=== PATIENT | female | born 1945 | race American Indian/Alaskan Native ===

== ENCOUNTER 2018-03-30 20:19 | Emergency (ER) | payer MEDICARE ==
[2018-03-30 21:09] LABS: Basophils % (Auto) 0.9 % (0.0-1.8); Eosinophils % (Auto) 0.8 % (0.0-4.3); Hematocrit 51.3 % (30.3-42.9); Hemoglobin 16.5 gm/dl (10.1-14.3); Lymphocytes # (Auto) 2.6 K/mm3 (1.2-5.4); Lymphocytes % (Auto) 49.7 % (13.4-35.0); Mean Corpuscular HGB Conc 32 % (30-34); Mean Corpuscular Hemoglobin 26 pg (28-32); Mean Corpuscular Volume 81 fl (79-97); Monocytes # (Auto) 0.3 K/mm3 (0.0-0.8); Red Blood Count 6.34 M/mm3 (3.65-5.03)
[2018-03-30 21:17] LABS: Platelet Count 192 K/mm3 (140-440)
[2018-03-30 21:20] LABS: INR 0.94 (0.87-1.13); Partial Thromboplastin Time 33.7 Sec. (24.2-36.6)
[2018-03-30 21:24] LABS: Alanine Aminotransferase 12 units/L (7-56); Albumin 4.6 g/dL (3.9-5); BUN/Creatinine Ratio 14; Blood Urea Nitrogen 11 mg/dL (7-17); Calcium 9.6 mg/dL (8.4-10.2); Hemolysis Index 10
--- NOTE | 2018-03-30 21:52 | Cat Scan Report ---
FINAL REPORT EXAM: CT HEAD/BRAIN WO CON HISTORY: headache COMPARISON: CT of the head from March 13, 2018. TECHNIQUE: Axial images obtained skull base through vertex. FINDINGS: No acute intracranial hemorrhage, midline shift or pathologic extra axial fluid collection. Ventricles and cisterns are normal in size and configuration for the patient's age. Phillips-white differentiation preserved. Calvarium grossly intact. Mild to moderate calcified plaque along the carotid siphons. Ocular globes are grossly unremarkable. Mild mucosal thickening the paranasal sinuses. Small amount of fluid within the caudal left mastoid air cells. IMPRESSION: No grossly acute intracranial abnormality.
--- NOTE | 2018-03-31 00:10 | Emergency Department Report ---
ED Headache HPI - General Chief Complaint: Headache Stated Complaint: RIGHT SIDE OF THE HEAD PAIN Time Seen by Provider: 03/30/18 23:59 Source: patient - History of Present Illness Initial Comments: Patient is 72 years old female with past medical history of hypertension and left sided weakness due to previous stroke. Patient was recently discharged from the hospital 2 weeks ago for stroke. Patient presented to the ER complaining of headache since yesterday. Describes her headache as right parietal area mild. Does not associate with nausea or vomiting. Patient denied any neck stiffness or fever. Patient denied any new weakness, numbness or tingling sensation. No bowel or bladder incontinence. Timing/Duration: 24 hours Quality: mild Head Injury Location: temporal Recent Head Trauma: no recent headache/trauma, frequent headaches Modifying Factors: worse with: cold therapy, exposure to light, immobilization, medication, movement, rest, other Associated Symptoms: denies: denies symptoms, confusion, fatigue, facial pain, fever/chills, flushing, loss of consciousness, nausea/vomiting, nasal congestion , nasal drainage, numbness in legs/feet, rash, seizures, sinus infection, stiff neck, vision changes, weakness, other Allergies/Adverse Reactions: Allergies aspirin Adverse Reaction (Verified 03/13/18 02:05) Bleeding blood thinners Adverse Reaction (Uncoded 08/09/16 01:53) Bleeding Home Medications: Ambulatory Orders Losartan [Cozaar] 100 mg PO QDAY #30 tablet 12/18/15 Cyclobenzaprine HCl [Flexeril 5 MG TAB] 5 mg PO TID #7 tab 02/13/16 amLODIPine [Norvasc] 10 mg PO QDAY 02/13/16 Nitrofurantoin [place]/M-Cryst [Macrobid CAP] 100 mg PO Q12HR #13 capsule 03/04/16 ALBUTEROL Inhaler [ProAir HFA Inhaler] 2 puff IH QID PRN #1 inhalation 06/04/16 Cyanocobalamin (Vitamin B-12) [Vitamin B-12] 1,000 mcg PO DAILY #30 tablet 03/14 Diazepam Tab [Valium] 0.5 mg PO TID PRN #21 tablet 03/14/18 Pravastatin [Pravachol] 80 mg PO QHS #30 tablet 03/15/18 ED Review of Systems ROS: Stated complaint: RIGHT SIDE OF THE HEAD PAIN Other details as noted in HPI Comment: All other systems reviewed and negative Constitutional: denies: chills, fever Eyes: denies: eye pain ENT: denies: throat pain Cardiovascular: denies: chest pain, palpitations, dyspnea on exertion, orthopnea , edema, syncope, paroxysmal nocturnal dyspnea Gastrointestinal: denies: abdominal pain, nausea, vomiting, diarrhea, constipation, hematemesis, melena, hematochezia Neurological: denies: headache, weakness, numbness, paresthesias ED Past Medical Hx - Past Medical History Previous Medical History?: Yes Hx Hypertension: Yes Hx CVA: Yes (old chart no mri documentation on previous admits for same left side weakne) Hx Heart Attack/AMI: No Hx Congestive Heart Failure: No Hx Diabetes: No Hx Liver Disease: No Hx Renal Disease: No Hx Asthma: No Hx COPD: No Additional medical history: Hx. left clavicle fx., h/o muscle spasms. anyerusim to behind left eye. - Surgical History Past Surgical History?: Yes Additional Surgical History: Herniated disk cspine 2001 C5-6, fusion,NECK SURGERY - Social History Smoking Status: Current Every Day Smoker Substance Use Type: None - Medications Home Medications: Home Medications Medication Instructions Recorded Confirmed Last Taken Type Losartan [Cozaar] 100 mg PO QDAY #30 tablet 12/18/15 03/13/18 1 Day Ago Rx ~03/12/18 Cyclobenzaprine HCl [Flexeril 5 MG 5 mg PO TID #7 tab 02/13/16 03/13/18 1 Week Ago Rx TAB] ~03/06/18 amLODIPine [Norvasc] 10 mg PO QDAY 02/13/16 03/13/18 1 Day Ago History ~03/12/18 Nitrofurantoin [place]/M-Cryst 100 mg PO Q12HR #13 capsule 03/04/16 03/13/18 1 Week Ago Rx [Macrobid CAP] ~03/06/18 ALBUTEROL Inhaler [ProAir HFA 2 puff IH QID PRN #1 inhalation 06/04/16 03/13/18 1 Week Ago Rx Inhaler] ~03/06/18 Cyanocobalamin (Vitamin B-12) 1,000 mcg PO DAILY #30 tablet 03/14/18 Unknown Rx [Vitamin B-12] Diazepam Tab [Valium] 0.5 mg PO TID PRN #21 tablet 03/14/18 Unknown Rx Pravastatin [Pravachol] 80 mg PO QHS #30 tablet 03/15/18 Unknown Rx ED Physical Exam - General Limitations: No Limitations General appearance: alert, in no apparent distress - Head Head exam: Present: atraumatic, normocephalic - Eye Eye exam: Present: normal appearance, PERRL - ENT ENT exam: Present: normal exam, normal orophraynx, mucous membranes moist - Neck Neck exam: Present: normal inspection, full ROM. Absent: tenderness, meningismus, lymphadenopathy, thyromegaly - Respiratory Respiratory exam: Present: normal lung sounds bilaterally. Absent: respiratory distress, wheezes, rales, rhonchi, stridor, chest wall tenderness, accessory muscle use, decreased breath sounds, prolonged expiratory - Cardiovascular Cardiovascular Exam: Present: regular rate, normal rhythm, normal heart sounds - GI/Abdominal GI/Abdominal exam: Present: soft, normal bowel sounds. Absent: distended, tenderness, guarding, rebound, rigid, organomegaly, mass, bruit, pulsatile mass , hernia - Extremities Exam Extremities exam: Present: normal inspection, full ROM, normal capillary refill - Back Exam Back exam: Present: normal inspection, full ROM. Absent: tenderness, CVA tenderness (R), CVA tenderness (L), muscle spasm, vertebral tenderness - Neurological Exam Neurological exam: Present: alert, oriented X3, CN II-XII intact, motor sensory deficit (old left CVA), reflexes normal - Skin Skin exam: Present: warm, intact, normal color ED Course Vital Signs 03/30/18 20:31 Temperature 97.7 F Pulse Rate 71 Respiratory 17 Rate Blood Pressure 120/64 O2 Sat by Pulse 98 Oximetry - Reevaluation(s) Reevaluation #1: 03/31/18 00:10 Patient stated that her headache is completely resolved now. She stated that she wanted to take her Valium that she is taking for her left upper and lower extremity spasticity. ED Medical Decision Making - Lab Data Result diagrams: 03/30/18 21:00 03/30/18 21:00 Critical care attestation.: If time is entered above; I have spent that time in minutes in the direct care of this critically ill patient, excluding procedure time. ED Disposition Clinical Impression: Headache, Hemiparesis due to old stroke Disposition: DC-01 TO HOME OR SELFCARE Is pt being admited?: No Condition: Stable Instructions: Acute Headache (ED) Referrals: ARANZA THOMPSON MD [Primary Care Provider] - 3-5 Days
[2018-03-31 00:21] VITALS: BP 109/63
== END 2018-03-31 00:20 | disposition home or self-care (01) ==
LOC: ED 20:19
DX: G81.90 Hemiplegia, unspecified affecting unspecified side (principal); I10 Essential (primary) hypertension; F17.200 Nicotine dependence, unspecified, uncomplicated; Z86.73 Personal history of transient ischemic attack (TIA), and cerebral infarction without residual deficits; Z88.6 Allergy status to analgesic agent; Z88.8 Allergy status to other drugs, medicaments and biological substances
CPT/HCPCS: 36415; 70450; 80053; 85025; 85610; 85730; 99284

== ENCOUNTER 2018-04-23 07:21 | Inpatient (IN) | payer MEDICARE ==
[2018-04-23 07:44] LABS: Basophils # (Auto) 0.1 K/mm3 (0.0-0.1); Eosinophils # (Auto) 0.1 K/mm3 (0.0-0.4); Eosinophils % (Auto) 1.3 % (0.0-4.3); Hematocrit 46.6 % (30.3-42.9); Hemoglobin 15.2 gm/dl (10.1-14.3); Lymphocytes # (Auto) 2.8 K/mm3 (1.2-5.4); Lymphocytes % (Auto) 53.6 % (13.4-35.0); Mean Corpuscular HGB Conc 33 % (30-34); Mean Corpuscular Hemoglobin 27 pg (28-32); Mean Corpuscular Volume 82 fl (79-97); Monocytes # (Auto) 0.4 K/mm3 (0.0-0.8); Red Blood Count 5.66 M/mm3 (3.65-5.03); Red Cell Distribution Width 16.1 % (13.2-15.2)
[2018-04-23 07:48] LABS: Platelet Count 187 K/mm3 (140-440)
[2018-04-23 07:58] LABS: INR 0.95 (0.87-1.13)
--- NOTE | 2018-04-23 07:58 | Cat Scan Report ---
CT HEAD WITHOUT CONTRAST: HISTORY: Left upper and left lower extremity weakness, CVA. TECHNIQUE: Sequential 2.5mm CT images. COMPARISON: 03/30/18. FINDINGS: Cerebral Parenchyma: Within normal limits. Mild age-appropriate volume loss is noted. Cerebellum: Within normal limits. Brainstem: Within normal limits. Ventricles: Normal. Sella: Normal. Extra-axial spaces: Normal. Basal Cisterns: Normal. Intracranial Hemorrhage: None. Midline Shift: None. Calvarium: Normal. Sinuses: Normal. Mastoid Air Cells: Normal. Visualized Orbits: Normal. IMPRESSION: Cranial CT scan within normal limits. No change since 03/30/18.
[2018-04-23 07:59] LABS: Partial Thromboplastin Time 33.7 Sec. (24.2-36.6); Thrombin Time 15.9 Sec. (15.1-19.6)
[2018-04-23 08:00] LABS: Creatine Kinase MB 1.4 ng/mL (0.0-4.0)
--- NOTE | 2018-04-23 08:16 | Emergency Department Report ---
HPI - General Chief Complaint: Neuro Symptoms/Deficit Time Seen by Provider: 04/23/18 07:56 - HPI HPI: 72-year-old AA female presented to the emergency department with complaint of a left-sided headache, some decreased sensation to the left arm and left leg and some increased rigidity to the left arm that started around 3 AM this morning. She denies any vision change, slurred speech, chest pain, shortness of breath or fever. Patient has a history of previous CVA with left-sided deficits. She did not take anything for her symptoms prior to presentation. In reviewing the charts, it appears that the patient has been admitted in the past for similar left-sided complaints. She says that she has a neurologist through the [facility] system. Recent travel or sick contacts at home. The patient usually ambulates using a cane but can do so without any instability. She says that today she feels like she has trouble walking secondary to the increased left-sided weakness. ED Past Medical Hx - Past Medical History Hx Hypertension: Yes Hx CVA: Yes (old chart no mri documentation on previous admits for same left side weakne) Hx Heart Attack/AMI: No Hx Congestive Heart Failure: No Hx Diabetes: No Hx Liver Disease: No Hx Renal Disease: No Hx Asthma: No Hx COPD: No Additional medical history: Hx. left clavicle fx., h/o muscle spasms. anyerusim to behind left eye. - Surgical History Additional Surgical History: Herniated disk cspine 2002 C5-6, fusion,NECK SURGERY - Social History Smoking Status: Never Smoker Substance Use Type: Alcohol - Medications Home Medications: Home Medications Medication Instructions Recorded Confirmed Last Taken Type Losartan [Cozaar] 100 mg PO QDAY #30 tablet 12/18/15 03/13/18 1 Day Ago Rx ~03/12/18 Cyclobenzaprine HCl [Flexeril 5 MG 5 mg PO TID #7 tab 02/13/16 03/13/18 1 Week Ago Rx TAB] ~03/06/18 amLODIPine [Norvasc] 10 mg PO QDAY 02/13/16 03/13/18 1 Day Ago History ~03/12/18 Nitrofurantoin [place]/M-Cryst 100 mg PO Q12HR #13 capsule 03/04/16 03/13/18 1 Week Ago Rx [Macrobid CAP] ~03/06/18 ALBUTEROL Inhaler [ProAir HFA 2 puff IH QID PRN #1 inhalation 06/04/16 03/13/18 1 Week Ago Rx Inhaler] ~03/06/18 Cyanocobalamin (Vitamin B-12) 1,000 mcg PO DAILY #30 tablet 03/14/18 Unknown Rx [Vitamin B-12] Diazepam Tab [Valium] 0.5 mg PO TID PRN #21 tablet 03/14/18 Unknown Rx Pravastatin [Pravachol] 80 mg PO QHS #30 tablet 03/15/18 Unknown Rx ED Review of Systems ROS: Stated complaint: NEURO SYMPTOMS Other details as noted in HPI Constitutional: weakness. denies: fever Eyes: denies: eye pain, eye discharge, vision change ENT: denies: ear pain, throat pain Respiratory: denies: cough, shortness of breath, wheezing Cardiovascular: denies: chest pain, palpitations Gastrointestinal: denies: abdominal pain, nausea, diarrhea Genitourinary: denies: urgency, dysuria, discharge Musculoskeletal: myalgia. denies: joint swelling Skin: denies: rash, lesions Neurological: headache, weakness, numbness Physical Exam - Physical Exam Vital Signs: Vital Signs 04/23/18 07:28 Temperature 97.7 F Pulse Rate 73 Respiratory 18 Rate Blood Pressure 148/73 O2 Sat by Pulse 97 Oximetry Physical Exam: GENERAL: The patient is well-developed well-nourished. HENT: Normocephalic. Atraumatic. Patient has moist mucous membranes. EYES: Extraocular motions are intact. Pupils equal reactive to light bilaterally. No nystagmus. NECK: Supple. Trachea is midline. CHEST/LUNGS: Clear to auscultation. There is no respiratory distress noted. HEART/CARDIOVASCULAR: Regular. There is no tachycardia. There is no murmur. ABDOMEN: Abdomen is soft, nontender. Patient has normal bowel sounds. There is no abdominal distention. SKIN: Skin is warm and dry. NEURO: The patient is awake, alert, and oriented. The patient is cooperative. There is normal speech. She has left upper extremity drift but it does not hit the head. She has trouble raising the left upper extremity off of the bed and it drifts down and hits the bed again. She has decreased sensation to the left side of the face, arm and leg when compared to the right. No facial asymmetry. MUSCULOSKELETAL: There is no tenderness or deformity. There is no evidence of acute injury. ED Course Vital Signs 04/23/18 07:28 Temperature 97.7 F Pulse Rate 73 Respiratory 18 Rate Blood Pressure 148/73 O2 Sat by Pulse 97 Oximetry - Reevaluation(s) Reevaluation #1: 04/23/18 11:10 RESULT SUMMARY: 4 points NIH Stroke Scale INPUTS: 1A: Level of consciousness > 0 = Alert; keenly responsive 1B: Ask month and age > 0 = Both questions right 1C: 'Blink eyes' & 'squeeze hands' > 0 = Performs both tasks 2: Horizontal extraocular movements > 0 = Normal 3: Visual bernal > 0 = No visual loss 4: Facial palsy > 0 = Normal symmetry 5A: Left arm motor drift > 1 = Drift, but doesn't hit bed 5B: Right arm motor drift > 0 = No drift for 10 seconds 6A: Left leg motor drift > 2 = Drift, hits bed 6B: Right leg motor drift > 0 = No drift for 5 seconds 7: Limb Ataxia > 0 = No ataxia 8: Sensation > 1 = Mild-moderate loss: less sharp/more dull 9: Language/aphasia > 0 = Normal; no aphasia 10: Dysarthria > 0 = Normal 11: Extinction/inattention > 0 = No abnormality - Consultations Consultation #1: 04/23/18 11:15 I spoke to the telemedicine neurologist, Dr. Garrison, regarding the patient's presentation and symptoms. She agrees that the patient does not appear to to be a TPA candidate for multiple reasons include being outside of the window, alleged stroke within the past 3 months and the patient appears to have an allergy to blood thinners. However Dr. Garrison recommends admission for further workup including MRI. ED Medical Decision Making - Lab Data Result diagrams: 04/23/18 07:30 04/23/18 07:03 - EKG Data -: EKG Interpreted by Or EKG shows normal: sinus rhythm, axis, intervals, QRS complexes, ST-T waves Rate: normal - EKG Data When compared to previous EKG there are: previous EKG unavailable Interpretation: normal EKG - Radiology Data Radiology results: report reviewed CT HEAD WITHOUT CONTRAST: HISTORY: Left upper and left lower extremity weakness, CVA. TECHNIQUE: Sequential 2.5mm CT images. COMPARISON: 03/30/18. FINDINGS: Cerebral Parenchyma: Within normal limits. Mild age-appropriate volume loss is noted. Cerebellum: Within normal limits. Brainstem: Within normal limits. Ventricles: Normal. Sella: Normal. Extra-axial spaces: Normal. Basal Cisterns: Normal. Intracranial Hemorrhage: None. Midline Shift: None. Calvarium: Normal. Sinuses: Normal. Mastoid Air Cells: Normal. Visualized Orbits: Normal. IMPRESSION: Cranial CT scan within normal limits. No change since 03/30/18. Transcribed By: TTR Dictated By: YEMI FLEMING JR, MD Electronically Authenticated By: YEMI FLEMING JR, MD Signed Date/Time: 04/23/18 9475 - Medical Decision Making Patient presented as a code stroke secondary to some acute left-sided decreased sensation and weakness. She does have history of previous CVA with left-sided deficits and there is some records that state that there is a history of left- sided spastic hemiparesis. CT of the head did not show any bleed, shift, mass or any acute process. However the patient's symptoms started sometime around 3 AM and given the timing is not definitive. The patient was here for a code stroke and had a negative CT by about 815. She does not appear to be a TPA candidate. I spoke with the telemedicine neurologist who agrees that no TPA is to be given and also does not feel that it is necessary for CT angiography at this time. However she does encourage admission for further stroke workup including MRI. The patient allegedly had a stroke within the last 3 months and also is a contraindication to TPA. She also has an allergy to aspirin and "blood thinners." She will be admitted to the hospital for further evaluation and treatment was accepted for admission by the hospitalist service. I spoke with Dr. Velez regarding the admission. - Differential Diagnosis CVA, TIA, muscle spasms, complex migraine Critical Care Time: No Critical care attestation.: If time is entered above; I have spent that time in minutes in the direct care of this critically ill patient, excluding procedure time. ED Disposition Clinical Impression: Left-sided weakness, Left sided numbness Headache Qualifiers: Headache type: unspecified Headache chronicity pattern: unspecified pattern Intractability: not intractable Qualified Code(s): R51 - Headache Disposition: DC-09 OP ADMIT IP TO THIS HOSP Is pt being admited?: Yes Does the pt Need Aspirin: No Condition: Stable Referrals: PRIMARY CARE, [Primary Care Provider] - 3-5 Days Time of Disposition: 11:15
[2018-04-23 09:25] LABS: Alanine Aminotransferase 16 units/L (7-56); Albumin 4.1 g/dL (3.9-5); BUN/Creatinine Ratio 15; Blood Urea Nitrogen 9 mg/dL (7-17); Hemolysis Index 7
[2018-04-23 13:05] LABS: Bilirubin,Urine NEG (Negative); Blood,Urine NEG (Negative); Color,Urine Yellow (Yellow); Protein,Urine <15 mg/dL mg/dL (Negative); Urobilinogen,Urine < 2.0 mg/dL (<2.0)
[2018-04-23] MEDS ORDERED: AMBIEN PO PRN (18:31)
[2018-04-23] MEDS ORDERED: TYLENOL PO PRN (18:31)
[2018-04-23] MEDS ORDERED: SODIUM CHLORIDE FLUSH SYRINGE 10 ML IV PRN ×2 (18:31→18:34)
[2018-04-23] MEDS ORDERED: MORPHINE IV PRN (18:31)
[2018-04-23] MEDS ORDERED: PERCOCET 5/325 PO PRN (18:31)
[2018-04-23] MEDS ORDERED: ZOFRAN IV PRN (18:31)
--- NOTE | 2018-04-23 18:31 | History and Physical Report ---
History of Present Illness Date of examination: 04/23/18 Date of admission: 04/23/18 11:36 Medications and Allergies Allergies Allergy/AdvReac Type Severity Reaction Status Date / Time aspirin AdvReac Bleeding Verified 03/13/18 02:05 blood thinners AdvReac Bleeding Uncoded 08/09/16 01:53 Home Medications Medication Instructions Recorded Confirmed Last Taken Type Losartan [Cozaar] 100 mg PO QDAY #30 tablet 12/18/15 04/23/18 04/22/18 Rx Amlodipine [place] [Norvasc] 10 mg PO QDAY 04/23/18 04/23/18 04/22/18 History Cyclobenzaprine HCl [Flexeril 5 MG 5 mg PO BID 04/23/18 04/23/18 04/22/18 History TAB] Diazepam [Valium] 5 mg PO BID 04/23/18 04/23/18 Unknown History Oxycodone HCl [oxyCODONE TAB] 10 mg PO Q8H 04/23/18 04/23/18 Unknown History Exam - Constitutional Vitals: Temp Pulse Resp BP Pulse Ox 97.7 F 70 14 144/75 98 04/23/18 07:28 04/23/18 16:45 04/23/18 16:45 04/23/18 16:45 04/23/18 16:30 Results - Labs CBC & Chem 7: 04/23/18 07:30 04/23/18 07:03 Labs: Laboratory Last Values WBC 5.2 K/mm3 (4.5-11.0) 04/23/18 07:30 RBC 5.66 M/mm3 (3.65-5.03) H 04/23/18 07:30 Hgb 15.2 gm/dl (10.1-14.3) H 04/23/18 07:30 Hct 46.6 % (30.3-42.9) H 04/23/18 07:30 MCV 82 fl (79-97) 04/23/18 07:30 MCH 27 pg (28-32) L 04/23/18 07:30 MCHC 33 % (30-34) 04/23/18 07:30 RDW 16.1 % (13.2-15.2) H 04/23/18 07:30 Plt Count 187 K/mm3 (140-440) 04/23/18 07:30 Lymph % (Auto) 53.6 % (13.4-35.0) H 04/23/18 07:30 [place] % (Auto) 7.0 % (0.0-7.3) 04/23/18 07:30 Eos % (Auto) 1.3 % (0.0-4.3) 04/23/18 07:30 Baso % (Auto) 1.0 % (0.0-1.8) 04/23/18 07:30 Lymph # 2.8 K/mm3 (1.2-5.4) 04/23/18 07:30 [place] # 0.4 K/mm3 (0.0-0.8) 04/23/18 07:30 Eos # 0.1 K/mm3 (0.0-0.4) 04/23/18 07:30 Baso # 0.1 K/mm3 (0.0-0.1) 04/23/18 07:30 Seg Neutrophils % 37.1 % (40.0-70.0) L 04/23/18 07:30 Seg Neutrophils # 1.9 K/mm3 (1.8-7.7) 04/23/18 07:30 PT 13.2 Sec. (12.2-14.9) 04/23/18 07:30 INR 0.95 (0.87-1.13) 04/23/18 07:30 APTT 33.7 Sec. (24.2-36.6) 04/23/18 07:30 Thrombin Time 15.9 Sec. (15.1-19.6) 04/23/18 07:30 Sodium 141 mmol/L (137-145) 04/23/18 07:03 Potassium 4.0 mmol/L (3.6-5.0) 04/23/18 07:03 Chloride 106.0 mmol/L (98-107) 04/23/18 07:03 Carbon Dioxide 21 mmol/L (22-30) L 04/23/18 07:03 Anion Gap 18 mmol/L 04/23/18 07:03 BUN 9 mg/dL (7-17) 04/23/18 07:03 Creatinine 0.6 mg/dL (0.7-1.2) L 04/23/18 07:03 Estimated GFR > 60 ml/min 04/23/18 07:03 BUN/Creatinine Ratio 15 % 04/23/18 07:03 Glucose 85 mg/dL (65-100) 04/23/18 07:03 POC Glucose 74 (70-105) 04/23/18 08:01 Calcium 9.0 mg/dL (8.4-10.2) 04/23/18 07:03 Total Bilirubin 0.30 mg/dL (0.1-1.2) 04/23/18 07:03 AST 16 units/L (5-40) 04/23/18 07:03 ALT 16 units/L (7-56) 04/23/18 07:03 Alkaline Phosphatase 109 units/L (35-129) 04/23/18 07:03 Total Creatine Kinase 88 units/L (30-135) 04/23/18 07:30 CK-MB (CK-2) 1.4 ng/mL (0.0-4.0) 04/23/18 07:30 CK-MB (CK-2) Rel Index 1.5 (0-4) 04/23/18 07:30 Troponin T < 0.010 ng/mL (0.00-0.029) 04/23/18 07:30 Total Protein 6.9 g/dL (6.3-8.2) 04/23/18 07:03 Albumin 4.1 g/dL (3.9-5) 04/23/18 07:03 Albumin/Globulin Ratio 1.5 % 04/23/18 07:03 Urine Color Yellow (Yellow) 04/23/18 11:35 Urine Turbidity Clear (Clear) 04/23/18 11:35 Urine pH 7.0 (5.0-7.0) 04/23/18 11:35 Ur Specific [place] 1.006 (1.003-1.030) 04/23/18 11:35 Urine Protein <15 mg/dl mg/dL (Negative) 04/23/18 11:35 Urine Glucose (UA) Neg mg/dL (Negative) 04/23/18 11:35 Urine Ketones Neg mg/dL (Negative) 04/23/18 11:35 Urine Blood Neg (Negative) 04/23/18 11:35 Urine Nitrite Neg (Negative) 04/23/18 11:35 Urine Bilirubin Neg (Negative) 04/23/18 11:35 Urine Urobilinogen < 2.0 mg/dL (<2.0) 04/23/18 11:35 Ur Leukocyte Esterase Sm (Negative) 04/23/18 11:35 Urine WBC (Auto) 3.0 /HPF (0.0-6.0) 04/23/18 11:35 Urine RBC (Auto) 2.0 /HPF (0.0-6.0) 04/23/18 11:35 U Epithel Cells (Auto) < 1.0 /HPF (0-13.0) 04/23/18 11:35
[2018-04-23] MEDS ORDERED: NON-FORMULARY (Losartan [Cozaar] 100 MG) PO SCH (18:45)
[2018-04-23] MEDS ORDERED: NON-FORMULARY (Oxycodone Hcl [Oxycodone Tab] 10 MG) PO SCH (18:45)
[2018-04-23] MEDS ORDERED: NACL 0.9% 1000 ML 1,000 ML IV SCH (19:00)
[2018-04-23] MEDS: VALIUM PO SCH (21:45)
[2018-04-23] MEDS ORDERED: NON-FORMULARY (Cyclobenzaprine Hcl [Flexeril 5 Mg Tab] 5 MG) PO SCH (22:00)
[2018-04-23] MEDS: ROXICODONE PO SCH (22:20)
[2018-04-23] MEDS: FLEXERIL PO SCH (22:22)
[2018-04-23] MEDS: NORVASC PO SCH (22:22)
[2018-04-23] MEDS: COZAAR PO SCH (22:23)
[2018-04-23] MEDS: SODIUM CHLORIDE FLUSH SYRINGE 10 ML IV SCH (22:25)
[2018-04-23] MEDS: PEPCID PO SCH (22:25)
[2018-04-24 06:37] LABS: Hematocrit 45.3 % (30.3-42.9); Hemoglobin 14.5 gm/dl (10.1-14.3); Mean Corpuscular HGB Conc 32 % (30-34); Mean Corpuscular Hemoglobin 26 pg (28-32); Mean Corpuscular Volume 82 fl (79-97); Platelet Count 158 K/mm3 (140-440); Red Blood Count 5.51 M/mm3 (3.65-5.03); Red Cell Distribution Width 15.6 % (13.2-15.2)
[2018-04-24] MEDS: ROXICODONE PO SCH ×3 (07:00→22:28)
[2018-04-24 07:08] LABS: Alanine Aminotransferase 14 units/L (7-56); Albumin 3.6 g/dL (3.9-5); BUN/Creatinine Ratio 17; Blood Urea Nitrogen 10 mg/dL (7-17); Calcium 9.1 mg/dL (8.4-10.2); Chol/HDL Ratio 4.24 %; HDL Cholesterol 50 mg/dL (40-59); Hemolysis Index 15; LDL Cholesterol,Direct 150 mg/dL (50-130)
[2018-04-24 08:38] LABS: Total Cells Counted 100
[2018-04-24 08:39] LABS: Large Platelets Few; Platelet Estimate Cons; RBC Morphology Normal
[2018-04-24] MEDS ORDERED: ASPIRIN PO SCH (10:00)
[2018-04-24] MEDS: COZAAR PO SCH (10:08)
[2018-04-24] MEDS: NORVASC PO SCH (10:09)
[2018-04-24] MEDS: VALIUM PO SCH ×2 (10:46→22:27)
[2018-04-24] MEDS: FLEXERIL PO SCH ×2 (10:46→22:25)
[2018-04-24] MEDS: PEPCID PO SCH ×2 (10:49→22:24)
[2018-04-24] MEDS: SODIUM CHLORIDE FLUSH SYRINGE 10 ML IV SCH ×2 (10:50→22:26)
[2018-04-24] MEDS: HEPARIN SUB-Q SCH ×2 (11:00→22:24)
--- NOTE | 2018-04-24 11:19 | Event Note ---
Date: 04/23/18 See dictated H/P in the reports
--- NOTE | 2018-04-24 12:38 | History and Physical Report ---
CHIEF COMPLAINT: Left-sided weakness and decreased sensation to the left arm and left leg since 3:00 a.m. this morning. HISTORY OF PRESENT ILLNESS: A 72-year-old -[place] female with history of hypertension, cerebrovascular accident from few years ago with residual left-sided weakness, comes in for left-sided headache and decreased sensation in the left arm and left leg and also dysarthria and left arm weakness, which is more pronounced. Left leg weakness is the same as before. The patient denies any vision changes. Has some slurred speech, which has resolved while in the Emergency Room. No shortness of breath. No chest pain. The patient has been admitted in the past for left-sided complaints and she goes to [facility] for the Neurology followups. No recent travel. The patient ambulates using a cane, but can do so without any instability. Today, she has some trouble walking. PAST MEDICAL HISTORY: As mentioned, hypertension, cerebrovascular accident in the past, left clavicle fracture, muscle spasms, and aneurysm behind the left eye. PAST SURGICAL HISTORY: Herniated disk, spine at 2001, C5-C6 fusion, neck surgery. SOCIAL HISTORY: Does not smoke. No alcohol. FAMILY HISTORY: Hypertension. CURRENT MEDICATIONS: On the chart. REVIEW OF SYSTEMS: Review of systems is significant for left upper extremity weakness, which has improved while in the Emergency Room. Also, slurred speech, which has improved well. In the Emergency Room. Left lower extremity weakness is the same. A 14-point review of systems is done, otherwise negative. PHYSICAL EXAMINATION: GENERAL: Elderly female, cooperative during the examination. VITAL SIGNS: Blood pressure is 105/56, temperature is 98.1, pulse is 55, respirations are 16. HEENT: Unremarkable. Pupils equal and reactive. NECK: Supple, no lymphadenopathy, no thyromegaly. LUNGS: Are clear to auscultation and percussion. Good air entry. CARDIOVASCULAR: S1, S2 heard. No gallop, no murmur, no rub. Apical impulse in left fifth intercostal space and midclavicular line. ABDOMEN: Soft and benign. No hepatosplenomegaly. No guarding, no rigidity. Hernial orifices are normal. EXTREMITIES: Good pedal pulses. CENTRAL NERVOUS SYSTEM: Left lower extremity, 4/5 power. Left upper extremity, 3/5 power. Speech is normal. Cranial nerves are normal. No nasal regurgitation of fluids. Sensory system is normal. Touch and pain and vibration sense and position sense. SKIN: Normal. LABORATORY AND DIAGNOSTIC DATA: Labs are significant for hemoglobin of 14.5, hematocrit of 45.3. Electrolytes are normal. Total protein is 6.2, albumin is 3.6, cholesterol is 212, LDL is 150. Urine is normal. CT of the head: No acute findings. EKG: Normal sinus rhythm, heart rate of 70. EKG is unavailable. ASSESSMENT AND PLAN: 1. Transient ischemic attack versus acute cerebrovascular accident. Acute cerebrovascular accident workup initiated. The patient has resolving symptoms in the Emergency Room, may be more in favor of transient ischemic attack. The patient has old cerebrovascular accident with left-sided weakness present. We will get a Neurology consult by Dr. Stallings. 2. Hypertension. Continue losartan 100 mg once a day and amlodipine 10 mg once a day. 3. Muscle spasms. Continue cyclobenzaprine 5 mg twice a day. 4. Chronic pain. Continue oxycodone 10 mg q. 8 hours. 5. Malnutrition, mild. Dietitian consult requested. 6. Deep venous thrombosis prophylaxis. Heparin 5000 q.12 hours. JOB# [id number] VSM/NTS
[2018-04-24] MEDS ORDERED: XANAX PO PRN (13:24)
--- NOTE | 2018-04-24 16:09 | Magnetic Resonance Report ---
MRI BRAIN WITHOUT CONTRAST: 04/23/18 11:36:00 CLINICAL: Stroke. TECHNIQUE: Axial diffusion, T1, T2, gradient echo T2*, coronal and axial FLAIR, and sagittal T1 sequences on a 1.5 [place] magnet. FINDINGS: The vessels in sulci are large for age. No restricted diffusion. No abnormal signal. No mass or mass effect. No hemorrhage, edema or extra-axial collection. Normal pituitary and optic chiasm. The brainstem is normal. Cerebellar sulcal enlargement. Intact vascular flow voids. Normal sinuses. The orbits, and soft tissues are normal. Normal calvarium and skull base. IMPRESSION: 1. Global cortical atrophy. 2. No evidence of acute/subacute infarct or hemorrhage.
--- NOTE | 2018-04-24 16:23 | Magnetic Resonance Report ---
MRA HEAD WITHOUT CONTRAST: 04/23/18 11:36:00 CLINICAL: Stroke. TECHNIQUE: Axial 3-D [id number] MR angiography of the [place] with review of axial source images. FINDINGS: The [place] is intact with intact anterior communicating and posterior communicating arteries. No aneurysms, high-grade stenoses or occlusions of the cerebral arteries. Symmetric blood flow in the anterior, middle and posterior cerebral arteries. 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 Normal basilar and and left vertebral arteries. A right vertebral artery is not identified. 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 No intracranial high-grade stenoses or occlusions.
--- NOTE | 2018-04-24 17:11 | Progress Note ---
Assessment and Plan - Patient Problems (1) TIA (transient ischemic attack) Current Visit: Yes Status: Acute Qualifiers: Transient cerebral ischemia type: carotid artery syndrome (hemispheric) Qualified Code(s): G45.1 - Carotid artery syndrome (hemispheric) Plan to address problem: MRI -no acute changes CDS-Bilateral high grade distal stenoses Vascular surgery to be consulted for possible carotid endaterectomy versus medical treatment (2) CVA (cerebral vascular accident) Current Visit: Yes Status: Chronic Qualifiers: CVA mechanism: thrombosis Precerebral and cerebral artery: middle cerebral artery Laterality of affected vessel: right Qualified Code(s): I63.311 - Cerebral infarction due to thrombosis of right middle cerebral artery Plan to address problem: Old with Left sided weakness PT/OT More weakness in LUE yesterday from baseline resolved (3) HTN (hypertension) Current Visit: Yes Status: Chronic Qualifiers: Hypertension type: essential hypertension Qualified Code(s): I10 - Essential (primary) hypertension Plan to address problem: Htn --controlled Cont home antihypertensives (4) DVT prophylaxis Current Visit: Yes Status: Acute Plan to address problem: On Heparin Subjective Date of service: 04/24/18 Principal diagnosis: TIA Interval history: SX better Objective - Constitutional Vitals: Vital Signs - 12hr 04/24/18 04/24/18 04/24/18 07:59 10:08 10:09 Temperature 98.1 F Pulse Rate Respiratory 16 Rate Blood Pressure 105/56 105/56 105/56 O2 Sat by Pulse Oximetry 04/24/18 04/24/18 10:46 12:08 Temperature 97.9 F Pulse Rate 65 Respiratory 18 Rate Blood Pressure 114/65 O2 Sat by Pulse 96 98 Oximetry General appearance: Present: no acute distress, well-nourished - EENT Eyes: PERRL, EOM intact ENT: hearing intact, clear oral mucosa Ears: bilateral: normal - Neck Neck: supple, normal ROM - Respiratory Respiratory effort: normal Respiratory: bilateral: CTA - Breasts Breasts: normal - Cardiovascular Heart rate: 78 Rhythm: regular Heart Sounds: Present: S1 & S2. Absent: gallop, rub Extremities: pulses intact, No edema, normal color, Full ROM - Gastrointestinal General gastrointestinal: Present: soft, non-tender, non-distended, normal bowel sounds - Genitourinary Female genitourinary: normal - Integumentary Integumentary: clear, warm, dry - Musculoskeletal Musculoskeletal: left sided weakness, generalized weakness - Neurologic Neurologic: focal deficits, other (Left side Hemiplegia) - Psychiatric Psychiatric: memory intact, appropriate mood/affect, intact judgment & insight - Labs CBC & Chem 7: 04/24/18 06:20 04/24/18 06:20 Labs: Abnormal lab results 04/24/18 04/24/18 Range/Units 06:20 06:20 RBC 5.51 H (3.65-5.03) M/mm3 Hgb 14.5 H (10.1-14.3) gm/dl Hct 45.3 H (30.3-42.9) % MCH 26 L (28-32) pg RDW 15.6 H (13.2-15.2) % Seg Neuts % (Manual) 31.0 L (40.0-70.0) % Lymphocytes % (Manual) 58.0 H (13.4-35.0) % Basophils % (Manual) 2.0 H (0.0-1.8) % Seg Neutrophils # Man 1.4 L (1.8-7.7) K/mm3 Creatinine 0.6 L (0.7-1.2) mg/dL Total Protein 6.2 L (6.3-8.2) g/dL Albumin 3.6 L (3.9-5) g/dL Cholesterol 212 H (50-199) mg/dL LDL Cholesterol Direct 150 H (50-130) mg/dL
[2018-04-25] MEDS: ROXICODONE PO SCH ×3 (06:49→22:24)
[2018-04-25] MEDS: SODIUM CHLORIDE FLUSH SYRINGE 10 ML IV SCH ×2 (09:40→22:12)
[2018-04-25] MEDS: COZAAR PO SCH (09:45)
[2018-04-25] MEDS: FLEXERIL PO SCH ×2 (09:47→22:11)
[2018-04-25] MEDS: NORVASC PO SCH (09:53)
[2018-04-25] MEDS: HEPARIN SUB-Q SCH ×2 (09:53→22:12)
[2018-04-25] MEDS: PEPCID PO SCH ×2 (09:54→22:11)
[2018-04-25] MEDS: VALIUM PO SCH ×2 (09:54→22:12)
[2018-04-25 11:16] LABS: Basophils % (Auto) 0.7 % (0.0-1.8); Eosinophils # (Auto) 0.1 K/mm3 (0.0-0.4); Eosinophils % (Auto) 1.1 % (0.0-4.3); Hematocrit 45.6 % (30.3-42.9); Lymphocytes # (Auto) 2.4 K/mm3 (1.2-5.4); Mean Corpuscular HGB Conc 33 % (30-34); Mean Corpuscular Hemoglobin 27 pg (28-32); Mean Corpuscular Volume 81 fl (79-97); Monocytes # (Auto) 0.4 K/mm3 (0.0-0.8); Monocytes % (Auto) 8.6 % (0.0-7.3); Red Blood Count 5.62 M/mm3 (3.65-5.03); Red Cell Distribution Width 15.5 % (13.2-15.2)
[2018-04-25 11:17] LABS: Platelet Count 158 K/mm3 (140-440)
[2018-04-25 11:26] LABS: Alanine Aminotransferase 13 units/L (7-56); Albumin 3.6 g/dL (3.9-5); BUN/Creatinine Ratio 15; Blood Urea Nitrogen 9 mg/dL (7-17); Calcium 9.1 mg/dL (8.4-10.2); Hemolysis Index 24
--- NOTE | 2018-04-25 17:32 | Consultation ---
History of Present Illness - Reason for Consult Consult date: 04/25/18 TIA and SHANNON - History of Present Illness 72-year-old female with history of prior stroke with left-sided hemiparesis. Prior stroke happened greater than 10 years ago. The patient reports that in the last month she had 2 episodes of left lower facial numbness with some numbness over her neck and dysphagia which lasted short periods of time, but she had this event upon presentation to the emergency room combined with left- sided chester-paresis and chester-numbness. The patient reports that she has a neurologist at [place] and has an interventional neurologist for aneurysms which are being monitored. Since arriving to the hospital, her left-sided hemiparesis and chester-numbness has improved, but is still not at her baseline. Her left lower facial numbness has improved, but is not at her baseline. Her dysphagia has improved but is not as her baseline. MRA reports small 5 cm aneurysm and distal internal carotid artery narrowing. The patient reports that her prior physicians have discontinued her Plavix due to concerns about bleeding. Past History Past Medical History: hypertension, stroke, other (intracranial aneurysms, muscle spasms) Past Surgical History: Other (left clavicle fracture , Herniated disk cspine 2002 C5-6 fusion) Social history: alcohol abuse. denies: smoking Family history: no significant family history Medications and Allergies Allergies Allergy/AdvReac Type Severity Reaction Status Date / Time aspirin AdvReac Bleeding Verified 03/13/18 02:05 blood thinners AdvReac Bleeding Uncoded 08/09/16 01:53 Home Medications Medication Instructions Recorded Confirmed Last Taken Type Losartan [Cozaar] 100 mg PO QDAY #30 tablet 12/18/15 04/23/18 04/22/18 Rx Amlodipine Besylate [Norvasc] 10 mg PO QDAY 04/23/18 04/23/18 04/22/18 History Cyclobenzaprine HCl [Flexeril 5 MG 5 mg PO BID 04/23/18 04/23/18 04/22/18 History TAB] Diazepam [Valium] 5 mg PO BID 04/23/18 04/23/18 Unknown History Oxycodone HCl [oxyCODONE TAB] 10 mg PO Q8H 04/23/18 04/23/18 Unknown History Active Meds: Active Medications Acetaminophen (Tylenol) 650 mg PO Q4H PRN PRN Reason: Pain MILD(1-3)/Fever >100.5/HANNA Alprazolam (Xanax) 0.5 mg PO Q8H PRN PRN Reason: Anxiety Last Admin: 04/24/18 13:52 Dose: 0.5 mg Amlodipine Besylate (Norvasc) 10 mg PO QDAY [facility] Last Admin: 04/25/18 09:53 Dose: Not Given Atorvastatin Calcium (Lipitor) 40 mg PO QHS [facility] Last Admin: 04/24/18 22:24 Dose: 40 mg Cyclobenzaprine HCl (Flexeril) 5 mg PO BID [facility] Last Admin: 04/25/18 09:47 Dose: 5 mg Diazepam (Valium) 5 mg PO BID [facility] Last Admin: 04/25/18 09:54 Dose: Not Given Famotidine (Pepcid) 20 mg PO BID [facility] Last Admin: 04/25/18 09:54 Dose: Not Given Heparin Sodium (Porcine) (Heparin) 5,000 unit SUB-Q Q12HR [facility] Last Admin: 04/25/18 09:53 Dose: Not Given Sodium Chloride (Nacl 0.9% 1000 Ml) 1,000 mls @ 75 mls/hr IV DIRECT [facility] Losartan Potassium (Cozaar) 100 mg PO QDAY [facility] Last Admin: 04/25/18 09:45 Dose: Not Given Morphine Sulfate (Morphine) 2 mg IV Q4H PRN PRN Reason: Pain, Moderate (4-6) Ondansetron HCl (Zofran) 4 mg IV Q8H PRN PRN Reason: Nausea And Vomiting Oxycodone HCl (Roxicodone) 10 mg PO Q8HR [facility] Last Admin: 04/25/18 15:12 Dose: 10 mg Oxycodone/Acetaminophen (Percocet 5/325) 1 tab PO Q6H PRN PRN Reason: Pain, Moderate (4-6) Sodium Chloride (Sodium Chloride Flush Syringe 10 Ml) 10 ml IV BID [facility] Last Admin: 04/24/18 22:26 Dose: 10 ml Sodium Chloride (Sodium Chloride Flush Syringe 10 Ml) 10 ml IV PRN PRN PRN Reason: LINE FLUSH Zolpidem Tartrate (Ambien) 5 mg PO QHS PRN PRN Reason: Insomnia Review of Systems All systems: negative (see HPI) Exam - Constitutional Vitals: Temp Pulse Resp BP Pulse Ox 98.2 F 56 L 16 111/66 96 04/25/18 04:21 04/25/18 09:53 04/25/18 09:40 04/25/18 09:53 04/25/18 10:00 General appearance: Present: no acute distress - EENT Eyes: Present: EOM intact ENT: hearing intact - Neck Neck: Present: supple - Respiratory Respiratory effort: normal - Extremities Extremities: pulses intact (bilateral radial and ulnar) - Abdominal General gastrointestinal: Present: soft - Neurologic Neurologic: other (left lower extremity and left upper extremity, 4 out of 5 ; no left facial motor dysfunction) Results - Labs CBC & Chem 7: 04/25/18 10:54 04/25/18 10:54 Labs: Abnormal lab results 04/25/18 04/25/18 Range/Units 10:54 10:54 RBC 5.62 H (3.65-5.03) M/mm3 Hgb 15.0 H (10.1-14.3) gm/dl Hct 45.6 H (30.3-42.9) % MCH 27 L (28-32) pg RDW 15.5 H (13.2-15.2) % Lymph % (Auto) 53.0 H (13.4-35.0) % [place] % (Auto) 8.6 H (0.0-7.3) % Seg Neutrophils % 36.6 L (40.0-70.0) % Seg Neutrophils # 1.7 L (1.8-7.7) K/mm3 Creatinine 0.6 L (0.7-1.2) mg/dL Albumin 3.6 L (3.9-5) g/dL - Imaging and Cardiology MRI - head: report reviewed Assessment and Plan 72-year-old female with prior neurologic event with left-sided hemiparesis with recent crescendo events resulting in left lower facial numbness, worsening left- sided hemiparesis, worsening left-sided chester-sensory deficit, all of which have been improving. Patient is seen in the outpatient setting by an interventional neurologist and a neurologist who have taken her off of antiplatelet medications. Discussed with Dr. Drummond, and we both feel the patient would benefit from a neurology consultation because she seems like she would probably benefit from antiplatelet therapy although this was discontinued by her neurology specific healthcare providers. I ordered a CT angiogram of the head and neck for history of aneurysms and to exclude carotid artery stenosis. I also ordered a carotid ultrasound.
--- NOTE | 2018-04-25 18:20 | Progress Note ---
Assessment and Plan - Patient Problems (1) HTN (hypertension) with goal to be determined Current Visit: Yes Status: Acute Plan to address problem: Patient blood pressure appears to be optimally controlled at this particular time. On amlodipine and losartan. Continue present management. (2) Left sided numbness Current Visit: Yes Status: Acute Plan to address problem: Left-sided numbness and left-sided weakness has resolved. MRI MRA findings discussed. Will reconsult neurology to evaluate the patient will need anticoagulation aspirin alone versus Plavix. We'll also contact Dr. Mendiola to see if he can give any insight into why patient should not take any anticoagulants. Patient at this particular time is starts in her belief on what her previous neurologists and interventional radiologist told her (3) TIA (transient ischemic attack) Current Visit: Yes Status: Acute Qualifiers: Transient cerebral ischemia type: carotid artery syndrome (hemispheric) Qualified Code(s): G45.1 - Carotid artery syndrome (hemispheric) Plan to address problem: See above left-sided numbness nor evaluation to suggest aspirin and Plavix versus aspirin alone versus no anticoagulation. (4) HTN (hypertension) Current Visit: Yes Status: Chronic Qualifiers: Hypertension type: essential hypertension Qualified Code(s): I10 - Essential (primary) hypertension Plan to address problem: Optimal control blood pressure as mentioned previously. 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 Current Visit: No Status: Chronic (6) Nonruptured cerebral aneurysm, internal carotid artery, intracranial portion Onset Date: 07/09/14 Current Visit: No Status: Chronic History Interval history: At present patient feels better. Neurologic symptoms resolving. Patient had MRA which showed high-grade ductal ICA stenosis also a 5 mm saccular aneurysm. MRI showed global atrophy. I did speak to patient and she already had a neurologist as well as interventional radiologists at [place]. Patient's neurologist was Dr. Sexton patient states that they did not want patient to take any anticoagulation. She was taken off aspirin and Plavix. Patient had a prior history of CVA in on this time she had a TIA. Hospitalist Physical - Constitutional Vitals: Temp Pulse Resp BP Pulse Ox 98.2 F 56 L 16 111/66 96 04/25/18 04:21 04/25/18 09:53 04/25/18 09:40 04/25/18 09:53 04/25/18 10:00 General appearance: Present: no acute distress - EENT Eyes: Present: PERRL, EOM intact ENT: hearing intact, clear oral mucosa, dentition normal - Neck Neck: Present: supple, normal ROM, other (scars from previous discectomy) - Respiratory Respiratory effort: normal Respiratory: bilateral: CTA - Cardiovascular Rhythm: regular Heart Sounds: Present: S1 & S2 - Extremities Extremities: no ischemia, pulses intact, pulses symmetrical, No edema, normal temperature, normal color Peripheral Pulses: within normal limits - Abdominal General gastrointestinal: soft, non-tender, non-distended, normal bowel sounds - Psychiatric Psychiatric: appropriate mood/affect - Neurologic Neurologic: CNII-XII intact, focal deficits Results - Labs CBC & Chem 7: 04/25/18 10:54 04/25/18 10:54 Labs: Laboratory Last Values WBC 4.6 K/mm3 (4.5-11.0) 04/25/18 10:54 RBC 5.62 M/mm3 (3.65-5.03) H 04/25/18 10:54 Hgb 15.0 gm/dl (10.1-14.3) H 04/25/18 10:54 Hct 45.6 % (30.3-42.9) H 04/25/18 10:54 MCV 81 fl (79-97) 04/25/18 10:54 MCH 27 pg (28-32) L 04/25/18 10:54 MCHC 33 % (30-34) 04/25/18 10:54 RDW 15.5 % (13.2-15.2) H 04/25/18 10:54 Plt Count 158 K/mm3 (140-440) 04/25/18 10:54 Lymph % (Auto) 53.0 % (13.4-35.0) H 04/25/18 10:54 [place] % (Auto) 8.6 % (0.0-7.3) H 04/25/18 10:54 Eos % (Auto) 1.1 % (0.0-4.3) 04/25/18 10:54 Baso % (Auto) 0.7 % (0.0-1.8) 04/25/18 10:54 Lymph # 2.4 K/mm3 (1.2-5.4) 04/25/18 10:54 [place] # 0.4 K/mm3 (0.0-0.8) 04/25/18 10:54 Eos # 0.1 K/mm3 (0.0-0.4) 04/25/18 10:54 Baso # 0.0 K/mm3 (0.0-0.1) 04/25/18 10:54 Add Manual Diff Complete 04/24/18 06:20 Total Counted 100 04/24/18 06:20 Seg Neutrophils % 36.6 % (40.0-70.0) L 04/25/18 10:54 Seg Neuts % (Manual) 31.0 % (40.0-70.0) L 04/24/18 06:20 Band Neutrophils % 0 % 04/24/18 06:20 Lymphocytes % (Manual) 58.0 % (13.4-35.0) H 04/24/18 06:20 Reactive Lymphs % (Man) 2.0 % 04/24/18 06:20 Monocytes % (Manual) 4.0 % (0.0-7.3) 04/24/18 06:20 Eosinophils % (Manual) 3.0 % (0.0-4.3) 04/24/18 06:20 Basophils % (Manual) 2.0 % (0.0-1.8) H 04/24/18 06:20 Metamyelocytes % 0 % 04/24/18 06:20 Myelocytes % 0 % 04/24/18 06:20 Promyelocytes % 0 % 04/24/18 06:20 Blast Cells % 0 % 04/24/18 06:20 Nucleated RBC % Not Reportable 04/24/18 06:20 Seg Neutrophils # 1.7 K/mm3 (1.8-7.7) L 04/25/18 10:54 Seg Neutrophils # Man 1.4 K/mm3 (1.8-7.7) L 04/24/18 06:20 Band Neutrophils # 0.0 K/mm3 04/24/18 06:20 Lymphocytes # (Manual) 2.6 K/mm3 (1.2-5.4) 04/24/18 06:20 Abs React Lymphs (Man) 0.1 K/mm3 04/24/18 06:20 Monocytes # (Manual) 0.2 K/mm3 (0.0-0.8) 04/24/18 06:20 Eosinophils # (Manual) 0.1 K/mm3 (0.0-0.4) 04/24/18 06:20 Basophils # (Manual) 0.1 K/mm3 (0.0-0.1) 04/24/18 06:20 Metamyelocytes # 0.0 K/mm3 04/24/18 06:20 Myelocytes # 0.0 K/mm3 04/24/18 06:20 Promyelocytes # 0.0 K/mm3 04/24/18 06:20 Blast Cells # 0.0 K/mm3 04/24/18 06:20 WBC Morphology Not Reportable 04/24/18 06:20 Hypersegmented Neuts Not Reportable 04/24/18 06:20 Hyposegmented Neuts Not Reportable 04/24/18 06:20 Hypogranular Neuts Not Reportable 04/24/18 06:20 Smudge Cells Not Reportable 04/24/18 06:20 Toxic Granulation Not Reportable 04/24/18 06:20 Toxic Vacuolation Not Reportable 04/24/18 06:20 Dohle Bodies Not Reportable 04/24/18 06:20 Pelger-Huet Anomaly Not Reportable 04/24/18 06:20 Loc Rods Not Reportable 04/24/18 06:20 Platelet Estimate Cons 04/24/18 06:20 Clumped Platelets Not Reportable 04/24/18 06:20 Plt Clumps, EDTA Not Reportable 04/24/18 06:20 Large Platelets Few 04/24/18 06:20 Giant Platelets Not Reportable 04/24/18 06:20 Platelet Satelliting Not Reportable 04/24/18 06:20 Plt Morphology Comment Not Reportable 04/24/18 06:20 RBC Morphology Normal 04/24/18 06:20 Dimorphic RBCs Not Reportable 04/24/18 06:20 Polychromasia Not Reportable 04/24/18 06:20 Hypochromasia Not Reportable 04/24/18 06:20 Poikilocytosis Not Reportable 04/24/18 06:20 Anisocytosis Not Reportable 04/24/18 06:20 Microcytosis Not Reportable 04/24/18 06:20 Macrocytosis Not Reportable 04/24/18 06:20 Spherocytes Not Reportable 04/24/18 06:20 Pappenheimer Bodies Not Reportable 04/24/18 06:20 Sickle Cells Not Reportable 04/24/18 06:20 Target Cells Not Reportable 04/24/18 06:20 Tear Drop Cells Not Reportable 04/24/18 06:20 Ovalocytes Not Reportable 04/24/18 06:20 Helmet Cells Not Reportable 04/24/18 06:20 [place] Bodies Not Reportable 04/24/18 06:20 [place] Rings Not Reportable 04/24/18 06:20 [place] Cells Not Reportable 04/24/18 06:20 Bite Cells Not Reportable 04/24/18 06:20 Crenated Cell Not Reportable 04/24/18 06:20 Elliptocytes Not Reportable 04/24/18 06:20 Acanthocytes (Spur) Not Reportable 04/24/18 06:20 Rouleaux Not Reportable 04/24/18 06:20 Hemoglobin C Crystals Not Reportable 04/24/18 06:20 Schistocytes Not Reportable 04/24/18 06:20 Malaria parasites Not Reportable 04/24/18 06:20 Syd Bodies Not Reportable 04/24/18 06:20 Hem Pathologist Commnt No 04/24/18 06:20 PT 13.2 Sec. (12.2-14.9) 04/23/18 07:30 INR 0.95 (0.87-1.13) 04/23/18 07:30 APTT 33.7 Sec. (24.2-36.6) 04/23/18 07:30 Thrombin Time 15.9 Sec. (15.1-19.6) 04/23/18 07:30 Sodium 139 mmol/L (137-145) 04/25/18 10:54 Potassium 4.2 mmol/L (3.6-5.0) 04/25/18 10:54 Chloride 102.7 mmol/L (98-107) 04/25/18 10:54 Carbon Dioxide 22 mmol/L (22-30) 04/25/18 10:54 Anion Gap 19 mmol/L 04/25/18 10:54 BUN 9 mg/dL (7-17) 04/25/18 10:54 Creatinine 0.6 mg/dL (0.7-1.2) L 04/25/18 10:54 Estimated GFR > 60 ml/min 04/25/18 10:54 BUN/Creatinine Ratio 15 % 04/25/18 10:54 Glucose 79 mg/dL (65-100) 04/25/18 10:54 POC Glucose 74 (70-105) 04/23/18 08:01 Hemoglobin A1c 5.6 % (4-6) 04/23/18 19:26 Calcium 9.1 mg/dL (8.4-10.2) 04/25/18 10:54 Total Bilirubin 0.40 mg/dL (0.1-1.2) 04/25/18 10:54 AST 16 units/L (5-40) 04/25/18 10:54 ALT 13 units/L (7-56) 04/25/18 10:54 Alkaline Phosphatase 115 units/L (35-129) 04/25/18 10:54 Total Creatine Kinase 88 units/L (30-135) 04/23/18 07:30 CK-MB (CK-2) 1.4 ng/mL (0.0-4.0) 04/23/18 07:30 CK-MB (CK-2) Rel Index 1.5 (0-4) 04/23/18 07:30 Troponin T < 0.010 ng/mL (0.00-0.029) 04/23/18 07:30 Total Protein 6.6 g/dL (6.3-8.2) 04/25/18 10:54 Albumin 3.6 g/dL (3.9-5) L 04/25/18 10:54 Albumin/Globulin Ratio 1.2 % 04/25/18 10:54 Triglycerides 81 mg/dL (2-149) 04/24/18 06:20 Cholesterol 212 mg/dL (50-199) H 04/24/18 06:20 LDL Cholesterol Direct 150 mg/dL (50-130) H 04/24/18 06:20 HDL Cholesterol 50 mg/dL (40-59) 04/24/18 06:20 Cholesterol/HDL Ratio 4.24 % 04/24/18 06:20 Urine Color Yellow (Yellow) 04/23/18 11:35 Urine Turbidity Clear (Clear) 04/23/18 11:35 Urine pH 7.0 (5.0-7.0) 04/23/18 11:35 Ur Specific [place] 1.006 (1.003-1.030) 04/23/18 11:35 Urine Protein <15 mg/dl mg/dL (Negative) 04/23/18 11:35 Urine Glucose (UA) Neg mg/dL (Negative) 04/23/18 11:35 Urine Ketones Neg mg/dL (Negative) 04/23/18 11:35 Urine Blood Neg (Negative) 04/23/18 11:35 Urine Nitrite Neg (Negative) 04/23/18 11:35 Urine Bilirubin Neg (Negative) 04/23/18 11:35 Urine Urobilinogen < 2.0 mg/dL (<2.0) 04/23/18 11:35 Ur Leukocyte Esterase Sm (Negative) 04/23/18 11:35 Urine WBC (Auto) 3.0 /HPF (0.0-6.0) 04/23/18 11:35 Urine RBC (Auto) 2.0 /HPF (0.0-6.0) 04/23/18 11:35 U Epithel Cells (Auto) < 1.0 /HPF (0-13.0) 04/23/18 11:35
--- NOTE | 2018-04-25 19:08 | Cat Scan Report ---
FINAL REPORT PROCEDURE: CT ANGIO HEAD TECHNIQUE: Computerized tomographic angiography of the head was performed during the IV injection of iodinated nonionic contrast including image processing. The image data was postprocessed using 2-dimensional multiplanar reformatted (MPR) and 3-dimensional (MIP and/or volume rendered) techniques. HISTORY: Bilateral distal ICA stenosis and aneurysm COMPARISON: No prior studies are available for comparison. FINDINGS: Visualize right and left internal carotid arteries are patent. Calcified and noncalcified plaquing is seen in the right and left carotid siphons. This is narrowing the vessels 50-60 percent bilaterally. Vessels are patent. The A1 segments, the middle cerebral arteries and anterior cerebral arteries as well as the A1 segments are patent. There is a dominant left vertebral artery, normal variant. Basilar artery is patent. Both posterior cerebral arteries are patent. No changes are seen that would suggest aneurysm or dissection. IMPRESSION: The anterior and the posterior circulation are intact however there is calcified and noncalcified plaquing in both carotid siphons narrowing the vessels 50-60 percent. I do not see evidence of occlusion. No aneurysms are seen.
--- NOTE | 2018-04-25 19:14 | Cat Scan Report ---
FINAL REPORT PROCEDURE: CT ANGIO NECK TECHNIQUE: Computerized tomographic angiography of the neck was performed after the IV injection of iodinated nonionic contrast including image processing. The image data was postprocessed using 2-dimensional multiplanar reformatted (MPR) and 3-dimensional (MIP and/or volume rendered) techniques. HISTORY: Bilateral distal ICA stenosis and aneurysm COMPARISON: No prior studies are available for comparison. Note: Assessment of carotid artery stenosis is based on measurement of the distal internal carotid artery diameter as the denominator for stenosis calculations and the [place] Symptomatic Carotid Endarterectomy Trial (NASCET) stenosis criteria . CPT 3100F FINDINGS: Right and left vertebral arteries are patent. There is a dominant left vertebral artery, normal variant. There is minimal plaquing seen in the right common carotid artery narrowing the vessel less 30 percent. No high-grade stenosis is visualized. The internal carotid artery appears widely patent. On the left side the common carotid artery is widely patent. Minimal plaquing visualized in the left carotid bulb narrowing the vessel less than 30 percent. The internal carotid arteries widely patent. No high-grade stenosis occlusion, dissection or aneurysm is visualized. IMPRESSION: Minimal atherosclerotic changes seen in the right common carotid artery and in the left carotid bulb. The vessels appear to be narrowed less than 30 percent. No high-grade stenosis, aneurysm or dissection visualized. Dominant left vertebral artery, the right vertebral artery is patent. This represents a normal variant.
[2018-04-26] MEDS: ROXICODONE PO SCH ×2 (06:26→16:05)
[2018-04-26] MEDS: FLEXERIL PO SCH ×2 (10:37→22:24)
[2018-04-26] MEDS: PEPCID PO SCH ×2 (10:37→22:24)
[2018-04-26] MEDS: COZAAR PO SCH (10:38)
[2018-04-26] MEDS: NORVASC PO SCH (10:38)
[2018-04-26] MEDS: HEPARIN SUB-Q SCH ×2 (10:38→22:25)
[2018-04-26] MEDS: VALIUM PO SCH ×2 (10:39→22:29)
[2018-04-26] MEDS: SODIUM CHLORIDE FLUSH SYRINGE 10 ML IV SCH ×2 (10:39→22:25)
--- NOTE | 2018-04-26 15:08 | Progress Note ---
Assessment and Plan 72-year-old female with prior neurologic event with left-sided hemiparesis with recent crescendo TIA events resulting in left lower facial numbness, worsening left-sided hemiparesis, worsening left-sided chester-sensory deficit, all of which have been improving. Patient's symptoms are near baseline at this time. CT angiogram demonstrates right paraclinoid carotid aneurysm consistent with history of intracranial aneurysm. Patient also has 50% stenoses of the intracranial portion of the carotid arteries within the carotid siphon which is not a surgically accessible region. Carotid ultrasound demonstrates less than 50% bilateral narrowing of her extracranial carotid arteries with antegrade vertebral arteries. No vascular surgery interventions required. Patient will need follow-up with her interventional neurologist for her right paraclinoid aneurysm. Discussed with Dr. Drummond and we both feel the patient would benefit from neurology evaluation for antiplatelet therapy. Patient has previously had her antiplatelet therapy discontinued by her outpatient neurologist. She would benefit from neurology evaluation to determine if antiplatelet therapy should now be commenced given her recent TIA. Signing off. Subjective Date of service: 04/26/18 Principal diagnosis: TIA Interval history: Reviewed CT images. There is a right paraclinoid carotid aneurysm. Patient thought aneurysm was on the left. Report did not mention aneurysm. Discussed with Dr. John for addendum. Patient's symptoms improving. Objective - Constitutional Vitals: Vital Signs - 12hr 04/26/18 04/26/18 04/26/18 06:26 08:09 10:00 Temperature 97.6 F Pulse Rate 55 L 61 Pulse Rate [ 55 L From Monitor] Respiratory 18 18 Rate Blood Pressure 113/56 O2 Sat by Pulse 96 96 Oximetry 04/26/18 04/26/18 10:38 11:41 Temperature 97.6 F Pulse Rate 55 L 59 L Pulse Rate [ From Monitor] Respiratory 14 Rate Blood Pressure 113/56 103/62 O2 Sat by Pulse 100 Oximetry General appearance: Present: no acute distress - EENT Eyes: EOM intact ENT: hearing intact - Respiratory Respiratory effort: normal Extremities: normal temperature, normal color - Gastrointestinal General gastrointestinal: Present: soft - Neurologic Neurologic: other (improving left hemiparesis and hemisensory numbness, improving left lower facial numbness) - Psychiatric Psychiatric: cooperative - Labs CBC & Chem 7: 04/25/18 10:54 04/25/18 10:54 Labs: Abnormal lab results 04/26/18 Range/Units 06:25 POC Glucose 69 L (70-105) - Imaging and cardiology CT Scan - head: report reviewed, image reviewed
[2018-04-26] MEDS: MIRALAX 3350 PO PRN (16:05)
--- NOTE | 2018-04-26 17:11 | Progress Note ---
Assessment and Plan Assessment and plan: 72-year-old AA female presented to the emergency department with complaint of a left-sided headache, some decreased sensation to the left arm and left leg and some increased rigidity to the left arm that started around 3 AM. She denies any vision change, slurred speech, chest pain, shortness of breath or fever. Patient has a history of previous CVA with left-sided deficits. She did not take anything for her symptoms prior to presentation. The patient usually ambulates using a cane but can do so without any instability. She says that today she feels like she has trouble walking secondary to the increased left-sided weakness. (1) HTN (hypertension) with goal to be determined Current Visit: Yes Status: Acute Plan to address problem: Patient blood pressure appears to be optimally controlled at this particular time. On amlodipine and losartan. Continue present management. (2) Left sided numbness Current Visit: Yes Status: Acute Plan to address problem: Left-sided numbness and left-sided weakness has resolved. MRI MRA findings discussed. Will reconsult neurology to evaluate the patient will need anticoagulation aspirin alone versus Plavix. We'll also contact Dr. Mendiola to see if he can give any insight into why patient should not take any anticoagulants. Patient at this particular time is starts in her belief on what her previous neurologists and interventional radiologist told her . Awaiting Neurology eval Patient had MRA which showed high-grade ductal ICA stenosis also a 5 mm saccular aneurysm. MRI showed global atrophy. Patient's neurologist was Dr. Sexton patient states that they did not want patient to take any anticoagulation. She was taken off aspirin and Plavix. Patient had a prior history of CVA in on this time she had a TIA. (3) TIA (transient ischemic attack) Current Visit: Yes Status: Acute Qualifiers: Transient cerebral ischemia type: carotid artery syndrome (hemispheric) Qualified Code(s): G45.1 - Carotid artery syndrome (hemispheric) Plan to address problem: See above left-sided numbness nor evaluation to suggest aspirin and Plavix versus aspirin alone versus no anticoagulation. (4) HTN (hypertension) Current Visit: Yes Status: Chronic Qualifiers: Hypertension type: essential hypertension Qualified Code(s): I10 - Essential (primary) hypertension Plan to address problem: Optimal control blood pressure as mentioned previously. 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 Current Visit: No Status: Chronic (6) Nonruptured cerebral aneurysm, internal carotid artery, intracranial portion Onset Date: 07/09/14 Current Visit: No Status: Chronic History Interval history: patient seen and examined, awaiting neurology eval, no new complaints of headache AND Some improvement in symptoms Hospitalist Physical - Physical exam Narrative exam: General appearance: Present: no acute distress - EENT Eyes: Present: PERRL, EOM intact ENT: hearing intact, clear oral mucosa, dentition normal - Neck Neck: Present: supple, normal ROM, other (scars from previous discectomy) - Respiratory Respiratory effort: normal Respiratory: bilateral: CTA - Cardiovascular Rhythm: regular Heart Sounds: Present: S1 & S2 - Extremities Extremities: no ischemia, pulses intact, pulses symmetrical, No edema, normal temperature, normal color Peripheral Pulses: within normal limits - Abdominal General gastrointestinal: soft, non-tender, non-distended, normal bowel sounds - Psychiatric Psychiatric: appropriate mood/affect - Neurologic Neurologic: CNII-XII intact, focal deficits - Constitutional Vitals: Temp Pulse Resp BP Pulse Ox 97.6 F 59 L 14 103/62 98 04/26/18 11:41 04/26/18 11:41 04/26/18 11:41 04/26/18 11:41 04/26/18 15:17 General appearance: Present: no acute distress Results - Labs CBC & Chem 7: 04/25/18 10:54 04/25/18 10:54 Labs: Laboratory Last Values WBC 4.6 K/mm3 (4.5-11.0) 04/25/18 10:54 RBC 5.62 M/mm3 (3.65-5.03) H 04/25/18 10:54 Hgb 15.0 gm/dl (10.1-14.3) H 04/25/18 10:54 Hct 45.6 % (30.3-42.9) H 04/25/18 10:54 MCV 81 fl (79-97) 04/25/18 10:54 MCH 27 pg (28-32) L 04/25/18 10:54 MCHC 33 % (30-34) 04/25/18 10:54 RDW 15.5 % (13.2-15.2) H 04/25/18 10:54 Plt Count 158 K/mm3 (140-440) 04/25/18 10:54 Lymph % (Auto) 53.0 % (13.4-35.0) H 04/25/18 10:54 [place] % (Auto) 8.6 % (0.0-7.3) H 04/25/18 10:54 Eos % (Auto) 1.1 % (0.0-4.3) 04/25/18 10:54 Baso % (Auto) 0.7 % (0.0-1.8) 04/25/18 10:54 Lymph # 2.4 K/mm3 (1.2-5.4) 04/25/18 10:54 [place] # 0.4 K/mm3 (0.0-0.8) 04/25/18 10:54 Eos # 0.1 K/mm3 (0.0-0.4) 04/25/18 10:54 Baso # 0.0 K/mm3 (0.0-0.1) 04/25/18 10:54 Add Manual Diff Complete 04/24/18 06:20 Total Counted 100 04/24/18 06:20 Seg Neutrophils % 36.6 % (40.0-70.0) L 04/25/18 10:54 Seg Neuts % (Manual) 31.0 % (40.0-70.0) L 04/24/18 06:20 Band Neutrophils % 0 % 04/24/18 06:20 Lymphocytes % (Manual) 58.0 % (13.4-35.0) H 04/24/18 06:20 Reactive Lymphs % (Man) 2.0 % 04/24/18 06:20 Monocytes % (Manual) 4.0 % (0.0-7.3) 04/24/18 06:20 Eosinophils % (Manual) 3.0 % (0.0-4.3) 04/24/18 06:20 Basophils % (Manual) 2.0 % (0.0-1.8) H 04/24/18 06:20 Metamyelocytes % 0 % 04/24/18 06:20 Myelocytes % 0 % 04/24/18 06:20 Promyelocytes % 0 % 04/24/18 06:20 Blast Cells % 0 % 04/24/18 06:20 Nucleated RBC % Not Reportable 04/24/18 06:20 Seg Neutrophils # 1.7 K/mm3 (1.8-7.7) L 04/25/18 10:54 Seg Neutrophils # Man 1.4 K/mm3 (1.8-7.7) L 04/24/18 06:20 Band Neutrophils # 0.0 K/mm3 04/24/18 06:20 Lymphocytes # (Manual) 2.6 K/mm3 (1.2-5.4) 04/24/18 06:20 Abs React Lymphs (Man) 0.1 K/mm3 04/24/18 06:20 Monocytes # (Manual) 0.2 K/mm3 (0.0-0.8) 04/24/18 06:20 Eosinophils # (Manual) 0.1 K/mm3 (0.0-0.4) 04/24/18 06:20 Basophils # (Manual) 0.1 K/mm3 (0.0-0.1) 04/24/18 06:20 Metamyelocytes # 0.0 K/mm3 04/24/18 06:20 Myelocytes # 0.0 K/mm3 04/24/18 06:20 Promyelocytes # 0.0 K/mm3 04/24/18 06:20 Blast Cells # 0.0 K/mm3 04/24/18 06:20 WBC Morphology Not Reportable 04/24/18 06:20 Hypersegmented Neuts Not Reportable 04/24/18 06:20 Hyposegmented Neuts Not Reportable 04/24/18 06:20 Hypogranular Neuts Not Reportable 04/24/18 06:20 Smudge Cells Not Reportable 04/24/18 06:20 Toxic Granulation Not Reportable 04/24/18 06:20 Toxic Vacuolation Not Reportable 04/24/18 06:20 Dohle Bodies Not Reportable 04/24/18 06:20 Pelger-Huet Anomaly Not Reportable 04/24/18 06:20 Loc Rods Not Reportable 04/24/18 06:20 Platelet Estimate Cons 04/24/18 06:20 Clumped Platelets Not Reportable 04/24/18 06:20 Plt Clumps, EDTA Not Reportable 04/24/18 06:20 Large Platelets Few 04/24/18 06:20 Giant Platelets Not Reportable 04/24/18 06:20 Platelet Satelliting Not Reportable 04/24/18 06:20 Plt Morphology Comment Not Reportable 04/24/18 06:20 RBC Morphology Normal 04/24/18 06:20 Dimorphic RBCs Not Reportable 04/24/18 06:20 Polychromasia Not Reportable 04/24/18 06:20 Hypochromasia Not Reportable 04/24/18 06:20 Poikilocytosis Not Reportable 04/24/18 06:20 Anisocytosis Not Reportable 04/24/18 06:20 Microcytosis Not Reportable 04/24/18 06:20 Macrocytosis Not Reportable 04/24/18 06:20 Spherocytes Not Reportable 04/24/18 06:20 Pappenheimer Bodies Not Reportable 04/24/18 06:20 Sickle Cells Not Reportable 04/24/18 06:20 Target Cells Not Reportable 04/24/18 06:20 Tear Drop Cells Not Reportable 04/24/18 06:20 Ovalocytes Not Reportable 04/24/18 06:20 Helmet Cells Not Reportable 04/24/18 06:20 [place] Bodies Not Reportable 04/24/18 06:20 [place] Rings Not Reportable 04/24/18 06:20 [place] Cells Not Reportable 04/24/18 06:20 Bite Cells Not Reportable 04/24/18 06:20 Crenated Cell Not Reportable 04/24/18 06:20 Elliptocytes Not Reportable 04/24/18 06:20 Acanthocytes (Spur) Not Reportable 04/24/18 06:20 Rouleaux Not Reportable 04/24/18 06:20 Hemoglobin C Crystals Not Reportable 04/24/18 06:20 Schistocytes Not Reportable 04/24/18 06:20 Malaria parasites Not Reportable 04/24/18 06:20 Syd Bodies Not Reportable 04/24/18 06:20 Hem Pathologist Commnt No 04/24/18 06:20 PT 13.2 Sec. (12.2-14.9) 04/23/18 07:30 INR 0.95 (0.87-1.13) 04/23/18 07:30 APTT 33.7 Sec. (24.2-36.6) 04/23/18 07:30 Thrombin Time 15.9 Sec. (15.1-19.6) 04/23/18 07:30 Sodium 139 mmol/L (137-145) 04/25/18 10:54 Potassium 4.2 mmol/L (3.6-5.0) 04/25/18 10:54 Chloride 102.7 mmol/L (98-107) 04/25/18 10:54 Carbon Dioxide 22 mmol/L (22-30) 04/25/18 10:54 Anion Gap 19 mmol/L 04/25/18 10:54 BUN 9 mg/dL (7-17) 04/25/18 10:54 Creatinine 0.6 mg/dL (0.7-1.2) L 04/25/18 10:54 Estimated GFR > 60 ml/min 04/25/18 10:54 BUN/Creatinine Ratio 15 % 04/25/18 10:54 Glucose 79 mg/dL (65-100) 04/25/18 10:54 POC Glucose 69 (70-105) L 04/26/18 06:25 Hemoglobin A1c 5.6 % (4-6) 04/23/18 19:26 Calcium 9.1 mg/dL (8.4-10.2) 04/25/18 10:54 Total Bilirubin 0.40 mg/dL (0.1-1.2) 04/25/18 10:54 AST 16 units/L (5-40) 04/25/18 10:54 ALT 13 units/L (7-56) 04/25/18 10:54 Alkaline Phosphatase 115 units/L (35-129) 04/25/18 10:54 Total Creatine Kinase 88 units/L (30-135) 04/23/18 07:30 CK-MB (CK-2) 1.4 ng/mL (0.0-4.0) 04/23/18 07:30 CK-MB (CK-2) Rel Index 1.5 (0-4) 04/23/18 07:30 Troponin T < 0.010 ng/mL (0.00-0.029) 04/23/18 07:30 Total Protein 6.6 g/dL (6.3-8.2) 04/25/18 10:54 Albumin 3.6 g/dL (3.9-5) L 04/25/18 10:54 Albumin/Globulin Ratio 1.2 % 04/25/18 10:54 Triglycerides 81 mg/dL (2-149) 04/24/18 06:20 Cholesterol 212 mg/dL (50-199) H 04/24/18 06:20 LDL Cholesterol Direct 150 mg/dL (50-130) H 04/24/18 06:20 HDL Cholesterol 50 mg/dL (40-59) 04/24/18 06:20 Cholesterol/HDL Ratio 4.24 % 04/24/18 06:20 Urine Color Yellow (Yellow) 04/23/18 11:35 Urine Turbidity Clear (Clear) 04/23/18 11:35 Urine pH 7.0 (5.0-7.0) 04/23/18 11:35 Ur Specific [place] 1.006 (1.003-1.030) 04/23/18 11:35 Urine Protein <15 mg/dl mg/dL (Negative) 04/23/18 11:35 Urine Glucose (UA) Neg mg/dL (Negative) 04/23/18 11:35 Urine Ketones Neg mg/dL (Negative) 04/23/18 11:35 Urine Blood Neg (Negative) 04/23/18 11:35 Urine Nitrite Neg (Negative) 04/23/18 11:35 Urine Bilirubin Neg (Negative) 04/23/18 11:35 Urine Urobilinogen < 2.0 mg/dL (<2.0) 04/23/18 11:35 Ur Leukocyte Esterase Sm (Negative) 04/23/18 11:35 Urine WBC (Auto) 3.0 /HPF (0.0-6.0) 04/23/18 11:35 Urine RBC (Auto) 2.0 /HPF (0.0-6.0) 04/23/18 11:35 U Epithel Cells (Auto) < 1.0 /HPF (0-13.0) 04/23/18 11:35
[2018-04-27] MEDS: ROXICODONE PO SCH ×4 (00:13→23:03)
--- NOTE | 2018-04-27 08:39 | Progress Note ---
Assessment and Plan Assessment and plan: 72-year-old AA female presented to the emergency department with complaint of a left-sided headache, some decreased sensation to the left arm and left leg and some increased rigidity to the left arm that started around 3 AM. She denies any vision change, slurred speech, chest pain, shortness of breath or fever. Patient has a history of previous CVA with left-sided deficits. She did not take anything for her symptoms prior to presentation. The patient usually ambulates using a cane but can do so without any instability. She says that today she feels like she has trouble walking secondary to the increased left-sided weakness. (1) HTN (hypertension) with goal to be determined Current Visit: Yes Status: Acute Plan to address problem: Patient blood pressure appears to be optimally controlled at this particular time. On amlodipine and losartan. Continue present management. (2) Left sided numbness Current Visit: Yes Status: Acute Plan to address problem: Left-sided numbness and left-sided weakness has resolved. MRI MRA findings discussed. Will reconsult neurology to evaluate the patient will need anticoagulation aspirin alone versus Plavix. We'll also contact Dr. Mendiola to see if he can give any insight into why patient should not take any anticoagulants. Patient at this particular time is starts in her belief on what her previous neurologists and interventional radiologist told her . Awaiting Neurology eval Patient had MRA which showed high-grade ductal ICA stenosis also a 5 mm saccular aneurysm. MRI showed global atrophy. Patient's neurologist was Dr. Sexton patient states that they did not want patient to take any anticoagulation. She was taken off aspirin and Plavix. Patient had a prior history of CVA in on this time she had a TIA. (3) TIA (transient ischemic attack) Current Visit: Yes Status: Acute Qualifiers: Transient cerebral ischemia type: carotid artery syndrome (hemispheric) Qualified Code(s): G45.1 - Carotid artery syndrome (hemispheric) Plan to address problem: See above left-sided numbness nor evaluation to suggest aspirin and Plavix versus aspirin alone versus no anticoagulation. (4) HTN (hypertension) Current Visit: Yes Status: Chronic Qualifiers: Hypertension type: essential hypertension Qualified Code(s): I10 - Essential (primary) hypertension Plan to address problem: Optimal control blood pressure as mentioned previously. 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 Current Visit: No Status: Chronic (6) Nonruptured cerebral aneurysm, internal carotid artery, intracranial portion Onset Date: 07/09/14 Current Visit: No Status: Chronic History Interval history: patient seen and examined, awaiting neurology eval, no new complaints of headache AND no further weakness. Hospitalist Physical - Physical exam Narrative exam: General appearance: Present: no acute distress - EENT Eyes: Present: PERRL, EOM intact ENT: hearing intact, clear oral mucosa, dentition normal - Neck Neck: Present: supple, normal ROM, other (scars from previous discectomy) - Respiratory Respiratory effort: normal Respiratory: bilateral: CTA - Cardiovascular Rhythm: regular Heart Sounds: Present: S1 & S2 - Extremities Extremities: no ischemia, pulses intact, pulses symmetrical, No edema, normal temperature, normal color Peripheral Pulses: within normal limits - Abdominal General gastrointestinal: soft, non-tender, non-distended, normal bowel sounds - Psychiatric Psychiatric: appropriate mood/affect - Neurologic Neurologic: CNII-XII intact, focal deficits - Constitutional Vitals: Temp Pulse Resp BP Pulse Ox 97.9 F 54 L 16 125/62 97 04/27/18 07:33 04/27/18 07:33 04/27/18 07:33 04/27/18 07:33 04/27/18 07:33 General appearance: Present: no acute distress Results - Labs CBC & Chem 7: 04/25/18 10:54 04/25/18 10:54 Labs: Laboratory Last Values WBC 4.6 K/mm3 (4.5-11.0) 04/25/18 10:54 RBC 5.62 M/mm3 (3.65-5.03) H 04/25/18 10:54 Hgb 15.0 gm/dl (10.1-14.3) H 04/25/18 10:54 Hct 45.6 % (30.3-42.9) H 04/25/18 10:54 MCV 81 fl (79-97) 04/25/18 10:54 MCH 27 pg (28-32) L 04/25/18 10:54 MCHC 33 % (30-34) 04/25/18 10:54 RDW 15.5 % (13.2-15.2) H 04/25/18 10:54 Plt Count 158 K/mm3 (140-440) 04/25/18 10:54 Lymph % (Auto) 53.0 % (13.4-35.0) H 04/25/18 10:54 [place] % (Auto) 8.6 % (0.0-7.3) H 04/25/18 10:54 Eos % (Auto) 1.1 % (0.0-4.3) 04/25/18 10:54 Baso % (Auto) 0.7 % (0.0-1.8) 04/25/18 10:54 Lymph # 2.4 K/mm3 (1.2-5.4) 04/25/18 10:54 [place] # 0.4 K/mm3 (0.0-0.8) 04/25/18 10:54 Eos # 0.1 K/mm3 (0.0-0.4) 04/25/18 10:54 Baso # 0.0 K/mm3 (0.0-0.1) 04/25/18 10:54 Add Manual Diff Complete 04/24/18 06:20 Total Counted 100 04/24/18 06:20 Seg Neutrophils % 36.6 % (40.0-70.0) L 04/25/18 10:54 Seg Neuts % (Manual) 31.0 % (40.0-70.0) L 04/24/18 06:20 Band Neutrophils % 0 % 04/24/18 06:20 Lymphocytes % (Manual) 58.0 % (13.4-35.0) H 04/24/18 06:20 Reactive Lymphs % (Man) 2.0 % 04/24/18 06:20 Monocytes % (Manual) 4.0 % (0.0-7.3) 04/24/18 06:20 Eosinophils % (Manual) 3.0 % (0.0-4.3) 04/24/18 06:20 Basophils % (Manual) 2.0 % (0.0-1.8) H 04/24/18 06:20 Metamyelocytes % 0 % 04/24/18 06:20 Myelocytes % 0 % 04/24/18 06:20 Promyelocytes % 0 % 04/24/18 06:20 Blast Cells % 0 % 04/24/18 06:20 Nucleated RBC % Not Reportable 04/24/18 06:20 Seg Neutrophils # 1.7 K/mm3 (1.8-7.7) L 04/25/18 10:54 Seg Neutrophils # Man 1.4 K/mm3 (1.8-7.7) L 04/24/18 06:20 Band Neutrophils # 0.0 K/mm3 04/24/18 06:20 Lymphocytes # (Manual) 2.6 K/mm3 (1.2-5.4) 04/24/18 06:20 Abs React Lymphs (Man) 0.1 K/mm3 04/24/18 06:20 Monocytes # (Manual) 0.2 K/mm3 (0.0-0.8) 04/24/18 06:20 Eosinophils # (Manual) 0.1 K/mm3 (0.0-0.4) 04/24/18 06:20 Basophils # (Manual) 0.1 K/mm3 (0.0-0.1) 04/24/18 06:20 Metamyelocytes # 0.0 K/mm3 04/24/18 06:20 Myelocytes # 0.0 K/mm3 04/24/18 06:20 Promyelocytes # 0.0 K/mm3 04/24/18 06:20 Blast Cells # 0.0 K/mm3 04/24/18 06:20 WBC Morphology Not Reportable 04/24/18 06:20 Hypersegmented Neuts Not Reportable 04/24/18 06:20 Hyposegmented Neuts Not Reportable 04/24/18 06:20 Hypogranular Neuts Not Reportable 04/24/18 06:20 Smudge Cells Not Reportable 04/24/18 06:20 Toxic Granulation Not Reportable 04/24/18 06:20 Toxic Vacuolation Not Reportable 04/24/18 06:20 Dohle Bodies Not Reportable 04/24/18 06:20 Pelger-Huet Anomaly Not Reportable 04/24/18 06:20 Loc Rods Not Reportable 04/24/18 06:20 Platelet Estimate Cons 04/24/18 06:20 Clumped Platelets Not Reportable 04/24/18 06:20 Plt Clumps, EDTA Not Reportable 04/24/18 06:20 Large Platelets Few 04/24/18 06:20 Giant Platelets Not Reportable 04/24/18 06:20 Platelet Satelliting Not Reportable 04/24/18 06:20 Plt Morphology Comment Not Reportable 04/24/18 06:20 RBC Morphology Normal 04/24/18 06:20 Dimorphic RBCs Not Reportable 04/24/18 06:20 Polychromasia Not Reportable 04/24/18 06:20 Hypochromasia Not Reportable 04/24/18 06:20 Poikilocytosis Not Reportable 04/24/18 06:20 Anisocytosis Not Reportable 04/24/18 06:20 Microcytosis Not Reportable 04/24/18 06:20 Macrocytosis Not Reportable 04/24/18 06:20 Spherocytes Not Reportable 04/24/18 06:20 Pappenheimer Bodies Not Reportable 04/24/18 06:20 Sickle Cells Not Reportable 04/24/18 06:20 Target Cells Not Reportable 04/24/18 06:20 Tear Drop Cells Not Reportable 04/24/18 06:20 Ovalocytes Not Reportable 04/24/18 06:20 Helmet Cells Not Reportable 04/24/18 06:20 [place] Bodies Not Reportable 04/24/18 06:20 [place] Rings Not Reportable 04/24/18 06:20 [place] Cells Not Reportable 04/24/18 06:20 Bite Cells Not Reportable 04/24/18 06:20 Crenated Cell Not Reportable 04/24/18 06:20 Elliptocytes Not Reportable 04/24/18 06:20 Acanthocytes (Spur) Not Reportable 04/24/18 06:20 Rouleaux Not Reportable 04/24/18 06:20 Hemoglobin C Crystals Not Reportable 04/24/18 06:20 Schistocytes Not Reportable 04/24/18 06:20 Malaria parasites Not Reportable 04/24/18 06:20 Syd Bodies Not Reportable 04/24/18 06:20 Hem Pathologist Commnt No 04/24/18 06:20 PT 13.2 Sec. (12.2-14.9) 04/23/18 07:30 INR 0.95 (0.87-1.13) 04/23/18 07:30 APTT 33.7 Sec. (24.2-36.6) 04/23/18 07:30 Thrombin Time 15.9 Sec. (15.1-19.6) 04/23/18 07:30 Sodium 139 mmol/L (137-145) 04/25/18 10:54 Potassium 4.2 mmol/L (3.6-5.0) 04/25/18 10:54 Chloride 102.7 mmol/L (98-107) 04/25/18 10:54 Carbon Dioxide 22 mmol/L (22-30) 04/25/18 10:54 Anion Gap 19 mmol/L 04/25/18 10:54 BUN 9 mg/dL (7-17) 04/25/18 10:54 Creatinine 0.6 mg/dL (0.7-1.2) L 04/25/18 10:54 Estimated GFR > 60 ml/min 04/25/18 10:54 BUN/Creatinine Ratio 15 % 04/25/18 10:54 Glucose 79 mg/dL (65-100) 04/25/18 10:54 POC Glucose 115 (70-105) H 04/26/18 21:15 Hemoglobin A1c 5.6 % (4-6) 04/23/18 19:26 Calcium 9.1 mg/dL (8.4-10.2) 04/25/18 10:54 Total Bilirubin 0.40 mg/dL (0.1-1.2) 04/25/18 10:54 AST 16 units/L (5-40) 04/25/18 10:54 ALT 13 units/L (7-56) 04/25/18 10:54 Alkaline Phosphatase 115 units/L (35-129) 04/25/18 10:54 Total Creatine Kinase 88 units/L (30-135) 04/23/18 07:30 CK-MB (CK-2) 1.4 ng/mL (0.0-4.0) 04/23/18 07:30 CK-MB (CK-2) Rel Index 1.5 (0-4) 04/23/18 07:30 Troponin T < 0.010 ng/mL (0.00-0.029) 04/23/18 07:30 Total Protein 6.6 g/dL (6.3-8.2) 04/25/18 10:54 Albumin 3.6 g/dL (3.9-5) L 04/25/18 10:54 Albumin/Globulin Ratio 1.2 % 04/25/18 10:54 Triglycerides 81 mg/dL (2-149) 04/24/18 06:20 Cholesterol 212 mg/dL (50-199) H 04/24/18 06:20 LDL Cholesterol Direct 150 mg/dL (50-130) H 04/24/18 06:20 HDL Cholesterol 50 mg/dL (40-59) 04/24/18 06:20 Cholesterol/HDL Ratio 4.24 % 04/24/18 06:20 Urine Color Yellow (Yellow) 04/23/18 11:35 Urine Turbidity Clear (Clear) 04/23/18 11:35 Urine pH 7.0 (5.0-7.0) 04/23/18 11:35 Ur Specific [place] 1.006 (1.003-1.030) 04/23/18 11:35 Urine Protein <15 mg/dl mg/dL (Negative) 04/23/18 11:35 Urine Glucose (UA) Neg mg/dL (Negative) 04/23/18 11:35 Urine Ketones Neg mg/dL (Negative) 04/23/18 11:35 Urine Blood Neg (Negative) 04/23/18 11:35 Urine Nitrite Neg (Negative) 04/23/18 11:35 Urine Bilirubin Neg (Negative) 04/23/18 11:35 Urine Urobilinogen < 2.0 mg/dL (<2.0) 04/23/18 11:35 Ur Leukocyte Esterase Sm (Negative) 04/23/18 11:35 Urine WBC (Auto) 3.0 /HPF (0.0-6.0) 04/23/18 11:35 Urine RBC (Auto) 2.0 /HPF (0.0-6.0) 04/23/18 11:35 U Epithel Cells (Auto) < 1.0 /HPF (0-13.0) 04/23/18 11:35
[2018-04-27] MEDS: PEPCID PO SCH ×2 (10:01→22:56)
[2018-04-27] MEDS: COZAAR PO SCH (10:01)
[2018-04-27] MEDS: FLEXERIL PO SCH ×2 (10:01→22:56)
[2018-04-27] MEDS: SODIUM CHLORIDE FLUSH SYRINGE 10 ML IV SCH ×2 (10:01→22:56)
[2018-04-27] MEDS: NORVASC PO SCH (10:01)
[2018-04-27] MEDS: VALIUM PO SCH ×2 (10:01→22:57)
[2018-04-27] MEDS: HEPARIN SUB-Q SCH ×2 (10:01→22:57)
[2018-04-27] MEDS: MIRALAX 3350 PO PRN (10:10)
[2018-04-28] MEDS: ROXICODONE PO SCH ×3 (06:10→21:38)
[2018-04-28] MEDS: COZAAR PO SCH (10:00)
[2018-04-28] MEDS: FLEXERIL PO SCH ×2 (13:17→21:38)
[2018-04-28] MEDS: PEPCID PO SCH ×2 (13:18→21:37)
[2018-04-28] MEDS: NORVASC PO SCH (13:19)
[2018-04-28] MEDS: HEPARIN SUB-Q SCH ×3 (13:20→21:44)
[2018-04-28] MEDS: VALIUM PO SCH ×2 (13:20→21:40)
[2018-04-28] MEDS: SODIUM CHLORIDE FLUSH SYRINGE 10 ML IV SCH ×2 (13:24→21:39)
[2018-04-28] MEDS: MIRALAX 3350 PO PRN (13:43)
[2018-04-29] MEDS: ROXICODONE PO SCH (06:31)
[2018-04-29] MEDS: FLEXERIL PO SCH (09:28)
[2018-04-29] MEDS: PEPCID PO SCH (09:28)
[2018-04-29] MEDS: VALIUM PO SCH (09:29)
[2018-04-29] MEDS: HEPARIN SUB-Q SCH (09:29)
[2018-04-29] MEDS: NORVASC PO SCH (09:29)
[2018-04-29] MEDS: COZAAR PO SCH (09:29)
[2018-04-29] MEDS: SODIUM CHLORIDE FLUSH SYRINGE 10 ML IV SCH (09:29)
--- NOTE | 2018-04-29 10:08 | History and Physical Report ---
History of Present Illness Date of examination: 04/29/18 (Reference physician: Scott Subramanian) Date of admission: 04/23/18 11:36 Chief complaint: Left side weaker, left low face and left side numbness. History of present illness: 72 years old right handed female with a past medical history of HTN, left retro-orbital aneurysm and CVA with residual left side weakness admitted for TIA. After admission her symptoms improved, but she still has left side weakness, almost back to base line. Her neurologist, Dr. Kilgore took off her Plavix 3 years ago. She went to see neurologist in [place], Dr. Sexton, last time saw him was February this year. Per the patient her neurologist didn't resume her antiplatelet. Right now she has headache, left side and left occipital. She has had CTA, MRI and MRA studies. CTA head didn't reported cerebral aneurysm. Brain MRA reported right ICA, cavernous segment 5 mm saccular aneurysm. Neck CTA , no high grade stenosis reported. Past History Past Medical History: hypertension, stroke, other (intracranial aneurysms, muscle spasms) Past Surgical History: Other (left clavicle fracture , Herniated disk cspine 2001 C5-6 fusion) Social history: alcohol abuse, other (remote tobacco and [employer] use.). denies: smoking Family history: no significant family history Medications and Allergies Allergies Allergy/AdvReac Type Severity Reaction Status Date / Time aspirin AdvReac Bleeding Verified 03/13/18 02:05 blood thinners AdvReac Bleeding Uncoded 08/09/16 01:53 Home Medications Medication Instructions Recorded Confirmed Last Taken Type Losartan [Cozaar] 100 mg PO QDAY #30 tablet 12/18/15 04/23/18 04/22/18 Rx Amlodipine Besylate [Norvasc] 10 mg PO QDAY 04/23/18 04/23/18 04/22/18 History Cyclobenzaprine HCl [Flexeril 5 MG 5 mg PO BID 04/23/18 04/23/18 04/22/18 History TAB] Diazepam [Valium] 5 mg PO BID 04/23/18 04/23/18 Unknown History Oxycodone HCl [oxyCODONE TAB] 10 mg PO Q8H 04/23/18 04/23/18 Unknown History Active Meds: Active Medications Acetaminophen (Tylenol) 650 mg PO Q4H PRN PRN Reason: Pain MILD(1-3)/Fever >100.5/HANNA Alprazolam (Xanax) 0.5 mg PO Q8H PRN PRN Reason: Anxiety Last Admin: 04/24/18 13:52 Dose: 0.5 mg Amlodipine Besylate (Norvasc) 10 mg PO QDAY [facility] Last Admin: 04/29/18 09:29 Dose: Not Given Atorvastatin Calcium (Lipitor) 40 mg PO QHS [facility] Last Admin: 04/28/18 21:38 Dose: 40 mg Cyclobenzaprine HCl (Flexeril) 5 mg PO BID [facility] Last Admin: 04/29/18 09:28 Dose: 5 mg Diazepam (Valium) 5 mg PO BID [facility] Last Admin: 04/29/18 09:29 Dose: Not Given Famotidine (Pepcid) 20 mg PO BID [facility] Last Admin: 04/29/18 09:28 Dose: 20 mg Heparin Sodium (Porcine) (Heparin) 5,000 unit SUB-Q Q12HR [facility] Last Admin: 04/29/18 09:29 Dose: Not Given Sodium Chloride (Nacl 0.9% 1000 Ml) 1,000 mls @ 75 mls/hr IV DIRECT [facility] Losartan Potassium (Cozaar) 100 mg PO QDAY [facility] Last Admin: 04/29/18 09:29 Dose: Not Given Morphine Sulfate (Morphine) 2 mg IV Q4H PRN PRN Reason: Pain, Moderate (4-6) Ondansetron HCl (Zofran) 4 mg IV Q8H PRN PRN Reason: Nausea And Vomiting Oxycodone HCl (Roxicodone) 10 mg PO Q8HR [facility] Last Admin: 04/29/18 06:31 Dose: Not Given Oxycodone/Acetaminophen (Percocet 5/325) 1 tab PO Q6H PRN PRN Reason: Pain, Moderate (4-6) Polyethylene Glycol (Miralax 3350) 17 gm PO BID PRN PRN Reason: Constipation Last Admin: 04/28/18 13:43 Dose: 17 gm Sodium Chloride (Sodium Chloride Flush Syringe 10 Ml) 10 ml IV BID [facility] Last Admin: 04/29/18 09:29 Dose: 10 ml Sodium Chloride (Sodium Chloride Flush Syringe 10 Ml) 10 ml IV PRN PRN PRN Reason: LINE FLUSH Zolpidem Tartrate (Ambien) 5 mg PO QHS PRN PRN Reason: Insomnia Review of Systems All systems: negative (left side weakness, limping walking, headache.) Constitutional: weakness Physical Examination - Vital Signs Vital Signs: Vital Signs Temp Pulse Resp BP Pulse Ox 97.7 F 73 18 148/73 97 04/23/18 07:28 04/23/18 07:28 04/23/18 07:28 04/23/18 07:28 04/23/18 07:28 - Constitutional General appearance: comfortable - EENT EENT: Present: ATNC, PERRL - Respiratory Respiratory: Present: chest non-tender, lungs clear, normal breath sounds - Cardiovascular Cardiovascular: Present: regular rate, no murmurs Extremities: Present: no peripheral edema bilatateraly, no clubbing, cyanosis - Gastrointestinal Gastrointestinal: Present: soft, non-tender - Integumentary Integumentary: Present: normal - Neurologic Cranial nerve examination: PERRL, EOMI Speech examination: intact Sensorimotor examination: rigidity Motor examination - left side: 4/5: biceps, triceps, wrist flexion, wrist extension, 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, hip flexors, knee extensors, dorsiflexion, toe extension (EHL) , plantarflexion Reflex and gait examination: intact Reflexes: 1+: ankle, bicep, knee, tricep - Psychiatric Psychiatric: Present: mood/affect appropriate Results - Laboratory Findings CBC and BMP: 04/25/18 10:54 04/25/18 10:54 Abnormal Lab Findings: Abnormal Labs 04/23/18 04/23/18 04/24/18 07:03 07:30 06:20 RBC 5.66 H 5.51 H Hgb 15.2 H 14.5 H Hct 46.6 H 45.3 H MCH 27 L 26 L RDW 16.1 H 15.6 H Lymph % (Auto) 53.6 H Dixon % (Auto) Seg Neutrophils % 37.1 L Seg Neuts % (Manual) 31.0 L Lymphocytes % (Manual) 58.0 H Basophils % (Manual) 2.0 H Seg Neutrophils # Seg Neutrophils # Man 1.4 L Carbon Dioxide 21 L Creatinine 0.6 L POC Glucose Total Protein Albumin Cholesterol LDL Cholesterol Direct 04/24/18 04/25/18 04/25/18 06:20 10:54 10:54 RBC 5.62 H Hgb 15.0 H Hct 45.6 H MCH 27 L RDW 15.5 H Lymph % (Auto) 53.0 H Dixon % (Auto) 8.6 H Seg Neutrophils % 36.6 L Seg Neuts % (Manual) Lymphocytes % (Manual) Basophils % (Manual) Seg Neutrophils # 1.7 L Seg Neutrophils # Man Carbon Dioxide Creatinine 0.6 L 0.6 L POC Glucose Total Protein 6.2 L Albumin 3.6 L 3.6 L Cholesterol 212 H LDL Cholesterol Direct 150 H 04/26/18 04/26/18 06:25 21:15 RBC Hgb Hct MCH RDW Lymph % (Auto) Dixon % (Auto) Seg Neutrophils % Seg Neuts % (Manual) Lymphocytes % (Manual) Basophils % (Manual) Seg Neutrophils # Seg Neutrophils # Man Carbon Dioxide Creatinine POC Glucose 69 L 115 H Total Protein Albumin Cholesterol LDL Cholesterol Direct Assessment and Plan 1. Episode of left side weaker, left low face and left side numbness, improved. Probably TIA. 2. Headache. Probably muscular origins from cervical DDD. Suggest cervical spine MRI without contrast. 3. HTN. Controlled. Medicine. 4. Right ICA small aneurysm. F/U with her [place] neurologist. 5. Dyslipidemia. Statin. 6. Weight risks and benefits, if her [place] neurologist, Dr. Sexton, [phone] , is ok, start Aspirin. However, I think that she needs antiplatelet for secondary CVA prevention. 7. Treat risk factos of CVA. 8. Plan discussed with her and her hospitalist Scott Subramanian 9. If D/C, F/U with neurology and neurosurgery in 4-6 weeks. 10. Will follow up with you.
--- NOTE | 2018-04-29 11:50 | Discharge Summary ---
Providers - Providers Date of Admission: 04/23/18 11:36 Attending physician: YUSEF DU MD 04/23/18 08:11 Speech Therapy Evaluation and Treat [CONS] Routine Reason For Exam: New trouble swallowing/possible CVA 04/23/18 18:31 Consult to Physician [CONS] Routine Comment: Consulting Provider: DEDRA GABRIEL Physician Instructions: Reason For Exam: TIA 04/23/18 18:35 Occupational Therapy Evaluate and Treat [CONS] Routine Comment: Reason For Exam: Neuro deficits Physical Therapy Evaluation and Treat [CONS] Routine Comment: Reason For Exam: Neuro deficits 04/24/18 17:19 Consult to Physician [CONS] Routine Comment: Consulting Provider: LANA CRAVEN Physician Instructions: Reason For Exam: Bilateral high grase distal ICA stenosis Primary care physician: INSIDE SALES REPRESENTATIVE Hospitalization Condition: Stable Hospital course: 72-year-old AA female presented to the emergency department with complaint of a left-sided headache, some decreased sensation to the left arm and left leg and some increased rigidity to the left arm that started around 3 AM. She denies any vision change, slurred speech, chest pain, shortness of breath or fever. Patient has a history of previous CVA with left-sided deficits. She did not take anything for her symptoms prior to presentation. The patient usually ambulates using a cane but can do so without any instability. She says that today she feels like she has trouble walking secondary to the increased left- sided weakness. (1) HTN (hypertension) with goal to be determined Current Visit: Yes Status: Acute Plan to address problem: Patient blood pressure appears to be optimally controlled at this particular time. On amlodipine and losartan. Continue present management. (2) Left sided numbness Current Visit: Yes Status: Acute Plan to address problem: Left-sided numbness and left-sided weakness has resolved. MRI MRA findings discussed. Will reconsult neurology to evaluate the patient will need anticoagulation aspirin alone versus Plavix. We'll also contact Dr. Mendiola to see if he can give any insight into why patient should not take any anticoagulants. Patient at this particular time is starts in her belief on what her previous neurologists and interventional radiologist told her . Awaiting Neurology eval Patient had MRA which showed high-grade ductal ICA stenosis also a 5 mm saccular aneurysm. MRI showed global atrophy. Patient's neurologist was Dr. Sexton patient states that they did not want patient to take any anticoagulation. She was taken off aspirin and Plavix. Patient had a prior history of CVA in on this time she had a TIA. (3) TIA (transient ischemic attack) Current Visit: Yes Status: Acute Qualifiers: Transient cerebral ischemia type: carotid artery syndrome (hemispheric) Qualified Code(s): G45.1 - Carotid artery syndrome (hemispheric) Plan to address problem: See above left-sided numbness nor evaluation to suggest aspirin and Plavix versus aspirin alone versus no anticoagulation. (4) HTN (hypertension) Current Visit: Yes Status: Chronic Qualifiers: Hypertension type: essential hypertension Qualified Code(s): I10 - Essential (primary) hypertension Plan to address problem: Optimal control blood pressure as mentioned previously. 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 Current Visit: No Status: Chronic (6) Nonruptured cerebral aneurysm, internal carotid artery, intracranial portion Onset Date: 07/09/14 Current Visit: No Status: Chronic Disposition: DC/TX-06 HOME UNDER HOME TH Exam - Physical Exam Narrative exam: General appearance: Present: no acute distress - EENT Eyes: Present: PERRL, EOM intact ENT: hearing intact, clear oral mucosa, dentition normal - Neck Neck: Present: supple, normal ROM, other (scars from previous discectomy) - Respiratory Respiratory effort: normal Respiratory: bilateral: CTA - Cardiovascular Rhythm: regular Heart Sounds: Present: S1 & S2 - Extremities Extremities: no ischemia, pulses intact, pulses symmetrical, No edema, normal temperature, normal color Peripheral Pulses: within normal limits - Abdominal General gastrointestinal: soft, non-tender, non-distended, normal bowel sounds - Psychiatric Psychiatric: appropriate mood/affect - Neurologic Neurologic: CNII-XII intact, focal deficits - Constitutional Vitals: Temp Pulse Resp BP Pulse Ox 98.5 F 60 18 112/52 98 04/29/18 08:00 04/29/18 09:29 04/29/18 07:53 04/29/18 09:29 04/29/18 07:53 Plan Activity: advance as tolerated, fall precautions Diet: low cholesterol Special Instructions: record daily weights, record daily BP diary Follow up with: PRIMARY MD EARNEST [Primary Care Provider] - 3-5 Days LIZETH OROZCO MD [Referring] - 7 Days Prescriptions: AtorvaSTATin [Lipitor] 40 mg PO QHS #30 tablet Aspirin [Aspirin BABY CHEW TAB] 81 mg PO QDAY #30 tab.chew
[2018-04-29 12:52] VITALS: BP 103/60
== END 2018-04-29 13:46 | disposition home health service (06) | DRG 69 ==
LOC: ED 07:21 → 4A 11:36
PROVIDERS: ADMIT Internal Medicine; ATTEND Internal Medicine
DX: G45.9 Transient cerebral ischemic attack, unspecified (principal); I69.354 Hemiplegia and hemiparesis following cerebral infarction affecting left non-dominant side; E44.1 Mild protein-calorie malnutrition; I10 Essential (primary) hypertension; Z98.1 Arthrodesis status; Z82.49 Family history of ischemic heart disease and other diseases of the circulatory system; M62.838 Other muscle spasm; G89.29 Other chronic pain; Z88.6 Allergy status to analgesic agent; Z88.8 Allergy status to other drugs, medicaments and biological substances; F10.10 Alcohol abuse, uncomplicated; Z87.891 Personal history of nicotine dependence; I67.1 Cerebral aneurysm, nonruptured; Z68.24 Body mass index [BMI] 24.0-24.9, adult
CPT/HCPCS: 36415; 70450; 70496; 70498; 70544; 70551; 80053; 80061; 81001; 82550; 82553; 82962; 83036; 84484; 85007; 85025; 85610; 85670; 85730; 93005; 93010; 93308; 93321; 93325; 93880; A9270-GY; G8987-GO; G8988-GO; G8989-GO; G8996-GN; G8997-GN; G8998-GN; J1644; J7030; Q9967

== ENCOUNTER 2018-05-02 15:02 | Observation (INO) | payer MEDICARE ==
[2018-05-02 15:54] LABS: Basophils % (Auto) 0.8 % (0.0-1.8); Eosinophils % (Auto) 0.2 % (0.0-4.3); Hematocrit 47.4 % (30.3-42.9); Hemoglobin 15.5 gm/dl (10.1-14.3); Lymphocytes # (Auto) 1.9 K/mm3 (1.2-5.4); Mean Corpuscular HGB Conc 33 % (30-34); Mean Corpuscular Hemoglobin 27 pg (28-32); Mean Corpuscular Volume 82 fl (79-97); Monocytes # (Auto) 0.3 K/mm3 (0.0-0.8); Monocytes % (Auto) 4.9 % (0.0-7.3); Red Cell Distribution Width 15.7 % (13.2-15.2)
[2018-05-02 16:03] LABS: INR 0.94 (0.87-1.13)
[2018-05-02 16:04] LABS: Partial Thromboplastin Time 31.7 Sec. (24.2-36.6)
[2018-05-02 16:10] LABS: Alanine Aminotransferase 22 units/L (7-56); Albumin 4.6 g/dL (3.9-5); BUN/Creatinine Ratio 16; Blood Urea Nitrogen 11 mg/dL (7-17); Calcium 9.6 mg/dL (8.4-10.2); Hemolysis Index 6
[2018-05-02 16:28] LABS: Platelet Count 160 K/mm3 (140-440)
--- NOTE | 2018-05-02 17:43 | Emergency Department Report ---
HPI - General Chief Complaint: Weakness Time Seen by Provider: 05/02/18 17:21 - HPI HPI: Room 4 The patient is a 72-year-old female presenting with a chief complaint of numbness. The patient states approximately 20 minutes prior to arrival she began developing left facial tingling and left thigh tingling. The patient states she's had intermittent right-sided headache for 1 day. The patient states after the onset of the paresthesias she "had a funny feeling" that lasted approximately 10 minutes. The patient states she cannot describe the sensation she felt that it felt like she was "in another world." Patient denies chest pain or shortness of breath. She denies any preceding trauma. Patient denies any history of fever. The patient was recently admitted for similar symptoms and had a CVA workup. Patient states she has not seen her neurologist since her discharge. Location: [See above] Duration: Onset 10 minutes prior to arrival Quality: "tingling" Severity: moderate Modifying factors: [see above] Context: [see above] Mode of transportation: [not driving] ED Past Medical Hx - Past Medical History Hx Hypertension: Yes Hx CVA: Yes (old chart no mri documentation on previous admits for same left side weakne) Additional medical history: Hx. left clavicle fx., h/o muscle spasms. 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 - Surgical History Additional Surgical History: Herniated disk cspine 2002 C5-6, fusion,NECK SURGERY - Family History Family history: no significant - Social History Smoking Status: Current Every Day Smoker (1/2 ppd) Substance Use Type: None - Medications Home Medications: Home Medications Medication Instructions Recorded Confirmed Last Taken Type Losartan [Cozaar] 100 mg PO QDAY #30 tablet 12/18/15 04/23/18 04/22/18 Rx Amlodipine Besylate [Norvasc] 10 mg PO QDAY 04/23/18 04/23/18 04/22/18 History Cyclobenzaprine HCl [Flexeril 5 MG 5 mg PO BID 04/23/18 04/23/18 04/22/18 History TAB] Diazepam [Valium] 5 mg PO BID 04/23/18 04/23/18 Unknown History Oxycodone HCl [oxyCODONE TAB] 10 mg PO Q8H 04/23/18 04/23/18 Unknown History Aspirin [Aspirin BABY CHEW TAB] 81 mg PO QDAY #30 tab.chew 04/29/18 Unknown Rx AtorvaSTATin [Lipitor] 40 mg PO QHS #30 tablet 04/29/18 Unknown Rx ED Review of Systems ROS: Stated complaint: LOW BLOOD PRESURE Other details as noted in HPI Constitutional: no symptoms reported Eyes: denies: eye pain ENT: denies: throat pain Respiratory: denies: shortness of breath Cardiovascular: denies: chest pain Gastrointestinal: denies: abdominal pain Genitourinary: denies: dysuria Musculoskeletal: denies: back pain Neurological: headache, paresthesias Physical Exam - Physical Exam Vital Signs: Vital Signs 05/02/18 05/02/18 15:04 17:18 Temperature 98.6 F Pulse Rate 78 64 Respiratory 18 18 Rate Blood Pressure 114/60 Blood Pressure 130/70 [Left] O2 Sat by Pulse 100 98 Oximetry Physical Exam: GENERAL: The patient is well-developed well-nourished female lying on stretcher not appearing to be in acute distress. [] HEENT: Normocephalic. Atraumatic. Extraocular motions are intact. Patient has moist mucous membranes. NECK: Supple. Trachea midline CHEST/LUNGS: Clear to auscultation. There is no respiratory distress noted. HEART/CARDIOVASCULAR: Regular. There is no tachycardia. There is no gallop rub or murmur. ABDOMEN: Abdomen is soft, nontender. Patient has normal bowel sounds. There is no abdominal distention. SKIN: There is no rash. There is no edema. There is no diaphoresis. NEURO: The patient is awake, alert, and oriented. The patient is cooperative. Cranial nerves II-12 grossly intact with exception of decreased sensation on the left V2 distribution. There is decreased sensation to light touch of the left upper extremity and left lower extremity compared to the right and this is new per the patient. The patient has normal speech MUSCULOSKELETAL: There is no evidence of acute injury. NIHSS= 1 LOC a. Alert= 0 Not alert but arousable to minor stimuli=1 Not alert requires repeated or strong stimuli to move= 2 Responds only reflex motor or unresponsive=3 b. asks month and age answers both correctly= 0 answers one correctly= 1 answers neither correctly= 2 Best Gaze normal= 0 abnormal in one or both but forced deviation or total paresis absent= 1 forced deviation or total gaze paresis= 2 Visual no visual loss= 0 partial hemianopia= 1 complete hemianopia= 2 bilateral hemianopia= 3 Facial Palsy normal= 0 minor paralysis= 1 partial paralysis= 2 complete paralysis= 3 Motor Arm no drift= 0 drift before 10 secs but doesnt hit bed= 1 some effort against gravity= 2 no effort against gravity= 3 no movement= 4 Motor leg no drift= 0 drift before 5 secs but doesnt hit bed= 1 drifts to bed before 5 secs= 2 no effort against gravity= 3 no movement= 4 Limb ataxia absent=0 present in one limb= 1 present in two limbs= 2 Sensory normal= 0 (+)mild sensory loss= 1 severe (unaware of being touched)= 2 Best language mild/some loss of fluency= 1 severe= 2 mute= 3 Dysarthria normal= 0 slurs some words= 1 severe/unintelligible= 2 Extinction and Inattention no abnormality= 0 visual, tactile, auditory or personal inattention= 1 profound (doesnt recognize own hand or orients to only one side= 2 ED Course Vital Signs 05/02/18 05/02/18 15:04 17:18 Temperature 98.6 F Pulse Rate 78 64 Respiratory 18 18 Rate Blood Pressure 114/60 Blood Pressure 130/70 [Left] O2 Sat by Pulse 100 98 Oximetry ED Medical Decision Making - Lab Data Result diagrams: 05/02/18 15:39 05/02/18 15:39 Laboratory Tests 05/02/18 05/02/18 05/02/18 15:39 15:39 15:39 WBC 5.7 RBC 5.80 H Hgb 15.5 H Hct 47.4 H MCV 82 MCH 27 L MCHC 33 RDW 15.7 H Plt Count 160 Lymph % (Auto) 33.0 Quay % (Auto) 4.9 Eos % (Auto) 0.2 Baso % (Auto) 0.8 Lymph # 1.9 Quay # 0.3 Eos # 0.0 Baso # 0.0 Seg Neutrophils % 61.1 Seg Neutrophils # 3.5 PT 13.0 INR 0.94 APTT 31.7 Sodium 141 Potassium 4.0 Chloride 101.7 Carbon Dioxide 27 Anion Gap 16 BUN 11 Creatinine 0.7 Estimated GFR > 60 BUN/Creatinine Ratio 16 Glucose 101 H Calcium 9.6 Total Bilirubin 0.30 AST 18 ALT 22 Alkaline Phosphatase 125 Total Protein 7.7 Albumin 4.6 Albumin/Globulin Ratio 1.5 - EKG Data -: EKG Interpreted by Me EKG shows normal: sinus rhythm Rate: normal - EKG Data When compared to previous EKG there are: no significant change Interpretation: unchanged when compared t (04/23/2018) - Radiology Data Radiology results: report reviewed (CT head), image reviewed (CT head) [facility] [address] [place] [address] Cat Scan Report Signed Patient: SILVERIO FIGUEROA MR#: [id number] : 1945 Acct:[id number] Age/Sex: 72 / F ADM Date: 05/02/18 Loc: ED Attending Dr: Ordering Physician: BIANCA BISHOP MD Date of Service: 05/02/18 Procedure(s): CT head/brain wo con Accession Number(s): [id number] cc: BIANCA BISHOP MD FINAL REPORT PROCEDURE: CT HEAD/BRAIN WO CON TECHNIQUE: Computerized tomography of the head was performed without contrast material. HISTORY: left- sided numbness COMPARISON: 03/30/2018 FINDINGS: There is no CT evidence of intracranial mass, hemorrhage, acute territorial infarction, or hydrocephalus. The intracranial arteries are symmetric in density. Calvarium is intact. There is a small amount of fluid in the left mastoid air cells IMPRESSION: No CT evidence of acute intracranial abnormality Transcribed By: [facility] Dictated By: GIANA HORTA M.D. Electronically Authenticated By: GIANA HORTA M.D. Signed Date/Time: 05/02/181840 DD/ 40 TD/TT: 05/02/181840 - Differential Diagnosis TIA, CVA Critical care attestation.: If time is entered above; I have spent that time in minutes in the direct care of this critically ill patient, excluding procedure time. ED Disposition Clinical Impression: Left sided numbness Disposition: OP ADMIT IP TO THIS HOSP Is pt being admited?: Yes Does the pt Need Aspirin: Yes Condition: Fair Referrals: KATALINA MARCOS MD [Primary Care Provider] - 3-5 Days Time of Disposition: 19:20 (hospitalist notified (Dr Almaraz))
--- NOTE | 2018-05-02 18:45 | Cat Scan Report ---
FINAL REPORT PROCEDURE: CT HEAD/BRAIN WO CON TECHNIQUE: Computerized tomography of the head was performed without contrast material. HISTORY: left-sided numbness COMPARISON: 03/30/2018 FINDINGS: There is no CT evidence of intracranial mass, hemorrhage, acute territorial infarction, or hydrocephalus. The intracranial arteries are symmetric in density. Calvarium is intact. There is a small amount of fluid in the left mastoid air cells IMPRESSION: No CT evidence of acute intracranial abnormality
[2018-05-02] MEDS ORDERED: ZOFRAN IV ONE (19:17)
--- NOTE | 2018-05-02 22:35 | History and Physical Report ---
History of Present Illness Date of examination: 05/02/18 History of present illness: 72-year-old woman with a history of CVA with left hemiparesis, hypertension, aneurysm of the left eye was brought to the emergency room because she developed left face and thigh numbness. Her symptoms are better but not back to baseline. She was seen here on 04/29 for numbness of the left side, MR revealed no stroke. Patient sates that her neurologist advised her not to take any anti-platelet agents due to her aneurysm Review of systems Constitutional: no weight loss, chills Ears, eyes, nose, mouth and throat: no nasal congestion, no nasal discharge, no sinus pressure, no vision change, no red eye. Neck: No neck pain or rigidity. Cardiovascular: no chest pain, palpitations Respiratory: No cough, shortness of breath Gastrointestinal: no abdominal pain, hematochezia Genitourinary : no dysuria, frequency , no hematuria Musculoskeletal: no joint swelling or muscle ache Integumentary: no rash, no pruritis Neurological: no parathesias, no numbness, no focal weakness Endocrine: no cold or heat intolerance, no polyuria or polydipsia Hematologic/Lymphatic: no easy bruising, no easy bleeding, no gland swelling Allergic/Immunologic: no urticaria, no angioedema. PAST MEDICAL HISTORY:CVA with left hemiparesis, hypertension, aneurysm of the eye PAST SURGICAL HISTORY: none SOCIAL HISTORY: Smoking 1 pack a day, alcohol use, no drug FAMILY HISTORY: Hypertension Medications and Allergies Allergies Allergy/AdvReac Type Severity Reaction Status Date / Time aspirin AdvReac Bleeding Verified 03/13/18 02:05 blood thinners AdvReac Bleeding Uncoded 08/09/16 01:53 Home Medications Medication Instructions Recorded Confirmed Last Taken Type Losartan [Cozaar] 100 mg PO QDAY #30 tablet 12/18/15 04/23/18 04/22/18 Rx Amlodipine Besylate [Norvasc] 10 mg PO QDAY 04/23/18 04/23/18 04/22/18 History Cyclobenzaprine HCl [Flexeril 5 MG 5 mg PO BID 04/23/18 04/23/18 04/22/18 History TAB] Diazepam [Valium] 5 mg PO BID 04/23/18 04/23/18 Unknown History Oxycodone HCl [oxyCODONE TAB] 10 mg PO Q8H 04/23/18 04/23/18 Unknown History Aspirin [Aspirin BABY CHEW TAB] 81 mg PO QDAY #30 tab.chew 04/29/18 Unknown Rx AtorvaSTATin [Lipitor] 40 mg PO QHS #30 tablet 04/29/18 Unknown Rx Exam - Physical Exam Narrative exam: Gen. appearance: Patient lying in bed, no apparent distress HEENT: Normocephalic, atraumatic, pupils equally round and reactive to light, extraocular movement intact, and no sclericterus,. No JVD or thyromegaly or nodule,neck supple, no carotid bruit ,mucous membranes moist, no exudate or erythema Heart: S1, S2, regular rate and rhythm Lungs: Clear to auscultation bilaterally, breathing comfortable Abdomen: Positive bowel sounds, nontender, nondistended, no organomegaly Extremity: No edema, cyanosis, clubbing Skin: No rash, nodules, warm, dry Neuro: Oriented 3, cranial nerves II-12 intact, speech is fluent, left upper andleft hemiparesis and no sensory intact - Constitutional Vitals: Temp Pulse Resp BP Pulse Ox 98.6 F 55 L 12 118/63 97 05/02/18 19:10 05/02/18 22:00 05/02/18 22:00 05/02/18 22:00 05/02/18 22:00 Results - Labs CBC & Chem 7: 05/02/18 15:39 05/02/18 15:39 Labs: Abnormal lab results 05/02/18 05/02/18 Range/Units 15:39 15:39 RBC 5.80 H (3.65-5.03) M/mm3 Hgb 15.5 H (10.1-14.3) gm/dl Hct 47.4 H (30.3-42.9) % MCH 27 L (28-32) pg RDW 15.7 H (13.2-15.2) % Glucose 101 H (65-100) mg/dL - Imaging and Cardiology EKG: image reviewed CT Scan - head: report reviewed Assessment and Plan Assessment Acute TIA Hypertension Aneurysm of the left eye Plan Admit to medicine Recent work up done, consult neurology Do neuro checks, swallowscreen Consulting physical, occupational therapy start statin No antiplatelet agents secondary to aneurysm of the eye DVT prophylaxis
[2018-05-03] MEDS ORDERED: REGLAN PO PRN (00:52)
[2018-05-03] MEDS ORDERED: SODIUM CHLORIDE FLUSH SYRINGE 10 ML IV PRN (00:52)
[2018-05-03] MEDS ORDERED: TYLENOL PO PRN (00:52)
[2018-05-03] MEDS ORDERED: ZOFRAN IV PRN (00:52)
[2018-05-03] MEDS ORDERED: DULCOLAX PR PRN (00:52)
[2018-05-03] MEDS ORDERED: MILK OF MAGNESIA PO PRN (00:52)
[2018-05-03] MEDS ORDERED: APRESOLINE IV PRN (03:46)
--- NOTE | 2018-05-03 09:13 | Progress Note ---
Assessment and Plan Assessment and plan: Patient is 72 yo woman with history of CVA with left hemiparesis, hypertension, aneurysm of left eye and tobacco dependency who pw left face and numbness with partial resolution * CT head wo contrast reported as no acute findings -Acute TIA: treat with statin, no asa because aneursym left eye? need Neurology recommendation -Hypertension, but hypotensive and bradycardic: hold antihypertensives, give stat dose of 500 ml IV NSS resuscitation fluid bolus -Aneurysm of the left eye -Tobacco dependency: treatment counselor on stopping -DVT prophylaxis: scd only, due left eye aneurysm full code History Interval history: Patient was seen and examined. Follow-up on current diagnosis face numbness. Overnight uneventful. Patient denies any chest pain, shortness breath, nausea/ vomiting or severe headaches. Imaging, nursing note, chart, labs and old chart reviewed. Discussed with patient. Hospitalist Physical - Physical exam Narrative exam: GEN: WDWN, NAD, Awake, Alert, Orientated x 3 HEENT: NCAT, EOMI, PERRL, OP Clear NECK: supple, no adenopathy, no thyromegaly, no JVD CVS/HEART: bradycardia, normal S1S2, pulses present bilaterally CHEST/LUNGS: CTA B, Symmetrical chest expansion, good air entry bilaterally GI/Abdomen: soft, NTND, good bowel sounds, no guarding or rebound /Bladder: no suprapubic tenderness, no CVA or paraspinal tenderness EXT/Skin: no c/c/e, no obvious rash MSK: left hemiparesis Neuro: CN 2-12 grossly intact, no new focal deficits Psych: calm - Constitutional Vitals: Temp Pulse Resp BP Pulse Ox 98.2 F 57 L 16 92/51 97 05/03/18 08:12 05/03/18 08:56 05/03/18 08:12 05/03/18 08:12 05/03/18 08:57 Results - Labs CBC & Chem 7: 05/02/18 15:39 05/02/18 15:39 Labs: Laboratory Last Values WBC 5.7 K/mm3 (4.5-11.0) 05/02/18 15:39 RBC 5.80 M/mm3 (3.65-5.03) H 05/02/18 15:39 Hgb 15.5 gm/dl (10.1-14.3) H 05/02/18 15:39 Hct 47.4 % (30.3-42.9) H 05/02/18 15:39 MCV 82 fl (79-97) 05/02/18 15:39 MCH 27 pg (28-32) L 05/02/18 15:39 MCHC 33 % (30-34) 05/02/18 15:39 RDW 15.7 % (13.2-15.2) H 05/02/18 15:39 Plt Count 160 K/mm3 (140-440) 05/02/18 15:39 Lymph % (Auto) 33.0 % (13.4-35.0) 05/02/18 15:39 [place] % (Auto) 4.9 % (0.0-7.3) 05/02/18 15:39 Eos % (Auto) 0.2 % (0.0-4.3) 05/02/18 15:39 Baso % (Auto) 0.8 % (0.0-1.8) 05/02/18 15:39 Lymph # 1.9 K/mm3 (1.2-5.4) 05/02/18 15:39 [place] # 0.3 K/mm3 (0.0-0.8) 05/02/18 15:39 Eos # 0.0 K/mm3 (0.0-0.4) 05/02/18 15:39 Baso # 0.0 K/mm3 (0.0-0.1) 05/02/18 15:39 Seg Neutrophils % 61.1 % (40.0-70.0) 05/02/18 15:39 Seg Neutrophils # 3.5 K/mm3 (1.8-7.7) 05/02/18 15:39 PT 13.0 Sec. (12.2-14.9) 05/02/18 15:39 INR 0.94 (0.87-1.13) 05/02/18 15:39 APTT 31.7 Sec. (24.2-36.6) 05/02/18 15:39 Sodium 141 mmol/L (137-145) 05/02/18 15:39 Potassium 4.0 mmol/L (3.6-5.0) 05/02/18 15:39 Chloride 101.7 mmol/L (98-107) 05/02/18 15:39 Carbon Dioxide 27 mmol/L (22-30) 05/02/18 15:39 Anion Gap 16 mmol/L 05/02/18 15:39 BUN 11 mg/dL (7-17) 05/02/18 15:39 Creatinine 0.7 mg/dL (0.7-1.2) 05/02/18 15:39 Estimated GFR > 60 ml/min 05/02/18 15:39 BUN/Creatinine Ratio 16 % 05/02/18 15:39 Glucose 101 mg/dL (65-100) H 05/02/18 15:39 POC Glucose 116 (70-105) H 05/02/18 15:22 Calcium 9.6 mg/dL (8.4-10.2) 05/02/18 15:39 Total Bilirubin 0.30 mg/dL (0.1-1.2) 05/02/18 15:39 AST 18 units/L (5-40) 05/02/18 15:39 ALT 22 units/L (7-56) 05/02/18 15:39 Alkaline Phosphatase 125 units/L (35-129) 05/02/18 15:39 Total Protein 7.7 g/dL (6.3-8.2) 05/02/18 15:39 Albumin 4.6 g/dL (3.9-5) 05/02/18 15:39 Albumin/Globulin Ratio 1.5 % 05/02/18 15:39
[2018-05-03] MEDS ORDERED: NACL 0.9% 500 ML 500 ML IV ONE (09:30)
[2018-05-03] MEDS: VALIUM PO SCH ×3 (10:34→21:18)
[2018-05-03] MEDS: NORVASC PO SCH (10:34)
--- NOTE | 2018-05-03 11:23 | Consultation ---
History of Present Illness Consult date: 05/03/18 Requesting physician: RONALDO NICHOLE Reason for Consult: TIA. Chief complaint: Left side numbness. History of present illness: 72-year-old woman with a history of CVA with residual left hemiparesis and hemiparesthesia, hypertension, aneurysm of the left eye was brought to the emergency room because she developed left face and thigh numbness. She has similar episodes a few times before. At the same time her BP was low. She left the hospital on April 29, 2018. When she left, she was put on Aspirin 81 mg daily. Past History Past Medical History: hypertension, hyperlipidemia, stroke, other (cerebral aneurysm.) Past Surgical History: Other (cervical spinal laminectomy.) Social history: smoking, other (no alcohol or illicits drug abuse.) Family history: CAD, cancer, hypertension, stroke Medications and Allergies Allergies Allergy/AdvReac Type Severity Reaction Status Date / Time aspirin AdvReac Bleeding Verified 03/13/18 02:05 blood thinners AdvReac Bleeding Uncoded 08/09/16 01:53 Home Medications Medication Instructions Recorded Confirmed Last Taken Type Losartan [Cozaar] 100 mg PO QDAY #30 tablet 12/18/15 04/23/18 04/22/18 Rx Amlodipine Besylate [Norvasc] 10 mg PO QDAY 04/23/18 04/23/18 04/22/18 History Cyclobenzaprine HCl [Flexeril 5 MG 5 mg PO BID 04/23/18 04/23/18 04/22/18 History TAB] Diazepam [Valium] 5 mg PO BID 04/23/18 04/23/18 Unknown History Oxycodone HCl [oxyCODONE TAB] 10 mg PO Q8H 04/23/18 04/23/18 Unknown History Aspirin [Aspirin BABY CHEW TAB] 81 mg PO QDAY #30 tab.chew 04/29/18 Unknown Rx AtorvaSTATin [Lipitor] 40 mg PO QHS #30 tablet 04/29/18 Unknown Rx Active Meds: Active Medications Acetaminophen (Tylenol) 650 mg PO Q4H PRN PRN Reason: Pain, Mild (1-3) Amlodipine Besylate (Norvasc) 10 mg PO QDAY ALLA Atorvastatin Calcium (Lipitor) 40 mg PO QHS ALLA Bisacodyl (Dulcolax) 10 mg ND QDAY PRN PRN Reason: Constipation Diazepam (Valium) 5 mg PO BID ALLA Hydralazine HCl (Apresoline) 5 mg IV Q6HR PRN PRN Reason: Hypertension Magnesium Hydroxide (Milk Of Magnesia) 30 ml PO Q4H PRN PRN Reason: Constipation Metoclopramide HCl (Reglan) 10 mg PO Q6H PRN PRN Reason: Nausea And Vomiting Ondansetron HCl (Zofran) 4 mg IV Q4H PRN PRN Reason: N/V unrelieved by Reglan Sodium Chloride (Sodium Chloride Flush Syringe 10 Ml) 10 ml IV PRN PRN PRN Reason: LINE FLUSH Review of Systems Constitutional: other (Left hemiperasis, hemiparesthesia. All other 10 points of systems are reviewed and negative.) Physical Examination - Vital Signs Vital Signs: Vital Signs Temp Pulse Resp BP Pulse Ox 98.6 F 78 18 114/60 100 05/02/18 15:04 05/02/18 15:04 05/02/18 15:04 05/02/18 15:04 05/02/18 15:04 - Constitutional General appearance: comfortable - EENT EENT: Present: PERRL, mucous membranes moist - Respiratory Respiratory: Present: chest non-tender, lungs clear - Cardiovascular Cardiovascular: Present: regular rate, no murmurs Extremities: Present: no peripheral edema bilatateraly, no clubbing, cyanosis - Gastrointestinal Gastrointestinal: Present: soft, non-tender - Integumentary Integumentary: Present: normal - Neurologic Cranial nerve examination: PERRL, EOMI, V1/V2/V3 grossly intact, intact Speech examination: intact Detailed motor examination: other (left upper distal 3/5, proximal 4/5, right 5/ 5. Left side muscle tone increased.) Detailed sensory examination: other (decreased on left side.) Reflexes: 1+: ankle, bicep, knee, tricep Cerebellar examination: other (Limping walking due to left side weakness.) - Psychiatric Psychiatric: Present: mood/affect appropriate Results - Laboratory Findings CBC and BMP: 05/02/18 15:39 05/02/18 15:39 Abnormal Lab Findings: Abnormal Labs 05/02/18 05/02/18 05/02/18 15:22 15:39 15:39 RBC 5.80 H Hgb 15.5 H Hct 47.4 H MCH 27 L RDW 15.7 H Glucose 101 H POC Glucose 116 H Assessment and Plan 1. Episode of left side numbness. Probably TIA. Focal seizure as differential. EEG. 2. HTN. Medicine. Keep relative stable. 3. Dyslipidemia. Statin. 4. Treat risk factors of CVA. 5. She can continue Aspirin 81 mg daily for CVA prophylaxis. Her neurologist stopped her Plavix 3 years ago. She also called her [place] neurology, they said that she can take Aspirin 81 mg daily. 6. S/P cervical spinal surgical procedure. Cervical spinal DDD or stenosis can cause extremities weakness or numbness. F/U with neurosurgery, she has had an appointment on May 08, 2018. 7. If D/C, F/U with neurology in 4-6 weeks. 8. Please contact weekend neurology for further suggestions.
[2018-05-03] MEDS: FLEXERIL PO SCH (21:17)
[2018-05-03] MEDS ORDERED: PRAVACHOL PO SCH (22:00)
[2018-05-04 06:26] VITALS: BP 115/57
[2018-05-04 07:28] LABS: Chol/HDL Ratio 3.24 %
--- NOTE | 2018-05-04 11:53 | Discharge Summary ---
Providers - Providers Date of Admission: 05/02/18 22:36 Date of discharge: 05/04/18 Attending physician: RONALDO NICHOLE 05/03/18 Consult to Physician [CONS] Routine Comment: Consulting Provider: ANDRY ANDREA Physician Instructions: Reason For Exam: tia 05/03/18 00:52 Occupational Therapy Evaluate and Treat [CONS] Routine Comment: Reason For Exam: Neuro deficits Physical Therapy Evaluation and Treat [CONS] Routine Comment: Reason For Exam: Neuro deficits Primary care physician: KATALINA MARCOS Hospitalization Condition: Stable Hospital course: Patient is 72 yo woman with history of CVA with left hemiparesis, hypertension, aneurysm of left eye and tobacco dependency who pw left face and numbness with partial resolution * CT head wo contrast reported as no acute findings -Acute TIA: treat with statin, no asa because aneursym left eye? need Neurology recommendation -Hypertension, but hypotensive and bradycardic: hold antihypertensives, give stat dose of 500 ml IV NSS resuscitation fluid bolus -Aneurysm of the left eye -Tobacco dependency: counselor camp on stopping -DVT prophylaxis: scd only, due left eye aneurysm full code Disposition: DC-01 TO HOME OR SELFCARE Time spent for discharge: 36 minutes Core Measure Documentation - Palliative Care Palliative Care/ Comfort Measures: Not Applicable - Core Measures Any of the following diagnoses?: none - VTE Discharge Requirements Deep Vein Thrombosis/Pulmonary Embolism Present on Admission: No Has pt received <5 days of overlap therapy or INR<2.0: No Anticoagulant overlap therapy prescribed at discharge: No Contraindication No Overlap Therapy order at DC: Not Indicated Exam - Physical Exam Narrative exam: GEN: WDWN, NAD, Awake, Alert, Orientated x 3 HEENT: NCAT, EOMI, PERRL, OP Clear NECK: supple, no adenopathy, no thyromegaly, no JVD CVS/HEART: bradycardia, normal S1S2, pulses present bilaterally CHEST/LUNGS: CTA B, Symmetrical chest expansion, good air entry bilaterally GI/Abdomen: soft, NTND, good bowel sounds, no guarding or rebound /Bladder: no suprapubic tenderness, no CVA or paraspinal tenderness EXT/Skin: no c/c/e, no obvious rash MSK: left hemiparesis Neuro: CN 2-12 grossly intact, no new focal deficits Psych: calm - Constitutional Vitals: Temp Pulse Resp BP Pulse Ox 98.3 F 60 18 115/57 98 05/04/18 05:13 05/04/18 08:08 05/04/18 05:13 05/04/18 05:13 05/04/18 08:08 Plan Activity: other (no strenous activities until cleared by PCP) Diet: low salt, diabetic Follow up with: KATALINA MARCOS MD [Primary Care Provider] - 3-5 Days EDMOND ALBA MD [Staff Physician] - 7 Days Prescriptions: AtorvaSTATin [Lipitor] 40 mg PO QHS #30 tablet Cyclobenzaprine [Flexeril 10 MG TAB] 10 mg PO Q12H PRN #30 tablet PRN Reason: Muscle Spasm Diazepam [Valium] 5 mg PO BID PRN #10 tablet PRN Reason: Anxiety Oxycodone HCl [oxyCODONE TAB] 10 mg PO Q8H PRN #10 tablet PRN Reason: Pain , Severe (7-10)
[2018-05-04] MEDS: FLEXERIL PO SCH (11:55)
[2018-05-04] MEDS: NORVASC PO SCH (11:55)
== END 2018-05-04 13:08 | disposition home health service (06) ==
LOC: ED 15:02 → 4A 22:36 → INTOOBSV 22:36
PROVIDERS: ADMIT Internal Medicine; ATTEND Internal Medicine
DX: G45.9 Transient cerebral ischemic attack, unspecified (principal); I69.354 Hemiplegia and hemiparesis following cerebral infarction affecting left non-dominant side; I10 Essential (primary) hypertension; F17.210 Nicotine dependence, cigarettes, uncomplicated; I72.8 Aneurysm of other specified arteries; E78.5 Hyperlipidemia, unspecified; Z79.82 Long term (current) use of aspirin
CPT/HCPCS: 36415; 70450; 80053; 80061; 82962; 85025; 85610; 85730; 93005; 93010; 96374; 97116; 97161; 99285; 99406; A9270; G0378; J2405; J7040

== ENCOUNTER 2018-07-21 17:43 | Observation (INO) | payer MEDICARE ==
[2018-07-21 20:29] LABS: Basophils # (Auto) 0.1 K/mm3 (0.0-0.1); Basophils % (Auto) 0.8 % (0.0-1.8); Eosinophils % (Auto) 0.5 % (0.0-4.3); Hematocrit 45.1 % (30.3-42.9); Hemoglobin 14.5 gm/dl (10.1-14.3); Lymphocytes # (Auto) 2.8 K/mm3 (1.2-5.4); Lymphocytes % (Auto) 35.3 % (13.4-35.0); Mean Corpuscular HGB Conc 32 % (30-34); Mean Corpuscular Hemoglobin 26 pg (28-32); Mean Corpuscular Volume 82 fl (79-97); Monocytes # (Auto) 0.5 K/mm3 (0.0-0.8); Monocytes % (Auto) 6.7 % (0.0-7.3); Platelet Count 289 K/mm3 (140-440); Red Blood Count 5.51 M/mm3 (3.65-5.03); Red Cell Distribution Width 15.8 % (13.2-15.2)
[2018-07-21 20:38] LABS: INR 0.93 (0.87-1.13)
[2018-07-21 20:39] LABS: Partial Thromboplastin Time 28.4 Sec. (24.2-36.6)
[2018-07-21 20:43] LABS: BUN/Creatinine Ratio 14; Blood Urea Nitrogen 10 mg/dL (7-17); Calcium 9.8 mg/dL (8.4-10.2); Hemolysis Index 4
--- NOTE | 2018-07-21 20:45 | Cat Scan Report ---
FINAL REPORT EXAM: CT HEAD/BRAIN WO CON HISTORY: neuro deficits < 6hrs or sx present upon awakening TECHNIQUE: 2.5 millimeter axial images from the skullbase to the vertex. Comparison: CT head dated May 02, 2018 and MRI brain dated March 13, 2018 FINDINGS: There is no evidence of an acute intracranial process, intracranial hemorrhage or mass effect. Ventricular size is concordant with the degree of atrophy. There are mildly prominent extra-axial collections in the frontal regions bilaterally and along the leaflets of the tentorium bilaterally most suggestive of hygromas. These are not significantly changed in the interval. The visualized portions of the orbits, paranasal and mastoid sinuses are notable for partial opacification of the left mastoid sinus. This does not appear to be significantly changed in the interval. IMPRESSION: 1. No evidence of an acute intracranial process, intracranial hemorrhage or mass effect. 2. Left mastoid sinus disease not significantly changed in the interval. If there is a clinical suspicion of an acute intracranial process, MRI brain may be helpful.
--- NOTE | 2018-07-21 20:49 | Emergency Department Report ---
ED Neuro Deficit HPI - General Chief Complaint: Neuro Symptoms/Deficit Stated Complaint: THROAT SWELLING/NUMB/SOB Time Seen by Provider: 07/21/18 20:36 Source: patient Mode of arrival: Ambulatory Limitations: Physical Limitation - History of Present Illness Initial Comments: Patient is 72 years old female with history of multiple TIA before, hypertension and left hemiparesis from previous stroke. Patient presented to the ER accompanied by her son stating that she woke up this morning around 3:00 with difficulty swallowing and numbness to her left face and some weakness to her left upper extremities. Patient stated that her symptoms improved a lot since this started. She also noted that having difficulty swallowing when she was taking her breakfast this morning. She denied any headache, neck pain, chest pain, abdominal pain or back pain. Location: speech - Related Data Home Medications: Home Medications Medication Instructions Recorded Confirmed Last Taken Losartan [Cozaar] 50 mg PO QDAY 07/21/18 07/21/18 Unknown Polyethylene Glycol 3350 [Miralax 17 gm PO QDAY 07/21/18 07/21/18 Unknown 3350] amLODIPine [Norvasc] 10 mg PO DAILY 07/21/18 07/21/18 Unknown busPIRone [Buspar] 5 mg PO BID 07/21/18 07/21/18 Unknown Previous Rx's Medication Instructions Recorded Last Taken Type Aspirin [Aspirin BABY CHEW TAB] 81 mg PO QDAY #30 tab.chew 05/04/18 Unknown Rx AtorvaSTATin [Lipitor] 40 mg PO QHS #30 tablet 05/04/18 Unknown Rx Cyclobenzaprine [Flexeril 10 MG 10 mg PO Q12H PRN #30 tablet 05/04/18 Unknown Rx TAB] Oxycodone HCl [oxyCODONE TAB] 10 mg PO Q8H PRN #10 tablet 05/04/18 Unknown Rx Allergies/Adverse Reactions: Allergies Allergy/AdvReac Type Severity Reaction Status Date / Time aspirin AdvReac Bleeding Verified 03/13/18 02:05 blood thinners AdvReac Bleeding Uncoded 08/09/16 01:53 ED Review of Systems ROS: Stated complaint: THROAT SWELLING/NUMB/SOB Other details as noted in HPI Comment: All other systems reviewed and negative Constitutional: denies: chills, fever Respiratory: denies: cough, shortness of breath Cardiovascular: denies: chest pain, palpitations Gastrointestinal: denies: abdominal pain, nausea Neurological: weakness, numbness, paresthesias. denies: headache, confusion, abnormal gait, vertigo ED Past Medical Hx - Past Medical History Hx Hypertension: Yes Hx CVA: Yes (old chart no mri documentation on previous admits for same left side weakne) Hx Heart Attack/AMI: No Hx Congestive Heart Failure: No Hx Diabetes: No Hx Liver Disease: No Hx Renal Disease: No Hx Asthma: No Hx COPD: No Additional medical history: Hx. left clavicle fx., h/o muscle spasms. 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 - Surgical History Additional Surgical History: Herniated disk cspine 2001 C5-6, fusion,NECK SURGERY - Social History Smoking Status: Former Smoker Substance Use Type: None - Medications Home Medications: Home Medications Medication Instructions Recorded Confirmed Last Taken Type Aspirin [Aspirin BABY CHEW TAB] 81 mg PO QDAY #30 tab.chew 05/04/18 07/21/18 Unknown Rx AtorvaSTATin [Lipitor] 40 mg PO QHS #30 tablet 05/04/18 07/21/18 Unknown Rx Cyclobenzaprine [Flexeril 10 MG 10 mg PO Q12H PRN #30 tablet 05/04/18 07/21/18 Unknown Rx TAB] Oxycodone HCl [oxyCODONE TAB] 10 mg PO Q8H PRN #10 tablet 05/04/18 07/21/18 Unknown Rx Losartan [Cozaar] 50 mg PO QDAY 07/21/18 07/21/18 Unknown History Polyethylene Glycol 3350 [Miralax 17 gm PO QDAY 07/21/18 07/21/18 Unknown History 3350] amLODIPine [Norvasc] 10 mg PO DAILY 07/21/18 07/21/18 Unknown History busPIRone [Buspar] 5 mg PO BID 07/21/18 07/21/18 Unknown History ED Neuro Physical Exam - General Limitations: Physical Limitation General appearance: alert, in no apparent distress Suspected Stroke: Yes - Head Head exam: Present: atraumatic, normocephalic - Eye Eye exam: Present: normal appearance, PERRL - ENT ENT exam: Present: normal exam, normal orophraynx, mucous membranes moist - Neck Neck exam: Present: normal inspection, full ROM. Absent: tenderness, meningismus, lymphadenopathy, thyromegaly - Respiratory Respiratory exam: Present: normal lung sounds bilaterally - Cardiovascular Cardiovascular Exam: Present: regular rate, normal rhythm, normal heart sounds - GI/Abdominal GI/Abdominal exam: Present: soft, normal bowel sounds. Absent: distended, tenderness, guarding, rebound, rigid - Extremities Exam Extremities exam: Present: normal inspection, full ROM, normal capillary refill. Absent: pedal edema, calf tenderness - Back Exam Back exam: Present: normal inspection, full ROM - Neurological Exam Neurological exam: Present: alert, oriented X3, CN II-XII intact, normal gait, reflexes normal - NIHSS Assessment Interval: Baseline 1a. Level of Consciousness: alert 1b. LOC Questions: answers correctly 1c. LOC Commands: performs tasks correctly 2. Best Gaze: normal 3. Visual: no visual loss 4. Facial Palsy: normal symmetrical movement 5b. Motor Arm Right: no drift 5a. Motor Arm Left: no drift 6a. Motor Leg Left: no drift 6b. Motor Leg Right: no drift 7. Limb Ataxia: absent 8. Sensory: normal 9. Best Language: no aphasia 10. Dysarthria: normal 11. Extinction/Inattention: no abnormality Total Score: 0 Stroke Severity: No Stroke Symptoms - Psychiatric Psychiatric exam: Present: normal affect, normal mood - Skin Skin exam: Present: warm, intact, normal color ED Course Vital Signs 07/21/18 07/21/18 07/21/18 19:21 19:47 20:45 Temperature 98.6 F 98.6 F 98.6 F Pulse Rate 75 77 76 Respiratory 18 18 20 Rate Blood Pressure 138/70 138/70 Blood Pressure 124/67 [Right] O2 Sat by Pulse 100 100 99 Oximetry 07/21/18 21:35 Temperature Pulse Rate Respiratory 20 Rate Blood Pressure Blood Pressure [Right] O2 Sat by Pulse 99 Oximetry - Lab Data Result diagrams: 07/21/18 20:17 07/21/18 20:17 Lab Results 07/21/18 07/21/18 07/21/18 Range/Units 20:17 20:17 20:17 WBC 8.0 (4.5-11.0) K/mm3 RBC 5.51 H (3.65-5.03) M/mm3 Hgb 14.5 H (10.1-14.3) gm/dl Hct 45.1 H (30.3-42.9) % MCV 82 (79-97) fl MCH 26 L (28-32) pg MCHC 32 (30-34) % RDW 15.8 H (13.2-15.2) % Plt Count 289 (140-440) K/mm3 Lymph % (Auto) 35.3 H (13.4-35.0) % Emanuel % (Auto) 6.7 (0.0-7.3) % Eos % (Auto) 0.5 (0.0-4.3) % Baso % (Auto) 0.8 (0.0-1.8) % Lymph # 2.8 (1.2-5.4) K/mm3 Emanuel # 0.5 (0.0-0.8) K/mm3 Eos # 0.0 (0.0-0.4) K/mm3 Baso # 0.1 (0.0-0.1) K/mm3 Seg Neutrophils % 56.7 (40.0-70.0) % Seg Neutrophils # 4.5 (1.8-7.7) K/mm3 PT 12.9 (12.2-14.9) Sec. INR 0.93 (0.87-1.13) APTT 28.4 (24.2-36.6) Sec. Thrombin Time (15.1-19.6) Sec. Sodium 139 (137-145) mmol/L Potassium 4.4 (3.6-5.0) mmol/L Chloride 98.9 (98-107) mmol/L Carbon Dioxide 26 (22-30) mmol/L Anion Gap 19 mmol/L BUN 10 (7-17) mg/dL Creatinine 0.7 (0.7-1.2) mg/dL Estimated GFR > 60 ml/min BUN/Creatinine Ratio 14 % Glucose 110 H (65-100) mg/dL Calcium 9.8 (8.4-10.2) mg/dL Troponin T < 0.010 (0.00-0.029) ng/mL 07/21/18 Range/Units 20:17 WBC (4.5-11.0) K/mm3 RBC (3.65-5.03) M/mm3 Hgb (10.1-14.3) gm/dl Hct (30.3-42.9) % MCV (79-97) fl MCH (28-32) pg MCHC (30-34) % RDW (13.2-15.2) % Plt Count (140-440) K/mm3 Lymph % (Auto) (13.4-35.0) % Emanuel % (Auto) (0.0-7.3) % Eos % (Auto) (0.0-4.3) % Baso % (Auto) (0.0-1.8) % Lymph # (1.2-5.4) K/mm3 Emanuel # (0.0-0.8) K/mm3 Eos # (0.0-0.4) K/mm3 Baso # (0.0-0.1) K/mm3 Seg Neutrophils % (40.0-70.0) % Seg Neutrophils # (1.8-7.7) K/mm3 PT (12.2-14.9) Sec. INR (0.87-1.13) APTT (24.2-36.6) Sec. Thrombin Time 16.9 (15.1-19.6) Sec. Sodium (137-145) mmol/L Potassium (3.6-5.0) mmol/L Chloride (98-107) mmol/L Carbon Dioxide (22-30) mmol/L Anion Gap mmol/L BUN (7-17) mg/dL Creatinine (0.7-1.2) mg/dL Estimated GFR ml/min BUN/Creatinine Ratio % Glucose (65-100) mg/dL Calcium (8.4-10.2) mg/dL Troponin T (0.00-0.029) ng/mL - EKG Data -: EKG Interpreted by Il EKG shows normal: sinus rhythm Rate: normal Interpretation: no acute changes - Radiology Data Radiology results: report reviewed Referring Physician: BANG SHEFFIELD Patient Name: SILVERIO FIGUEROA Date of : 1945 Sex: Female Report Date: 2018-07-21 Report Status: Finalized Findings [facility] [address] [place] [address] Cat Scan Report Signed Patient: SILVERIO FIGUEROA MR#: [id number] : 1945 Acct:[id number] Age/Sex: 72 / F ADM Date: 07/21/18 Loc: ED Attending Dr: Ordering Physician: BANG SHEFFIELD Date of Service: 07/21/18 Procedure(s): CT head/brain wo con Accession Number(s): [id number] cc: BANG SHEFFIELD FINAL REPORT EXAM: CT HEAD/BRAIN WO CON HISTORY: neuro deficits lt; 6hrs or sx present upon awakening TECHNIQUE: 2.5 millimeter axial images from the skullbase to the vertex. Comparison: CT head dated May 02, 2018 and MRI brain dated March 13, 2018 FINDINGS: There is no evidence of an acute intracranial process, intracranial hemorrhage or mass effect. Ventricular size is concordant with the degree of atrophy. There are mildly prominent extra-axial collections in the frontal regions bilaterally and along the leaflets of the tentorium bilaterally most suggestive of hygromas. These are not significantly changed in the interval. The visualized portions of the orbits, paranasal and mastoid sinuses are notable for partial opacification of the left mastoid sinus. This does not appear to be significantly changed in the interval. IMPRESSION: 1. No evidence of an acute intracranial process, intracranial hemorrhage or mass effect. 2. Left mastoid sinus disease not significantly changed in the interval. If there is a clinical suspicion of an acute intracranial process, MRI brain may be helpful. Transcribed By: ED Dictated By: DILIP FIORE MD Electronically Authenticated By: DILIP FIORE MD Signed Date/Time: 07/21/182042 DD/ 42 TD/TT: 07/21/182042 Referring Physician: BANG SHEFFIELD Patient Name: SILVERIO FIGUEROA Date of : 1945 Sex: Female Report Date: 2018-07-21 Report Status: Finalized Findings [facility] [address] [place] [address] XRay Report Signed Patient: SILVERIO FIGUEROA MR#: [id number] : 1945 Acct:[id number] Age/Sex: 72 / F ADM Date: 07/21/18 Loc: ED Attending Dr: Ordering Physician: BANG SHEFFIELD Date of Service: 09/09/18 Procedure(s): XR chest 1V ap Accession Number(s): [id number] cc: BANG [place] Time In Minutes: FINAL REPORT EXAM: XR CHEST 1V AP HISTORY: neuro deficit TECHNIQUE: Frontal portable view of the chest Comparison: None FINDINGS: There is mild prominence of the interstitial markings with peribronchial thickening, acute versus chronic. There is platelike atelectasis or scar formation in the right lung base. There is no evidence of pneumothorax or pleural fluid collection. Cardiac silhouette is normal size. The thoracic aorta is mildly tortuous with atherosclerotic vascular calcification. The bony structures are notable for degenerative change of the shoulder joints bilaterally and retained hardware in the cervical spine. Visualization detail of the thoracic spine is limited. IMPRESSION: 1. Mild prominence of the interstitial markings with peribronchial thickening, acute versus chronic. 2. Atherosclerotic vascular calcification thoracic aorta. 3. Degenerative change shoulder joints bilaterally and retained hardware cervical spine. Transcribed By: ED Dictated By: DILIP FIORE MD Electronically Authenticated By: DILIP FIORE MD Signed Date/Time: 07/21/182108 DD/ 08 TD/TT: 07/21/182108 - Medical Decision Making I discussed the patient is Dr. Concha Carvalho, she agreed to admit the patient to medical service. Critical care attestation.: If time is entered above; I have spent that time in minutes in the direct care of this critically ill patient, excluding procedure time. ED Disposition Clinical Impression: Hemiparesis due to old stroke, TIA (transient ischemic attack) Disposition: OP ADMIT IP TO THIS HOSP Is pt being admited?: Yes Condition: Stable Referrals: PRIMARY CARE, [Primary Care Provider] - 3-5 Days
--- NOTE | 2018-07-21 21:10 | XRay Report ---
FINAL REPORT EXAM: XR CHEST 1V AP HISTORY: neuro deficit TECHNIQUE: Frontal portable view of the chest Comparison: None FINDINGS: There is mild prominence of the interstitial markings with peribronchial thickening, acute versus chronic. There is platelike atelectasis or scar formation in the right lung base. There is no evidence of pneumothorax or pleural fluid collection. Cardiac silhouette is normal size. The thoracic aorta is mildly tortuous with atherosclerotic vascular calcification. The bony structures are notable for degenerative change of the shoulder joints bilaterally and retained hardware in the cervical spine. Visualization detail of the thoracic spine is limited. IMPRESSION: 1. Mild prominence of the interstitial markings with peribronchial thickening, acute versus chronic. 2. Atherosclerotic vascular calcification thoracic aorta. 3. Degenerative change shoulder joints bilaterally and retained hardware cervical spine.
[2018-07-21] MEDS ORDERED: APRESOLINE IV PRN (23:27)
[2018-07-21] MEDS ORDERED: MILK OF MAGNESIA PO PRN (23:27)
[2018-07-21] MEDS ORDERED: DULCOLAX PR PRN (23:27)
[2018-07-21] MEDS ORDERED: ZOFRAN IV PRN (23:27)
[2018-07-21] MEDS ORDERED: TYLENOL PO PRN (23:27)
[2018-07-21] MEDS ORDERED: SODIUM CHLORIDE FLUSH SYRINGE 10 ML IV PRN (23:27)
[2018-07-21] MEDS ORDERED: ROXICODONE PO PRN (23:30)
--- NOTE | 2018-07-21 23:31 | History and Physical Report ---
History of Present Illness Date of examination: 07/21/18 History of present illness: 72-year-old woman with a history of CVA with left hemiparesis, hypertension, aneurysm of the left eye was brought to the emergency room because she developed left-sided numbness, left facial numbness. She also states that she felt as if someone was choking her, her Throat is numb. Her symptoms are improving Review of systems Constitutional: no weight loss, chills Ears, eyes, nose, mouth and throat: no nasal congestion, no nasal discharge, no sinus pressure, no vision change, no red eye. Neck: No neck pain or rigidity. Cardiovascular: no chest pain, palpitations Respiratory: No cough, shortness of breath Gastrointestinal: no abdominal pain, hematochezia Genitourinary : no dysuria, frequency , no hematuria Musculoskeletal: no joint swelling or muscle ache Integumentary: no rash, no pruritis Neurological: no parathesias, no numbness, no focal weakness Endocrine: no cold or heat intolerance, no polyuria or polydipsia Hematologic/Lymphatic: no easy bruising, no easy bleeding, no gland swelling Allergic/Immunologic: no urticaria, no angioedema. PAST MEDICAL HISTORY:CVA with left hemiparesis, hypertension, aneurysm of the left eye PAST SURGICAL HISTORY:none SOCIAL HISTORY: Smoking 1 pack a day, alcohol use, no drug FAMILY HISTORY: Hypertension Medications and Allergies Allergies Allergy/AdvReac Type Severity Reaction Status Date / Time aspirin AdvReac Bleeding Verified 03/13/18 02:05 blood thinners AdvReac Bleeding Uncoded 08/09/16 01:53 Home Medications Medication Instructions Recorded Confirmed Last Taken Type Aspirin [Aspirin BABY CHEW TAB] 81 mg PO QDAY #30 tab.chew 05/04/18 07/21/18 Unknown Rx AtorvaSTATin [Lipitor] 40 mg PO QHS #30 tablet 05/04/18 07/21/18 Unknown Rx Cyclobenzaprine [Flexeril 10 MG 10 mg PO Q12H PRN #30 tablet 05/04/18 07/21/18 Unknown Rx TAB] Oxycodone HCl [oxyCODONE TAB] 10 mg PO Q8H PRN #10 tablet 05/04/18 07/21/18 Unknown Rx Losartan [Cozaar] 50 mg PO QDAY 07/21/18 07/21/18 Unknown History Polyethylene Glycol 3350 [Miralax 17 gm PO QDAY 07/21/18 07/21/18 Unknown History 3350] amLODIPine [Norvasc] 10 mg PO DAILY 07/21/18 07/21/18 Unknown History busPIRone [Buspar] 5 mg PO BID 07/21/18 07/21/18 Unknown History Active Meds: Active Medications Acetaminophen (Tylenol) 650 mg PO Q4H PRN PRN Reason: Pain, Mild (1-3) Bisacodyl (Dulcolax) 10 mg IN QDAY PRN PRN Reason: Constipation Enoxaparin Sodium (Lovenox) 30 mg SUB-Q QDAY ALLA Hydralazine HCl (Apresoline) 5 mg IV Q6H PRN PRN Reason: Keep SBP between 160-185 mm Hg Magnesium Hydroxide (Milk Of Magnesia) 30 ml PO Q4H PRN PRN Reason: Constipation Ondansetron HCl (Zofran) 4 mg IV Q8H PRN PRN Reason: Nausea And Vomiting Sodium Chloride (Sodium Chloride Flush Syringe 10 Ml) 10 ml INJ PRN PRN PRN Reason: LINE FLUSH Exam - Physical Exam Narrative exam: Gen. appearance: Patient lying in bed, no apparent distress HEENT: Normocephalic, atraumatic, pupils equally round and reactive to light, extraocular movement intact, and no sclericterus,. No JVD or thyromegaly or nodule,neck supple, no carotid bruit ,mucous membranes moist, no exudate or erythema Heart: S1, S2, regular rate and rhythm Lungs: Clear bilaterally, breathing comfortable Abdomen: Positive bowel sounds, non-tender, nondistended, no organomegaly Extremity:no edema cyanosis, clubbing Skin: no rash, dry, warm Neuro: Oriented 3, cranial nerves II-12 intact, speech is fluent, motor, decreased sensation on the left upper and lower extremity, face - Constitutional Vitals: Temp Pulse Resp BP Pulse Ox 98.6 F 76 20 124/67 99 07/21/18 20:45 07/21/18 20:45 07/21/18 21:35 07/21/18 20:45 07/21/18 21:35 Results - Labs CBC & Chem 7: 07/21/18 20:17 07/21/18 20:17 Labs: Abnormal lab results 07/21/18 07/21/18 Range/Units 20:17 20:17 RBC 5.51 H (3.65-5.03) M/mm3 Hgb 14.5 H (10.1-14.3) gm/dl Hct 45.1 H (30.3-42.9) % MCH 26 L (28-32) pg RDW 15.8 H (13.2-15.2) % Lymph % (Auto) 35.3 H (13.4-35.0) % Glucose 110 H (65-100) mg/dL - Imaging and Cardiology EKG: image reviewed Chest x-ray: image reviewed CT Scan - head: report reviewed Assessment and Plan Assessment Acute CVAvs TIA Hypertension Aneurysm of the left eye History of CVA Plan Admit to medicine Obtain MRI of the head, carotid Doppler, echo Do neuro checks, swallow screen Consulting neurology, physical, occupational therapy Continue statin Hold antiplatelet agents, blood thinners, aneurysm of eye DVT prophylaxis
[2018-07-22 00:27] LABS: Creatine Kinase MB 1.4 ng/mL (0.0-4.0)
[2018-07-22 05:59] LABS: Chol/HDL Ratio 4.64 %
[2018-07-22 06:01] LABS: Creatine Kinase MB 1.4 ng/mL (0.0-4.0)
[2018-07-22] MEDS: BUSPAR PO SCH ×2 (09:04→22:29)
[2018-07-22] MEDS ORDERED: ATIVAN IV NR (09:45)
[2018-07-22] MEDS ORDERED: MIRALAX 3350 PO SCH (10:00)
[2018-07-22] MEDS ORDERED: NORVASC PO SCH (10:00)
[2018-07-22] MEDS ORDERED: LOVENOX SUB-Q SCH (10:00)
--- NOTE | 2018-07-22 10:43 | Discharge Summary ---
Providers - Providers Date of Admission: 07/21/18 23:27 Attending physician: YUSEF DU MD 07/21/18 23:27 Occupational Therapy Evaluate and Treat [CONS] Routine Comment: Reason For Exam: Neuro deficits Physical Therapy Evaluation and Treat [CONS] Routine Comment: Reason For Exam: Neuro deficits 07/22/18 03:34 Consult to Physician [CONS] Routine Comment: Consulting Provider: RACHEAL GUNN Physician Instructions: Reason For Exam: tia Primary care physician: CLINICAL SERVICES DIRECTOR Hospitalization Reason for admission: ANIXETY Condition: Stable Hospital course: 72-year-old woman with a history of CVA with left hemiparesis, hypertension, aneurysm of the left eye was brought to the emergency room because she developed left-sided numbness, left facial numbness. She also states that she felt as if someone was choking her, her Throat is numb. Her symptoms are resolved. she has been admitted 3 other times this year for TIA work up with no evidence of acute CVA. She is normally follow in [place]. Patient appeared to have a stress related improving son started on dialysis. patient felt anxious then began to feel like her throat was closing in. we increased her asa and statin was continued. I recommended Psych eval outpatient with continued follow up with [facility] Left hemiparesis Anxiety disoder Hypertension Aneurysm of the left eye History of CVA Disposition: [id number]/TX-06 HOME UNDER HOME [facility] Time spent for discharge: 35 MIN Core Measure Documentation - Palliative Care Palliative Care/ Comfort Measures: Not Applicable - Core Measures Any of the following diagnoses?: none - VTE Discharge Requirements Deep Vein Thrombosis/Pulmonary Embolism Present on Admission: No Exam - Physical Exam Narrative exam: VITAL SIGNS: Reviewed. GENERAL: The patient appeared well nourished and normally developed. Vital signs as documented. HEAD: No signs of head trauma. EYES: Pupils are equal. Extraocular motions intact. EARS: Hearing grossly intact. MOUTH: Oropharynx is normal. NECK: No adenopathy, no JVD. CHEST: Chest with clear breath sounds bilaterally. No wheezes, rales, or rhonchi. CARDIAC: Regular rate and rhythm. S1 and S2, without murmurs, gallops, or rubs. VASCULAR: No Edema. Peripheral pulses normal and equal in all extremities. ABDOMEN: Soft, without detectable tenderness. No sign of distention. No rebound or guarding, and no masses palpated. Bowel Sounds normal. MUSCULOSKELETAL: Good range of motion of all major joints. Extremities without clubbing, cyanosis or edema. NEUROLOGIC EXAM: Alert and oriented x 3. No focal sensory or strength deficits. Speech normal. Follows commands. PSYCHIATRIC: Mood normal. SKIN: No rash or lesions. - Constitutional Vitals: Temp Pulse Resp BP Pulse Ox 98.2 F 76 20 125/69 99 07/22/18 07:57 07/22/18 09:04 07/22/18 07:57 07/22/18 07:57 07/22/18 07:57 Plan Activity: advance as tolerated, fall precautions Diet: low salt Special Instructions: record daily BP diary Additional Instructions: follow with primary psychiatrist Follow up with: PRIMARY CAREMD [Primary Care Provider] - 3-5 Days Prescriptions: Aspirin [Aspirin EC] 325 mg PO DAILY #30 tablet.
--- NOTE | 2018-07-22 14:06 | Consultation ---
History of Present Illness Consult date: 07/22/18 Requesting physician: CHARLINE العلي Reason for Consult: TIA History of present illness: This is a 72 year old right handed female with history of hypertension and stroke over ten years ago. She has a baseline left hemiparesis and decreased left sensation. 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 The patient had been receiving ASA and Plavix for continued stroke prevention until discovery of the aneurysm, when Plavix was discontinued. She has had 3 admissions in March and April of this year for TIA symptoms. The patient describes making dinner last night when she noted worsening left face, arm and leg numbness as well as difficulty swallowing. She has also been experiencing left neck and shoulder pain over the past few days. After admission the symptoms began to improve. This a.m. she feels back to baseline. She feels that her left arm has been in a contractured state for the past few months. She is receiving home physical therapy. She admits compliance with aspirin and atorvastatin daily. MRI and CT scans prior to this admission have not revealed a stroke. CTA reveals less than 30% occlusive disease in the carotids bilaterally Past History Past Medical History: hypertension (cervical spine fixation) Social history: , Lives alone Medications and Allergies Allergies Allergy/AdvReac Type Severity Reaction Status Date / Time aspirin AdvReac Bleeding Verified 03/13/18 02:05 blood thinners AdvReac Bleeding Uncoded 08/09/16 01:53 Home Medications Medication Instructions Recorded Confirmed Last Taken Type Aspirin [Aspirin BABY CHEW TAB] 81 mg PO QDAY #30 tab.chew 05/04/18 07/21/18 Unknown Rx AtorvaSTATin [Lipitor] 40 mg PO QHS #30 tablet 05/04/18 07/21/18 Unknown Rx Cyclobenzaprine [Flexeril 10 MG 10 mg PO Q12H PRN #30 tablet 05/04/18 07/21/18 Unknown Rx TAB] Oxycodone HCl [oxyCODONE TAB] 10 mg PO Q8H PRN #10 tablet 05/04/18 07/21/18 Unknown Rx Losartan [Cozaar] 50 mg PO QDAY 07/21/18 07/21/18 Unknown History Polyethylene Glycol 3350 [Miralax 17 gm PO QDAY 07/21/18 07/21/18 Unknown History 3350] amLODIPine [Norvasc] 10 mg PO DAILY 07/21/18 07/21/18 Unknown History busPIRone [Buspar] 5 mg PO BID 07/21/18 07/21/18 Unknown History Active Meds: Active Medications Acetaminophen (Tylenol) 650 mg PO Q4H PRN PRN Reason: Pain, Mild (1-3) Amlodipine Besylate (Norvasc) 10 mg PO DAILY [facility] Last Admin: 07/22/18 09:04 Dose: 10 mg Atorvastatin Calcium (Lipitor) 40 mg PO QHS [facility] Bisacodyl (Dulcolax) 10 mg [place] QDAY PRN PRN Reason: Constipation Buspirone HCl (Buspar) 5 mg PO BID [facility] Last Admin: 07/22/18 09:04 Dose: 5 mg Hydralazine HCl (Apresoline) 5 mg IV Q6H PRN PRN Reason: Keep SBP between 160-185 mm Hg Lorazepam (Ativan) 2 mg IV COACH BUILDER NR Stop: 07/22/18 20:00 Magnesium Hydroxide (Milk Of Magnesia) 30 ml PO Q4H PRN PRN Reason: Constipation Ondansetron HCl (Zofran) 4 mg IV Q8H PRN PRN Reason: Nausea And Vomiting Oxycodone HCl (Roxicodone) 10 mg PO Q8H PRN PRN Reason: Pain , Severe (7-10) Last Admin: 07/22/18 09:05 Dose: 10 mg Polyethylene Glycol (Miralax 3350) 17 gm PO QDAY [facility] Last Admin: 07/22/18 09:05 Dose: 17 gm Sodium Chloride (Sodium Chloride Flush Syringe 10 Ml) 10 ml IV PRN PRN PRN Reason: LINE FLUSH Physical Examination - Vital Signs Vital Signs: Vital Signs Temp Pulse Resp BP Pulse Ox 98.6 F 75 18 138/70 100 07/21/18 19:21 07/21/18 19:21 07/21/18 19:21 07/21/18 19:21 07/21/18 19:21 Sitting comfortably in her chair. HEENT - no inflamation or lesions. neck is supple with left tenderness posteriorly into the shoulder. No bruits. Chest - clear to auscultation. Heart - normal S-1, S-2. no murmur. Abdomen - soft, nontender. Extremities - no CCE Neurological - speech fluent. alert and oriented. fiber artist - EOMs full, face symmetric, tongue midline. V-1 to V-3 with decreased sensation on the left. hearing intact. Motor - 5/5 on right. Left - contractured left upper extremity. no pain with passive range of motion. finger extensors - 2/5, interventional physician - 3/5. biceps, triceps - 1/5. Iliopsoas - 4/5, anterior tibs - 4/5. Reflexes - +2 on the left, +1 on the right. Sensory - Decreased sensation left face arm and leg. Cerebellar - intact on the right. Cannot perform Megan, fine finger movements , FTN with left arm due to weakness. Gait - arises from chair independently. hemiparetic gait. - Assessment Assessment Interval: Baseline - Level of Consciousness 1a. Level of Consciousness: alert - LOC Questions 1b. LOC Questions: answers correctly - LOC Command 1c. LOC Commands: performs tasks correctly - Best Gaze 2. Best Gaze: normal - Visual 3. Visual: no visual loss - Facial Palsy 4. Facial Palsy: normal symmetrical movement - Motor Arm 5b. Motor Arm Right: no drift 5a. Motor Arm Left: some gravity effort - Motor Leg 6a. Motor Leg Left: no drift 6b. Motor Leg Right: no movement - Limb Ataxia 7. Limb Ataxia: absent - Sensory 8. Sensory: normal - Best Language 9. Best Language: no aphasia - Dysarthria 10. Dysarthria: normal - Extinction and Inattention 11. Extinction/Inattention: no abnormality - Scoring Total Score: 6 Stroke Severity: Moderate Stroke Results - Laboratory Findings CBC and BMP: 07/21/18 20:17 07/21/18 20:17 Abnormal Lab Findings: Abnormal Labs 07/21/18 07/21/18 07/22/18 20:17 20:17 05:23 RBC 5.51 H Hgb 14.5 H Hct 45.1 H MCH 26 L RDW 15.8 H Lymph % (Auto) 35.3 H Glucose 110 H Cholesterol 246 H LDL Cholesterol Direct 191 H Assessment and Plan 72 year old female with history of hypertension, and previous stroke, presents with TIA. Previous stroke caused left hemiparesis and numbness. Previous MRI scans have not defined the area of infarct. The symptoms of numbness on the left and choking sensation when trying to swallow have resolved. This is the 4th admission since March for TIA for this patient. She apparently has physicians at [place] that she can follow up with. Plan - Increase the ASA to 325 mg daily. Continue Atorvastatin Await MRI Will check B-12 and TFTs
--- NOTE | 2018-07-22 15:32 | Progress Note ---
Assessment and Plan Assessment and plan: 72-year-old woman with a history of CVA with left hemiparesis, hypertension, aneurysm of the left eye was brought to the emergency room because she developed left-sided numbness, left facial numbness. She also states that she felt as if someone was choking her, her Throat is numb. Her symptoms are resolved. she has been admitted 3 other times this year for TIA work up with no evidence of acute CVA. She is normally follow in [place] Left hemiparesis with choking sensation TIA vs Anxiety Anxiety disoder Hypertension Aneurysm of the left eye History of CVA Plan Supportive care Neuro input noted increase ASA to 325mg and continue atorvastatin Continue anti anxiety medications and recommend outpatient pysch eval Can discharge in MRI negative for acute pathology DVT prophylaxis History Interval history: Patient seen and examined today in no acute distress resting comfortably reports improvement of symptoms. she informs me that she was anxious due to stress and recent news of son now getting dialysis Hospitalist Physical - Physical exam Narrative exam: VITAL SIGNS: Reviewed. GENERAL: The patient appeared well nourished and normally developed. Vital signs as documented. HEAD: No signs of head trauma. EYES: Pupils are equal. Extraocular motions intact. EARS: Hearing grossly intact. MOUTH: Oropharynx is normal. NECK: No adenopathy, no JVD. CHEST: Chest with clear breath sounds bilaterally. No wheezes, rales, or rhonchi. CARDIAC: Regular rate and rhythm. S1 and S2, without murmurs, gallops, or rubs. VASCULAR: No Edema. Peripheral pulses normal and equal in all extremities. ABDOMEN: Soft, without detectable tenderness. No sign of distention. No rebound or guarding, and no masses palpated. Bowel Sounds normal. MUSCULOSKELETAL: Good range of motion of all major joints. Extremities without clubbing, cyanosis or edema. NEUROLOGIC EXAM: Alert and oriented x 3. No focal sensory or strength deficits. Speech normal. Follows commands. PSYCHIATRIC: Mood normal. SKIN: No rash or lesions. - Constitutional Vitals: Temp Pulse Resp BP Pulse Ox 98.2 F 76 20 125/69 96 07/22/18 07:57 07/22/18 09:04 07/22/18 07:57 07/22/18 07:57 07/22/18 10:00 Results - Labs CBC & Chem 7: 07/21/18 20:17 07/21/18 20:17 Labs: Laboratory Last Values WBC 8.0 K/mm3 (4.5-11.0) 07/21/18 20:17 RBC 5.51 M/mm3 (3.65-5.03) H 07/21/18 20:17 Hgb 14.5 gm/dl (10.1-14.3) H 07/21/18 20:17 Hct 45.1 % (30.3-42.9) H 07/21/18 20:17 MCV 82 fl (79-97) 07/21/18 20:17 MCH 26 pg (28-32) L 07/21/18 20:17 MCHC 32 % (30-34) 07/21/18 20:17 RDW 15.8 % (13.2-15.2) H 07/21/18 20:17 Plt Count 289 K/mm3 (140-440) 07/21/18 20:17 Lymph % (Auto) 35.3 % (13.4-35.0) H 07/21/18 20:17 [place] % (Auto) 6.7 % (0.0-7.3) 07/21/18 20:17 Eos % (Auto) 0.5 % (0.0-4.3) 07/21/18 20:17 Baso % (Auto) 0.8 % (0.0-1.8) 07/21/18 20:17 Lymph # 2.8 K/mm3 (1.2-5.4) 07/21/18 20:17 [place] # 0.5 K/mm3 (0.0-0.8) 07/21/18 20:17 Eos # 0.0 K/mm3 (0.0-0.4) 07/21/18 20:17 Baso # 0.1 K/mm3 (0.0-0.1) 07/21/18 20:17 Seg Neutrophils % 56.7 % (40.0-70.0) 07/21/18 20:17 Seg Neutrophils # 4.5 K/mm3 (1.8-7.7) 07/21/18 20:17 PT 12.9 Sec. (12.2-14.9) 07/21/18 20:17 INR 0.93 (0.87-1.13) 07/21/18 20:17 APTT 28.4 Sec. (24.2-36.6) 07/21/18 20:17 Thrombin Time 16.9 Sec. (15.1-19.6) 07/21/18 20:17 Sodium 139 mmol/L (137-145) 07/21/18 20:17 Potassium 4.4 mmol/L (3.6-5.0) 07/21/18 20:17 Chloride 98.9 mmol/L (98-107) 07/21/18 20:17 Carbon Dioxide 26 mmol/L (22-30) 07/21/18 20:17 Anion Gap 19 mmol/L 07/21/18 20:17 BUN 10 mg/dL (7-17) 07/21/18 20:17 Creatinine 0.7 mg/dL (0.7-1.2) 07/21/18 20:17 Estimated GFR > 60 ml/min 07/21/18 20:17 BUN/Creatinine Ratio 14 % 07/21/18 20:17 Glucose 110 mg/dL (65-100) H 07/21/18 20:17 Calcium 9.8 mg/dL (8.4-10.2) 07/21/18 20:17 Total Creatine Kinase 95 units/L (30-135) 07/22/18 05:23 CK-MB (CK-2) 1.4 ng/mL (0.0-4.0) 07/22/18 05:23 CK-MB (CK-2) Rel Index 1.4 (0-4) 07/22/18 05:23 Troponin T < 0.010 ng/mL (0.00-0.029) 07/22/18 05:23 Triglycerides 140 mg/dL (2-149) 07/22/18 05:23 Cholesterol 246 mg/dL (50-199) H 07/22/18 05:23 LDL Cholesterol Direct 191 mg/dL (50-130) H 07/22/18 05:23 HDL Cholesterol 53 mg/dL (40-59) 07/22/18 05:23 Cholesterol/HDL Ratio 4.64 % 07/22/18 05:23
[2018-07-22 16:45] VITALS: BP 136/79
--- NOTE | 2018-07-22 20:25 | Magnetic Resonance Report ---
FINAL REPORT PROCEDURE: MR BRAIN WO CON TECHNIQUE: Magnetic resonance imaging of the brain was performed without contrast material. HISTORY: stroke symptoms COMPARISON: 03/13/2018 FINDINGS: There is no restricted diffusion to suggest acute infarction. There are mild involutional changes, with prominence of the ventricles and the sulci. No hydrocephalus. No abnormal extra-axial fluid collection is seen. No evidence of intracranial mass. 3 millimeter focus of high T2 signal in the right frontal white matter may be related to chronic microvascular ischemic change. Otherwise no MRI evidence of microvascular ischemic changes are seen. The paranasal sinuses are aerated. There is fluid signal in the left mastoid. Globes and orbits are unremarkable in appearance. IMPRESSION: No evidence of acute infarction. There is fluid signal in the left mastoid
[2018-07-22] MEDS ORDERED: FLEXERIL PO SCH (22:00)
== END 2018-07-22 22:35 | disposition home health service (06) ==
LOC: ED 17:43 → 4A 23:27 → INTOOBSV 23:27
PROVIDERS: ADMIT Internal Medicine; ATTEND Internal Medicine
DX: R20.0 Anesthesia of skin (principal); I69.354 Hemiplegia and hemiparesis following cerebral infarction affecting left non-dominant side; I10 Essential (primary) hypertension; F41.9 Anxiety disorder, unspecified; F17.210 Nicotine dependence, cigarettes, uncomplicated; H35.042 Retinal micro-aneurysms, unspecified, left eye; Z88.6 Allergy status to analgesic agent; Z79.82 Long term (current) use of aspirin; Z79.899 Other long term (current) drug therapy; Z72.89 Other problems related to lifestyle; Z82.49 Family history of ischemic heart disease and other diseases of the circulatory system
CPT/HCPCS: 36415; 70450; 70551; 71045; 80048; 80061; 82550; 82553; 82607; 84443; 84484; 85025; 85610; 85670; 85730; 87116; 93005; 93010; 93306; 96374; 97163; 99285; A9270; G0378; G8978; G8979; J2060

== ENCOUNTER 2018-08-01 07:56 | Emergency (ER) | payer MEDICARE ==
--- NOTE | 2018-08-01 08:04 | Emergency Department Report ---
ED Neuro Deficit HPI - General Chief Complaint: Neuro Symptoms/Deficit Stated Complaint: POSSIBLE STROKE Time Seen by Provider: 08/01/18 07:57 Source: patient, EMS Mode of arrival: Stretcher Limitations: No Limitations - History of Present Illness Initial Comments: Patient complained of left-sided weakness which started around 7:00 this morning. She says she woke up normal however around 7 AM she noticed that her left upper and lower extremities weaker than normal. 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 She denies headache, chest pain, shortness of breath, abdominal pain, nausea or vomiting. Patient has high blood pressure but she has not taken her blood pressure medication this morning. She denied being on a blood thinner. Patient said she took four 81 mg aspirin at home this morning before the ambulance arrived. -: Sudden Time: 07:00 Last Observed Normal: 07:00 Location: left arm, left leg Presenting Symptoms: Present: Weak/Paralyzed One Side History of same: Yes Place: home Severity: mild Quality: weak Improves With: none Worsens With: none On Anticoagulants: No Context: sudden onset Associated Symptoms: denies other symptoms Treatments Prior to Arrival: Aspirin (324 mg) - Related Data Home Medications: Home Medications Medication Instructions Recorded Confirmed Last Taken Losartan [Cozaar] 50 mg PO QDAY 07/21/18 08/01/18 07/31/18 Polyethylene Glycol 3350 [Miralax 17 gm PO QDAY 07/21/18 08/01/18 07/31/18 3350] amLODIPine [Norvasc] 10 mg PO DAILY 07/21/18 08/01/18 07/31/18 busPIRone [Buspar] 5 mg PO BID 07/21/18 08/01/18 07/31/18 Previous Rx's Medication Instructions Recorded Last Taken Type AtorvaSTATin [Lipitor] 40 mg PO QHS #30 tablet 05/04/18 07/31/18 Rx Cyclobenzaprine [Flexeril 10 MG 10 mg PO Q12H PRN #30 tablet 05/04/18 07/31/18 Rx TAB] Oxycodone HCl [oxyCODONE TAB] 10 mg PO Q8H PRN #10 tablet 05/04/18 07/31/18 Rx Aspirin [Aspirin EC] 325 mg PO DAILY #30 tablet. 07/22/18 07/31/18 Rx Allergies/Adverse Reactions: Allergies Allergy/AdvReac Type Severity Reaction Status Date / Time aspirin AdvReac Bleeding Verified 03/13/18 02:05 blood thinners AdvReac Bleeding Uncoded 08/09/16 01:53 ED Review of Systems ROS: Stated complaint: POSSIBLE STROKE Other details as noted in HPI Comment: All other systems reviewed and negative Constitutional: denies: chills, fever Eyes: denies: eye pain ENT: denies: ear pain Respiratory: denies: cough, orthopnea, shortness of breath Cardiovascular: denies: chest pain, palpitations, dyspnea on exertion Endocrine: no symptoms reported Gastrointestinal: abdominal pain. denies: nausea, vomiting, diarrhea, constipation Genitourinary: denies: urgency, dysuria Musculoskeletal: denies: back pain Skin: denies: rash, lesions, change in color Neurological: denies: headache, weakness, numbness, paresthesias, confusion Psychiatric: denies: anxiety, depression Hematological/Lymphatic: denies: easy bleeding, easy bruising ED Past Medical Hx - Past Medical History Hx Hypertension: Yes Hx CVA: Yes (old chart no mri documentation on previous admits for same left side weakne) Hx Heart Attack/AMI: No Hx Congestive Heart Failure: No Hx Diabetes: No Hx Liver Disease: No Hx Renal Disease: No Hx Asthma: No Hx COPD: No Additional medical history: Hx. left clavicle fx., h/o muscle spasms. 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 - Surgical History Additional Surgical History: Herniated disk cspine 2001 C5-6, fusion,NECK SURGERY - Social History Smoking Status: Former Smoker - Medications Home Medications: Home Medications Medication Instructions Recorded Confirmed Last Taken Type AtorvaSTATin [Lipitor] 40 mg PO QHS #30 tablet 05/04/18 08/01/18 07/31/18 Rx Cyclobenzaprine [Flexeril 10 MG 10 mg PO Q12H PRN #30 tablet 05/04/18 08/01/18 07/31/18 Rx TAB] Oxycodone HCl [oxyCODONE TAB] 10 mg PO Q8H PRN #10 tablet 05/04/18 08/01/18 Rx Losartan [Cozaar] 50 mg PO QDAY 07/21/18 08/01/18 07/31/18 History Polyethylene Glycol 3350 [Miralax 17 gm PO QDAY 07/21/18 08/01/18 07/31/18 History 3350] amLODIPine [Norvasc] 10 mg PO DAILY 07/21/18 08/01/18 07/31/18 History busPIRone [Buspar] 5 mg PO BID 07/21/18 08/01/18 07/31/18 History Aspirin [Aspirin EC] 325 mg PO DAILY #30 tablet. 07/22/18 08/01/18 07/31/18 Rx ED Neuro Physical Exam - General General appearance: alert, in no apparent distress Suspected Stroke: Yes - Head Head exam: Present: atraumatic, normocephalic, normal inspection - Eye Eye exam: Present: normal appearance, PERRL, EOMI Pupils: Present: normal accommodation - ENT ENT exam: Present: normal exam, normal orophraynx, mucous membranes moist - Neck Neck exam: Present: normal inspection, full ROM. Absent: tenderness - Respiratory Respiratory exam: Present: normal lung sounds bilaterally. Absent: respiratory distress, wheezes, rales, rhonchi, stridor - Cardiovascular Cardiovascular Exam: Present: regular rate, normal rhythm, normal heart sounds - GI/Abdominal GI/Abdominal exam: Present: soft, normal bowel sounds. Absent: distended, tenderness, guarding, rebound, rigid - Extremities Exam Extremities exam: Present: normal inspection, normal capillary refill - Back Exam Back exam: Present: normal inspection, full ROM. Absent: tenderness - Neurological Exam Neurological exam: Present: alert, oriented X3, CN II-XII intact - NIHSS Assessment Interval: Baseline 1a. Level of Consciousness: alert/keenly responsive 1b. LOC Questions: answers both correctly 1c. LOC Commands: performs tasks correctly 2. Best Gaze: normal 3. Visual: no visual loss 4. Facial Palsy: normal symmetrical movement 5b. Motor Arm Right: no drift 5a. Motor Arm Left: drift 6a. Motor Leg Left: drift 6b. Motor Leg Right: no drift 7. Limb Ataxia: present 1 limb 8. Sensory: normal 9. Best Language: no aphasia 10. Dysarthria: normal 11. Extinction/Inattention: no abnormality Total Score: 3 Stroke Severity: Minor Stroke - Psychiatric Psychiatric exam: Present: normal affect, normal mood - Skin Skin exam: Present: warm, dry, intact, normal color. Absent: rash ED Course Vital Signs 08/01/18 08/01/18 08/01/18 08:15 09:23 09:27 Temperature 98.0 F 98.6 F Pulse Rate 87 77 Respiratory 18 18 18 Rate Blood Pressure 140/69 Blood Pressure 143/68 [Left] O2 Sat by Pulse 98 98 98 Oximetry - Reevaluation(s) Reevaluation #1: 08/01/18 09:04 I consulted the tele neurologist on-call Dr. Saunders. He evaluated the patient is in the ED using the tele neurology camera. He recommended discharging patient home if the MRI of the brain without contrast is negative. 08/01/18 16:29 Patient says she is feeling better she doesn't want to stay and she wants to be discharged. - Lab Data Result diagrams: 08/01/18 08:07 08/01/18 08:07 Lab Results 08/01/18 08/01/18 08/01/18 Range/Units 08:07 08:07 08:07 WBC 5.1 (4.5-11.0) K/mm3 RBC 5.61 H (3.65-5.03) M/mm3 Hgb 15.1 H (10.1-14.3) gm/dl Hct 45.7 H (30.3-42.9) % MCV 82 (79-97) fl MCH 27 L (28-32) pg MCHC 33 (30-34) % RDW 15.3 H (13.2-15.2) % Plt Count 284 (140-440) K/mm3 Lymph % (Auto) 45.2 H (13.4-35.0) % [place] % (Auto) 7.7 H (0.0-7.3) % Eos % (Auto) 1.1 (0.0-4.3) % Baso % (Auto) 0.9 (0.0-1.8) % Lymph # 2.3 (1.2-5.4) K/mm3 [place]ent # 0.4 (0.0-0.8) K/mm3 Eos # 0.1 (0.0-0.4) K/mm3 Baso # 0.0 (0.0-0.1) K/mm3 Seg Neutrophils % 45.1 (40.0-70.0) % Seg Neutrophils # 2.3 (1.8-7.7) K/mm3 PT 12.8 (12.2-14.9) Sec. INR 0.92 (0.87-1.13) APTT 29.9 (24.2-36.6) Sec. Thrombin Time 17.1 (15.1-19.6) Sec. Sodium 140 (137-145) mmol/L Potassium 4.0 (3.6-5.0) mmol/L Chloride 104.6 (98-107) mmol/L Carbon Dioxide 23 (22-30) mmol/L Anion Gap 16 mmol/L BUN 11 (7-17) mg/dL Creatinine 0.7 (0.7-1.2) mg/dL Estimated GFR > 60 ml/min BUN/Creatinine Ratio 16 % Glucose 100 (65-100) mg/dL POC Glucose (70-105) Calcium 9.7 (8.4-10.2) mg/dL Total Bilirubin 0.20 (0.1-1.2) mg/dL AST 17 (5-40) units/L ALT 12 (7-56) units/L Alkaline Phosphatase 140 H (35-129) units/L Total Creatine Kinase 141 H (30-135) units/L CK-MB (CK-2) 2.6 (0.0-4.0) ng/mL CK-MB (CK-2) Rel Index 1.8 (0-4) Troponin T < 0.010 (0.00-0.029) ng/mL Total Protein 8.4 H (6.3-8.2) g/dL Albumin 4.3 (3.9-5) g/dL Albumin/Globulin Ratio 1.0 % Urine Color (Yellow) Urine Turbidity (Clear) Urine pH (5.0-7.0) Ur Specific [employer] [place] (1.003-1.030) Urine Protein (Negative) mg/dL Urine Glucose (UA) (Negative) mg/dL Urine Ketones (Negative) mg/dL Urine Blood (Negative) Urine Nitrite (Negative) Urine Bilirubin (Negative) Urine Urobilinogen (<2.0) mg/dL Ur Leukocyte Esterase (Negative) Urine WBC (Auto) (0.0-6.0) /HPF Urine RBC (Auto) (0.0-6.0) /HPF 08/01/18 08/01/18 Range/Units 08:57 10:00 WBC (4.5-11.0) K/mm3 RBC (3.65-5.03) M/mm3 Hgb (10.1-14.3) gm/dl Hct (30.3-42.9) % MCV (79-97) fl MCH (28-32) pg MCHC (30-34) % RDW (13.2-15.2) % Plt Count (140-440) K/mm3 Lymph % (Auto) (13.4-35.0) % Sargent % (Auto) (0.0-7.3) % Eos % (Auto) (0.0-4.3) % Baso % (Auto) (0.0-1.8) % Lymph # (1.2-5.4) K/mm3 [place] # (0.0-0.8) K/mm3 Eos # (0.0-0.4) K/mm3 Baso # (0.0-0.1) K/mm3 Seg Neutrophils % (40.0-70.0) % Seg Neutrophils # (1.8-7.7) K/mm3 PT (12.2-14.9) Sec. INR (0.87-1.13) APTT (24.2-36.6) Sec. Thrombin Time (15.1-19.6) Sec. Sodium (137-145) mmol/L Potassium (3.6-5.0) mmol/L Chloride (98-107) mmol/L Carbon Dioxide (22-30) mmol/L Anion Gap mmol/L BUN (7-17) mg/dL Creatinine (0.7-1.2) mg/dL Estimated GFR ml/min BUN/Creatinine Ratio % Glucose (65-100) mg/dL POC Glucose 97 (70-105) Calcium (8.4-10.2) mg/dL Total Bilirubin (0.1-1.2) mg/dL AST (5-40) units/L ALT (7-56) units/L Alkaline Phosphatase (35-129) units/L Total Creatine Kinase (30-135) units/L CK-MB (CK-2) (0.0-4.0) ng/mL CK-MB (CK-2) Rel Index (0-4) Troponin T (0.00-0.029) ng/mL Total Protein (6.3-8.2) g/dL Albumin (3.9-5) g/dL Albumin/Globulin Ratio % Urine Color Straw (Yellow) Urine Turbidity Clear (Clear) Urine pH 7.0 (5.0-7.0) Ur Specific [employer] [place] 1.006 (1.003-1.030) Urine Protein <15 mg/dl (Negative) mg/dL Urine Glucose (UA) Neg (Negative) mg/dL Urine Ketones Neg (Negative) mg/dL Urine Blood Sm (Negative) Urine Nitrite Neg (Negative) Urine Bilirubin Neg (Negative) Urine Urobilinogen < 2.0 (<2.0) mg/dL Ur Leukocyte Esterase Sm (Negative) Urine WBC (Auto) 4.0 (0.0-6.0) /HPF Urine RBC (Auto) 2.0 (0.0-6.0) /HPF - EKG Data -: EKG Interpreted by Ca EKG shows normal: sinus rhythm Rate: normal (84) When compared to previous EKG there are: no significant change Interpretation: LVH, other (No STEMI.) - Radiology Data Radiology results: report reviewed, image reviewed - Core Measures AMI Core Measures Followed: Yes - Thrombolytic Inclusion/Exclusion Thrombolytic Inclusion Criteria: Negative CT Scan for ICH Critical Care Time: Yes Critical care time in (mins) excluding proc time.: 50 Critical care attestation.: If time is entered above; I have spent that time in minutes in the direct care of this critically ill patient, excluding procedure time. ED Disposition Clinical Impression: Hemiparesis due to old stroke, Left-sided weakness Disposition: DC-01 TO HOME OR SELFCARE Is pt being admited?: No Does the pt Need Aspirin: No Condition: Stable Instructions: Weakness (ED) Additional Instructions: Please follow up with Dr. Saunders tomorrow morning in his outpatient clinic. Return to the emergency room if her condition worsens. Referrals: PRIMARY CAREMD [Primary Care Provider] - 3-5 Days CLEMENTE SAUNDERS MD [Staff Physician] - 3-5 Days Time of Disposition: 16:31
[2018-08-01 08:18] LABS: Basophils % (Auto) 0.9 % (0.0-1.8); Eosinophils # (Auto) 0.1 K/mm3 (0.0-0.4); Eosinophils % (Auto) 1.1 % (0.0-4.3); Hematocrit 45.7 % (30.3-42.9); Hemoglobin 15.1 gm/dl (10.1-14.3); Lymphocytes # (Auto) 2.3 K/mm3 (1.2-5.4); Lymphocytes % (Auto) 45.2 % (13.4-35.0); Mean Corpuscular HGB Conc 33 % (30-34); Mean Corpuscular Hemoglobin 27 pg (28-32); Mean Corpuscular Volume 82 fl (79-97); Monocytes # (Auto) 0.4 K/mm3 (0.0-0.8); Monocytes % (Auto) 7.7 % (0.0-7.3); Platelet Count 284 K/mm3 (140-440); Red Blood Count 5.61 M/mm3 (3.65-5.03); Red Cell Distribution Width 15.3 % (13.2-15.2)
--- NOTE | 2018-08-01 08:19 | Cat Scan Report ---
CT HEAD WITHOUT CONTRAST: HISTORY: Stroke symptoms. TECHNIQUE: Sequential 2.5mm CT images. COMPARISON: 07/21/18. FINDINGS: Cerebral Parenchyma: Within normal limits. Cerebellum: Within normal limits. Brainstem: Within normal limits. Ventricles: Normal. Sella: Normal. Extra-axial spaces: Normal. Basal Cisterns: Normal. Intracranial Hemorrhage: None. Midline Shift: None. Calvarium: Normal. Sinuses: Normal. Mastoid Air Cells: Partial opacification of the left mastoid air cells is unchanged. The right mastoid air cells are well aerated. Visualized Orbits: Normal. IMPRESSION: Cranial CT scan within normal limits. These findings were discussed with Dr. Irizarry in the emergency department at 0817 hours.
[2018-08-01 08:28] LABS: INR 0.92 (0.87-1.13)
[2018-08-01 08:29] LABS: Partial Thromboplastin Time 29.9 Sec. (24.2-36.6); Thrombin Time 17.1 Sec. (15.1-19.6)
[2018-08-01 08:35] LABS: Creatine Kinase MB 2.6 ng/mL (0.0-4.0)
[2018-08-01 08:36] LABS: Alanine Aminotransferase 12 units/L (7-56); Albumin 4.3 g/dL (3.9-5); BUN/Creatinine Ratio 16; Blood Urea Nitrogen 11 mg/dL (7-17); Calcium 9.7 mg/dL (8.4-10.2); Hemolysis Index 20
--- NOTE | 2018-08-01 09:13 | XRay Report ---
AP CHEST: HISTORY: Stroke, hypertension The lungs are hyperinflated but clear. No pleural effusion or pneumothorax. Normal heart and mediastinal structures. The bony structures are grossly intact. Lower cervical fusion changes are noted. No change since 07/21/18. IMPRESSION: Hyperinflated lungs. No acute process.
[2018-08-01 09:29] VITALS: BP 143/68
[2018-08-01 10:43] LABS: Bilirubin,Urine NEG (Negative); Blood,Urine SM (Negative); Color,Urine Straw (Yellow); Protein,Urine <15 mg/dL mg/dL (Negative); Urobilinogen,Urine < 2.0 mg/dL (<2.0)
[2018-08-01] MEDS ORDERED: ATIVAN IV ONE (12:33)
[2018-08-01] MEDS ORDERED: ATIVAN ONE (14:39)
--- NOTE | 2018-08-01 16:01 | Magnetic Resonance Report ---
MRI BRAIN WITHOUT CONTRAST: 08/01/18 07:56:00 CLINICAL: Stroke. TECHNIQUE: Axial diffusion, T1, T2, gradient echo T2*, coronal and axial FLAIR and sagittal T1 sequences on a 1.5 [place] magnet. FINDINGS: The ventricles and sulci are normal for age. No restricted diffusion. A single tiny right frontal lobe white matter focal hyperintensity on FLAIR in T2. No other abnormal signal. No mass or mass effect. No hemorrhage, edema or extra-axial collection. No chronic micro-bleeds on the gradient echo sequence. Normal pituitary and optic chiasm. The brainstem and cerebellum are normal. Intact vascular flow voids. Normal sinuses. The orbits, and soft tissues are normal. Normal calvarium and skull base. IMPRESSION: No evidence of acute/subacute infarct or hemorrhage.
== END 2018-08-01 16:52 | disposition home or self-care (01) ==
LOC: ED 07:56
DX: I63.9 Cerebral infarction, unspecified (principal); I10 Essential (primary) hypertension; Z87.891 Personal history of nicotine dependence
CPT/HCPCS: 36415; 70450; 70551; 71045; 80053; 81001; 82550; 82553; 82962; 84484; 85025; 85610; 85670; 85730; 93005; 93010; 96374; 99291; J2060

== ENCOUNTER 2018-08-04 07:36 | Emergency (ER) | payer MEDICARE ==
[2018-08-04 08:01] VITALS: BP 149/68
--- NOTE | 2018-08-04 09:02 | XRay Report ---
FINAL REPORT EXAM: XR SPINE CERVICAL 2-3V HISTORY: pain, stiffness COMPARISONS: CT 04/25/2018 FINDINGS: Four views of the cervical spine There is straightening of the cervical spine. Diffuse demineralization. Anterior discectomy and fusion at C5-C6 and C6-C7. There is mild intervertebral disc space narrowing with prominent endplate spondylosis at the remaining levels in the cervical spine. No acute fracture. Prevertebral soft tissues are within normal limits. Incomplete evaluation of the lung apices is unremarkable. IMPRESSION: Degenerative and postsurgical straightening of the cervical spine status post anterior discectomy and fusion at C5-C6 and C6-C7. Hardware appears intact and unchanged from prior.
[2018-08-04] MEDS ORDERED: VALIUM PO ONE (09:46)
--- NOTE | 2018-08-04 09:46 | Emergency Department Report ---
Chief Complaint: Neck Pain/Injury Stated Complaint: TIGHTNESS ON LFT SIDE Time Seen by Provider: 08/04/18 09:33 - HPI History of Present Illness: 72-year-old female presents to the emergency department with the complaint of some muscle spasm and tightness to the left side of the neck, left shoulder and left arm. She has a history of previous CVA with residual left-sided weakness. She was just evaluated here a few days ago for questionable acute on chronic stroke at that time but was discharged home after telemedicine neurology consultation and MRI. Patient says that these symptoms have been going on for a long time but just worsened last night. She is on Flexeril 5 mg but was decreased from 10 mg by her PCP, Dr. Madrigal, and before that she was on Valium. She says that her primary care physician is concerned that prolonged usage of the 10 mg Flexeril can cause liver problems or she might fall but she says that she has been taking muscle relaxers for 15 years. It has caused her left arm to be slightly flexed and contracted which has been going on for the past 24 hours. She took an ambulance here today and says that a family member will be coming to get her. - ROS Review of Systems: Positive for musculoskeletal pain and spasms Negative for headache, vision change, slurred speech, numbness - Exam Vital Signs: Vital Signs 08/04/18 07:56 Temperature 98.6 F Pulse Rate 83 Blood Pressure 149/68 O2 Sat by Pulse 100 Oximetry Physical Exam: Heart and lungs sounds are normal to auscultation. Patient is awake and alert and oriented. She has some tenderness to palpation along the left paraspinal and cervical muscles, along the trapezius with associated hot musculature. Her left arm is flexed at the elbow with some spasm and/or contracture of the bicep muscle. MSE screening note: Focused history and physical exam performed. Due to findings the following was ordered: The patient will be given low dose of Valium to help with muscle relaxation. X- ray of the cervical spine did not show any acute process. She will have a metabolic panel to check her electrolytes. ED Disposition for MSE Condition: Stable Referrals: PRIMARY CARE, [Primary Care Provider] - 3-5 Days
[2018-08-04 10:17] LABS: Hematocrit 46.7 % (30.3-42.9); Hemoglobin 14.7 gm/dl (10.1-14.3); Mean Corpuscular HGB Conc 32 % (30-34); Mean Corpuscular Volume 82 fl (79-97); Platelet Count 287 K/mm3 (140-440)
[2018-08-04 10:21] LABS: Mean Corpuscular Hemoglobin 26 pg (28-32)
[2018-08-04 10:24] LABS: Alanine Aminotransferase 11 units/L (7-56); Albumin 4.5 g/dL (3.9-5); BUN/Creatinine Ratio 13; Blood Urea Nitrogen 9 mg/dL (7-17); Calcium 9.9 mg/dL (8.4-10.2); Hemolysis Index 3
--- NOTE | 2018-08-04 10:25 | Emergency Department Report ---
ED Neck Pain HPI Chief Complaint: Neck Pain/Injury Stated Complaint: TIGHTNESS ON LFT SIDE Time Seen by Provider: 08/04/18 09:33 Duration: chronic Neck Pain Location: Posterior Neck Severity: moderate Symptoms: Yes Pain with Movement, Yes Radiation to Left Upper Ext, Yes Previous History, No Radiation to Right Upper Ext, No Numbness, No Weakness Other History: out of her flexeril. 72-year-old female presents to the emergency department with the complaint of some muscle spasm and tightness to the left side of the neck, left shoulder and left arm. She has a history of previous CVA with residual left-sided weakness. She was just evaluated here a few days ago for questionable acute on chronic stroke at that time but was discharged home after telemedicine neurology consultation and MRI. Patient says that these symptoms have been going on for a long time but just worsened last night. She is on Flexeril 5 mg but was decreased from 10 mg by her PCP, Dr. Madrigal, and before that she was on Valium. She says that her primary care physician is concerned that prolonged usage of the 10 mg Flexeril can cause liver problems or she might fall but she says that she has been taking muscle relaxers for 15 years. It has caused her left arm to be slightly flexed and contracted which has been going on for the past 24 hours. She took an ambulance here today and says that a family member will be coming to get her. ED Review of Systems ROS: Stated complaint: TIGHTNESS ON LFT SIDE Other details as noted in HPI Comment: Unobtainable due to pts medical conditions Constitutional: no symptoms reported Respiratory: no symptoms reported Endocrine: no symptoms reported Musculoskeletal: other (neck spasm and tightness) Neurological: denies: headache, weakness ED Past Medical Hx - Past Medical History Hx Hypertension: Yes Hx CVA: Yes (old chart no mri documentation on previous admits for same left side weakne) Hx Heart Attack/AMI: No Hx Congestive Heart Failure: No Hx Diabetes: No Hx Liver Disease: No Hx Renal Disease: No Hx Asthma: No Hx COPD: No Additional medical history: Hx. left clavicle fx., h/o muscle spasms. 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 - Surgical History Past Surgical History?: Yes Additional Surgical History: Herniated disk cspine 2001 C5-6, fusion,NECK SURGERY - Social History Smoking Status: Former Smoker Substance Use Type: None - Medications Home Medications: Home Medications Medication Instructions Recorded Confirmed Last Taken Type AtorvaSTATin [Lipitor] 40 mg PO QHS #30 tablet 05/04/18 08/01/18 07/31/18 Rx Oxycodone HCl [oxyCODONE TAB] 10 mg PO Q8H PRN #10 tablet 05/04/18 08/01/18 Rx Losartan [Cozaar] 50 mg PO QDAY 07/21/18 08/01/18 07/31/18 History Polyethylene Glycol 3350 [Miralax 17 gm PO QDAY 07/21/18 08/01/18 07/31/18 History 3350] amLODIPine [Norvasc] 10 mg PO DAILY 07/21/18 08/01/18 07/31/18 History busPIRone [Buspar] 5 mg PO BID 07/21/18 08/01/18 07/31/18 History Aspirin [Aspirin EC] 325 mg PO DAILY #30 tablet. 07/22/18 08/01/18 07/31/18 Rx Cyclobenzaprine [Flexeril] 10 mg PO BID PRN #5 tablet 08/04/18 Unknown Rx Neck Pain Exam - Exam General: Vital signs noted. No distress. Alert and acting appropriately. HEENT: No Facial Pain, No Scalp Tenderness, No Contusion, No Abrasion, No Laceration Neck Pain: No Midline Tenderness, No Right Paraspinal Tenderness, No Left Paraspinal Tenderness, No Right Trapezius Tenderness, No Left Trapezius Tenderness, No Pain with Rotation Right, No Pain with Rotation Left, No Pain with Extension, No Pain with Flexion, No pain with R Lateral Flexion, No Pain with L Lateral Flexion Chest: Yes Clear Lung Sounds, No Pain with Respirations Heart: Yes Regular, No Murmur Back: No Thoracic Tenderness, No Lumbar Tenderness Neuro: Yes Numbness (chronic l side ), No Weakness, No Normal Reflexes, No Radicular Deficits Exam: a/o. ambulatory. no cp or sob. maew. no focal neuro def. some residual l side weakness from old cva. eoms intact. perrl. post valium- pt without muscle spasm or pain ED Course Vital Signs 08/04/18 07:56 Temperature 98.6 F Pulse Rate 83 Blood Pressure 149/68 O2 Sat by Pulse 100 Oximetry - Reevaluation(s) Reevaluation #1: 08/04/18 10:36 Seen by MD medicated pt states feeling better xray noted lytes normal Sees PCP on Sunday flexeril no 5 given until follow up on Sunday. encourged warm compresses and told to exercise caution due to risk of fall. vss. ambulatory and taking po on dc dc with family ED Medical Decision Making - Lab Data Result diagrams: 08/04/18 08:42 08/04/18 08:42 - Radiology Data Radiology results: report reviewed, image reviewed - Medical Decision Making no new focal neuro def - Differential Diagnosis muscle spasm v new fx Critical care attestation.: If time is entered above; I have spent that time in minutes in the direct care of this critically ill patient, excluding procedure time. ED Disposition Clinical Impression: Cervical paraspinal muscle spasm Disposition: DC-01 TO HOME OR SELFCARE Is pt being admited?: No Does the pt Need Aspirin: No Condition: Stable Instructions: Muscle Spasm (ED) Additional Instructions: warm compresses may help follow up Dr Seth Sifuentes Caution with meds for they increase your risk of fall Referrals: PRIMARY CARE, [Primary Care Provider] - 3-5 Days Time of Disposition: 10:34
== END 2018-08-04 10:46 | disposition home or self-care (01) ==
LOC: ED 07:36
DX: M62.838 Other muscle spasm (principal); I10 Essential (primary) hypertension; Z87.891 Personal history of nicotine dependence
CPT/HCPCS: 36415; 72040; 80053; 85027

== ENCOUNTER 2018-11-17 20:03 | Inpatient (IN) | payer MEDICARE ==
[2018-11-17 20:22] LABS: Hematocrit 45.3 % (30.3-42.9); Hemoglobin 14.6 gm/dl (10.1-14.3); Mean Corpuscular HGB Conc 32 % (30-34); Mean Corpuscular Volume 79 fl (79-97); Platelet Count 309 K/mm3 (140-440); Red Blood Count 5.74 M/mm3 (3.65-5.03); Red Cell Distribution Width 17.2 % (13.2-15.2)
--- NOTE | 2018-11-17 20:23 | Emergency Department Report ---
ED Neuro Deficit HPI - General Chief Complaint: Neuro Symptoms/Deficit Stated Complaint: WEAKNESS Time Seen by Provider: 11/17/18 20:21 Source: patient, family Mode of arrival: Wheelchair Limitations: Physical Limitation - History of Present Illness Initial Comments: Patient is a 72-year-old female with a past medical history of several strokes in the past as well as hypertension and hypercholesterolemia cholesterolemia who is presenting with left-sided weakness today. Patient's last known well was 6 PM with approximately 2 hours ago. Patient states that sometime around 7 PM she started having some left rib crampiness and states that she then developed weakness in her left arm and leg. The patient has some mild slurred speech as well. Patient states the leg feels numb and cold. Patient denies any syncope or seizure. Patient denies nausea vomiting diarrhea stop. Patient is able to give her own history. - Related Data Home Medications: Home Medications Medication Instructions Recorded Confirmed Last Taken Losartan [Cozaar] 50 mg PO QDAY 07/21/18 08/01/18 07/31/18 Polyethylene Glycol 3350 [Miralax 17 gm PO QDAY 07/21/18 08/01/18 07/31/18 3350] amLODIPine [Norvasc] 10 mg PO DAILY 07/21/18 08/01/18 07/31/18 busPIRone [Buspar] 5 mg PO BID 07/21/18 08/01/18 07/31/18 Previous Rx's Medication Instructions Recorded Last Taken Type AtorvaSTATin [Lipitor] 40 mg PO QHS #30 tablet 05/04/18 07/31/18 Rx Oxycodone HCl [oxyCODONE TAB] 10 mg PO Q8H PRN #10 tablet 05/04/18 07/31/18 Rx Aspirin [Aspirin EC] 325 mg PO DAILY #30 tablet. 07/22/18 07/31/18 Rx Cyclobenzaprine [Flexeril] 10 mg PO BID PRN #5 tablet 08/04/18 Unknown Rx Allergies/Adverse Reactions: Allergies Allergy/AdvReac Type Severity Reaction Status Date / Time aspirin AdvReac Bleeding Verified 03/13/18 02:05 blood thinners AdvReac Bleeding Uncoded 08/09/16 01:53 ED Review of Systems ROS: Stated complaint: WEAKNESS Other details as noted in HPI Comment: All other systems reviewed and negative ED Past Medical Hx - Past Medical History Previous Medical History?: Yes Hx Hypertension: Yes Hx CVA: Yes (old chart no mri documentation on previous admits for same left side weakne) Hx Heart Attack/AMI: No Hx Congestive Heart Failure: No Hx Diabetes: No Hx Liver Disease: No Hx Renal Disease: No Hx Asthma: No Hx COPD: No Additional medical history: Hx. left clavicle fx., h/o muscle spasms. 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 - Surgical History Past Surgical History?: Yes Additional Surgical History: Herniated disk cspine 2002 C5-6, fusion,NECK SURGERY - Social History Smoking Status: Never Smoker Substance Use Type: None - Medications Home Medications: Home Medications Medication Instructions Recorded Confirmed Last Taken Type AtorvaSTATin [Lipitor] 40 mg PO QHS #30 tablet 05/04/18 08/01/18 07/31/18 Rx Oxycodone HCl [oxyCODONE TAB] 10 mg PO Q8H PRN #10 tablet 05/04/18 08/01/18 07/31/18 Rx Losartan [Cozaar] 50 mg PO QDAY 07/21/18 08/01/18 07/31/18 History Polyethylene Glycol 3350 [Miralax 17 gm PO QDAY 07/21/18 08/01/18 07/31/18 History 3350] amLODIPine [Norvasc] 10 mg PO DAILY 07/21/18 08/01/18 07/31/18 History busPIRone [Buspar] 5 mg PO BID 07/21/18 08/01/18 07/31/18 History Aspirin [Aspirin EC] 325 mg PO DAILY #30 tablet. 07/22/18 08/01/18 07/31/18 Rx Cyclobenzaprine [Flexeril] 10 mg PO BID PRN #5 tablet 08/04/18 Unknown Rx ED Neuro Physical Exam - General Limitations: Physical Limitation General appearance: alert, in no apparent distress Suspected Stroke: Yes - Head Head exam: Present: atraumatic, normocephalic - Eye Eye exam: Present: normal appearance - ENT ENT exam: Present: mucous membranes moist - Neck Neck exam: Present: normal inspection - Respiratory Respiratory exam: Present: normal lung sounds bilaterally. Absent: respiratory distress, wheezes, rales, rhonchi - Cardiovascular Cardiovascular Exam: Present: regular rate, normal rhythm, normal heart sounds. Absent: systolic murmur, diastolic murmur, rubs, gallop - GI/Abdominal GI/Abdominal exam: Present: soft, normal bowel sounds. Absent: distended, tenderness, guarding, rebound - Extremities Exam Extremities exam: Present: normal inspection - Back Exam Back exam: Present: normal inspection - Neurological Exam Neurological exam: Present: alert, oriented X3, CN II-XII intact, motor sensory deficit - NIHSS Assessment Interval: Baseline 1a. Level of Consciousness: alert/keenly responsive 1b. LOC Questions: answers both correctly 1c. LOC Commands: performs tasks correctly 2. Best Gaze: normal 3. Visual: no visual loss 4. Facial Palsy: normal symmetrical movement 5b. Motor Arm Right: no drift 5a. Motor Arm Left: drift 6a. Motor Leg Left: some gravity effort 6b. Motor Leg Right: no drift 7. Limb Ataxia: absent 8. Sensory: normal 9. Best Language: no aphasia 10. Dysarthria: mild/moderate dysarthria 11. Extinction/Inattention: no abnormality Total Score: 4 Stroke Severity: Minor Stroke - Psychiatric Psychiatric exam: Present: normal affect, normal mood - Skin Skin exam: Present: warm, dry, intact, normal color. Absent: rash ED Course Vital Signs 11/17/18 11/17/18 20:20 21:15 Temperature 98 F Pulse Rate 90 79 Respiratory 18 13 Rate Blood Pressure 166/84 138/67 [Right] O2 Sat by Pulse 98 100 Oximetry - Reevaluation(s) Reevaluation #1: 11/17/18 20:56 Patient is initially having great difficulty moving the left upper and lower extremity. By the time the neurologist robot was at bedside patient states that she was feeling as though she was moving better than when she arrived. - Lab Data Result diagrams: 11/17/18 Unknown 11/17/18 Unknown Lab Results 11/17/18 11/17/18 11/17/18 Range/Units Unknown Unknown Unknown WBC 7.6 (4.5-11.0) K/mm3 RBC 5.74 H (3.65-5.03) M/mm3 Hgb 14.6 H (10.1-14.3) gm/dl Hct 45.3 H (30.3-42.9) % MCV 79 (79-97) fl MCH 25 L (28-32) pg MCHC 32 (30-34) % RDW 17.2 H (13.2-15.2) % Plt Count 309 (140-440) K/mm3 Lymph % (Auto) 44.4 H (13.4-35.0) % [place] % (Auto) 5.0 (0.0-7.3) % Eos % (Auto) 0.8 (0.0-4.3) % Baso % (Auto) 0.7 (0.0-1.8) % Lymph # 3.2 (1.2-5.4) K/mm3 [place] # 0.4 (0.0-0.8) K/mm3 Eos # 0.1 (0.0-0.4) K/mm3 Baso # 0.0 (0.0-0.1) K/mm3 Add Manual Diff Complete Total Counted Cancelled Seg Neutrophils % 49.1 (40.0-70.0) % Seg Neuts % (Manual) Cancelled Band Neutrophils % Cancelled Lymphocytes % (Manual) Cancelled Reactive Lymphs % (Man) Cancelled Monocytes % (Manual) Cancelled Eosinophils % (Manual) Cancelled Basophils % (Manual) Cancelled Metamyelocytes % Cancelled Myelocytes % Cancelled Promyelocytes % Cancelled Blast Cells % Cancelled Nucleated RBC % Cancelled Seg Neutrophils # 3.6 (1.8-7.7) K/mm3 Seg Neutrophils # Man Cancelled Band Neutrophils # Cancelled Lymphocytes # (Manual) Cancelled Abs React Lymphs (Man) Cancelled Monocytes # (Manual) Cancelled Eosinophils # (Manual) Cancelled Basophils # (Manual) Cancelled Metamyelocytes # Cancelled Myelocytes # Cancelled Promyelocytes # Cancelled Blast Cells # Cancelled WBC Morphology Cancelled Hypersegmented Neuts Cancelled Hyposegmented Neuts Cancelled Hypogranular Neuts Cancelled Hypersegmented Polys Cancelled Smudge Cells Cancelled Toxic Granulation Cancelled Toxic Vacuolation Cancelled Dohle Bodies Cancelled Pelger-Huet Anomaly Cancelled Loc Rods Cancelled Platelet Estimate Cancelled Clumped Platelets Cancelled Plt Clumps, EDTA Cancelled Large Platelets Cancelled Giant Platelets Cancelled Platelet Satelliting Cancelled Plt Morphology Comment Cancelled RBC Morphology Cancelled Dimorphic RBCs Cancelled Polychromasia Cancelled Hypochromasia Cancelled Poikilocytosis Cancelled Basophilic Stippling Cancelled Anisocytosis Cancelled Microcytosis Cancelled Macrocytosis Cancelled Spherocytes Cancelled Pappenheimer Bodies Cancelled Sickle Cells Cancelled Target Cells Cancelled Tear Drop Cells Cancelled Ovalocytes Cancelled Stomatocytes Cancelled Helmet Cells Cancelled Casiano-Offerman Bodies Cancelled Byram Rings Cancelled [place] Cells Cancelled Bite Cells Cancelled Crenated Cell Cancelled Elliptocytes Cancelled Acanthocytes (Spur) Cancelled Rouleaux Cancelled Hemoglobin C Crystals Cancelled Schistocytes Cancelled Malaria parasites Cancelled Syd Bodies Cancelled Hem Pathologist Commnt Cancelled PT 12.8 (12.2-14.9) Sec. INR 0.92 (0.87-1.13) APTT 30.1 (24.2-36.6) Sec. Thrombin Time (15.1-19.6) Sec. Sodium 137 (137-145) mmol/L Potassium 3.7 (3.6-5.0) mmol/L Chloride 98.9 (98-107) mmol/L Carbon Dioxide 24 (22-30) mmol/L Anion Gap 18 mmol/L BUN 8 (7-17) mg/dL Creatinine 0.7 (0.7-1.2) mg/dL Estimated GFR > 60 ml/min BUN/Creatinine Ratio 11 % Glucose 160 H (65-100) mg/dL Calcium 9.5 (8.4-10.2) mg/dL Troponin T < 0.010 (0.00-0.029) ng/mL 11/17/18 Range/Units Unknown WBC (4.5-11.0) K/mm3 RBC (3.65-5.03) M/mm3 Hgb (10.1-14.3) gm/dl Hct (30.3-42.9) % MCV (79-97) fl MCH (28-32) pg MCHC (30-34) % RDW (13.2-15.2) % Plt Count (140-440) K/mm3 Lymph % (Auto) (13.4-35.0) % [place] % (Auto) (0.0-7.3) % Eos % (Auto) (0.0-4.3) % Baso % (Auto) (0.0-1.8) % Lymph # (1.2-5.4) K/mm3 [place] # (0.0-0.8) K/mm3 Eos # (0.0-0.4) K/mm3 Baso # (0.0-0.1) K/mm3 Add Manual Diff Total Counted Seg Neutrophils % (40.0-70.0) % Seg Neuts % (Manual) Band Neutrophils % Lymphocytes % (Manual) Reactive Lymphs % (Man) Monocytes % (Manual) Eosinophils % (Manual) Basophils % (Manual) Metamyelocytes % Myelocytes % Promyelocytes % Blast Cells % Nucleated RBC % Seg Neutrophils # (1.8-7.7) K/mm3 Seg Neutrophils # Man Band Neutrophils # Lymphocytes # (Manual) Abs React Lymphs (Man) Monocytes # (Manual) Eosinophils # (Manual) Basophils # (Manual) Metamyelocytes # Myelocytes # Promyelocytes # Blast Cells # WBC Morphology Hypersegmented Neuts Hyposegmented Neuts Hypogranular Neuts Hypersegmented Polys Smudge Cells Toxic Granulation Toxic Vacuolation Dohle Bodies Pelger-Huet Anomaly Loc Rods Platelet Estimate Clumped Platelets Plt Clumps, EDTA Large Platelets Giant Platelets Platelet Satelliting Plt Morphology Comment RBC Morphology Dimorphic RBCs Polychromasia Hypochromasia Poikilocytosis Basophilic Stippling Anisocytosis Microcytosis Macrocytosis Spherocytes Pappenheimer Bodies Sickle Cells Target Cells Tear Drop Cells Ovalocytes Stomatocytes Helmet Cells Casiano-Offerman Bodies Byram Rings [place] Cells Bite Cells Crenated Cell Elliptocytes Acanthocytes (Spur) Rouleaux Hemoglobin C Crystals Schistocytes Malaria parasites Syd Bodies Hem Pathologist Commnt PT (12.2-14.9) Sec. INR (0.87-1.13) APTT (24.2-36.6) Sec. Thrombin Time 16.0 (15.1-19.6) Sec. Sodium (137-145) mmol/L Potassium (3.6-5.0) mmol/L Chloride (98-107) mmol/L Carbon Dioxide (22-30) mmol/L Anion Gap mmol/L BUN (7-17) mg/dL Creatinine (0.7-1.2) mg/dL Estimated GFR ml/min BUN/Creatinine Ratio % Glucose (65-100) mg/dL Calcium (8.4-10.2) mg/dL Troponin T (0.00-0.029) ng/mL - Radiology Data CT of the head shows no acute intracranial process. There are no intracranial hemorrhages present. - Medical Decision Making Patient to be admitted to the hospitalist service for TIA. Patient's symptoms have nearly resolved. Aspirin was withheld because of the patient allergy Critical care attestation.: If time is entered above; I have spent that time in minutes in the direct care of this critically ill patient, excluding procedure time. ED Disposition Clinical Impression: TIA (transient ischemic attack) Disposition: [id number] OP ADMIT IP TO THIS HOSP Is pt being admited?: Yes Does the pt Need Aspirin: No Condition: Stable Referrals: PRIMARY CARE, [Referring] - 3-5 Days Time of Disposition: 21:39
[2018-11-17 20:24] LABS: INR 0.92 (0.87-1.13); Partial Thromboplastin Time 30.1 Sec. (24.2-36.6)
--- NOTE | 2018-11-17 20:27 | Cat Scan Report ---
FINAL REPORT PROCEDURE: CT HEAD/BRAIN WO CON TECHNIQUE: Computerized tomography of the head was performed without contrast material. HISTORY: neuro deficits <6hrs or sx present upon awakening COMPARISON: 08/01/2018. FINDINGS: Skull and scalp: Normal. Paranasal sinuses: Bilateral paranasal sinuses are clear. There is partial opacification of left mast oid air cells.. Ventricles and subarachnoid spaces: Are prominent consistent with cerebral atrophy appropriate for pa tient's age.. Cerebrum: No evidence of hemorrhage, acute infarction or mass . Cerebellum and brainstem: No evidence of hemorrhage, acute infarction or mass. Vasculature: Normal. Comments: None. IMPRESSION: No acute intracranial abnormality. No evidence of acute intracranial hemorrhage Left mastoiditis
[2018-11-17 20:32] LABS: BUN/Creatinine Ratio 11; Blood Urea Nitrogen 8 mg/dL (7-17); Calcium 9.5 mg/dL (8.4-10.2); Hemolysis Index 14
[2018-11-17 20:35] LABS: Eosinophils # (Auto) 0.1 K/mm3 (0.0-0.4); Eosinophils % (Auto) 0.8 % (0.0-4.3); Monocytes # (Auto) 0.4 K/mm3 (0.0-0.8)
[2018-11-17 20:37] LABS: Lymphocytes % (Auto) 44.4 % (13.4-35.0)
[2018-11-17 20:38] LABS: Basophils % (Auto) 0.7 % (0.0-1.8); Lymphocytes # (Auto) 3.2 K/mm3 (1.2-5.4)
[2018-11-17] MEDS ORDERED: ZOFRAN IV PRN (22:25)
[2018-11-17] MEDS ORDERED: TYLENOL PO PRN (22:25)
[2018-11-18] MEDS ORDERED: XYLOCAINE 1% MPF 5 mL INFILTRATI ONE (03:36)
--- NOTE | 2018-11-18 04:22 | History and Physical Report ---
CHIEF COMPLAINT: Left-sided weakness. Other complaint include pain at the back of the head on the left side and back of the left ear down to the neck area. HISTORY OF PRESENT ILLNESS: The patient is a 72-year-old female with past medical history of cerebrovascular accident and left-sided weakness, who said that weakness on the left side became more severe than baseline weakness and also the patient noted that she had slurred speech and was having pain at the back of the left ear and left occipital area of the head down to the neck area. There is no history of chest pain. No history of shortness of breath, fever, nausea or vomiting. There is also no history of any seizure activity or syncopal episodes. PAST MEDICAL HISTORY: Pertinent for hypertension, cerebrovascular accident with left-sided weakness. Also, the patient has past medical history of left clavicular fracture, muscle spasm, aneurysm involving the left eye. PAST SURGICAL HISTORY: Pertinent for herniated disk surgery in the C-spine area. FAMILY HISTORY: Noncontributory. SOCIAL HISTORY: The patient does not smoke, does not drink alcohol and does not use illicit drugs. MEDICATIONS: The patient is on Lipitor 40 mg at bedtime, oxycodone 10 mg every 8 hours as needed for pain, losartan 50 mg by mouth daily, Miralax 17 grams by mouth daily, Norvasc 10 mg by mouth daily, buspirone or BuSpar 5 mg by mouth twice daily, aspirin 325 mg by mouth daily, Flexeril 10 mg by mouth twice daily as needed for pain. ALLERGIES: THE PATIENT IS ALLERGIC TO ASPIRIN AND OTHER BLOOD THINNER. REVIEW OF SYSTEMS: CONSTITUTIONAL: There is no fever, no chills, no diaphoresis. HEENT: There is pain at the left occipital area of the head and behind the left ear area down to the left side of the neck. There is no sore throat. CARDIOVASCULAR SYSTEM: There is no chest pain or orthopnea. RESPIRATORY SYSTEM: There is no shortness of breath or cough. GASTROINTESTINAL SYSTEM: There is no nausea, no vomiting, no abdominal pain, diarrhea or constipation. NEUROLOGICAL SYSTEM: Increased weakness on the left side of the body noted. Numbness in the left lower extremity also noted. Slurring of speech noted. No visual impairment. MUSCULOSKELETAL SYSTEM: There is no joint pain or swelling. DERMATOLOGICAL SYSTEM: There is no skin rash or itching. GENITOURINARY SYSTEM: There is no dysuria, hematuria, or flank pain. Rest of system review is normal. PHYSICAL EXAMINATION: GENERAL: At the time of exam, the patient was found to be alert, oriented x 3 and not in acute distress. VITAL SIGNS: At the initial time of presentation shows temperature of 98 degrees Fahrenheit, pulse of 90, respirations 18, blood pressure of 166/84, O2 sat of 98% on room air. HEENT: Showed pupils to be equal, round, reactive to light and accommodating. Extraocular muscles are intact. NECK: Supple with no JVD or carotid bruit. CARDIOVASCULAR: Showed normal first and second heart sounds with no gallops or murmurs. RESPIRATORY SYSTEM: Show good air entry on both sides of the lungs with no abnormal breath sounds. GASTROINTESTINAL SYSTEM: Show abdomen to be full, soft, nontender with no organomegaly or rigidity. NEUROLOGIC: Showed weakness on the left side of the body involving the left upper and lower limbs compared to the right side, which has improved since the patient was evaluated in the Emergency Room. There is no loss of sensory function. The patient's speech is back to normal. MUSCULOSKELETAL SYSTEM: Show no joint swelling or tenderness. DERMATOLOGICAL SYSTEM: Show no skin rash. GENITOURINARY SYSTEM: Show no costovertebral angle tenderness. PERTINENT LABORATORY AND IMAGING STUDIES: The patient has CT of the head done that shows no acute intracranial abnormality. There is no evidence of acute intracranial hemorrhage, but there is finding of left mastoiditis. LAB RESULTS: The patient has CBC done with normal white count, elevated hemoglobin of 14.6 and elevated hematocrit of 45.3 with normal MCV and CBC differential showed high lymphocyte count of 44.4%. Coagulation studies was unremarkable. Chemistry: The patient's chemistry came back showing elevated glucose level of 160; otherwise, unremarkable. The patient's cardiac enzymes show elevated total CPK of 153 with normal CK-MB and normal CK percentage index and normal troponin level. DIAGNOSES: 1. Transient ischemic attack. 2. Left mastoiditis. PLAN: 1. The patient will be admitted to telemetry. 2. The patient will have MRI of the brain without contrast done in the morning and will also have bilateral carotid Doppler done in the morning as well as 2D echo done this morning. 3. The patient will have Neurology consult with Dr. Javi Brown this morning and will have physical therapy evaluation for treatment as well as speech therapy consult for evaluation and treatment. 4. The patient will continue neuro checks every 4 hours and will remain n.p.o. until swallow test is passed. 5. The patient will have cardiac enzymes involving troponin, total CK and CK-MB checked every 6 hours x 2 more levels. 6. The patient will have blood cultures x 2 sets done and will be on IV ceftriaxone 1 gram IV daily for treatment of mastoiditis. 7. The patient will be on Tylenol rectally 650 mg every 4 hours for fever and headache. 8. The patient will be on 1 time dose of aspirin 300 mg rectally until reviewed by the neurologist for continuity of aspirin. 9. The patient's home medications will be started as shown in the medication reconciliation section. 10. The patient will be on oxygen by nasal cannula at 2 liter per minute. JOB# [id number] OCN/NTS
[2018-11-18 05:04] LABS: Creatine Kinase MB 1.8 ng/mL (0.0-4.0)
[2018-11-18] MEDS ORDERED: ATIVAN IV NR (09:30)
--- NOTE | 2018-11-18 09:55 | Progress Note ---
Assessment and Plan Assessment and plan: Patient is a 72-year-old female with a past medical history hypertension, hypercholesterolemia and several strokes in the past as well as who is presenting with left-sided weakness today. The patient also reported left arm and leg weakness with associated slurred speech. Initail imaging study was negative and the patient with admitted with TIA and left Mastoditis. Patient has had multiple studies in the hospital for similar symptoms. Although mild cough from the line of question remains if patient is having some malignant tendencies or if the patient has any nerve impingement problem which probably needs further evaluation with outpatient neurology TIA Left Mastoditis Hypercholestromia Chronic Pain syndrome Recurrent upper extremity hemiplegia intermittent Continued tobacco use disorder History of aneurysm behind the eye PLAN Supportive care Start ASA AND STATIN Consider recurrent admission, will recommend an outpatient CT of the brachial plexus to ensure that there is no nerve impingement issues the patient's neurologist. Await further work up, MRI, ECHO, CAROTID US AND Neurology eval Extensive counseling provided to the patient greater than 15 minutes patient verbalized understanding. Continue emperic abx DVT/GI prophy History Interval history: Patient is seen today for: Left hemiparesis Seen and examined at bedside; 24hour events reviewed; nursing staff ; no adverse overnight events reported to me; Denies any chest pain, nausea, vomiting, diarrhea No fever noted blood pressure controlled Hospitalist Physical - Physical exam Narrative exam: -Narrative exam: VITAL SIGNS: Reviewed. GENERAL: The patient appeared well nourished and normally developed. Vital signs as documented. HEAD: No signs of head trauma. EYES: Pupils are equal. Extraocular motions intact. EARS: Hearing grossly intact. MOUTH: Oropharynx is normal. NECK: No adenopathy, no JVD. CHEST: Chest with clear breath sounds bilaterally. No wheezes, rales, or rhonchi. CARDIAC: Regular rate and rhythm. S1 and S2, without murmurs, gallops, or rub s. VASCULAR: No Edema. Peripheral pulses normal and equal in all extremities. ABDOMEN: Soft, without detectable tenderness. No sign of distention. No rebound or guarding, and no masses palpated. Bowel Sounds normal. MUSCULOSKELETAL: Good range of motion of all major joints. Extremities without clubbing, cyanosis or edema. NEUROLOGIC EXAM: Alert and oriented x 3. No focal sensory or strength deficits. Speech normal. Follows commands. PSYCHIATRIC: Mood normal. SKIN: No rash or lesions. - Constitutional Vitals: Temp Pulse Resp BP Pulse Ox 98.2 F 84 20 125/76 96 11/18/18 07:40 11/18/18 07:40 11/18/18 07:40 11/18/18 07:40 11/18/18 07:40 Results - Labs CBC & Chem 7: 11/17/18 Unknown 11/17/18 Unknown Labs: Laboratory Last Values WBC 7.6 K/mm3 (4.5-11.0) 11/17/18 Unknown RBC 5.74 M/mm3 (3.65-5.03) H 11/17/18 Unknown Hgb 14.6 gm/dl (10.1-14.3) H 11/17/18 Unknown Hct 45.3 % (30.3-42.9) H 11/17/18 Unknown MCV 79 fl (79-97) 11/17/18 Unknown MCH 25 pg (28-32) L 11/17/18 Unknown MCHC 32 % (30-34) 11/17/18 Unknown RDW 17.2 % (13.2-15.2) H 11/17/18 Unknown Plt Count 309 K/mm3 (140-440) 11/17/18 Unknown Lymph % (Auto) 44.4 % (13.4-35.0) H 11/17/18 Unknown Calhoun % (Auto) 5.0 % (0.0-7.3) 11/17/18 Unknown Eos % (Auto) 0.8 % (0.0-4.3) 11/17/18 Unknown Baso % (Auto) 0.7 % (0.0-1.8) 11/17/18 Unknown Lymph # 3.2 K/mm3 (1.2-5.4) 11/17/18 Unknown Calhoun # 0.4 K/mm3 (0.0-0.8) 11/17/18 Unknown Eos # 0.1 K/mm3 (0.0-0.4) 11/17/18 Unknown Baso # 0.0 K/mm3 (0.0-0.1) 11/17/18 Unknown Add Manual Diff Complete 11/17/18 Unknown Total Counted Cancelled 11/17/18 Unknown Seg Neutrophils % 49.1 % (40.0-70.0) 11/17/18 Unknown Seg Neuts % (Manual) Cancelled 11/17/18 Unknown Band Neutrophils % Cancelled 11/17/18 Unknown Lymphocytes % (Manual) Cancelled 11/17/18 Unknown Reactive Lymphs % (Man) Cancelled 11/17/18 Unknown Monocytes % (Manual) Cancelled 11/17/18 Unknown Eosinophils % (Manual) Cancelled 11/17/18 Unknown Basophils % (Manual) Cancelled 11/17/18 Unknown Metamyelocytes % Cancelled 11/17/18 Unknown Myelocytes % Cancelled 11/17/18 Unknown Promyelocytes % Cancelled 11/17/18 Unknown Blast Cells % Cancelled 11/17/18 Unknown Nucleated RBC % Cancelled 11/17/18 Unknown Seg Neutrophils # 3.6 K/mm3 (1.8-7.7) 11/17/18 Unknown Seg Neutrophils # Man Cancelled 11/17/18 Unknown Band Neutrophils # Cancelled 11/17/18 Unknown Lymphocytes # (Manual) Cancelled 11/17/18 Unknown Abs React Lymphs (Man) Cancelled 11/17/18 Unknown Monocytes # (Manual) Cancelled 11/17/18 Unknown Eosinophils # (Manual) Cancelled 11/17/18 Unknown Basophils # (Manual) Cancelled 11/17/18 Unknown Metamyelocytes # Cancelled 11/17/18 Unknown Myelocytes # Cancelled 11/17/18 Unknown Promyelocytes # Cancelled 11/17/18 Unknown Blast Cells # Cancelled 11/17/18 Unknown WBC Morphology Cancelled 11/17/18 Unknown Hypersegmented Neuts Cancelled 11/17/18 Unknown Hyposegmented Neuts Cancelled 11/17/18 Unknown Hypogranular Neuts Cancelled 11/17/18 Unknown Hypersegmented Polys Cancelled 11/17/18 Unknown Smudge Cells Cancelled 11/17/18 Unknown Toxic Granulation Cancelled 11/17/18 Unknown Toxic Vacuolation Cancelled 11/17/18 Unknown Dohle Bodies Cancelled 11/17/18 Unknown Pelger-Huet Anomaly Cancelled 11/17/18 Unknown Loc Rods Cancelled 11/17/18 Unknown Platelet Estimate Cancelled 11/17/18 Unknown Clumped Platelets Cancelled 11/17/18 Unknown Plt Clumps, EDTA Cancelled 11/17/18 Unknown Large Platelets Cancelled 11/17/18 Unknown Giant Platelets Cancelled 11/17/18 Unknown Platelet Satelliting Cancelled 11/17/18 Unknown Plt Morphology Comment Cancelled 11/17/18 Unknown RBC Morphology Cancelled 11/17/18 Unknown Dimorphic RBCs Cancelled 11/17/18 Unknown Polychromasia Cancelled 11/17/18 Unknown Hypochromasia Cancelled 11/17/18 Unknown Poikilocytosis Cancelled 11/17/18 Unknown Basophilic Stippling Cancelled 11/17/18 Unknown Anisocytosis Cancelled 11/17/18 Unknown Microcytosis Cancelled 11/17/18 Unknown Macrocytosis Cancelled 11/17/18 Unknown Spherocytes Cancelled 11/17/18 Unknown Pappenheimer Bodies Cancelled 11/17/18 Unknown Sickle Cells Cancelled 11/17/18 Unknown Target Cells Cancelled 11/17/18 Unknown Tear Drop Cells Cancelled 11/17/18 Unknown Ovalocytes Cancelled 11/17/18 Unknown Stomatocytes Cancelled 11/17/18 Unknown Helmet Cells Cancelled 11/17/18 Unknown Casiano-Ozan Bodies Cancelled 11/17/18 Unknown [place] Rings Cancelled 11/17/18 Unknown Han[place] Cells Cancelled 11/17/18 Unknown Bite Cells Cancelled 11/17/18 Unknown Crenated Cell Cancelled 11/17/18 Unknown Elliptocytes Cancelled 11/17/18 Unknown Acanthocytes (Spur) Cancelled 11/17/18 Unknown Rouleaux Cancelled 11/17/18 Unknown Hemoglobin C Crystals Cancelled 11/17/18 Unknown Schistocytes Cancelled 11/17/18 Unknown Malaria parasites Cancelled 11/17/18 Unknown Syd Bodies Cancelled 11/17/18 Unknown Hem Pathologist Commnt Cancelled 11/17/18 Unknown PT 12.8 Sec. (12.2-14.9) 11/17/18 Unknown INR 0.92 (0.87-1.13) 11/17/18 Unknown APTT 30.1 Sec. (24.2-36.6) 11/17/18 Unknown Thrombin Time 16.0 Sec. (15.1-19.6) 11/17/18 Unknown Sodium 137 mmol/L (137-145) 11/17/18 Unknown Potassium 3.7 mmol/L (3.6-5.0) 11/17/18 Unknown Chloride 98.9 mmol/L (98-107) 11/17/18 Unknown Carbon Dioxide 24 mmol/L (22-30) 11/17/18 Unknown Anion Gap 18 mmol/L 11/17/18 Unknown BUN 8 mg/dL (7-17) 11/17/18 Unknown Creatinine 0.7 mg/dL (0.7-1.2) 11/17/18 Unknown Estimated GFR > 60 ml/min 11/17/18 Unknown BUN/Creatinine Ratio 11 % 11/17/18 Unknown Glucose 160 mg/dL (65-100) H 11/17/18 Unknown Calcium 9.5 mg/dL (8.4-10.2) 11/17/18 Unknown Total Creatine Kinase 143 units/L (30-135) H 11/18/18 04:23 CK-MB (CK-2) 1.8 ng/mL (0.0-4.0) 11/18/18 04:23 CK-MB (CK-2) Rel Index 1.2 (0-4) 11/18/18 04:23 Troponin T < 0.010 ng/mL (0.00-0.029) 11/18/18 04:23 - Imaging and Cardiology Chest x-ray: image reviewed CT Scan - head: image reviewed (no acute pathology)
[2018-11-18] MEDS ORDERED: ROCEPHIN IM SCH (10:00)
--- NOTE | 2018-11-18 11:05 | Magnetic Resonance Report ---
MRI OF THE BRAIN WITHOUT CONTRAST: HISTORY: TIA PROCEDURE: Multiplanar, multisequence MR imaging of the brain without IV contrast was performed. FINDINGS: Compared to the CT head dated 11/17/18. Mild diffuse volume loss is evident which appears within normal limits for this patient's age. The brain parenchyma signal intensity and its cabrera white interface are within normal limits on all sequences. No evidence for acute ischemia, hemorrhage or mass. No chronic infarct or extra-axial fluid collection. The midline structures are central. The basal cisterns are patent. Normal ventricular size. The orbital cavities and sella turcica demonstrate no abnormality. The visualized paranasal sinuses and mastoid air cells are well aerated. IMPRESSION: Unremarkable non-enhanced MRI of the brain.
[2018-11-18] MEDS: NORVASC PO SCH (11:56)
[2018-11-18] MEDS: COZAAR PO SCH (11:56)
[2018-11-18] MEDS: ASPIRIN PO SCH (11:57)
[2018-11-18] MEDS: ROCEPHIN/NS 1 GM/50 ML 1 GM/50 ML BAG IV SCH (11:58)
[2018-11-18] MEDS: BUSPAR PO SCH ×2 (11:59→21:55)
[2018-11-18] MEDS: FLEXERIL PO PRN (12:03)
[2018-11-18] MEDS ORDERED: NON-FORMULARY (Oxycodone Hcl [Oxycodone Tab] 10 MG) PO PRN (15:11)
[2018-11-18] MEDS ORDERED: ROXICODONE PO PRN (15:43)
[2018-11-18 16:47] LABS: Chol/HDL Ratio 4.7 %
[2018-11-18] MEDS ORDERED: MILK OF MAGNESIA PO PRN (23:22)
--- NOTE | 2018-11-19 01:02 | Vascular Lab Report ---
FINAL REPORT EXAM: VL CAROTID DUPLEX BILAT HISTORY: TIA COMPARISON: CT angiography of the neck from April 2018. TECHNIQUE: Several real-time grayscale and color Doppler images were obtained. FINDINGS: On the right, peak systolic velocity within the common carotid artery 100 centimeters/second, interna l carotid artery 108. ICA to CCA ratio 1.1. On the left, peak systolic velocity within the common carotid artery 106 centimeters/second, internal carotid artery 174. ICA to CCA ratio 1.6. Increased velocity in the left internal carotid artery stiven ears to be related to slight tortuous course in that region. Mild calcified plaque at the carotid bifurcations bilaterally. Antegrade flow in the vertebral arteri es. IMPRESSION: Mild calcified plaque at the carotid bifurcations. No high-grade stenosis.
--- NOTE | 2018-11-19 08:57 | Consultation ---
NEUROLOGICAL CONSULTATION REASON FOR CONSULTATION: Left-sided weakness. REFERRING PHYSICIANS: Dr. Wells and Dr. Yusuf. HISTORY OF PRESENT ILLNESS: History of present illness was given by the patient. She is a 72-year-old black female, who developed ____ on the left lower chest last night and then after that she developed ____ pain in the left upper extremity and she became weak, but she is always weak in the left side, but the weakness seems more severe than the usual weakness. She also noticed slurred speech. She has pain in the back of the ear and neck area. She ____ the reason why she was put in the hospital. Yesterday morning, she had temporary weakness but it went away. The patient had chronic ____ weakness in the left upper extremity. She uses a cane when she goes outside. PAST MEDICAL HISTORY: Hypertension and stroke 15 years ago, which left her with left-sided weakness and contracture. She has a clavicular fracture on the left, muscular spasm, has an aneurysm involving the left eye, PAST SURGICAL HISTORY: The patient had a herniated disk surgery in the cervical spine a few years back. FAMILY HISTORY: Unremarkable. SOCIAL HISTORY: The patient used to smoke and she quit and then came back again last August, at least she is smoking one-half pack of cigarettes per day. Drinks wine socially. Occasionally smokes marijuana. MEDICATIONS: At home, Lipitor, oxycodone, losartan, MiraLax, Norvasc, buspirone, aspirin, and Flexeril. ALLERGIES: Aspirin and other blood thinner. REVIEW OF SYSTEMS: None. PHYSICAL EXAMINATION: GENERAL: Revealed a well-developed, well-nourished, very pleasant lady, who is in no acute distress. VITAL SIGNS: Her temperature 98.6, pulse rate 90, respirations 18 and regular, blood pressure 160/80, and oxygen saturation 98%. HEAD, EYES, EARS, NOSE, MOUTH AND THROAT: Unremarkable. She wears artificial hair. No intracranial or intraorbital bruit. NECK: Supple. No carotid bruit. HEART: Regular rhythm. LUNGS: Sounds clear. ABDOMEN: Soft. EXTREMITIES: Appeared externally normal. NEUROLOGIC: Reveals the patient is awake, alert, normal mental status for age. Her speech sounded normal. Cranial nerve examination is unremarkable. Motor examination, 5/5 strength in all extremities except for the left side for which she has a contracture with 3-1/2 to 4 over 5 strength. The patient is ambulatory. PERTINENT LABORATORY DATA: The patient had an unremarkable CT scan of the head with left mastoiditis. CLINICAL IMPRESSION: From the history, the patient has most likely a transient ischemic attack on top of his old stroke. The patient has now recovered or gotten better. The patient has other risk factors, hypertension, but she denies any diabetes. RECOMMENDATIONS: Agree with the MRI of the brain without contrast, carotid Doppler and 2D echo, all of these were ordered. Physical therapy. Cardiac checkup. Unfortunately, the patient is allergic to aspirin and other blood thinner. Sixty minutes involved in the history and physical examination. More than 50% in the evaluation and coordination of care. JOB# [id number] RUBA/CHANTEL
--- NOTE | 2018-11-19 09:18 | Discharge Summary ---
Providers - Providers Date of Admission: 11/17/18 22:13 Attending physician: YUSEF DU MD 11/18/18 06:00 Consult to Physician [CONS] Routine Comment: Consulting Provider: KASEY HALL Physician Instructions: Reason For Exam: TIA Physical Therapy Evaluation and Treat [CONS] Routine Comment: Reason For Exam: INCREASED LEFT SIDED WEAKNESS Speech Therapy Evaluation and Treat [CONS] Routine Reason For Exam: SLURRED SPEECH Primary care physician: KATALINA MARCOS Hospitalization Reason for admission: tia Condition: Stable Hospital course: Patient is a 72-year-old female with a past medical history hypertension, hypercholesterolemia and several strokes in the past as well as who is presenting with left-sided weakness today. The patient also reported left arm and leg weakness with associated slurred speech. Initail imaging study was negative and the patient with admitted with TIA and left Mastoditis. Patient has had multiple studies in the hospital for similar symptoms. Although mild cough from the line of question remains if patient is having some malignant tendencies or if the patient has any nerve impingement problem which probably needs further evaluation with outpatient neurology Per hx patient was taken off aspirin due to the anuyrsm behind her eyes TIA Left Mastoditis Hypercholestromia Chronic Pain syndrome Recurrent upper extremity hemiplegia intermittent Continued tobacco use disorder History of aneurysm behind the eye Disposition: [id number] HOME [facility] Time spent for discharge: 35 MINS Core Measure Documentation - Palliative Care Palliative Care/ Comfort Measures: Not Applicable - Core Measures Any of the following diagnoses?: none Exam - Physical Exam Narrative exam: -Narrative exam: VITAL SIGNS: Reviewed. GENERAL: The patient appeared well nourished and normally developed. Vital signs as documented. HEAD: No signs of head trauma. EYES: Pupils are equal. Extraocular motions intact. EARS: Hearing grossly intact. MOUTH: Oropharynx is normal. NECK: No adenopathy, no JVD. CHEST: Chest with clear breath sounds bilaterally. No wheezes, rales, or rhonchi. CARDIAC: Regular rate and rhythm. S1 and S2, without murmurs, gallops, or rubs. VASCULAR: No Edema. Peripheral pulses normal and equal in all extremities. ABDOMEN: Soft, without detectable tenderness. No sign of distention. No rebound or guarding, and no masses palpated. Bowel Sounds normal. MUSCULOSKELETAL: Good range of motion of all major joints. Extremities without clubbing, cyanosis or edema. NEUROLOGIC EXAM: Alert and oriented x 3. No focal sensory or strength deficits. Speech normal. Follows commands. PSYCHIATRIC: Mood normal. SKIN: No rash or lesions. - Constitutional Vitals: Temp Pulse Resp BP Pulse Ox 97.5 F L 86 18 134/72 93 11/19/18 07:36 11/19/18 07:36 11/19/18 07:36 11/19/18 07:36 11/19/18 07:36 Plan Activity: advance as tolerated, fall precautions Diet: low fat, low salt Special Instructions: record daily BP diary, smoking cessation Additional Instructions: FOLLOW WITH PRIMARY NEUROLOGIST IN 1 WEEK Follow up with: PRIMARY CARE, [Referring] - 3-5 Days
[2018-11-19] MEDS: ASPIRIN PO SCH (09:29)
[2018-11-19] MEDS: COZAAR PO SCH (09:29)
[2018-11-19] MEDS: BUSPAR PO SCH (09:31)
[2018-11-19] MEDS: FLEXERIL PO PRN (09:31)
[2018-11-19 09:33] VITALS: BP 114/69
[2018-11-19] MEDS: ROCEPHIN/NS 1 GM/50 ML 1 GM/50 ML BAG IV SCH (09:33)
[2018-11-19] MEDS: NORVASC PO SCH (09:33)
== END 2018-11-19 10:50 | disposition home or self-care (01) | DRG 69 ==
LOC: ED 20:03 → 4A 22:13 → 2B-ACE 11-18 18:14
PROVIDERS: ADMIT Internal Medicine; ATTEND Internal Medicine
DX: G45.9 Transient cerebral ischemic attack, unspecified (principal); G81.94 Hemiplegia, unspecified affecting left nondominant side; I10 Essential (primary) hypertension; E78.00 Pure hypercholesterolemia, unspecified; G89.4 Chronic pain syndrome; F17.200 Nicotine dependence, unspecified, uncomplicated; F17.210 Nicotine dependence, cigarettes, uncomplicated; N61.0 Mastitis without abscess; F12.90 Cannabis use, unspecified, uncomplicated; Z72.89 Other problems related to lifestyle; Z88.6 Allergy status to analgesic agent; Z79.899 Other long term (current) drug therapy; Z79.82 Long term (current) use of aspirin
CPT/HCPCS: 36415; 70450; 70551; 80048; 80061; 82550; 82553; 82962; 84484; 85025; 85610; 85670; 85730; 87040; 93005; 93010; 93306; 93880; 99406; G0378; A9270-GY; J0696; J2060

== ENCOUNTER 2018-12-31 21:57 | Emergency (ER) | payer MEDICARE ==
[2018-12-31] MEDS ORDERED: PERCOCET 5/325 PO ONE (23:06)
[2018-12-31] MEDS ORDERED: TYLENOL PO ONE (23:06)
--- NOTE | 2018-12-31 23:11 | Emergency Department Report ---
ED General Adult HPI - General Chief complaint: Weakness Stated complaint: LF SIDE PAIN Time Seen by Provider: 12/31/18 22:21 Source: patient, EMS (ems notes not available at time of chart dictation), RN notes reviewed, old records reviewed Mode of arrival: Stretcher Limitations: Physical Limitation - History of Present Illness Initial comments: This is a 73-year-old female. Her past history includes hypertension, high cholesterol, stroke with residual left-sided hemiparesis. Patient has a chronic pain syndrome, and follows with a pain specialist, Dr. Hudson Ann The patient presents to the emergency room after mechanical fall. Patient reports pain in her usual state of health, was climbing up into a truck cab, and reports that her left foot gave out, secondary to wet rain, and she fell onto her left shoulder, left hip, and left knee. Prior to the fall, patient was not having any new or different symptoms. After the fall, the patient has sharp pain in her left shoulder, left hip and left knee. The pain increases with palpation, decreases with rest, and does not radiate anywhere. The patient denies a severe headache, midline neck pain, chest pain, abdominal pain, new or different shortness of breath, new or different weakness, irritative/obstructive urinary symptoms. She has chronic weakness in the left leg, and left arm, which is not new, worsening or different. -: Sudden Location: left, upper extremity, lower extremity Severity scale (0 -10): 8 Quality: aching Consistency: intermittent Improves with: rest Worsens with: movement Associated Symptoms: weakness, other (chronic left-sided weakness). denies: confusion, chest pain, cough, diaphoresis, fever/chills, loss of appetite, malaise, nausea/vomiting, rash, seizure, shortness of breath, syncope - Related Data Home Medications Medication Instructions Recorded Confirmed Last Taken Losartan [Cozaar] 50 mg PO QDAY 07/21/18 11/17/18 07/31/18 amLODIPine [Norvasc] 10 mg PO DAILY 07/21/18 11/17/18 07/31/18 busPIRone [Buspar] 5 mg PO BID 07/21/18 11/17/18 07/31/18 Previous Rx's Medication Instructions Recorded Last Taken Type AtorvaSTATin [Lipitor] 40 mg PO QHS #30 tablet 05/04/18 07/31/18 Rx Oxycodone HCl [oxyCODONE TAB] 10 mg PO Q8H PRN #10 tablet 05/04/18 07/31/18 Rx Cyclobenzaprine [Flexeril 10 MG 10 mg PO BID PRN #5 tablet 08/04/18 Unknown Rx TAB] Acetaminophen [Tylenol Arthritis] 650 mg PO Q6HR PRN #30 tablet.er 01/01/19 Unknown Rx Allergies Allergy/AdvReac Type Severity Reaction Status Date / Time aspirin AdvReac Bleeding Verified 03/13/18 02:05 blood thinners AdvReac Bleeding Uncoded 08/09/16 01:53 ED Review of Systems ROS: Stated complaint: LF SIDE PAIN Other details as noted in HPI Constitutional: denies: fever, malaise Eyes: denies: vision change ENT: denies: epistaxis Respiratory: denies: cough Cardiovascular: denies: chest pain Gastrointestinal: denies: abdominal pain Genitourinary: denies: dysuria Musculoskeletal: arthralgia, myalgia Skin: denies: lesions Neurological: denies: headache ED Past Medical Hx - Past Medical History Previous Medical History?: Yes Hx Hypertension: Yes Hx CVA: Yes (old chart no mri documentation on previous admits for same left side weakne) Hx Heart Attack/AMI: No Hx Congestive Heart Failure: No Hx Diabetes: No Hx Liver Disease: No Hx Renal Disease: No Hx Asthma: No Hx COPD: No Additional medical history: Hx. left clavicle fx., h/o muscle spasms. 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 - Surgical History Past Surgical History?: Yes Additional Surgical History: Herniated disk cspine 2001 C5-6, fusion,NECK SURGERY - Social History Smoking Status: Former Smoker Substance Use Type: None - Medications Home Medications: Home Medications Medication Instructions Recorded Confirmed Last Taken Type AtorvaSTATin [Lipitor] 40 mg PO QHS #30 tablet 05/04/18 11/17/18 07/31/18 Rx Oxycodone HCl [oxyCODONE TAB] 10 mg PO Q8H PRN #10 tablet 05/04/18 11/17/18 07/31/18 Rx Losartan [Cozaar] 50 mg PO QDAY 07/21/18 11/17/18 07/31/18 History amLODIPine [Norvasc] 10 mg PO DAILY 09/07/3011/17/18 07/31/18 History busPIRone [Buspar] 5 mg PO BID 07/21/18 11/17/18 07/31/18 History Cyclobenzaprine [Flexeril 10 MG 10 mg PO BID PRN #5 tablet 08/04/18 11/17/18 Unknown Rx TAB] Acetaminophen [Tylenol Arthritis] 650 mg PO Q6HR PRN #30 tablet.er 01/01/19 Unknown Rx ED Physical Exam - General Limitations: Physical Limitation General appearance: alert, in no apparent distress - Head Head exam: Present: atraumatic, normocephalic - Eye Eye exam: Present: normal appearance, EOMI, other (visual acuity intact to finger counting, color perception, reading at a close distance). Absent: nystagmus - ENT ENT exam: Present: normal exam, normal orophraynx, mucous membranes moist, normal external ear exam - Neck Neck exam: Present: normal inspection, full ROM, other (there is no midline cervical spine tenderness). Absent: tenderness, meningismus - Respiratory Respiratory exam: Present: normal lung sounds bilaterally. Absent: respiratory distress - Cardiovascular Cardiovascular Exam: Present: regular rate, normal rhythm, normal heart sounds. Absent: bradycardia, tachycardia, irregular rhythm, systolic murmur, diastolic murmur, rubs, gallop - GI/Abdominal GI/Abdominal exam: Present: soft. Absent: distended, tenderness, guarding, rebound, rigid, pulsatile mass - Extremities Exam Extremities exam: Present: normal inspection, tenderness (there is tenderness to the left knee, and left proximal femur. The pelvis is stable. There is no upper extremity tenderness. 2+ pulses in the upper, lower extremities), pedal edema - Back Exam Back exam: Present: normal inspection, full ROM. Absent: tenderness, CVA tenderness (R), paraspinal tenderness, vertebral tenderness - Neurological Exam Neurological exam: Present: alert, oriented X3, motor sensory deficit (chronic weakness left upper, left lower extremity), other (there is no facial droop, the tongue is midline, extraocular movements are intact bilaterally. Sensation is intact to light touch in 4 extremities, chronic weakness in the left upper, left lower extremity, 5/5 strength right upper, right lower extremity.) - Psychiatric Psychiatric exam: Present: normal affect, normal mood - Skin Skin exam: Present: warm, dry, intact, normal color. Absent: rash ED Course Vital Signs 12/31/18 12/31/18 12/31/18 22:18 23:00 23:05 Temperature 97.7 F 97.8 F Pulse Rate 86 80 85 Respiratory 15 19 15 Rate Blood Pressure 119/61 119/61 Blood Pressure 119/61 114/56 [Right] O2 Sat by Pulse 98 98 100 Oximetry 12/31/18 12/31/18 01/01/19 23:16 23:18 00:29 Temperature Pulse Rate 91 H Respiratory 16 16 15 Rate Blood Pressure 137/66 Blood Pressure [Right] O2 Sat by Pulse 99 Oximetry - Reevaluation(s) Reevaluation #1: [facility] database review shows the following for this year 01/01/19 00:39 12/10/2018 1 12/10/2018 OXYCODONE HCL 10 MG TABLET 63.0 21 TAVARES BHA [id number] COMMU ([id number]) 0 45.0 MME [place] 11/19/2018 1 11/19/2018 OXYCODONE HCL 10 MG TABLET 63.0 21 TAVARES BHA [id number] COMMU ([id number]) 0 45.0 MME [place] Reevaluation #2: 01/01/19 00:52 CT scan of the brain negative for acute traumatic disease. There is no left- sided mastoid tenderness, pain, redness or erythema, therefore I doubt clinical mastoiditis. ED Medical Decision Making - Lab Data Vital Signs 12/31/18 12/31/18 12/31/18 22:18 23:00 23:05 Temperature 97.7 F 97.8 F Pulse Rate 86 80 85 Respiratory 15 19 15 Rate Blood Pressure 119/61 119/61 Blood Pressure 119/61 114/56 [Right] O2 Sat by Pulse 98 98 100 Oximetry 12/31/18 12/31/18 01/01/19 23:16 23:18 00:29 Temperature Pulse Rate 91 H Respiratory 16 16 15 Rate Blood Pressure 137/66 Blood Pressure [Right] O2 Sat by Pulse 99 Oximetry - Radiology Data Radiology results: image reviewed interpreted by me: X-ray of the pelvis, left femur, left knee demonstrates DJD, but no fracture or dislocation. X-ray of the left humerus, shoulder shows DJD, possible AC separation, no acute disease. - Medical Decision Making Differential diagnosis, including but not limited to: Mechanical pain, fracture, dislocation, intracranial injury Assessment and plan: 73-year-old female with chronic left-sided weakness with pain after mechanical fall. There is no midline cervical spine tenderness, and the patient endorses no new neurologic complaints or deficits. She is afebrile, with reassuring vital signs, and her physical and neurologic examination today are similar to prior examinations. Appropriate x-rays did not demonstrate fracture or dislocation, and the noncontrast CT scan of the brain was negative for acute disease. Patient resting comfortably, and in no acute distress. Patient is counseled to expect to be sore over the next few days. Patient has a chronic pain specialist that she follows up with, and the [place] prescription monitoring database was consulted, and results are appreciated. Patient is unfortunately allergic to aspirin, blood thinners, and therefore we discharged with acetaminophen, and instructions to follow up with her pain specialist. Critical care attestation.: If time is entered above; I have spent that time in minutes in the direct care of this critically ill patient, excluding procedure time. ED Disposition Clinical Impression: Fall, Left leg pain Disposition: DC- TO HOME OR SELFCARE Is pt being admited?: No Does the pt Need Aspirin: No Condition: Stable Instructions: Arthralgia (ED) Additional Instructions: Pain typically gets worse before it gets better after a fall. Rest, avoid heavy lifting, take the home pain medication as needed cyst directed, and take the acetaminophen as needed for breakthrough pain. Follow up with your primary care doctor or pain specialist within the next 5-7 days. Return to the emergency room right away with new pain, worsened pain, migration of pain, projectile vomiting, change in mental status, confusion, inability to tolerate liquid feeds. Referrals: ARANZA ANN MD [Staff Physician] - 3-5 Days
[2019-01-01 00:33] VITALS: BP 137/66
--- NOTE | 2019-01-01 00:45 | Cat Scan Report ---
FINAL REPORT PROCEDURE: CT HEAD/BRAIN WO CON TECHNIQUE: Computerized tomography of the head was performed without contrast material. HISTORY: fall on head hx of cva COMPARISON: No prior studies are available for comparison. FINDINGS: Skull and scalp: Normal. Paranasal sinuses: Normal. Ventricles and subarachnoid spaces: There is mild central and cortical atrophy. There is no hydroceph alus or asymmetry.. Cerebrum: No evidence of hemorrhage, acute infarction or mass . Cerebellum and brainstem: No evidence of hemorrhage, acute infarction or mass. Vasculature: Normal. Comments: There is fluid in the left mastoid air cells suggesting mastoiditis.. IMPRESSION: There is no skull fracture. There is no intracranial hemorrhage. There is left mastoiditis.
--- NOTE | 2019-01-01 00:52 | XRay Report ---
FINAL REPORT PROCEDURE: XR HUMERUS 2+V LT TECHNIQUE: LEFT humerus radiographs, AP and lateral views. HISTORY: left arm pain fall COMPARISON: No prior studies are available for comparison. FINDINGS: Fracture (s) and/or Dislocation(s): None . Joint space(s): Normal. Soft tissues: Normal. Bone mineralization: Normal. Foreign bodies: None. IMPRESSION: Normal Examination.
--- NOTE | 2019-01-01 00:55 | XRay Report ---
FINAL REPORT PROCEDURE: XR SHOULDER 2+V LT TECHNIQUE: LEFT shoulder radiographs including AP views in internal and external rotation and abduct ion. CPT 99994 HISTORY: left arm pain fall COMPARISON: No prior studies are available for comparison. FINDINGS: Fracture (s) and/or Dislocation(s): None . Joint space(s): The there is degenerative arthrosis of the left glenohumeral joint.. Soft tissues: Normal . Bone mineralization: Normal . Foreign bodies: None . IMPRESSION: There is no fracture or malalignment.
--- NOTE | 2019-01-01 00:58 | XRay Report ---
FINAL REPORT PROCEDURE: XR ANKLE 2V LT TECHNIQUE: LEFT ankle radiographs, AP and lateral views. HISTORY: LEG PAIN FALL COMPARISON: No prior studies are available for comparison. FINDINGS: Fracture (s) and/or Dislocation(s): There is no fracture or malalignment. Alignment: Normal. Joint space(s): There is degenerative arthrosis of the tibial talar joint. Soft tissues: There is generalized soft tissue swelling. Bone mineralization: Normal. Foreign bodies: Normal. Calcaneal spurring: There is an inferior calcaneal spur. IMPRESSION: There is no fracture or malalignment. 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 There is generalized soft tissue swelling. There is an inferior calcaneal spur. .
--- NOTE | 2019-01-01 01:02 | XRay Report ---
FINAL REPORT PROCEDURE: XR PELVIS 1-2V TECHNIQUE: Pelvis radiograph, AP view. CPT 38559 HISTORY: LEG PAIN FALL COMPARISON: No prior studies are available for comparison. FINDINGS: Fracture(s): None . Joint spaces: There is degenerative arthrosis of the hip joints. Soft tissues: Normal . Foreign bodies: None . Bone mineralization: Normal . IMPRESSION: There are no acute bony abnormalities. There is degenerative arthrosis of the hip joints bilaterally.
--- NOTE | 2019-01-01 01:05 | XRay Report ---
FINAL REPORT PROCEDURE: XR KNEE 1-2V LT TECHNIQUE: LEFT knee radiographs, AP and lateral views. CPT 46691 HISTORY: LEG PAIN FALL COMPARISON: No prior studies are available for comparison. FINDINGS: Fracture (s) and/or Dislocation(s): None . Alignment: Normal . Joint space(s): There are degenerative changes of the knee joint.. Soft tissues: There is a joint effusion.. Bone mineralization: Normal . Foreign bodies: None . IMPRESSION: There are no fractures or malalignments. There is a joint effusion. The.
--- NOTE | 2019-01-01 01:11 | XRay Report ---
FINAL REPORT PROCEDURE: XR FEMUR 2+V LT TECHNIQUE: LEFT femur radiographs, AP and lateral views. HISTORY: LEG PAIN FALL COMPARISON: No prior studies are available for comparison. FINDINGS: Fracture (s) and/or Dislocation(s): None . Joint space(s): There is degenerative arthrosis of the hip joint.. Soft tissues: There is a knee effusion.. Bone mineralization: Normal . Foreign bodies: None . IMPRESSION: There is no acute bony abnormality.
== END 2019-01-01 01:50 | disposition home or self-care (01) ==
LOC: ED 21:57
DX: R53.1 Weakness (principal); M25.512 Pain in left shoulder; M25.552 Pain in left hip; M25.562 Pain in left knee; W18.30XA Fall on same level, unspecified, initial encounter; Y93.89 Activity, other specified; Y92.89 Other specified places as the place of occurrence of the external cause; Y99.8 Other external cause status
CPT/HCPCS: 70450; 72170

== ENCOUNTER 2019-06-06 14:23 | Emergency (ER) | payer MEDICARE ==
[2019-06-06] MEDS ORDERED: ZOFRAN IV ONE (14:54)
[2019-06-06] MEDS ORDERED: NACL 0.9% 1000 ML 1,000 ML IV ONE (14:54)
--- NOTE | 2019-06-06 14:54 | Emergency Department Report ---
ED Dizziness HPI - General Chief Complaint: Dizziness Stated Complaint: WEAKNESS/DIZZINESS Time Seen by Provider: 06/06/19 14:53 Source: patient, EMS Mode of arrival: Stretcher Limitations: Physical Limitation - History of Present Illness Initial Comments: 73-year-old -[place] female presents to the ED after feeling nauseous and dizzy at home. symptoms have been there for about 1-2 hrs. no fever, n/v. mild dysuria. has not yet taken any meds for symptoms. Onset/Timin -: hour(s) - Related Data Home Medications Medication Instructions Recorded Confirmed Last Taken Losartan [Cozaar] 50 mg PO QDAY 07/21/18 11/17/18 07/31/18 amLODIPine [Norvasc] 10 mg PO DAILY 07/21/18 11/17/18 07/31/18 busPIRone [Buspar] 5 mg PO BID 07/21/18 11/17/18 07/31/18 Previous Rx's Medication Instructions Recorded Last Taken Type AtorvaSTATin [Lipitor] 40 mg PO QHS #30 tablet 05/04/18 07/31/18 Rx Oxycodone HCl [oxyCODONE] 10 mg PO Q8H PRN #10 tablet 05/04/18 07/31/18 Rx Cyclobenzaprine [Flexeril 10 MG 10 mg PO BID PRN #5 tablet 08/04/18 Unknown Rx TAB] Acetaminophen [Tylenol Arthritis] 650 mg PO Q6HR PRN #30 tablet.er 01/01/19 Unknown Rx cephALEXin [Keflex] 500 mg PO Q12HR 10 Days #20 cap 06/06/19 Unknown Rx Allergies Allergy/AdvReac Type Severity Reaction Status Date / Time aspirin AdvReac Bleeding Verified 03/21/19 18:28 blood thinners AdvReac Bleeding Uncoded 08/09/16 01:53 ED Review of Systems ROS: Stated complaint: WEAKNESS/DIZZINESS Other details as noted in HPI Comment: All other systems reviewed and negative Constitutional: denies: see HPI, chills Respiratory: denies: cough Cardiovascular: denies: chest pain Gastrointestinal: nausea ED Past Medical Hx - Past Medical History Hx Hypertension: Yes Hx CVA: Yes (old chart no mri documentation on previous admits for same left side weakne) Hx Heart Attack/AMI: No Hx Congestive Heart Failure: No Hx Diabetes: No Hx Liver Disease: No Hx Renal Disease: No Hx Asthma: No Hx COPD: No Additional medical history: Hx. left clavicle fx., h/o muscle spasms. 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 - Surgical History Additional Surgical History: Herniated disk cspine 2001 C5-6, fusion,NECK SURGERY - Social History Smoking Status: Current Every Day Smoker Substance Use Type: Marijuana - Medications Home Medications: Home Medications Medication Instructions Recorded Confirmed Last Taken Type AtorvaSTATin [Lipitor] 40 mg PO QHS #30 tablet 05/04/18 11/17/18 07/31/18 Rx Oxycodone HCl [oxyCODONE] 10 mg PO Q8H PRN #10 tablet 05/04/18 11/17/18 07/31/18 Rx Losartan [Cozaar] 50 mg PO QDAY 07/21/18 11/17/18 07/31/18 History amLODIPine [Norvasc] 10 mg PO DAILY 07/21/18 11/17/18 07/31/18 History busPIRone [Buspar] 5 mg PO BID 07/21/18 11/17/18 07/31/18 History Cyclobenzaprine [Flexeril 10 MG 10 mg PO BID PRN #5 tablet 08/04/18 11/17/18 Unknown Rx TAB] Acetaminophen [Tylenol Arthritis] 650 mg PO Q6HR PRN #30 tablet.er 01/01/19 Unknown Rx cephALEXin [Keflex] 500 mg PO Q12HR 10 Days #20 cap 06/06/19 Unknown Rx ED Physical Exam - General Limitations: Physical Limitation General appearance: alert, in no apparent distress - Head Head exam: Present: atraumatic, normocephalic - Eye Eye exam: Present: normal appearance, PERRL, EOMI Pupils: Present: normal accommodation - ENT ENT exam: Present: normal exam, normal orophraynx - Neck Neck exam: Present: normal inspection - Respiratory Respiratory exam: Present: normal lung sounds bilaterally - Cardiovascular Cardiovascular Exam: Present: regular rate, normal rhythm - GI/Abdominal GI/Abdominal exam: Present: soft, normal bowel sounds - Neurological Exam Neurological exam: Present: alert, oriented X3 ED Course Vital Signs 06/06/19 06/06/19 06/06/19 14:31 14:45 14:48 Temperature Pulse Rate 80 80 81 Respiratory 16 20 14 Rate Blood Pressure 133/68 Blood Pressure [Left] O2 Sat by Pulse 97 100 Oximetry 06/06/19 06/06/19 06/06/19 15:13 15:15 15:22 Temperature Pulse Rate 80 82 Respiratory 14 17 20 Rate Blood Pressure 133/68 139/77 Blood Pressure [Left] O2 Sat by Pulse 100 100 Oximetry 06/06/19 06/06/19 06/06/19 15:25 15:30 15:45 Temperature 98.7 F Pulse Rate 85 77 83 Respiratory 20 13 21 Rate Blood Pressure 133/92 142/78 Blood Pressure 137/77 [Left] O2 Sat by Pulse 100 98 98 Oximetry ED Medical Decision Making - Lab Data Result diagrams: 06/06/19 14:38 06/06/19 14:38 - Medical Decision Making given ivf ns 1liter, zofran 4mg iv, in ER, feels much better. ua, consistent with UTI, will d/c home with abx. - Differential Diagnosis uti,dizziness,vertigo,cva Critical care attestation.: If time is entered above; I have spent that time in minutes in the direct care of this critically ill patient, excluding procedure time. ED Disposition Clinical Impression: Dizziness UTI (urinary tract infection) Qualifiers: Urinary tract infection type: acute cystitis Hematuria presence: without hematuria Qualified Code(s): N30.00 - Acute cystitis without hematuria Disposition: -01 TO HOME OR SELFCARE Is pt being admited?: No Does the pt Need Aspirin: No Condition: Stable Instructions: Urinary Tract Infection in Women (ED) Prescriptions: cephALEXin [Keflex] 500 mg PO Q12HR 10 Days #20 cap Referrals: KATALINA MARCOS [Other] - 3-5 Days
[2019-06-06 15:07] LABS: Basophils # (Auto) 0.1 K/mm3 (0.0-0.1); Basophils % (Auto) 0.9 % (0.0-1.8); Eosinophils % (Auto) 0.6 % (0.0-4.3); Hematocrit 41.1 % (30.3-42.9); Hemoglobin 13.7 gm/dl (10.1-14.3); Lymphocytes # (Auto) 2.7 K/mm3 (1.2-5.4); Lymphocytes % (Auto) 43.4 % (13.4-35.0); Mean Corpuscular HGB Conc 33 % (30-34); Mean Corpuscular Volume 74 fl (79-97); Monocytes # (Auto) 0.3 K/mm3 (0.0-0.8); Monocytes % (Auto) 4.8 % (0.0-7.3); Platelet Count 319 K/mm3 (140-440); Red Blood Count 5.57 M/mm3 (3.65-5.03); Red Cell Distribution Width 17.8 % (13.2-15.2)
--- NOTE | 2019-06-06 15:24 | Cat Scan Report ---
CT head/brain wo con INDICATION / CLINICAL INFORMATION: 73 years Female; Lightheadedness/ Dizziness/ Nausea. TECHNIQUE: Routine CT head without contrast. All CT scans at this location are performed using CT dos e reduction for ALARA by means of automated exposure control. COMPARISON: 03/21/2019 FINDINGS: BRAIN / INTRACRANIAL CONTENTS: No acute hemorrhage, mass effect, midline shift, hydrocephalus, or acu te, large territorial infarct. Mild cerebral atrophy noted, as well as mild to moderate cerebellar at rophy. No significant white matter abnormality appreciated. CRANIOCERVICAL JUNCTION: No significant abnormality. ORBITS: No significant abnormality of visualized orbits. SINUSES / MASTOIDS: Mucous retention cyst/polyp suggested in the right maxillary antrum. Mild mucosal thickening seen in the ethmoids. There is near complete opacification of the left mastoid region, wi thout coalescence of air cells noted. ADDITIONAL FINDINGS: Atherosclerotic disease seen in the anterior and posterior circulation. IMPRESSION: 1. No focal mass, hemorrhage, hydrocephalus, or acute, large territorial infarct. 2. Sinus disease, as described above. Signer Name: Bora Ruiz MD, III Signed: 06/06/2019 3:20 PM Workstation Name: [id number]
[2019-06-06 15:30] LABS: Alanine Aminotransferase 12 units/L (7-56); Albumin 4.6 g/dL (3.9-5); BUN/Creatinine Ratio 11; Blood Urea Nitrogen 8 mg/dL (7-17); Calcium 9.4 mg/dL (8.4-10.2); Hemolysis Index 0
[2019-06-06 16:12] LABS: Bacteria,Urine 2+ /HPF (Negative); Bilirubin,Urine NEG (Negative); Blood,Urine SM (Negative); Color,Urine Yellow (Yellow); Protein,Urine <15 mg/dL mg/dL (Negative); Urobilinogen,Urine < 2.0 mg/dL (<2.0)
[2019-06-06 17:00] VITALS: BP 146/77
== END 2019-06-06 17:01 | disposition home or self-care (01) ==
LOC: ED 14:23
DX: N39.0 Urinary tract infection, site not specified (principal); I10 Essential (primary) hypertension; I63.9 Cerebral infarction, unspecified; F17.200 Nicotine dependence, unspecified, uncomplicated; F12.10 Cannabis abuse, uncomplicated; Z98.890 Other specified postprocedural states; Z79.899 Other long term (current) drug therapy; Z88.6 Allergy status to analgesic agent; Z88.8 Allergy status to other drugs, medicaments and biological substances
CPT/HCPCS: 36415; 70450; 80053; 81001; 82962; 84484; 85025; 87086; 93005; 93010; 96361; 96374; 99285; J2405; J7030

== ENCOUNTER 2019-09-26 21:05 | Emergency (ER) | payer MEDICARE ==
--- NOTE | 2019-09-26 21:56 | Event Note ---
ED Screening Note Date of service: 09/26/19 Time: 21:52 ED Screening Note: 73 y o female presents with cc of URI symptoms stating difficulty breathing and inhaling PMH: Asthma, COPD 99% sat on 0.5 O2 This initial assessment/diagnostic orders/clinical plan/treatment(s) is/are subject to change based on patients health status, clinical progression and re- assessment by fellow clinical providers in the ED. Further treatment and workup at subsequent clinical providers discretion. Patient/guardian urged not to elope from the ED as their condition may be serious if not clinically assessed and managed. Initial orders include: labs cxr
[2019-09-26 22:27] LABS: Basophils % (Auto) 0.6 % (0.0-1.8); Eosinophils # (Auto) 0.1 K/mm3 (0.0-0.4); Hemoglobin 13.9 gm/dl (10.1-14.3); Lymphocytes # (Auto) 2.6 K/mm3 (1.2-5.4); Mean Corpuscular HGB Conc 32 % (30-34); Mean Corpuscular Volume 76 fl (79-97); Monocytes # (Auto) 0.4 K/mm3 (0.0-0.8); Monocytes % (Auto) 5.9 % (0.0-7.3); Platelet Count 260 K/mm3 (140-440); Red Blood Count 5.69 M/mm3 (3.65-5.03); Red Cell Distribution Width 19.3 % (13.2-15.2)
[2019-09-26 22:28] LABS: INR 1.03 (0.87-1.13); Partial Thromboplastin Time 33.1 Sec. (24.2-36.6)
--- NOTE | 2019-09-26 22:29 | XRay Report ---
CHEST 1 VIEW 09/26/2019 10:13 PM INDICATION / CLINICAL INFORMATION: Dyspnea. COMPARISON: Chest x-ray on 08/01/2018. FINDINGS: SUPPORT DEVICES: None. HEART / MEDIASTINUM: Normal heart size. Atherosclerosis in the thoracic aorta. LUNGS / PLEURA: No significant pulmonary or pleural abnormality. No pneumothorax. ADDITIONAL FINDINGS: Moderate degenerative changes in both shoulders again noted. IMPRESSION: 1. No acute findings. Signer Name: Sandeep Angel MD Signed: 09/26/2019 10:24 PM Workstation Name: [id number]
[2019-09-26 22:42] LABS: Creatine Kinase MB 2.5 ng/mL (0.0-4.0)
[2019-09-26 22:43] LABS: BUN/Creatinine Ratio 9; Blood Urea Nitrogen 7 mg/dL (7-17); Calcium 9.3 mg/dL (8.4-10.2); Hemolysis Index 7
--- NOTE | 2019-09-26 23:49 | Emergency Department Report ---
- General Chief Complaint: Dyspnea/Respdistress Stated Complaint: JUSTIN Time Seen by Provider: 09/26/19 23:25 Source: patient Mode of arrival: Ambulatory Limitations: Physical Limitation - History of Present Illness Initial Comments: 73-year-old female with history of hypertension, CVA, anxiety presents to ED with cough 4 days. Patient states she was seen by her PCP 2 days ago, and given a prescription for an inhaler. Patient presents to the ED tonight reporting shortness of breath that is triggered by coughing spells. Patient states she begins to cough and then feels as if she is unable to catch her breath afterward. Patient denies any pain at this time. She initially reported to triage nurse that she was having left-sided neck pain, however patient reports that that has resolved. Patient denies sore throat, chest pain, nausea or vomiting, muscle aches. Patient states she has had a flu shot this season and reports pneumonia shot previously. Patient reports cough is productive of white phlegm. MD Complaint: cough -: days(s) (4) Severity: moderate Consistency: intermittent Improves With: nothing Worsens With: nothing Associated Symptoms: cough, shortness of breath. denies: fever, chills, myalgias, sore throat, stiff neck, chest pain, nausea, vomiting - Related Data Home Medications Medication Instructions Recorded Confirmed Last Taken Losartan [Cozaar] 50 mg PO QDAY 07/21/18 11/17/18 07/31/18 amLODIPine 10 mg PO DAILY 07/21/18 11/17/18 07/31/18 busPIRone [Buspar] 5 mg PO BID 07/21/18 11/17/18 07/31/18 Previous Rx's Medication Instructions Recorded Last Taken Type AtorvaSTATin [Lipitor] 40 mg PO QHS #30 tablet 05/04/18 07/31/18 Rx Oxycodone HCl [oxyCODONE] 10 mg PO Q8H PRN #10 tablet 05/04/18 07/31/18 Rx Cyclobenzaprine [Flexeril 10 MG 10 mg PO BID PRN #5 tablet 08/04/18 Unknown Rx TAB] Acetaminophen [Tylenol Arthritis] 650 mg PO Q6HR PRN #30 tablet.er 01/01/19 Unknown Rx cephALEXin [Keflex] 500 mg PO Q12HR 10 Days #20 cap 06/06/19 Unknown Rx Benzonatate [Tessalon Perles] 100 mg PO Q8HR PRN #20 capsule 09/27/19 Unknown Rx Allergies Allergy/AdvReac Type Severity Reaction Status Date / Time aspirin AdvReac Bleeding Verified 03/21/19 18:28 blood thinners AdvReac Bleeding Uncoded 08/09/16 01:53 ED Review of Systems ROS: Stated complaint: JUSTIN Other details as noted in HPI Comment: All other systems reviewed and negative Constitutional: denies: chills, fever Respiratory: cough, shortness of breath Cardiovascular: denies: chest pain Gastrointestinal: denies: nausea, vomiting Musculoskeletal: denies: myalgia ED Past Medical Hx - Past Medical History Previous Medical History?: Yes Hx Hypertension: Yes Hx CVA: Yes (old chart no mri documentation on previous admits for same left side weakne) Hx Heart Attack/AMI: No Hx Congestive Heart Failure: No Hx Diabetes: No Hx Liver Disease: No Hx Renal Disease: No Hx Asthma: No Hx COPD: No Additional medical history: Hx. left clavicle fx., h/o muscle spasms. 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 - Surgical History Past Surgical History?: Yes Additional Surgical History: Herniated disk cspine 2001 C5-6, fusion,NECK SURGERY - Social History Smoking Status: Current Every Day Smoker Substance Use Type: Marijuana - Medications Home Medications: Home Medications Medication Instructions Recorded Confirmed Last Taken Type AtorvaSTATin [Lipitor] 40 mg PO QHS #30 tablet 05/04/18 11/17/18 07/31/18 Rx Oxycodone HCl [oxyCODONE] 10 mg PO Q8H PRN #10 tablet 05/04/18 11/17/18 07/31/18 Rx Losartan [Cozaar] 50 mg PO QDAY 07/21/18 11/17/18 07/31/18 History amLODIPine 10 mg PO DAILY 07/21/18 11/17/18 07/31/18 History busPIRone [Buspar] 5 mg PO BID 07/21/18 11/17/18 07/31/18 History Cyclobenzaprine [Flexeril 10 MG 10 mg PO BID PRN #5 tablet 08/04/18 11/17/18 Unknown Rx TAB] Acetaminophen [Tylenol Arthritis] 650 mg PO Q6HR PRN #30 tablet.er 01/01/19 Unknown Rx cephALEXin [Keflex] 500 mg PO Q12HR 10 Days #20 cap 06/06/19 Unknown Rx Benzonatate [Tessalon Perles] 100 mg PO Q8HR PRN #20 capsule 09/27/19 Unknown Rx ED Physical Exam - General Limitations: Physical Limitation General appearance: alert, in no apparent distress - Head Head exam: Present: atraumatic, normocephalic - Eye Eye exam: Present: normal appearance, PERRL, EOMI - ENT ENT exam: Present: normal orophraynx, mucous membranes moist - Neck Neck exam: Present: normal inspection, full ROM. Absent: tenderness, lymphadenopathy - Respiratory Respiratory exam: Present: normal lung sounds bilaterally. Absent: respiratory distress, wheezes, rales, rhonchi, stridor - Cardiovascular Cardiovascular Exam: Present: regular rate, normal rhythm - GI/Abdominal GI/Abdominal exam: Present: soft. Absent: distended, tenderness - Extremities Exam Extremities exam: Present: normal inspection - Neurological Exam Neurological exam: Present: alert, oriented X3, motor sensory deficit (left- sided weakness secondary to prior CVA) - Psychiatric Psychiatric exam: Present: normal affect, normal mood - Skin Skin exam: Present: warm, dry, intact, normal color ED Course Vital Signs 09/26/19 09/26/19 09/26/19 21:20 21:51 23:52 Temperature 98.3 F 98.3 F Pulse Rate 86 86 Respiratory 18 12 Rate Blood Pressure 151/92 151/92 O2 Sat by Pulse 96 99 99 Oximetry 09/27/19 09/27/19 09/27/19 00:00 00:02 00:30 Temperature Pulse Rate 89 91 H 83 Respiratory 18 17 18 Rate Blood Pressure 156/75 156/75 156/75 O2 Sat by Pulse 96 98 96 Oximetry 09/27/19 09/27/19 01:00 01:23 Temperature Pulse Rate 78 Respiratory 19 20 Rate Blood Pressure 156/75 O2 Sat by Pulse 96 Oximetry ED Medical Decision Making - Lab Data Result diagrams: 09/26/19 21:59 09/26/19 21:59 - Radiology Data Radiology results: report reviewed, image reviewed - Medical Decision Making Patient is comfortable, is in no respiratory distress. Vitals normal, including O2 sats. Labs are unremarkable. Chest x-ray normal. Patient will be discharged at this time. Outpatient follow-up with her PCP advised. Return precautions given. - Differential Diagnosis URI, pneumonia, CHF Critical care attestation.: If time is entered above; I have spent that time in minutes in the direct care of this critically ill patient, excluding procedure time. ED Disposition Clinical Impression: URI (upper respiratory infection) Disposition: TO HOME OR SELFCARE Is pt being admited?: No Condition: Stable Instructions: Upper Respiratory Infection (ED) Prescriptions: Benzonatate [Tessalon Perles] 100 mg PO Q8HR PRN #20 capsule PRN Reason: Cough Referrals: PRIMARY CARE, [Primary Care Provider] - 3-5 Days Time of Disposition: 00:15
[2019-09-27 00:03] VITALS: BP 156/75
[2019-09-27] MEDS ORDERED: guaiFENesin 100 MG/5 ML ORAL LIQD PO ONE (00:11)
== END 2019-09-27 01:24 | disposition home or self-care (01) ==
LOC: ED 21:05
DX: J06.9 Acute upper respiratory infection, unspecified (principal); I10 Essential (primary) hypertension; F41.9 Anxiety disorder, unspecified; F17.200 Nicotine dependence, unspecified, uncomplicated; Z88.6 Allergy status to analgesic agent; Z79.899 Other long term (current) drug therapy
CPT/HCPCS: 36415; 71045; 80048; 82550; 82553; 85025; 85610; 85730; 99284

== ENCOUNTER 2019-10-21 16:32 | Emergency (ER) | payer MEDICARE ==
--- NOTE | 2019-10-21 16:55 | Emergency Department Report ---
ED Headache HPI - General Chief Complaint: Headache Stated Complaint: HEADACHE Time Seen by Provider: 10/21/19 16:49 - History of Present Illness Initial Comments: Patient is 73 years old female with history of CVA and left hemiparesis, hypertension and previous neck surgery. Patient presented to the ER complaining of sudden onset of headache described it as throbbing. Patient stated that headache started approximately 30 minutes ago. Patient denied any knee weakness, numbness or tingling sensation. She also denied any neck pain, chest pain, shortness of breath, abdominal pain, nausea or vomiting. She also denied any fever or chills. Timing/Duration: 1/2 hour Quality: moderate Head Injury Location: frontal Recent Head Trauma: no recent headache/trauma Associated Symptoms: denies symptoms Allergies/Adverse Reactions: Allergies aspirin Adverse Reaction (Verified 03/21/19 18:28) Bleeding blood thinners Adverse Reaction (Uncoded 08/09/16 01:53) Bleeding Home Medications: Ambulatory Orders AtorvaSTATin [Lipitor] 40 mg PO QHS #30 tablet 05/04/18 Oxycodone HCl [oxyCODONE] 10 mg PO Q8H PRN #10 tablet 05/04/18 Losartan [Cozaar] 50 mg PO QDAY 07/21/18 amLODIPine 10 mg PO DAILY 07/21/18 busPIRone [Buspar] 5 mg PO BID 07/21/18 Cyclobenzaprine [Flexeril 10 MG TAB] 10 mg PO BID PRN #5 tablet 08/04/18 Acetaminophen [Tylenol Arthritis] 650 mg PO Q6HR PRN #30 tablet.er 01/01/19 cephALEXin [Keflex] 500 mg PO Q12HR 10 Days #20 cap 06/06/19 Benzonatate [Tessalon Perles] 100 mg PO Q8HR PRN #20 capsule 09/27/19 ED Review of Systems ROS: Stated complaint: HEADACHE Other details as noted in HPI Comment: All other systems reviewed and negative Constitutional: denies: chills, fever Respiratory: denies: cough, shortness of breath, SOB with exertion, SOB at rest, wheezing Cardiovascular: denies: chest pain, palpitations Gastrointestinal: denies: abdominal pain, nausea, vomiting Musculoskeletal: denies: back pain Neurological: headache. denies: weakness, numbness, paresthesias, confusion, abnormal gait ED Past Medical Hx - Past Medical History Hx Hypertension: Yes Hx CVA: Yes (old chart no mri documentation on previous admits for same left side weakne) Hx Heart Attack/AMI: No Hx Congestive Heart Failure: No Hx Diabetes: No Hx Liver Disease: No Hx Renal Disease: No Hx Asthma: No Hx COPD: No Additional medical history: Hx. left clavicle fx., h/o muscle spasms. 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 - Surgical History Additional Surgical History: Herniated disk cspine 2001 C5-6, fusion,NECK SURGERY - Social History Smoking Status: Current Every Day Smoker Substance Use Type: Marijuana - Medications Home Medications: Home Medications Medication Instructions Recorded Confirmed Last Taken Type AtorvaSTATin [Lipitor] 40 mg PO QHS #30 tablet 05/04/18 11/17/18 07/31/18 Rx Oxycodone HCl [oxyCODONE] 10 mg PO Q8H PRN #10 tablet 05/04/18 11/17/18 07/31/18 Rx Losartan [Cozaar] 50 mg PO QDAY 07/21/18 11/17/18 07/31/18 History amLODIPine 10 mg PO DAILY 07/21/18 11/17/18 07/31/18 History busPIRone [Buspar] 5 mg PO BID 07/21/18 11/17/18 07/31/18 History Cyclobenzaprine [Flexeril 10 MG 10 mg PO BID PRN #5 tablet 08/04/18 11/17/18 Unknown Rx TAB] Acetaminophen [Tylenol Arthritis] 650 mg PO Q6HR PRN #30 tablet.er 01/01/19 Unknown Rx cephALEXin [Keflex] 500 mg PO Q12HR 10 Days #20 cap 06/06/19 Unknown Rx Benzonatate [Tessalon Perles] 100 mg PO Q8HR PRN #20 capsule 09/27/19 Unknown Rx ED Physical Exam - General Limitations: No Limitations General appearance: alert, in no apparent distress - Head Head exam: Present: atraumatic, normocephalic, normal inspection - Eye Eye exam: Present: normal appearance, PERRL - ENT ENT exam: Present: normal exam, normal orophraynx, mucous membranes moist - Neck Neck exam: Present: normal inspection, full ROM. Absent: tenderness, menin gismus, lymphadenopathy, thyromegaly - Respiratory Respiratory exam: Present: normal lung sounds bilaterally - Cardiovascular Cardiovascular Exam: Present: regular rate, normal rhythm, normal heart sounds - GI/Abdominal GI/Abdominal exam: Present: soft, normal bowel sounds. Absent: distended, tenderness, guarding, rebound, rigid, organomegaly, mass, bruit, pulsatile mass, hernia - Extremities Exam Extremities exam: Present: normal inspection, full ROM, normal capillary refill. Absent: pedal edema, calf tenderness - Back Exam Back exam: Present: normal inspection, full ROM. Absent: CVA tenderness (R), CVA tenderness (L), muscle spasm, paraspinal tenderness, vertebral tenderness - Neurological Exam Neurological exam: Present: alert, oriented X3, motor sensory deficit (chronic left upper and lower extremity weakness.) - Skin Skin exam: Present: warm, intact, normal color ED Course Vital Signs 10/21/19 10/21/19 17:13 18:19 Temperature 98.0 F Pulse Rate 77 70 Respiratory 14 17 Rate Blood Pressure 104/58 122/57 [Right] O2 Sat by Pulse 98 96 Oximetry ED Medical Decision Making - Lab Data Result diagrams: 10/21/19 17:17 10/21/19 17:23 - Radiology Data Radiology results: report reviewed - Medical Decision Making Patient is 73 years old female with history of CVA and left hemiparesis, hypertension and previous neck surgery. Patient presented to the ER complaining of sudden onset of headache described it as throbbing. Patient stated that headache started approximately 30 minutes ago. Patient denied any knee weakness, numbness or tingling sensation. She also denied any neck pain, chest pain, shortness of breath, abdominal pain, nausea or vomiting. She also denied any fever or chills. Patient labs reviewed and is unremarkable. CT brain is negative for acute finding. No evidence of acute stroke. Patient stated that headache is completely resolved and she is asking for something to eat. Patient will be discharged to follow-up with her primary care physician in the next 2-3 days and to return to the ER if symptoms have not improved. Critical care attestation.: If time is entered above; I have spent that time in minutes in the direct care of this critically ill patient, excluding procedure time. ED Disposition Clinical Impression: Headache Disposition: DC-01 TO HOME OR SELFCARE Is pt being admited?: No Condition: Stable Instructions: Acute Headache (ED) Referrals: PRIMARY CARE, [Primary Care Provider] - 3-5 Days
[2019-10-21 17:39] LABS: Basophils % (Auto) 0.7 % (0.0-1.8); Eosinophils # (Auto) 0.1 K/mm3 (0.0-0.4); Eosinophils % (Auto) 1.3 % (0.0-4.3); Hematocrit 42.9 % (30.3-42.9); Hemoglobin 13.6 gm/dl (10.1-14.3); Lymphocytes # (Auto) 2.5 K/mm3 (1.2-5.4); Lymphocytes % (Auto) 41.3 % (13.4-35.0); Mean Corpuscular HGB Conc 32 % (30-34); Mean Corpuscular Volume 76 fl (79-97); Monocytes # (Auto) 0.4 K/mm3 (0.0-0.8); Monocytes % (Auto) 6.5 % (0.0-7.3); Platelet Count 283 K/mm3 (140-440); Red Blood Count 5.66 M/mm3 (3.65-5.03); Red Cell Distribution Width 18.6 % (13.2-15.2)
[2019-10-21 17:56] LABS: INR 1.06 (0.87-1.13); Partial Thromboplastin Time 30.7 Sec. (24.2-36.6)
[2019-10-21 17:58] LABS: BUN/Creatinine Ratio 11; Blood Urea Nitrogen 8 mg/dL (7-17); Calcium 9.6 mg/dL (8.4-10.2); Hemolysis Index 5
--- NOTE | 2019-10-21 18:17 | Cat Scan Report ---
NONENHANCED CT SCAN OF THE HEAD: INDICATION / CLINICAL INFORMATION: 73 years Female; Headache. TECHNIQUE: Routine CT head without contrast. All CT scans at this location are performed using CT dos e reduction for ALARA by means of automated exposure control. COMPARISON: CT scan of the brain from 06/06/2019 FINDINGS: BRAIN / INTRACRANIAL CONTENTS: No acute hemorrhage, mass effect, midline shift, hydrocephalus, or acu te, large territorial infarct. As seen in the last CT scan, extra cerebellar space is slightly promin ent. Volume loss is seen in the cerebellar hemispheres. Extracerebral space is also prominent bifront ally with prominent interhemispheric fissure due to involution. Moderate cortical involution is seen. No significant white matter abnormality. CRANIOCERVICAL JUNCTION: No significant abnormality. ORBITS: No significant abnormality of visualized orbits. SINUSES / MASTOIDS: Some of the left mastoid air cells are opacified. This remains unchanged. ADDITIONAL FINDINGS: None. IMPRESSION: I do not see an acute parenchymal lesion. Signer Name: Demar Eubanks MD Signed: 10/21/2019 6:13 PM Workstation Name: [id number]
[2019-10-21 18:20] VITALS: BP 122/57
[2019-10-21] MEDS ORDERED: MORPHINE 4 MG/1 ML INJ IV ONE (18:30)
[2019-10-21] MEDS ORDERED: ONDANSETRON 4 MG/2 ML INJ IV ONE (18:30)
== END 2019-10-21 20:06 | disposition home or self-care (01) ==
LOC: ED 16:32
DX: R51 Headache (principal); I10 Essential (primary) hypertension; Z86.73 Personal history of transient ischemic attack (TIA), and cerebral infarction without residual deficits; F17.200 Nicotine dependence, unspecified, uncomplicated; F12.10 Cannabis abuse, uncomplicated; Z98.890 Other specified postprocedural states; Z88.6 Allergy status to analgesic agent; Z88.8 Allergy status to other drugs, medicaments and biological substances; Z79.899 Other long term (current) drug therapy
CPT/HCPCS: 36415; 70450; 80048; 85025; 85610; 85730

== ENCOUNTER 2019-12-03 21:37 | Observation (INO) | payer MEDICARE ==
--- NOTE | 2019-12-03 22:26 | Emergency Department Report ---
ED Neuro Deficit HPI - General Chief Complaint: Weakness Stated Complaint: LEFT SIDED NUMBNESS, NECK PAIN Time Seen by Provider: 12/03/19 22:25 Source: patient, EMS Mode of arrival: Stretcher Limitations: Physical Limitation - History of Present Illness Initial Comments: Patient is a 73-year-old female Emergency room with complaints of left-sided weakness. Patient states she had a stroke a few years back which left her with left-sided weakness but she was still able to move her leg leg and arm. Patient states one week ago she developed worsening of the left-sided weakness. Patient states that she is not able to move her left leg and can minimally move her left arm. Patient states she's been having a headache and neck pain for 2 weeks. Patient states one week ago the headache intensified. Patient states her headache is a 7 out of 10. Patient states the pain is worse with movement and better with rest. Patient denies fever or chills. Patient denies nausea or vomiting. Patient denies chest pain. -: Sudden - Related Data Home Medications: Home Medications Medication Instructions Recorded Confirmed Last Taken RX: amLODIPine 10 mg PO HS 07/21/18 12/04/19 12/02/19 RX: busPIRone [Buspar] 5 mg PO BID 07/21/18 12/04/19 12/03/19 Aspirin [Aspirin BABY CHEW TAB] 81 mg PO QDAY 12/04/19 12/04/19 12/01/19 Previous Rx's Medication Instructions Recorded Last Taken Type RX: Oxycodone HCl [oxyCODONE] 10 mg PO Q8H PRN #10 tablet 05/04/18 07/31/18 Rx RX: Cyclobenzaprine [Flexeril 10 10 mg PO BID PRN #5 tablet 08/04/18 Unknown Rx MG TAB] Acetaminophen [Tylenol Arthritis] 650 mg PO Q6HR PRN #30 tablet.er 01/01/19 Unknown Rx Ondansetron [Zofran Odt] 4 mg PO Q8HR PRN #14 tab.rapdis 10/21/19 Unknown Rx Allergies/Adverse Reactions: Allergies Allergy/AdvReac Type Severity Reaction Status Date / Time aspirin AdvReac Bleeding Verified 03/21/19 18:28 blood thinners AdvReac Bleeding Uncoded 08/09/16 01:53 ED Review of Systems ROS: Stated complaint: LEFT SIDED NUMBNESS, NECK PAIN Other details as noted in HPI Constitutional: denies: chills, fever Eyes: denies: eye pain, eye discharge, vision change ENT: denies: ear pain, throat pain Respiratory: denies: cough, shortness of breath, wheezing Cardiovascular: denies: chest pain, palpitations Endocrine: no symptoms reported Gastrointestinal: denies: abdominal pain, nausea, diarrhea Genitourinary: denies: urgency, dysuria, discharge Musculoskeletal: denies: back pain, joint swelling, arthralgia Skin: denies: rash, lesions Neurological: headache, weakness. denies: paresthesias Psychiatric: denies: anxiety, depression Hematological/Lymphatic: denies: easy bleeding, easy bruising ED Past Medical Hx - Past Medical History Previous Medical History?: Yes Hx Hypertension: Yes Hx CVA: Yes (old chart no mri documentation on previous admits for same left side weakne) Hx Heart Attack/AMI: No Hx Congestive Heart Failure: No Hx Diabetes: No Hx Liver Disease: No Hx Renal Disease: No Hx Asthma: No Hx COPD: No Additional medical history: Hx. left clavicle fx., h/o muscle spasms. 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 - Surgical History Past Surgical History?: Yes Additional Surgical History: Herniated disk cspine 2001 C5-6, fusion,NECK SURGERY - Family History Family history: no significant - Social History Smoking Status: Current Every Day Smoker Substance Use Type: Marijuana - Medications Home Medications: Home Medications Medication Instructions Recorded Confirmed Last Taken Type RX: Oxycodone HCl [oxyCODONE] 10 mg PO Q8H PRN #10 tablet 05/04/18 12/04/19 07/31/18 Rx RX: amLODIPine 10 mg PO HS 07/21/18 12/04/19 12/02/19 History RX: busPIRone [Buspar] 5 mg PO BID 07/21/18 12/04/19 12/03/19 History RX: Cyclobenzaprine [Flexeril 10 10 mg PO BID PRN #5 tablet 08/04/18 12/04/19 Unknown Rx MG TAB] Acetaminophen [Tylenol Arthritis] 650 mg PO Q6HR PRN #30 tablet.er 01/01/19 12/04/19 Unknown Rx Ondansetron [Zofran Odt] 4 mg PO Q8HR PRN #14 tab.rapdis 10/21/19 12/04/19 Unknown Rx Aspirin [Aspirin BABY CHEW TAB] 81 mg PO QDAY 12/04/19 12/04/19 12/01/19 History ED Neuro Physical Exam - General Limitations: Physical Limitation General appearance: alert, in no apparent distress Suspected Stroke: Yes - Head Head exam: Present: atraumatic, normocephalic - Eye Eye exam: Present: normal appearance - ENT ENT exam: Present: mucous membranes moist - Neck Neck exam: Present: normal inspection - Respiratory Respiratory exam: Present: normal lung sounds bilaterally. Absent: respiratory distress, wheezes, rales - Cardiovascular Cardiovascular Exam: Present: regular rate, normal rhythm. Absent: systolic murmur, diastolic murmur, rubs, gallop - GI/Abdominal GI/Abdominal exam: Present: soft, normal bowel sounds. Absent: distended, tenderness, guarding - Rectal Rectal exam: Present: deferred - Extremities Exam Extremities exam: Present: normal inspection. Absent: tenderness - Back Exam Back exam: Present: normal inspection - Neurological Exam Neurological exam: Present: alert, oriented X3 - NIHSS Assessment Interval: Baseline 1a. Level of Consciousness: alert/keenly responsive 1b. LOC Questions: answers both correctly 1c. LOC Commands: performs tasks correctly 2. Best Gaze: normal 3. Visual: no visual loss 4. Facial Palsy: normal symmetrical movement 5b. Motor Arm Right: no drift 5a. Motor Arm Left: some gravity effort 6a. Motor Leg Left: no gravity effort 6b. Motor Leg Right: no drift 7. Limb Ataxia: absent 8. Sensory: normal 9. Best Language: no aphasia 10. Dysarthria: normal 11. Extinction/Inattention: no abnormality Total Score: 5 Stroke Severity: Moderate Stroke - Psychiatric Psychiatric exam: Present: normal affect, normal mood - Skin Skin exam: Present: warm, dry, intact, normal color. Absent: rash ED Course Vital Signs 12/03/19 12/03/19 12/03/19 21:56 22:00 22:02 Temperature 97.9 F Pulse Rate 84 83 Respiratory 16 18 Rate Blood Pressure 158/78 O2 Sat by Pulse 100 100 Oximetry 12/04/19 04:51 Temperature Pulse Rate 78 Respiratory Rate Blood Pressure O2 Sat by Pulse Oximetry - Reevaluation(s) Reevaluation #1: Initial evaluation done. Based on the patient's symptoms a code stroke was initiated. Neurology saw the patient. Patient going to CT. Patient is outside the window for TPA but the symptoms are consistent with a possible CVA. 12/03/19 22:25 Reevaluation #2: I discussed all results patient. I discussed plan of care with patient. Patient agrees with plan of care and admission. Patient will be admitted to the hospitalist service. 12/04/19 01:57 - Consultations Consultation #1: I discussed case with neurology and neurology does not recommend TPA but recommends MRI and admission and a CTA of the neck and head in the ER. 12/03/19 22:36 Consultation #2: Hospitalist consult information. Hospitalist admit patient. 12/04/19 01:57 - Lab Data Result diagrams: 12/03/19 23:06 12/03/19 23:06 Lab Results 12/03/19 12/03/19 12/03/19 Range/Units 22:42 23:06 23:06 WBC 6.6 (4.5-11.0) K/mm3 RBC 5.57 H (3.65-5.03) M/mm3 Hgb 14.1 (10.1-14.3) gm/dl Hct 42.5 (30.3-42.9) % MCV 76 L (79-97) fl MCH 25 L (28-32) pg MCHC 33 (30-34) % RDW 18.0 H (13.2-15.2) % Plt Count 248 (140-440) K/mm3 Lymph % (Auto) 42.8 H (13.4-35.0) % Colbert % (Auto) 5.6 (0.0-7.3) % Eos % (Auto) 1.2 (0.0-4.3) % Baso % (Auto) 1.1 (0.0-1.8) % Lymph # 2.8 (1.2-5.4) K/mm3 Colbert # 0.4 (0.0-0.8) K/mm3 Eos # 0.1 (0.0-0.4) K/mm3 Baso # 0.1 (0.0-0.1) K/mm3 Seg Neutrophils % 49.3 (40.0-70.0) % Seg Neutrophils # 3.3 (1.8-7.7) K/mm3 PT (12.2-14.9) Sec. INR (0.87-1.13) APTT (24.2-36.6) Sec. Sodium 141 (137-145) mmol/L Potassium 3.9 (3.6-5.0) mmol/L Chloride 103.6 (98-107) mmol/L Carbon Dioxide 23 (22-30) mmol/L Anion Gap 18 mmol/L BUN 7 (7-17) mg/dL Creatinine 0.6 L (0.7-1.2) mg/dL Estimated GFR > 60 ml/min BUN/Creatinine Ratio 12 % Glucose 107 H (65-100) mg/dL POC Glucose 105 (70-105) Calcium 9.5 (8.4-10.2) mg/dL Total Bilirubin < 0.20 (0.1-1.2) mg/dL AST 13 (5-40) units/L ALT 11 (7-56) units/L Alkaline Phosphatase 129 (35-129) units/L Total Creatine Kinase (30-135) units/L CK-MB (CK-2) (0.0-4.0) ng/mL CK-MB (CK-2) Rel Index (0-4) Troponin T (0.00-0.029) ng/mL Total Protein 7.0 (6.3-8.2) g/dL Albumin 4.4 (3.9-5) g/dL Albumin/Globulin Ratio 1.7 % 12/03/19 12/03/19 Range/Units 23:06 23:06 WBC (4.5-11.0) K/mm3 RBC (3.65-5.03) M/mm3 Hgb (10.1-14.3) gm/dl Hct (30.3-42.9) % MCV (79-97) fl MCH (28-32) pg MCHC (30-34) % RDW (13.2-15.2) % Plt Count (140-440) K/mm3 Lymph % (Auto) (13.4-35.0) % Colbert % (Auto) (0.0-7.3) % Eos % (Auto) (0.0-4.3) % Baso % (Auto) (0.0-1.8) % Lymph # (1.2-5.4) K/mm3 Colbert # (0.0-0.8) K/mm3 Eos # (0.0-0.4) K/mm3 Baso # (0.0-0.1) K/mm3 Seg Neutrophils % (40.0-70.0) % Seg Neutrophils # (1.8-7.7) K/mm3 PT 13.1 (12.2-14.9) Sec. INR 0.98 (0.87-1.13) APTT 33.5 (24.2-36.6) Sec. Sodium (137-145) mmol/L Potassium (3.6-5.0) mmol/L Chloride (98-107) mmol/L Carbon Dioxide (22-30) mmol/L Anion Gap mmol/L BUN (7-17) mg/dL Creatinine (0.7-1.2) mg/dL Estimated GFR ml/min BUN/Creatinine Ratio % Glucose (65-100) mg/dL POC Glucose (70-105) Calcium (8.4-10.2) mg/dL Total Bilirubin (0.1-1.2) mg/dL AST (5-40) units/L ALT (7-56) units/L Alkaline Phosphatase (35-129) units/L Total Creatine Kinase 141 H (30-135) units/L CK-MB (CK-2) 1.8 (0.0-4.0) ng/mL CK-MB (CK-2) Rel Index 1.2 (0-4) Troponin T < 0.010 (0.00-0.029) ng/mL Total Protein (6.3-8.2) g/dL Albumin (3.9-5) g/dL Albumin/Globulin Ratio % - EKG Data -: EKG Interpreted by Ct EKG shows normal: sinus rhythm, axis, intervals, QRS complexes, ST-T waves Rate: normal - Radiology Data Radiology results: report reviewed CT HEAD WITHOUT CONTRAST INDICATION: Code Sroke. TECHNIQUE: All CT scans at this location are performed using CT dose reduction for ALARA by means of automated exposure control. COMPARISON: CT 10/21/2019. FINDINGS: HEMORRHAGE: None. EXTRA-AXIAL SPACES: Normal in size and morphology for the patient's age. VENTRICULAR SYSTEM: Normal in size and morphology for the patient's age. BRAIN PARENCHYMA: No acute findings. MIDLINE SHIFT OR HERNIATION: None. ORBITS: Normal as visualized. SOFT TISSUES OF HEAD: Normal. CALVARIUM: Normal. VISUALIZED PARANASAL SINUSES AND MASTOID AIR CELLS: Clear. ADDITIONAL FINDINGS: None. IMPRESSION: 1. No acute intracranial abnormality. CTA neck without and with intravenous contrast material CLINICAL HISTORY: CODE STROKE PROTOCOL!! Weakness, Headache and Neck Pain TECHNIQUE: Following acquisition of a timing bolus 0.625 mm thick contiguous axial scans were obtained from aortic arch to the skull base during rapid bolus intravenous contrast infusion. In addition to evaluation of axial source images multiplanar reconstructions were produced and reviewed for this report. 3 plane MIP reconstructions were produced and reviewed. FINDINGS: Thoracic aorta: Visualized portions of the thoracic aorta have an unremarkable appearance. No abnormalities are seen at the origins of the great vessels. Common carotid arteries, carotid bifurcations and cervical portions of the internal carotid arteries all have a normal appearance. There is no indication of hemodynamically significant stenosis at the carotid bifurcations or elsewhere. Vertebral arteries: Left vertebral artery is dominant. There is about 75% s tenosis of the dominant left vertebral artery at the mid V4 segment. The right vertebral artery is d iminutive in size and does not contribute to the basilar artery origin. The degree of stenosis, if any, is determined utilizing NASCET like criteria. In this case there is no indication of hemodynamically significant stenosis at the carotid bifurcations. There is about 75% stenosis of the dominant left vertebral artery in the mid V4 segment.. Evaluation of the nonvascular soft tissue structures reveal no abnormality. There is no indication of cervical lymphadenopathy. No abnormalities are seen along the course of the airway. Visualized portions of the parotid glands and the submandibular salivary glands have a normal appearance. Thyroid gland has a normal appearance. Evaluation of the lung apices reveals no evidence of lung nodule or infiltrate. Evaluation of the cervical is remarkable for postoperative changes status post ACDF at C5-6 and C6-7 levels. Widespread cervical spondylosis is noted with multifocal anterior osteophyte formation. Advanced degenerative changes are observed at the atlantoaxial junction.. IMPRESSION: 1. The degree of stenosis, if any, is determined utilizing NASCET like criteria. In this case there is no indication of hemodynamically significant stenosis at the carotid bifurcations. There is about 75% stenosis of the dominant left vertebral artery in the mid V4 segment.. CTA head with intravenous contrast CLINICAL HISTORY: CODE STROKE PROTOCOL!! Weakness, Headache and Neck Pain TECHNIQUE: 0.625 mm thick contiguous axial scans were obtained from the skull base to the skull vertex during rapid bolus administration of intravenous contrast material. Multiplanar reconstructions were produced in the coronal and sagittal planes. In addition 3 plane MIP instructions were produced and reviewed for this report. The axial source images and reconstructed images were reviewed for this report. All CT scans at this location are performed using CT dose reduction for ALARA by means of automated exposure control. FINDINGS: Internal carotid arteries: Calcified atherosclerotic plaque is seen along the course of the cavernous segments of the internal carotid arteries. This is associated with moderate stenosis on the left. Anterior cerebral arteries: No abnormality. Middle cerebral arteries: Mild narrowing of the M1 segment left middle cerebral arteries noted consistent with intercranial atherosclerotic disease. There is no indication of hemodynamically significant stenosis. No filling defects are observed within the M1 or M2 segments of the middle cerebral arteries. Opercular branches have an unremarkable appearance. Vertebral arteries: There is about a 75% stenosis of the proximal V4 segment of the dominant left vertebral artery. Basilar artery: Basilar artery has an unremarkable appearance. Posterior cerebral arteries bilaterally symmetrical posterior cerebral arteries are demonstrated. There is no evidence of aneurysm or other vascular malformation. IMPRESSION: 1. Calcified atherosclerotic plaque along the course of the cavernous segments of both internal carotid arteries is associated with moderate stenosis on the left. 2. No indication of large vessel occlusion. - Medical Decision Making Condition is a 73-year-old female that presents with worsening left-sided weakness and headache and neck pain. Patient had stroke protocol done. Plain head CT is negative. CTA of the head and neck were negative for occlusions but positive for stenosis. Patient moved to the hospitalist service per neurology recommendations. Patient for the right Wishon treatment. Patient's labs essentially unremarkable. Patient's EKG negative. - Differential Diagnosis CVA, weakness, headache, neck pain. Critical Care Time: Yes Critical care time in (mins) excluding proc time.: 35 Critical care attestation.: If time is entered above; I have spent that time in minutes in the direct care of this critically ill patient, excluding procedure time. Critical Care Time: 35 minutes ED Disposition Clinical Impression: Neck pain, Hemiparesis due to old stroke, Weakness, Left-sided weakness Headache Qualifiers: Headache type: unspecified Headache chronicity pattern: acute headache Intractability: not intractable Qualified Code(s): R51 - Headache Hypertension Qualifiers: Hypertension type: essential hypertension Qualified Code(s): I10 - Essential (primary) hypertension Disposition: DC-09 OP ADMIT IP TO THIS HOSP Is pt being admited?: Yes Does the pt Need Aspirin: No Condition: Critical Time of Disposition: 01:57
--- NOTE | 2019-12-03 22:40 | Consultation ---
History of Present Illness History of present illness: [facility] Date of Service:12/03/2019 22:27:16 Impression: RO Acute Ischemic Stroke Comments: 73 YO F with h/o multiple strokes with residual left sided weakness presented with headache and pain behind her eye and worsening left sided weakness, could be recurrence of old stroke symptoms vs new stroke. Metrics: Last Known Well: Unknown [facility] Notification Time: 12/03/2019 22:26:29 Arrival Time: 12/03/2019 21:56:00 Stamp Time: 12/03/2019 22:27:16 Time First Login Attempt: 12/03/2019 22:28:33 Video Start Time: 12/03/2019 22:28:33 Symptoms: left sided weakness NIHSS Start Assessment Time: 12/03/2019 22:31:36 Patient is not a candidate for tPA. Patient was not deemed candidate for tPA thrombolytics because of Last Well Known Above 4.5 Hours. Video End Time: 12/03/2019 22:35:42 CT head showed no acute hemorrhage or acute core infarct. ED Physician notified of diagnostic impression and management plan on 12/03/2019 22:39:07 Our recommendations are outlined below. Recommendations: Activate Stroke Protocol Admission/Order Set Stroke/Telemetry Floor Neuro Checks Bedside Swallow Eval DVT Prophylaxis IV Fluids, Normal Saline Head of Bed Below 30 Degrees Euglycemia and Avoid Hyperthermia (PRN Acetaminophen) Start Antiplatelet Therapy Daily Infectious/metabolic workup. Treat Headache Recommended Scan: MRI Head Lipid Panel to Be Obtained, if Not Done in the Last Three Months Therapies: Physical Therapy, Occupational Therapy, Speech Therapy Assessment When Applicable Dysphaghia Screen: Swallow Evaluation, Bedside NPO Until Swallow Evaluation DVT prophylaxis: Choice of Primary Team Disposition: Follow up with Teleneurology Follow up Sign Out: Discussed with Emergency Department Provider History of Present Illness: Patient is a 74 year old Female. Patient was brought by EMS for symptoms of left sided weakness 73 YO F with h/o multiple strokes with residual left sided weakness presented with headache and pain behind her eye, neck pain and worsening left sided weakness for past one week. she states that she could not lift her leg up today to decided to come to hospital. CT head showed no acute hemorrhage or acute core infarct. Examination: 1A: Level of Consciousness - Alert; keenly responsive+ 0 1B: Ask Month and Age - Both Questions Right+ 0 1C: Blink Eyes & Squeeze Hands - Performs Both Tasks+ 0 2: Test Horizontal Extraocular Movements - Normal+ 0 3: Test Visual Henry - No Visual Loss+ 0 4: Test Facial Palsy (Use Grimace if Obtunded) - Normal symmetry+ 0 5A: Test Left Arm Motor Drift - Drift, but doesn't hit bed+ 1 5B: Test Right Arm Motor Drift - No Drift for 10 Seconds+ 0 6A: Test Left Leg Motor Drift - Drift, but doesn't hit bed+ 1 6B: Test Right Leg Motor Drift - No Drift for 5 Seconds+ 0 7: Test Limb Ataxia (FNF/Heel-Wade) - No Ataxia+ 0 8: Test Sensation - Mild-Moderate Loss: Less Sharp/More Dull+ 1 9: Test Language/Aphasia - Normal; No aphasia+ 0 10: Test Dysarthria - Normal+ 0 11: Test Extinction/Inattention - No abnormality+ 0 NIHSS Score:3 Patient was informed the Neurology Consult would happen via TeleHealth consult by way of interactive audio and video telecommunications and consented to receiving care in this manner. Due to the immediate potential for life-threatening deterioration due to underlying acute neurologic illness, I spent 35 minutes providing critical care. This time includes time for face to face visit via telemedicine, review of medical records, imaging studies and discussion of findings with providers, the patient and/or family. Dr Denilson Rasheed [facility] Case [id number] Medications and Allergies Allergies Allergy/AdvReac Type Severity Reaction Status Date / Time aspirin AdvReac Bleeding Verified 03/21/19 18:28 blood thinners AdvReac Bleeding Uncoded 08/09/16 01:53 Home Medications Medication Instructions Recorded Confirmed Last Taken Type AtorvaSTATin [Lipitor] 40 mg PO QHS #30 tablet 05/04/18 11/17/18 07/31/18 Rx Oxycodone HCl [oxyCODONE] 10 mg PO Q8H PRN #10 tablet 05/04/18 11/17/18 07/31/18 Rx Losartan [Cozaar] 50 mg PO QDAY 07/21/18 11/17/18 07/31/18 History amLODIPine 10 mg PO DAILY 07/21/18 11/17/18 07/31/18 History busPIRone [Buspar] 5 mg PO BID 07/21/18 11/17/18 07/31/18 History Cyclobenzaprine [Flexeril 10 MG 10 mg PO BID PRN #5 tablet 08/04/18 11/17/18 Unk nown Rx TAB] Acetaminophen [Tylenol Arthritis] 650 mg PO Q6HR PRN #30 tablet.er 01/01/19 Unknown Rx cephALEXin [Keflex] 500 mg PO Q12HR 10 Days #20 cap 06/06/19 Unknown Rx Benzonatate [Tessalon Perles] 100 mg PO Q8HR PRN #20 capsule 09/27/19 Unknown Rx Ondansetron [Zofran Odt] 4 mg PO Q8HR PRN #14 tab.rapdis 10/21/19 Unknown Rx traMADoL [Ultram 50 MG tab] 50 mg PO Q4HR PRN #14 tablet 10/21/19 Unknown Rx Physical Examination - Vital Signs Vital Signs: Vital Signs Temp Pulse Resp BP Pulse Ox 97.9 F 84 16 158/78 100 12/03/19 21:56 12/03/19 21:56 12/03/19 21:56 12/03/19 21:56 12/03/19 21:56
--- NOTE | 2019-12-03 23:04 | Cat Scan Report ---
CT HEAD WITHOUT CONTRAST INDICATION: Code Sroke. TECHNIQUE: All CT scans at this location are performed using CT dose reduction for ALARA by means of automated e xposure control. COMPARISON: CT 10/21/2019. FINDINGS: HEMORRHAGE: None. EXTRA-AXIAL SPACES: Normal in size and morphology for the patient's age. VENTRICULAR SYSTEM: Normal in size and morphology for the patient's age. BRAIN PARENCHYMA: No acute findings. MIDLINE SHIFT OR HERNIATION: None. ORBITS: Normal as visualized. SOFT TISSUES OF HEAD: Normal. CALVARIUM: Normal. VISUALIZED PARANASAL SINUSES AND MASTOID AIR CELLS: Clear. ADDITIONAL FINDINGS: None. IMPRESSION: 1. No acute intracranial abnormality. CODE STROKE Time or report: 10:00 PM, central Personal receiving report: Dr. Burk Signer Name: Agusto Suarez MD Signed: 12/03/2019 11:00 PM Workstation Name: [id number]
[2019-12-03 23:16] LABS: Basophils # (Auto) 0.1 K/mm3 (0.0-0.1); Basophils % (Auto) 1.1 % (0.0-1.8); Eosinophils # (Auto) 0.1 K/mm3 (0.0-0.4); Eosinophils % (Auto) 1.2 % (0.0-4.3); Hematocrit 42.5 % (30.3-42.9); Hemoglobin 14.1 gm/dl (10.1-14.3); Lymphocytes # (Auto) 2.8 K/mm3 (1.2-5.4); Lymphocytes % (Auto) 42.8 % (13.4-35.0); Mean Corpuscular HGB Conc 33 % (30-34); Mean Corpuscular Volume 76 fl (79-97); Monocytes # (Auto) 0.4 K/mm3 (0.0-0.8); Monocytes % (Auto) 5.6 % (0.0-7.3); Platelet Count 248 K/mm3 (140-440); Red Blood Count 5.57 M/mm3 (3.65-5.03)
[2019-12-03 23:30] LABS: INR 0.98 (0.87-1.13)
[2019-12-03 23:31] LABS: Partial Thromboplastin Time 33.5 Sec. (24.2-36.6)
[2019-12-03 23:38] LABS: Creatine Kinase MB 1.8 ng/mL (0.0-4.0)
[2019-12-03 23:41] LABS: Alanine Aminotransferase 11 units/L (7-56); Albumin 4.4 g/dL (3.9-5); BUN/Creatinine Ratio 12; Blood Urea Nitrogen 7 mg/dL (7-17); Calcium 9.5 mg/dL (8.4-10.2); Hemolysis Index 4
--- NOTE | 2019-12-04 01:39 | Cat Scan Report ---
CTA neck without and with intravenous contrast material CLINICAL HISTORY: CODE STROKE PROTOCOL!! Weakness, Headache and Neck Pain TECHNIQUE: Following acquisition of a timing bolus 0.625 mm thick contiguous axial scans were obtained from aort ic arch to the skull base during rapid bolus intravenous contrast infusion. In addition to evaluation of axial source images multiplanar reconstructions were produced and reviewed for this report. 3 donna ne MIP reconstructions were produced and reviewed. FINDINGS: Thoracic aorta: Visualized portions of the thoracic aorta have an unremarkable appearance. No abnorma lities are seen at the origins of the great vessels. Common carotid arteries, carotid bifurcations and cervical portions of the internal carotid arteries all have a normal appearance. There is no indication of hemodynamically significant stenosis at the c arotid bifurcations or elsewhere. Vertebral arteries: Left vertebral artery is dominant. There is about 75% stenosis of the dominant le ft vertebral artery at the mid V4 segment. The right vertebral artery is diminutive in size and does not contribute to the basilar artery origin. The degree of stenosis, if any, is determined utilizing NASCET like criteria. In this case there is no indication of hemodynamically significant stenosis at the carotid bifurcations. There is about 75% stenosis of the dominant left vertebral artery in the mid V4 segment.. Evaluation of the nonvascular soft tissue structures reveal no abnormality. There is no indication of cervical lymphadenopathy. No abnormalities are seen along the course of the airway. Visualized porti ons of the parotid glands and the submandibular salivary glands have a normal appearance. Thyroid gla nd has a normal appearance. Evaluation of the lung apices reveals no evidence of lung nodule or infil trate. Evaluation of the cervical is remarkable for postoperative changes status post ACDF at C5-6 and C6-7 levels. Widespread cervical spondylosis is noted with multifocal anterior osteophyte formation. Adva nced degenerative changes are observed at the atlantoaxial junction.. IMPRESSION: 1. The degree of stenosis, if any, is determined utilizing NASCET like criteria. In this case there is no indication of hemodynamically significant stenosis at the carotid bifurcations. There is about 75% stenosis of the dominant left vertebral artery in the mid V4 segment.. Contrast dose report: Isovue 350: 100 ml, administered intravenously All CT examinations performed at this facility utilize modulated dose reduction, iterative reconstruc tion or weight-based dosing, as appropriate, to obtain a radiation dose which is as low as can reason ably be achieved. Signer Name: Bijan Lucas MD Signed: 12/04/2019 1:34 AM Workstation Name: [id number]
--- NOTE | 2019-12-04 01:48 | Cat Scan Report ---
CTA head with intravenous contrast CLINICAL HISTORY: CODE STROKE PROTOCOL!! Weakness, Headache and Neck Pain TECHNIQUE: 0.625 mm thick contiguous axial scans were obtained from the skull base to the skull vertex during ra pid bolus administration of intravenous contrast material. Multiplanar reconstructions were produced in the coronal and sagittal planes. In addition 3 plane MIP instructions were produced and reviewed f or this report. The axial source images and reconstructed images were reviewed for this report. All CT scans at this location are performed using CT dose reduction for ALARA by means of automated e xposure control. FINDINGS: Internal carotid arteries: Calcified atherosclerotic plaque is seen along the course of the cavernous segments of the internal carotid arteries. This is associated with moderate stenosis on the left. Anterior cerebral arteries: No abnormality. Middle cerebral arteries: Mild narrowing of the M1 segment left middle cerebral arteries noted consis tent with intercranial atherosclerotic disease. There is no indication of hemodynamically significant stenosis. No filling defects are observed within the M1 or M2 segments of the middle cerebral arteri es. Opercular branches have an unremarkable appearance. Vertebral arteries: There is about a 75% stenosis of the proximal V4 segment of the dominant left breanna tebral artery. Basilar artery: Basilar artery has an unremarkable appearance. Posterior cerebral arteries bilaterally symmetrical posterior cerebral arteries are demonstrated. There is no evidence of aneurysm or other vascular malformation. IMPRESSION: 1. Calcified atherosclerotic plaque along the course of the cavernous segments of both internal carot id arteries is associated with moderate stenosis on the left. 2. No indication of large vessel occlusion. CONTRAST DOSE REPORT: Blank: Contrast dose ml administered intravenously. Signer Name: Bijan Lucas MD Signed: 12/04/2019 1:44 AM Workstation Name: [id number]
[2019-12-04] MEDS ORDERED: ONDANSETRON 4 MG/2 ML INJ IV PRN ×2 (02:23)
[2019-12-04] MEDS ORDERED: ACETAMINOPHEN 325 MG TAB PO PRN (02:23)
[2019-12-04] MEDS ORDERED: PROMETHAZINE 25 MG RECT SUPP PR PRN (02:23)
[2019-12-04] MEDS ORDERED: MAGNESIUM HYDROXIDE (MOM) ORAL LIQD UDC PO PRN (02:23)
[2019-12-04] MEDS ORDERED: METOCLOPRAMIDE 10 MG TAB PO PRN (02:23)
--- NOTE | 2019-12-04 02:38 | History and Physical Report ---
History of Present Illness Date of examination: 12/04/19 Date of admission: 12/04/2019 Chief complaint: Left-sided weakness Neck pain History of present illness: 33-year-old -British female with known history of previous CVA with left-sided weakness presenting today in the emergency room complaining of worsening left-sided weakness. She states that her left upper and lower extremities were much weaker than usual. She has been having left-sided headache and neck pain for most a week. Neck pain is said to be worsened movements. She denies any chest pain or shortness of breath, no nausea vomiting, no fever or chills. Past History Past Medical History: stroke, other (Aneurysm of the left eye, needed disc C-sp ine 1999) Past Surgical History: Other (C5-C6 fusion) Social history: smoking (Current everyday smoker), other (Smokes marijuana occasionally) Medications and Allergies Allergies Allergy/AdvReac Type Severity Reaction Status Date / Time aspirin AdvReac Bleeding Verified 03/21/19 18:28 blood thinners AdvReac Bleeding Uncoded 08/09/16 01:53 Home Medications Medication Instructions Recorded Confirmed Last Taken Type Oxycodone HCl [oxyCODONE] 10 mg PO Q8H PRN #10 tablet 05/04/18 12/04/19 07/31/18 Rx amLODIPine 10 mg PO HS 07/21/18 12/04/19 12/02/19 History busPIRone [Buspar] 5 mg PO BID 07/21/18 12/04/19 12/03/19 History Cyclobenzaprine [Flexeril 10 MG 10 mg PO BID PRN #5 tablet 08/04/18 12/04/19 Unknown Rx TAB] Acetaminophen [Tylenol Arthritis] 650 mg PO Q6HR PRN #30 tablet.er 01/01/19 12/04/19 Unknown Rx Ondansetron [Zofran Odt] 4 mg PO Q8HR PRN #14 tab.rapdis 10/21/19 12/04/19 Unknown Rx Aspirin [Aspirin BABY CHEW TAB] 81 mg PO QDAY 12/04/19 12/04/19 12/01/19 History Active Meds: Active Medications Acetaminophen (Tylenol) 650 mg PO Q4H PRN PRN Reason: Pain MILD(1-3)/Fever >100.5/HANNA Ondansetron HCl (Zofran) 4 mg IV Q8H PRN PRN Reason: Nausea And Vomiting Review of Systems Constitutional: no weight loss, no weight gain, no fever, no chills Cardiovascular: no chest pain, no orthopnea, no palpitations Respiratory: no cough, no wheezing Gastrointestinal: no nausea, no vomiting, no diarrhea Musculoskeletal: neck pain, no neck stiffness, no low back pain Integumentary: no rash, no pruritis Neurological: weakness (Left-sided), headaches, no change in speech, no change in mentation Exam - Constitutional Vitals: Temp Pulse Resp BP Pulse Ox 97.9 F 83 18 158/78 100 12/03/19 21:56 12/03/19 22:02 12/03/19 22:00 12/03/19 21:56 12/03/19 22:00 General appearance: Present: no acute distress, well-nourished - EENT Eyes: Present: PERRL, EOM intact ENT: hearing intact, clear oral mucosa, dentition normal - Neck Neck: Present: supple, normal ROM - Respiratory Respiratory effort: normal Respiratory: bilateral: CTA - Cardiovascular Rhythm: regular Heart Sounds: Present: S1 & S2 - Extremities Extremities: no ischemia, pulses intact, No edema, Full ROM Peripheral Pulses: within normal limits - Abdominal General gastrointestinal: Present: soft, non-tender, non-distended - Musculoskeletal Musculoskeletal: left sided weakness - Psychiatric Psychiatric: appropriate mood/affect, intact judgment & insight, cooperative - Neurologic Neurologic: CNII-XII intact, moves all extremities, other (Left-sided weakness) Results - Labs CBC & Chem 7: 12/03/19 23:06 12/03/19 23:06 Labs: Abnormal lab results 12/03/19 12/03/19 12/03/19 Range/Units 23:06 23:06 23:06 RBC 5.57 H (3.65-5.03) M/mm3 MCV 76 L (79-97) fl MCH 25 L (28-32) pg RDW 18.0 H (13.2-15.2) % Lymph % (Auto) 42.8 H (13.4-35.0) % Creatinine 0.6 L (0.7-1.2) mg/dL Glucose 107 H (65-100) mg/dL Total Creatine Kinase 141 H (30-135) units/L Assessment and Plan - Patient Problems (1) Headache Current Visit: Yes Status: Acute Qualifiers: Headache type: unspecified Headache chronicity pattern: acute headache Intractability: not intractable Qualified Code(s): R51 - Headache Plan to address problem: We placed on analgesic medication as needed. (2) Left-sided weakness Current Visit: Yes Status: Acute Plan to address problem: Possibly secondary to CVA. Patient has been placed on daily aspirin. We also schedule for neurology follow-up Will schedule for MRI of the brain. (3) HTN (hypertension) Current Visit: Yes Status: Chronic Qualifiers: Hypertension type: essential hypertension Qualified Code(s): I10 - Essential (primary) hypertension Plan to address problem: We will continue routine blood pressure medications once reconciled. Will monitor vital signs closely. (4) DVT prophylaxis Current Visit: No Status: Acute Plan to address problem: And placed on subcutaneous heparin. (5) Full code status Current Visit: Yes Status: Acute
[2019-12-04] MEDS: ACETAMINOPHEN 325 MG TAB PO PRN (05:33)
[2019-12-04] MEDS ORDERED: NON-FORMULARY EACH (Oxycodone Hcl [Oxycodone] 10 MG) PO PRN (07:14)
[2019-12-04] MEDS ORDERED: ONDANSETRON 4 MG ODT TAB PO PRN (07:14)
--- NOTE | 2019-12-04 08:39 | History and Physical Report ---
History of Present Illness Date of examination: 12/04/19 Date of admission: 12/04/19 03:42 Chief complaint: left side pain head and neck History of present illness: 73-year-old -[place] female with known history of previous CVA X13 ys ago with left-sided weakness presenting today in the emergency room complaining of worsening left-sided weakness. She states that her left upper and lower extremities were much weaker than usual this is associated with left-sided headache and neck pain for X3 weeks. Neck pain is said to be worsened movements. She denies any chest pain or shortness of breath, no nausea vomiting, no fever or chills. According to her she had neck fusion surgery X 7 yrs ago she is experiencing TIA at least 4-5 times a year since her last CVA 13 years ago !!!! she is taking ASA 81 mg run out of her Rx X 5 days ago , she can not take plavix due to Hx of L.eye aneurysm she is followed on regular basis at [facility] for above she is not taking her antilipid medication but taking garlic tablet !!! she is with significant anxiety problem and is on buspar she continue to smoke [id number] No alcohol Hx Ct brain is unremarkable done in ER CTA neck is unremarkable CTA brain is remarkable for mild astheroma in the cavernous section bilateral ICA L>R, with 70% stenosis in L. vertebral A. No sign of aneurysm is noted !!!!! Past History Past Medical History: stroke, other (Aneurysm of the left eye, needed disc C- spine 1999) Past Surgical History: Other (C5-C6 fusion) Social history: smoking (Current everyday smoker), other (Smokes marijuana occa sionally) Medications and Allergies Allergies Allergy/AdvReac Type Severity Reaction Status Date / Time aspirin AdvReac Bleeding Verified 03/21/19 18:28 blood thinners AdvReac Bleeding Uncoded 08/09/16 01:53 Home Medications Medication Instructions Recorded Confirmed Last Taken Type Oxycodone HCl [oxyCODONE] 10 mg PO Q8H PRN #10 tablet 05/04/18 12/04/19 07/31/18 Rx amLODIPine 10 mg PO HS 07/21/18 12/04/19 12/02/19 History busPIRone [Buspar] 5 mg PO BID 07/21/18 12/04/19 12/03/19 History Cyclobenzaprine [Flexeril 10 MG 10 mg PO BID PRN #5 tablet 08/04/18 12/04/19 Unknown Rx TAB] Acetaminophen [Tylenol Arthritis] 650 mg PO Q6HR PRN #30 tablet.er 01/01/19 12/04/19 Unknown Rx Ondansetron [Zofran Odt] 4 mg PO Q8HR PRN #14 tab.rapdis 10/21/19 12/04/19 Unknown Rx Aspirin [Aspirin BABY CHEW TAB] 81 mg PO QDAY 12/04/19 12/04/19 12/01/19 History Active Meds: Active Medications Acetaminophen (Tylenol) 650 mg PO Q4H PRN PRN Reason: Pain MILD(1-3)/Fever >100.5/HANNA Ondansetron HCl (Zofran) 4 mg IV Q8H PRN PRN Reason: Nausea And Vomiting Review of Systems Constitutional: no weight loss, no weight gain, no fever, no chills Cardiovascular: no chest pain, no orthopnea, no palpitations Respiratory: no cough, no wheezing Gastrointestinal: no nausea, no vomiting, no diarrhea Musculoskeletal: neck pain, no neck stiffness, no low back pain Integumentary: no rash, no pruritis Neurological: weakness (Left-sided), headaches, no change in speech, no change in mentation Past History Past Medical History: hypertension, hyperlipidemia, stroke, other (Aneurysm of the left eye, needed disc C-spine 1999) Past Surgical History: Other (C5-C6 fusion) Social history: smoking (Current everyday smoker), other (Smokes marijuana occasionally) Medications and Allergies Allergies Allergy/AdvReac Type Severity Reaction Status Date / Time aspirin AdvReac Bleeding Verified 03/21/19 18:28 blood thinners AdvReac Bleeding Uncoded 08/09/16 01:53 Home Medications Medication Instructions Recorded Confirmed Last Taken Type Oxycodone HCl [oxyCODONE] 10 mg PO Q8H PRN #10 tablet 05/04/18 12/04/19 07/31/18 Rx amLODIPine 10 mg PO HS 07/21/18 12/04/19 12/02/19 History busPIRone [Buspar] 5 mg PO BID 07/21/18 12/04/19 12/03/19 History Cyclobenzaprine [Flexeril 10 MG 10 mg PO BID PRN #5 tablet 08/04/18 12/04/19 Unknown Rx TAB] Acetaminophen [Tylenol Arthritis] 650 mg PO Q6HR PRN #30 tablet.er 01/01/19 12/04/19 Unknown Rx Ondansetron [Zofran Odt] 4 mg PO Q8HR PRN #14 tab.rapdis 10/21/19 12/04/19 Unknown Rx Aspirin [Aspirin BABY CHEW TAB] 81 mg PO QDAY 12/04/19 12/04/19 12/01/19 History Active Meds: Active Medications Acetaminophen (Tylenol) 650 mg PO Q4H PRN PRN Reason: Pain MILD(1-3)/Fever >100.5/HANNA Last Admin: 12/04/19 05:33 Dose: 650 mg Documented by: Amlodipine Besylate (Amlodipine) 10 mg PO HS ALLA Aspirin (Baby Aspirin) 81 mg PO QDAY ALLA Atorvastatin Calcium (Lipitor) 40 mg PO QHS ALLA Bisacodyl (Dulcolax) 10 mg [place] QDAY PRN PRN Reason: Constipation Buspirone HCl (Buspar) 5 mg PO BID ALLA Cyclobenzaprine HCl (Flexeril) 10 mg PO BID PRN PRN Reason: Muscle Spasm Heparin Sodium (Porcine) (Heparin) 5,000 unit SUB-Q Q8HR ALLA Magnesium Hydroxide (Milk Of Magnesia) 30 ml PO Q4H PRN PRN Reason: Constipation Metoclopramide HCl (Reglan) 10 mg PO Q6H PRN PRN Reason: Nausea And Vomiting Miscellaneous Medication (Oxycodone Hcl [Oxycodone]) 10 mg PO Q8H PRN PRN Reason: Pain , Severe (7-10) Ondansetron HCl (Zofran) 4 mg IV Q8H PRN PRN Reason: Nausea And Vomiting Ondansetron HCl (Zofran Odt) 4 mg PO Q8HR PRN PRN Reason: Nausea And Vomiting Promethazine HCl (Phenergan) 25 mg [place] Q6H PRN PRN Reason: Nausea And Vomiting Sodium Chloride (Sodium Chloride Flush Syringe 10 Ml) 10 ml IV BID ALLA Sodium Chloride (Sodium Chloride Flush Syringe 10 Ml) 10 ml IV PRN PRN PRN Reason: LINE FLUSH Review of Systems All systems: negative Physical Examination - Vital Signs Vital Signs: Vital Signs Temp Pulse Resp BP Pulse Ox 97.9 F 84 16 158/78 100 12/03/19 21:56 12/03/19 21:56 12/03/19 21:56 12/03/19 21:56 12/03/19 21:56 - Constitutional General appearance: comfortable - EENT EENT: Present: PERRL - Respiratory Respiratory: Present: chest non-tender, lungs clear, rhonchi - Cardiovascular Cardiovascular: Present: regular rate, normal S1, normal S2 Extremities: Present: no peripheral edema bilatateraly, no clubbing, cyanosis, no inflammation, no ischemia or petechiae - Gastrointestinal Gastrointestinal: Present: normoactive bowel sounds - Integumentary Integumentary: Present: normal - Neurologic Cranial nerve examination: PERRL, EOMI, facial droop (left side ) Speech examination: intact Sensorimotor examination: intact Detailed motor examination: other (left upper is 2-3 /5 with significant contracture, left lower 4_/5 with contracture in left foot .) Detailed sensory examination: intact Reflex and gait examination: intact Reflexes: 1+: ankle, bicep Results - Laboratory Findings CBC and BMP: 12/03/19 23:06 12/03/19 23:06 Abnormal Lab Findings: Abnormal Labs 12/03/19 12/03/19 12/03/19 23:06 23:06 23:06 RBC 5.57 H MCV 76 L MCH 25 L RDW 18.0 H Lymph % (Auto) 42.8 H Creatinine 0.6 L Glucose 107 H Total Creatine Kinase 141 H Assessment and Plan 1- This is 73 ys old female presented to hospital with complain of neck pain and headache left side on going X3 weeks ? 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 2- Underlying Anxiety? TIA X4-5 recurrent symptoms left arm yearly 3- poor compling with ASA and Antilipid medication 4- Hx of HTN,HLP 5- Hx of Aneurysm in ? left eye non is found on CTA currently according to her she can not take plavix due to above !!! PLAN 1- Brain MRI R/O acute CVA 2- PT therapy left arm and neck 3- elevil 25 mg qhs , Celexa 10 mg daily 4- ASA 81 mg kiya and lipitor 40 mg 5- fasting lipid profil 6- Consider Botox left arm and neck as outpt. need referral. 7- DVT precaution will follow aftere MRI brain is done
[2019-12-04] MEDS: CYCLOBENZAPRINE 10 MG TAB PO PRN ×2 (08:47→22:01)
[2019-12-04] MEDS: busPIRone 5 MG TAB PO SCH ×3 (08:47→22:01)
[2019-12-04] MEDS: ASPIRIN 81 MG TAB CHEW PO SCH ×2 (08:49→09:12)
[2019-12-04] MEDS ORDERED: LORazepam 2 MG/ML VIAL IV PRN (08:58)
[2019-12-04] MEDS ORDERED: oxyCODONE 5 MG TAB PO PRN (09:00)
[2019-12-04] MEDS: CITALOPRAM 10 MG TAB PO SCH (10:32)
[2019-12-04] MEDS: HEPARIN 5,000 UNIT/1 ML VIAL SUB-Q SCH ×2 (13:43→22:02)
--- NOTE | 2019-12-04 13:43 | Magnetic Resonance Report ---
MRI BRAIN WITHOUT CONTRAST INDICATION / CLINICAL INFORMATION: stroke. TECHNIQUE: Multisequence, multiplanar images were obtained. COMPARISON: CT head dated 12/03/2019. MR brain dated 11/18/2018 FINDINGS: CEREBRAL and CEREBELLAR HEMISPHERES: A tiny 3 mm focus of diffusion restriction is identified in the lower piotr near midline on diffusion image 9 with decreased signal on the ADC map in this area. This appears to be a new finding since MR brain dated 11/18/2018. This could represent a tiny focus of subac [place] ischemia. No other areas of diffusion restriction. Age-appropriate cortical volume loss is noted . The remaining brain parenchyma demonstrates normal signal on all sequences. No acute hemorrhage. No mass or mass effect. No extra-axial fluid collection. VENTRICLES: Normal in size and configuration for age. VISUALIZED ORBITS: No significant abnormality. VISUALIZED PARANASAL SINUSES: No significant abnormality. ADDITIONAL FINDINGS: None. IMPRESSION: Possible tiny focus of subacute ischemia in the lower piotr as outlined above. Please correlate with t jose antonio clinical presentation of the patient. Age appropriate volume loss. Signer Name: Romeo John Jr, MD Signed: 12/04/2019 1:38 PM Workstation Name: [id number]
[2019-12-04] MEDS: oxyCODONE 5 MG TAB PO PRN ×2 (15:03→23:34)
[2019-12-04] MEDS ORDERED: AMITRIPTYLINE 25 MG TAB PO SCH (22:00)
[2019-12-04] MEDS ORDERED: amLODIPine 10 MG TAB PO SCH (22:00)
[2019-12-05] MEDS: ACETAMINOPHEN 325 MG TAB PO PRN ×2 (03:46→12:08)
[2019-12-05] MEDS: HEPARIN 5,000 UNIT/1 ML VIAL SUB-Q SCH ×2 (05:09→13:45)
[2019-12-05 05:53] LABS: Basophils % (Auto) 0.3 % (0.0-1.8); Eosinophils # (Auto) 0.1 K/mm3 (0.0-0.4); Eosinophils % (Auto) 1.3 % (0.0-4.3); Hematocrit 41.6 % (30.3-42.9); Hemoglobin 13.3 gm/dl (10.1-14.3); Lymphocytes # (Auto) 2.6 K/mm3 (1.2-5.4); Lymphocytes % (Auto) 48.3 % (13.4-35.0); Mean Corpuscular HGB Conc 32 % (30-34); Mean Corpuscular Volume 77 fl (79-97); Monocytes # (Auto) 0.4 K/mm3 (0.0-0.8); Monocytes % (Auto) 7.9 % (0.0-7.3); Platelet Count 237 K/mm3 (140-440); Red Blood Count 5.42 M/mm3 (3.65-5.03); Red Cell Distribution Width 18.1 % (13.2-15.2)
[2019-12-05 06:04] LABS: Partial Thromboplastin Time 31.9 Sec. (24.2-36.6)
[2019-12-05 06:18] LABS: BUN/Creatinine Ratio 23; Blood Urea Nitrogen 16 mg/dL (7-17); Calcium 9.3 mg/dL (8.4-10.2); Chol/HDL Ratio 5.18 %; HDL Cholesterol 48 mg/dL (40-59); Hemolysis Index 2; LDL Cholesterol,Direct 191 mg/dL (50-130)
[2019-12-05] MEDS: CITALOPRAM 10 MG TAB PO SCH ×2 (09:20→09:44)
--- NOTE | 2019-12-05 09:22 | Event Note ---
Date: 12/04/19 Patient seen and examined wait for MRI and PT eval
--- NOTE | 2019-12-05 09:43 | Progress Note ---
Assessment and Plan 1- This is 73 ys old female presented to hospital with complain of neck pain and headache left side on going X3 weeks ? 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 2- Underlying Anxiety? TIA X4-5 recurrent symptoms left arm yearly 3- poor compling with ASA and Antilipid medication 4- Hx of HTN,HLP 5- Hx of Aneurysm in ? left eye non is found on CTA currently according to her she can not take plavix due to above !!! PLAN 1- Brain MRI ? subacute CVA Raul 2- PT therapy left arm and neck 3- elevil 25 mg qhs , Celexa 20 mg daily 4- ASA 81 mg kiya and lipitor 40 mg 5- fasting lipid profil 6- Consider Botox left arm and neck as outpt. need referral. 7- DVT precaution 8- stop smoking will sign off Subjective Date of service: 12/05/19 Principal diagnosis: neck pain , headache, left side weakness Interval history: pt. is feeling better pain improved slept better last night MRI brain ? raul lesion subacute Echo 55-60% Ef CTA possible left Vertebral 75% stenosis Objective - Vital Sign Vital Signs - 12hr 12/04/19 12/04/19 12/04/19 21:46 22:00 23:23 Temperature 98.2 F Pulse Rate 96 H 99 H 85 Respiratory 18 20 18 Rate Blood Pressure 143/74 144/65 O2 Sat by Pulse 94 94 Oximetry 12/05/19 12/05/19 04:35 07:21 Temperature 98.8 F 97.7 F Pulse Rate 83 Respiratory 18 18 Rate Blood Pressure 116/54 125/64 O2 Sat by Pulse 93 Oximetry - General Apperance Constitutional: comfortable - EENT EENT: PERRL - Respiratory Respiratory: chest non-tender - Cardiovascular Cardiovascular: regular rate, normal S1, normal S2 Extremities: no peripheral edema bilat, no clubbing, cyanosis - Gastrointestinal Gastrointestinal: normoactive bowel sounds - Integumentary Integumentary: normal - Neurologic Cranial nerve examination: EOMI, face symmetric Speech examination: intact Detailed motor examination: other Reflexes: 1+: ankle, bicep, knee, tricep - Laboratory Findings CBC and BMP: 12/05/19 04:44 12/05/19 04:44 Abnormal Lab Findings: Abnormal Labs 12/03/19 12/03/19 12/03/19 23:06 23:06 23:06 RBC 5.57 H MCV 76 L MCH 25 L RDW 18.0 H Lymph % (Auto) 42.8 H Casey % (Auto) Carbon Dioxide Creatinine 0.6 L Glucose 107 H Total Creatine Kinase 141 H Cholesterol LDL Cholesterol Direct 12/05/19 12/05/19 04:44 04:44 RBC 5.42 H MCV 77 L MCH 25 L RDW 18.1 H Lymph % (Auto) 48.3 H Casey % (Auto) 7.9 H Carbon Dioxide 20 L Creatinine Glucose 109 H Total Creatine Kinase Cholesterol 249 H LDL Cholesterol Direct 191 H
[2019-12-05] MEDS: ASPIRIN 81 MG TAB CHEW PO SCH (09:44)
[2019-12-05] MEDS: busPIRone 5 MG TAB PO SCH (09:44)
[2019-12-05] MEDS: CYCLOBENZAPRINE 10 MG TAB PO PRN (10:11)
[2019-12-05] MEDS: oxyCODONE 5 MG TAB PO PRN (10:50)
[2019-12-05 11:41] VITALS: BP 134/68
--- NOTE | 2019-12-05 14:49 | Discharge Summary ---
Providers - Providers Date of Admission: 12/04/19 03:42 Date of discharge: 12/05/19 Attending physician: MELIDA KAT 12/04/19 02:23 Consult to Physician [CONS] Routine Comment: Consulting Provider: TOM PRESSLEY Physician Instructions: Reason For Exam: LEFT SIDED WEAKNESS 12/04/19 02:24 Consult to Dietitian/Nutrition [CONS] Routine Physician Instructions: Reason For Exam: Reason for Consult: Nutrition Recommendations Reason for Consult: Diet education Occupational Therapy Evaluate and Treat [CONS] Routine Comment: Reason For Exam: Neuro deficits Physical Therapy Evaluation and Treat [CONS] Routine Comment: Reason For Exam: Neuro deficits Primary care physician: GEL COAT SPRAYER Hospitalization Condition: Critical Hospital course: Discharge Diagnosis: 1- neck pain and headache, resolved, likely cervical rediculopathy - Acute stroke ruled out by negative MRI - PT therapy left arm and neck - elevil 25 mg qhs , Celexa 20 mg daily - ASA 81 mg kiya and lipitor 40 mg 2- Underlying Anxiety? outpt f/u, Celexa 20 mg daily, cont busper 3- Chronic left arm pain and weakness, Consider Botox left arm and neck as outpt 4- Hx of HTN,HLP Time spent for discharge: 34 minutes Core Measure Documentation - Palliative Care Palliative Care/ Comfort Measures: Not Applicable - Core Measures Any of the following diagnoses?: none Exam - Constitutional Vitals: Temp Pulse Resp BP Pulse Ox 98.4 F 83 18 134/68 93 12/05/19 11:39 12/05/19 04:35 12/05/19 11:39 12/05/19 11:39 12/05/19 04:35 General appearance: Present: no acute distress, well-nourished - EENT Eyes: Present: PERRL ENT: hearing intact, clear oral mucosa - Neck Neck: Present: supple, normal ROM - Respiratory Respiratory effort: normal Respiratory: bilateral: CTA - Cardiovascular Heart Sounds: Present: S1 & S2. Absent: rub, click - Extremities Extremities: pulses symmetrical, No edema Peripheral Pulses: within normal limits - Abdominal General gastrointestinal: Present: soft, non-tender, non-distended, normal bowel sounds - Integumentary Integumentary: Present: clear, warm, dry - Musculoskeletal Musculoskeletal: left sided weakness - Psychiatric Psychiatric: appropriate mood/affect, intact judgment & insight - Neurologic Neurologic: other (left sided arm weakness) Plan Activity: advance as tolerated, fall precautions Weight Bearing Status: Weight Bear as Tolerated Diet: low fat, low salt Follow up with: PRIMARY CARE, [Primary Care Provider] - 3-5 Days Prescriptions: Amitriptyline [Elavil] 25 mg PO QHS #30 tablet AtorvaSTATin [Lipitor] 40 mg PO QHS #30 tablet Citalopram [celeXA] 10 mg PO QDAY #30 tablet
== END 2019-12-05 17:17 | disposition home or self-care (01) ==
LOC: ED 21:37 → INTOOBSV 12-04 03:42 → 4A 12-04 03:42
PROVIDERS: ADMIT Internal Medicine Geriatric Medicine; ATTEND Internal Medicine
DX: R51 Headache (principal); I69.354 Hemiplegia and hemiparesis following cerebral infarction affecting left non-dominant side; R53.1 Weakness; I10 Essential (primary) hypertension; E78.5 Hyperlipidemia, unspecified; M54.2 Cervicalgia; F17.210 Nicotine dependence, cigarettes, uncomplicated; Z86.79 Personal history of other diseases of the circulatory system; Z79.899 Other long term (current) drug therapy; Z79.01 Long term (current) use of anticoagulants
CPT/HCPCS: 36415; 70450; 70496; 70498; 70551; 80048; 80053; 80061; 82550; 82553; 82962; 84484; 85025; 85610; 85730; 93005; 93010; 93306; 96374; 97162; 97165; 99291; 99406; A9270; G0378; J2060; Q9967

== ENCOUNTER 2020-02-29 16:27 | Observation (INO) | payer MEDICARE ==
[2020-02-29] MEDS ORDERED: ASPIRIN EC 325 MG TAB PO ONE (16:41)
--- NOTE | 2020-02-29 16:45 | Emergency Department Report ---
ED Chest Pain HPI - General Chief Complaint: Chest Pain Stated Complaint: POSS STROKE Time Seen by Provider: 02/29/20 16:34 Source: patient, EMS Mode of arrival: Stretcher Limitations: Physical Limitation - History of Present Illness Initial Comments: Patient is a 74-year-old F Tristanian female with past medical history of hypertension as well as multiple CVAs who is presenting with chest pain, diaphoresis and numbnesds on her left side. Patient does have some residual deficits on her left arm and leg and walks with a slight limp however she states that after physical therapy she has been doing well. Patient states 1 hour prior to arrival while at home the patient was walking from her bathroom to the living room and started feeling a pressure-like sensation in the mid chest. States there was a numb sensation to the left arm and left leg. Initially patient stated that her weakness was not worse than baseline however after asking more specific questions the patient states that yesterday she could lift her left arm without assisting with her right arm. She states that normally she can lift his arm without having to use her right hand to assist. She denies shortness of breath nausea vomiting. Patient states chest pressure is improved currently from when it started. Per chart review patient had a normal nuclear stress test and 2016 which was essentially normal - Related Data Home Medications Medication Instructions Recorded Confirmed Last Taken amLODIPine 10 mg PO HS 07/21/18 12/04/19 12/02/19 busPIRone [Buspar] 5 mg PO BID 07/21/18 12/04/19 12/03/19 Aspirin [Aspirin BABY CHEW TAB] 81 mg PO QDAY 12/04/19 12/04/19 12/01/19 Previous Rx's Medication Instructions Recorded Last Taken Type Oxycodone HCl [oxyCODONE] 10 mg PO Q8H PRN #10 tablet 05/04/18 07/31/18 Rx Cyclobenzaprine [Flexeril 10 MG 10 mg PO BID PRN #5 tablet 08/04/18 Unknown Rx TAB] Ondansetron [Zofran ODT TAB] 4 mg PO Q8HR PRN #14 tab.rapdis 10/21/19 Unknown Rx Amitriptyline [Elavil] 25 mg PO QHS #30 tablet 12/05/19 Unknown Rx AtorvaSTATin [Lipitor] 40 mg PO QHS #30 tablet 01/24/20 Unknown Rx Citalopram [celeXA] 10 mg PO QDAY #30 tablet 12/05/19 Unknown Rx Allergies Allergy/AdvReac Type Severity Reaction Status Date / Time aspirin AdvReac Nausea Verified 02/29/20 16:36 blood thinners AdvReac Bleeding Uncoded 08/09/16 01:53 Heart Score - HEART Score History: Moderately suspicious EKG: Normal Age: > 65 Risk factors: 1-2 risk factors Troponin: < normal limit HEART Score: 4 ED Review of Systems ROS: Stated complaint: POSS STROKE Other details as noted in HPI Comment: All other systems reviewed and negative ED Past Medical Hx - Past Medical History Previous Medical History?: Yes Hx Hypertension: Yes Hx CVA: Yes (old chart no mri documentation on previous admits for same left side weakne) Hx Heart Attack/AMI: No Hx Congestive Heart Failure: No Hx Diabetes: No Hx Liver Disease: No Hx Renal Disease: No Hx Asthma: No Hx COPD: No Additional medical history: Hx. left clavicle fx., h/o muscle spasms. 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 - Surgical History Additional Surgical History: Herniated disk cspine 2001 C5-6, fusion,NECK SURGERY - Social History Smoking Status: Current Every Day Smoker Substance Use Type: Marijuana - Medications Home Medications: Home Medications Medication Instructions Recorded Confirmed Last Taken Type Oxycodone HCl [oxyCODONE] 10 mg PO Q8H PRN #10 tablet 05/04/18 12/04/19 07/31/18 Rx amLODIPine 10 mg PO HS 07/21/18 12/04/19 12/02/19 History busPIRone [Buspar] 5 mg PO BID 07/21/18 12/04/19 12/03/19 History Cyclobenzaprine [Flexeril 10 MG 10 mg PO BID PRN #5 tablet 08/04/18 12/04/19 Unknown Rx TAB] Ondansetron [Zofran ODT TAB] 4 mg PO Q8HR PRN #14 tab.rapdis 10/21/19 12/04/19 Unknown Rx Aspirin [Aspirin BABY CHEW TAB] 81 mg PO QDAY 12/04/19 12/04/19 12/01/19 History Amitriptyline [Elavil] 25 mg PO QHS #30 tablet 12/05/19 Unknown Rx AtorvaSTATin [Lipitor] 40 mg PO QHS #30 tablet 12/05/19 Unknown Rx Citalopram [celeXA] 10 mg PO QDAY #30 tablet 12/05/19 Unknown Rx ED Physical Exam - General Limitations: Physical Limitation General appearance: alert, in no apparent distress - Head Head exam: Present: atraumatic, normocephalic - Eye Eye exam: Present: normal appearance, PERRL, EOMI - ENT ENT exam: Present: mucous membranes moist - Neck Neck exam: Present: normal inspection - Respiratory Respiratory exam: Present: normal lung sounds bilaterally. Absent: respiratory distress, wheezes, rales, rhonchi - Cardiovascular Cardiovascular Exam: Present: regular rate, normal rhythm. Absent: systolic murmur, diastolic murmur, rubs, gallop - GI/Abdominal GI/Abdominal exam: Present: soft, normal bowel sounds. Absent: distended, tenderness, guarding, rebound - Extremities Exam Extremities exam: Present: normal inspection - Back Exam Back exam: Present: normal inspection - Neurological Exam Neurological exam: Present: alert, oriented X3, CN II-XII intact, motor sensory deficit - Psychiatric Psychiatric exam: Present: normal affect, normal mood - Skin Skin exam: Present: warm, dry, intact, normal color. Absent: rash - Other Other exam information: Examination: 1A: Level of Consciousness - Alert; keenly responsive + 0 1B: Ask Month and Age - Both Questions Right + 0 1C: Blink Eyes & Squeeze Hands - Performs Both Tasks + 0 2: Test Horizontal Extraocular Movements - Normal + 0 3: Test Visual Henry - No Visual Loss + 0 4: Test Facial Palsy (Use Grimace if Obtunded) - Normal symmetry + 0 5A: Test Left Arm Motor Drift - Drift, but doesn't hit bed + 1 5B: Test Right Arm Motor Drift - No Drift for 10 Seconds + 0 6A: Test Left Leg Motor Drift - Drift, but doesn't hit bed + 1 6B: Test Right Leg Motor Drift - No Drift for 5 Seconds + 0 7: Test Limb Ataxia (FNF/Heel-Wade) - No Ataxia + 0 8: Test Sensation - Mild-Moderate Loss: Less Sharp/More Dull + 1 9: Test Language/Aphasia - Normal; No aphasia + 0 10: Test Dysarthria - Normal + 0 11: Test Extinction/Inattention - No abnormality + 0 NIHSS Score: 3 ED Course Vital Signs 02/29/20 02/29/20 02/29/20 16:50 18:00 18:33 Temperature 97.8 F 98.4 F Pulse Rate 85 80 87 Respiratory 18 17 22 Rate Blood Pressure 108/67 103/67 103/67 [Right] O2 Sat by Pulse 95 95 97 Oximetry - Reevaluation(s) Reevaluation #1: 02/29/20 18:25 Teleneurology was consulted and their comments are below Impression: Stroke recrudescence vs. less likely new ischemic stroke. Comments: Patient reports chest pain and numbness of L UE and increased tightness/spasticity of L side compared to baseline. Unclear that this is a new ischemic event. Deficits are mild. When I started to discuss tPA patient told me that she has an aneurysm that is followed at [facility] and was told that she should not take any blood thinners. Considering this fact, mild deficits on baseline deficits, uncertainty that this is a new ischemic event, will not recommend tPA. MILO score - Milo Score Age > 65: (1) Yes Aspirin use within the Past 7 Days: (1) Yes 3 or more CAD Risk Factors: (0) No 2 or more Angina events in past 24 hrs: (0) No Known CAD with more than 50% Stenosis: (0) No Elevated Cardiac Markers: (0) No ST Deviation Greater than 0.5mm: (0) No MILO Score: 2 ED Medical Decision Making - Lab Data Result diagrams: 02/29/20 17:18 02/29/20 17:18 Lab Results 02/29/20 02/29/20 02/29/20 Range/Units 17:18 17:18 17:18 WBC 5.9 (4.5-11.0) K/mm3 RBC 5.68 H (3.65-5.03) M/mm3 Hgb 13.9 (10.1-14.3) gm/dl Hct 42.9 (30.3-42.9) % MCV 76 L (79-97) fl MCH 24 L (28-32) pg MCHC 32 (30-34) % RDW 17.8 H (13.2-15.2) % Plt Count 256 (140-440) K/mm3 Lymph % (Auto) 36.5 H (13.4-35.0) % [place] % (Auto) 4.7 (0.0-7.3) % Eos % (Auto) 0.5 (0.0-4.3) % Baso % (Auto) 1.1 (0.0-1.8) % Lymph # 2.2 (1.2-5.4) K/mm3 [place] # 0.3 (0.0-0.8) K/mm3 Eos # 0.0 (0.0-0.4) K/mm3 Baso # 0.1 (0.0-0.1) K/mm3 Seg Neutrophils % 57.2 (40.0-70.0) % Seg Neutrophils # 3.4 (1.8-7.7) K/mm3 PT 13.5 (12.2-14.9) Sec. INR 1.02 (0.87-1.13) APTT 30.3 (24.2-36.6) Sec. Thrombin Time 15.6 (15.1-19.6) Sec. Sodium 136 L (137-145) mmol/L Potassium 3.6 (3.6-5.0) mmol/L Chloride 99.9 (98-107) mmol/L Carbon Dioxide 21 L (22-30) mmol/L Anion Gap 19 mmol/L BUN 8 (7-17) mg/dL Creatinine 0.9 (0.7-1.2) mg/dL Estimated GFR > 60 ml/min BUN/Creatinine Ratio 9 % Glucose 98 (65-100) mg/dL Calcium 9.3 (8.4-10.2) mg/dL Total Creatine Kinase 107 (30-135) units/L CK-MB (CK-2) 2.3 (0.0-4.0) ng/mL CK-MB (CK-2) Rel Index 2.1 (0-4) Troponin T < 0.010 (0.00-0.029) ng/mL - EKG Data -: EKG Interpreted by [facility] EKG shows normal: sinus rhythm, axis, intervals, QRS complexes, ST-T waves Rate: normal - EKG Data Interpretation: normal EKG - Radiology Data Ordering Physician: BALA BAUMAN MD Date of Service: 02/29/20 Procedure(s): XR chest 1V ap Accession Number(s): [id number] cc: BALA BAUMAN MD Fluoro Time In Minutes: CHEST 1 VIEW 02/29/2020 4:56 PM INDICATION / CLINICAL INFORMATION: Left chest pressure radiating down left arm for 1 hour. COMPARISON: One view of the chest from 09/26/2019. FINDINGS: SUPPORT DEVICES: None. HEART / MEDIASTINUM: No significant abnormality. LUNGS / PLEURA: No significant pulmonary or pleural abnormality. No pneumothorax. ADDITIONAL FINDINGS: No significant additional findings. IMPRESSION: 1. No acute abnormality of the chest. Signer Name: Johnathon Bolton MD Signed: 02/29/2020 6:00 PM Workstation Name: [email or web address] Patient: SILVERIO FIGUEROA MR #: [id number] : 1945 Acct:[id number] Age/Sex: 74 / F ADM Date: 02/29/20 Loc: ED Attending Dr: Ordering Physician: BALA BAUMAN MD Date of Service: 02/29/20 Procedure(s): CT head/brain wo con Accession Number(s): [id number] cc: BALA BAUMAN MD CT head/brain wo con INDICATION / CLINICAL INFORMATION: 74 years Female; MAIN: CODE STROKE Stroke symptoms SLURRED SPEECH CHEST PAIN HX IF CVA #[id number]. TECHNIQUE: Routine CT head without contrast. All CT scans at this location are performed using CT dose reduction for ALARA by means of automated exposure control. COMPARISON: CT - 12/03/2019 FINDINGS: BRAIN / INTRACRANIAL CONTENTS: There is subtle loss of pardo/white differentiation in the lateral, anterior temporal lobe on the right, although believe these findings are most likely related to artifact. Otherwise, no acute hemorrhage, mass effect, midline shift, hydrocephalus, or acute, large territorial infarct. Mild cerebral and cerebellar atrophy noted. There are minimal areas of decreased attenuation in the white matter of the cerebral hemispheres. These are nonspecific findings and may be related to microangiopathy (hypertension, diabetes, atherosclerosis), given the patient's age. There is a fullness in the right anterolateral suprasellar cistern- periophthalmic artery aneurysm in this region might be consideration. CRANIOCERVICAL JUNCTION: No significant abnormality. ORBITS: No significant abnormality of visualized orbits. SINUSES / MASTOIDS: There is partial opacification of the mastoids on the left. Mild mucosal thickening noted in the ethmoids. ADDITIONAL FINDINGS: None. IMPRESSION: 1. No focal mass, hemorrhage, hydrocephalus, or acute, large territorial infarct. 2. Periopthalmic artery aneurysm on the right cannot be excluded - follow-up with CTA of the head, as clinically warranted. Signer Name: Bora Ruiz MD, III Signed: 02/29/2020 5:22 PM Workstation Name: [email or web address] - Medical Decision Making Patient is a 74-year-old F [place]ian female with past medical history of hypertension and multiple CVAs in the past who is presenting with chest pain diaphoresis prior to arrival. Patient is improved with rest. Patient will be admitted to the hospitalist service under observation. Patient's last cardiac evaluation was in 2016. Critical care attestation.: If time is entered above; I have spent that time in minutes in the direct care of this critically ill patient, excluding procedure time. ED Disposition Clinical Impression: Paresthesias Chest pain Qualifiers: Chest pain type: unspecified Qualified Code(s): R07.9 - Chest pain, unspecified Disposition: -09 OP ADMIT IP TO THIS HOSP Is pt being admited?: Yes Does the pt Need Aspirin: No Condition: Stable Instructions: Chest Pain (ED) Time of Disposition: 18:37
--- NOTE | 2020-02-29 17:16 | Emergency Department Report ---
ED General Adult HPI - General Chief complaint: Chest Pain Stated complaint: POSS STROKE Time Seen by Provider: 02/29/20 16:34 Source: patient, EMS Mode of arrival: Stretcher Limitations: Physical Limitation - History of Present Illness Initial comments: [facility] Date of Service: 02/29/2020 16:40:39 Impression: Stroke recrudescence vs. less likely new ischemic stroke. Comments: Patient reports chest pain and numbness of L UE and increased tig htness/spasticity of L side compared to baseline. Unclear that this is a new ischemic event. Deficits are mild. When I started to discuss tPA patient told me that she has an aneurysm that is followed at [facility] and was told that she should not take any blood thinners. Considering this fact, mild deficits on baseline deficits, uncertainty that this is a new ischemic event, will not recommend tPA. Metrics: Last Known Well: 02/29/2020 15:30:00 [employer] Notification Time: 02/29/2020 16:40:04 Arrival Time: 02/29/2020 16:34:00 Stamp Time: 02/29/2020 16:40:39 Time First Login Attempt: 02/29/2020 16:45:59 Video Start Time: 02/29/2020 16:45:59 Symptoms: L sided numbness/weakness NIHSS Start Assessment Time: 02/29/2020 16:54:03 Patient is not a candidate for tPA. Patient was not deemed candidate for tPA thrombolytics because of patient declines. Video End Time: 02/29/2020 17:05:29 CT head showed no acute hemorrhage or acute core infarct. Clinical Presentation is not Suggestive of Large Vessel Occlusive Disease ED Physician notified of diagnostic impression and management plan on 02/29/2020 17:10:32 Our recommendations are outlined below. Recommendations: -No tPA. Give ASA. -No suspicion for LVO to warrant emergent vascular imaging. -EKG, cardiac enzymes to r/o ACS. -Brain MRI w/o to definitively exclude cerebral ischemia. Sign Out: Discussed with Emergency Department Provider History of Present Illness: Patient is a 74 year old Female. Patient was brought by EMS for symptoms of L sided numbness/weakness. H/o HTN, prior stroke with residual L sided weakness. Today, about an hour ago she started to c/o chest pain, diaphoresis, then numbness/stiffness in her L UE, numbness in L UE/LE. At baseline, mild spasticity in L UE, but now worse. She reports that she will "not take a blood thinner" because she has an aneurysm behind her right eye followed was told at [facility]: CT head showed no acute hemorrhage or acute core infarct. Examination: 1A: Level of Consciousness - Alert; keenly responsive + 0 1B: Ask Month and Age - Both Questions Right + 0 1C: Blink Eyes & Squeeze Hands - Performs Both Tasks + 0 2: Test Horizontal Extraocular Movements - Normal + 0 3: Test Visual Henry - No Visual Loss + 0 4: Test Facial Palsy (Use Grimace if Obtunded) - Normal symmetry + 0 5A: Test Left Arm Motor Drift - Drift, but doesn't hit bed + 1 5B: Test Right Arm Motor Drift - No Drift for 10 Seconds + 0 6A: Test Left Leg Motor Drift - Drift, but doesn't hit bed + 1 6B: Test Right Leg Motor Drift - No Drift for 5 Seconds + 0 7: Test Limb Ataxia (FNF/Heel-Wade) - No Ataxia + 0 8: Test Sensation - Mild-Moderate Loss: Less Sharp/More Dull + 1 9: Test Language/Aphasia - Normal; No aphasia + 0 10: Test Dysarthria - Normal + 0 11: Test Extinction/Inattention - No abnormality + 0 NIHSS Score: 3 Patient was informed the Neurology Consult would happen via TeleHealth consult by way of interactive audio and video telecommunications and consented to receiving care in this manner. Due to the immediate potential for life-threatening deterioration due to underlying acute neurologic illness, I spent 35 minutes providing critical care. This time includes time for face to face visit via telemedicine, review of medical records, imaging studies and discussion of findings with providers, the patient and/or family. Dr Fabio Jc [facility] Case [id number] - Related Data Home Medications Medication Instructions Recorded Confirmed Last Taken amLODIPine 10 mg PO HS 09/09/18 01/23/20 01/21/20 busPIRone [Buspar] 5 mg PO BID 07/21/18 12/04/19 12/03/19 Aspirin [Aspirin BABY CHEW TAB] 81 mg PO QDAY 12/04/19 12/04/19 12/01/19 Previous Rx's Medication Instructions Recorded Last Taken Type Oxycodone HCl [oxyCODONE] 10 mg PO Q8H PRN #10 tablet 05/04/18 07/31/18 Rx Cyclobenzaprine [Flexeril 10 MG 10 mg PO BID PRN #5 tablet 08/04/18 Unknown Rx TAB] Ondansetron [Zofran ODT TAB] 4 mg PO Q8HR PRN #14 tab.rapdis 10/21/19 Unknown Rx Amitriptyline [Elavil] 25 mg PO QHS #30 tablet 12/05/19 Unknown Rx AtorvaSTATin [Lipitor] 40 mg PO QHS #30 tablet 12/05/19 Unknown Rx Citalopram [celeXA] 10 mg PO QDAY #30 tablet 12/05/19 Unknown Rx Allergies Allergy/AdvReac Type Severity Reaction Status Date / Time aspirin AdvReac Nausea Verified 02/29/20 16:36 blood thinners AdvReac Bleeding Uncoded 08/09/16 01:53 ED Review of Systems ROS: Stated complaint: POSS STROKE Other details as noted in HPI ED Past Medical Hx - Past Medical History Previous Medical History?: Yes Hx Hypertension: Yes Hx CVA: Yes (old chart no mri documentation on previous admits for same left side weakne) Hx Heart Attack/AMI: No Hx Congestive Heart Failure: No Hx Diabetes: No Hx Liver Disease: No Hx Renal Disease: No Hx Asthma: No Hx COPD: No Additional medical history: Hx. left clavicle fx., h/o muscle spasms. 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 - Surgical History Additional Surgical History: Herniated disk cspine 2001 C5-6, fusion,NECK SURGERY - Social History Smoking Status: Current Every Day Smoker Substance Use Type: Marijuana - Medications Home Medications: Home Medications Medication Instructions Recorded Confirmed Last Taken Type Oxycodone HCl [oxyCODONE] 10 mg PO Q8H PRN #10 tablet 05/04/18 12/04/19 07/31/18 Rx amLODIPine 10 mg PO HS 07/21/18 12/04/19 12/02/19 History busPIRone [Buspar] 5 mg PO BID 07/21/18 12/04/19 12/03/19 History Cyclobenzaprine [Flexeril 10 MG 10 mg PO BID PRN #5 tablet 08/04/18 12/04/19 Unknown Rx TAB] Ondansetron [Zofran ODT TAB] 4 mg PO Q8HR PRN #14 tab.rapdis 10/21/19 12/04/19 Unknown Rx Aspirin [Aspirin BABY CHEW TAB] 81 mg PO QDAY 12/04/19 12/04/19 12/01/19 History Amitriptyline [Elavil] 25 mg PO QHS #30 tablet 12/05/19 Unknown Rx AtorvaSTATin [Lipitor] 40 mg PO QHS #30 tablet 12/05/19 Unknown Rx Citalopram [celeXA] 10 mg PO QDAY #30 tablet 12/05/19 Unknown Rx ED Physical Exam - General Limitations: Physical Limitation General appearance: alert, in no apparent distress Critical care attestation.: If time is entered above; I have spent that time in minutes in the direct care of this critically ill patient, excluding procedure time. ED Disposition Clinical Impression: Paresthesias Disposition: OP ADMIT IP TO THIS HOSP Is pt being admited?: Yes Does the pt Need Aspirin: Yes Condition: Stable
--- NOTE | 2020-02-29 17:26 | Cat Scan Report ---
CT head/brain wo con INDICATION / CLINICAL INFORMATION: 74 years Female; MAIN: CODE STROKE Stroke symptoms SLURRED SPEECH CHEST PAIN HX IF CVA #[id number] 9. TECHNIQUE: Routine CT head without contrast. All CT scans at this location are performed using CT dos e reduction for ALARA by means of automated exposure control. COMPARISON: CT - 12/03/2019 FINDINGS: BRAIN / INTRACRANIAL CONTENTS: There is subtle loss of pardo/white differentiation in the lateral, ant erior temporal lobe on the right, although believe these findings are most likely related to artifact . Otherwise, no acute hemorrhage, mass effect, midline shift, hydrocephalus, or acute, large territori al infarct. Mild cerebral and cerebellar atrophy noted. There are minimal areas of decreased attenuation in the white matter of the cerebral hemispheres. The se are nonspecific findings and may be related to microangiopathy (hypertension, diabetes, atheroscle rosis), given the patient's age. There is a fullness in the right anterolateral suprasellar cistern-periophthalmic artery aneurysm in this region might be consideration. CRANIOCERVICAL JUNCTION: No significant abnormality. ORBITS: No significant abnormality of visualized orbits. SINUSES / MASTOIDS: There is partial opacification of the mastoids on the left. Mild mucosal thickeni ng noted in the ethmoids. ADDITIONAL FINDINGS: None. IMPRESSION: 1. No focal mass, hemorrhage, hydrocephalus, or acute, large territorial infarct. 2. Periopthalmic artery aneurysm on the right cannot be excluded - follow-up with CTA of the head, as clinically warranted. Signer Name: Bora Ruiz MD, III Signed: 02/29/2020 5:22 PM Workstation Name: [email or web address]
[2020-02-29 17:49] LABS: Basophils # (Auto) 0.1 K/mm3 (0.0-0.1); Basophils % (Auto) 1.1 % (0.0-1.8); Eosinophils % (Auto) 0.5 % (0.0-4.3); Hematocrit 42.9 % (30.3-42.9); Hemoglobin 13.9 gm/dl (10.1-14.3); Lymphocytes # (Auto) 2.2 K/mm3 (1.2-5.4); Lymphocytes % (Auto) 36.5 % (13.4-35.0); Mean Corpuscular HGB Conc 32 % (30-34); Mean Corpuscular Volume 76 fl (79-97); Monocytes # (Auto) 0.3 K/mm3 (0.0-0.8); Monocytes % (Auto) 4.7 % (0.0-7.3); Platelet Count 256 K/mm3 (140-440); Red Blood Count 5.68 M/mm3 (3.65-5.03); Red Cell Distribution Width 17.8 % (13.2-15.2)
[2020-02-29 17:59] LABS: INR 1.02 (0.87-1.13)
[2020-02-29 18:00] LABS: Partial Thromboplastin Time 30.3 Sec. (24.2-36.6)
[2020-02-29 18:01] LABS: Thrombin Time 15.6 Sec. (15.1-19.6)
--- NOTE | 2020-02-29 18:05 | XRay Report ---
CHEST 1 VIEW 02/29/2020 4:56 PM INDICATION / CLINICAL INFORMATION: Left chest pressure radiating down left arm for 1 hour. COMPARISON: One view of the chest from 09/26/2019. FINDINGS: SUPPORT DEVICES: None. HEART / MEDIASTINUM: No significant abnormality. LUNGS / PLEURA: No significant pulmonary or pleural abnormality. No pneumothorax. ADDITIONAL FINDINGS: No significant additional findings. IMPRESSION: 1. No acute abnormality of the chest. Signer Name: Johnathon Bolton MD Signed: 02/29/2020 6:00 PM Workstation Name: [id number]
[2020-02-29 18:09] LABS: Creatine Kinase MB 2.3 ng/mL (0.0-4.0)
[2020-02-29 18:11] LABS: BUN/Creatinine Ratio 9; Blood Urea Nitrogen 8 mg/dL (7-17); Calcium 9.3 mg/dL (8.4-10.2); Hemolysis Index 5
--- NOTE | 2020-02-29 18:39 | History and Physical Report ---
History of Present Illness Chief complaint: My chest hurts History of present illness: 74 YO Female with CVA with LHP, HTN, Nicotine Dependence presents to ED for evaluation. Patient states that she experienced new onset pain in her chest 1 hour prior to presentation to the hospital. Patient states that she was walking from her bathroom to the living room and experienced a sudden onset of pain in her chest. Patient states that pain is 7/10, constant, worsened with exertion, relieved with rest, crushing in nature, associated with shortness of breath, associated with diaphoresis, and radiates to the left arm. EMS was notified and upon arrival the patient was found to be in distress and subsequently transport ed to [facility] for further evaluation and care. Patient seen and evaluated in the emergency department. Lab and imaging studies reviewed. Patient found to have symptoms consistent with angina as well as diastolic congestive heart failure. Patient admitted to telemetry and initiated on chest pain protocol. Cardiology team consulted in ED. Patient denies fever, chills, productive cough, dry cough, skin rash, unilateral leg swelling, calf pain, prolonged travel/immobility, individual/family history of DVT/PE/bleeding/blood clotting disorders. Advanced care planning conducted in the emergency department Past History Past Medical History: hypertension, stroke, other (See HPI) Past Surgical History: Other (Cervical fusion) Social history: , smoking Family history: hypertension Medications and Allergies Allergies Allergy/AdvReac Type Severity Reaction Status Date / Time aspirin AdvReac Nausea Verified 02/29/20 16:36 blood thinners AdvReac Bleeding Uncoded 08/09/16 01:53 Home Medications Medication Instructions Recorded Confirmed Last Taken Type Oxycodone HCl [oxyCODONE] 10 mg PO Q8H PRN #10 tablet 05/04/18 12/04/19 07/31/18 Rx amLODIPine 10 mg PO HS 07/21/18 12/04/19 12/02/19 History busPIRone [Buspar] 5 mg PO BID 07/21/18 12/04/19 12/03/19 History Cyclobenzaprine [Flexeril 10 MG 10 mg PO BID PRN #5 tablet 08/04/18 12/04/19 Unknown Rx TAB] Ondansetron [Zofran ODT TAB] 4 mg PO Q8HR PRN #14 tab.rapdis 10/21/19 12/04/19 Unknown Rx Aspirin [Aspirin BABY CHEW TAB] 81 mg PO QDAY 12/04/19 12/04/19 12/01/19 History Amitriptyline [Elavil] 25 mg PO QHS #30 tablet 12/05/19 Unknown Rx AtorvaSTATin [Lipitor] 40 mg PO QHS #30 tablet 12/05/19 Unknown Rx Citalopram [celeXA] 10 mg PO QDAY #30 tablet 12/05/19 Unknown Rx Review of Systems Constitutional: no weight loss, no weight gain, no fever, no chills Ears, nose, mouth and throat: no ear pain, no ear discharge, no tinnitis, no decreased hearing, no nose pain, no nasal congestion Breasts: no change in shape, no swelling Cardiovascular: chest pain, shortness of breath, no palpitations, no rapid/irregular heart beat, no edema Respiratory: no cough, no cough with sputum, no excessive sputum, no hemoptysis Gastrointestinal: no abdominal pain, no nausea, no vomiting, no diarrhea Genitourinary Female: no pelvic pain, no flank pain, no dysuria Rectal: no pain, no incontinence, no bleeding Musculoskeletal: no neck stiffness, no neck pain, no shooting arm pain, no low back pain Integumentary: no rash, no pruritis, no redness, no sores, no wounds Neurological: no transient paralysis, no paralysis, no parathesias, no tingling, no syncope Psychiatric: no anxiety, no memory loss, no sleep disturbances, no hypersomnia Endocrine: no cold intolerance, no heat intolerance, no polyphagia, no excessive thirst, no polydipsia, no nocturia Hematologic/Lymphatic: no easy bruising, no easy bleeding, no lymphadenopathy, no lymphedema Allergic/Immunologic: no urticaria, no allergic rhinitis, no persistent infectio ns, no anaphylaxis Exam - Constitutional Vitals: Temp Pulse Resp BP Pulse Ox 98.4 F 87 22 103/67 97 02/29/20 18:33 02/29/20 18:33 02/29/20 18:33 02/29/20 18:33 02/29/20 18:33 General appearance: Present: mild distress - EENT Eyes: Present: PERRL ENT: hearing intact, clear oral mucosa - Neck Neck: Present: supple, normal ROM - Respiratory Respiratory effort: normal Respiratory: bilateral: CTA - Cardiovascular Heart Sounds: Present: S1 & S2. Absent: rub, click - Extremities Extremities: pulses symmetrical, No edema Peripheral Pulses: within normal limits - Abdominal General gastrointestinal: Present: soft, non-tender, non-distended, normal bowel sounds Female genitourinary: Present: normal - Integumentary Integumentary: Present: clear, warm, dry - Musculoskeletal Musculoskeletal: gait normal, strength equal bilaterally - Psychiatric Psychiatric: appropriate mood/affect, intact judgment & insight - Neurologic Neurologic: CNII-XII intact, moves all extremities Results - Labs CBC & Chem 7: 02/29/20 17:18 02/29/20 17:18 Labs: Abnormal lab results 02/29/20 02/29/20 Range/Units 17:18 17:18 RBC 5.68 H (3.65-5.03) M/mm3 MCV 76 L (79-97) fl MCH 24 L (28-32) pg RDW 17.8 H (13.2-15.2) % Lymph % (Auto) 36.5 H (13.4-35.0) % Sodium 136 L (137-145) mmol/L Carbon Dioxide 21 L (22-30) mmol/L Assessment and Plan - Patient Problems (1) Diastolic CHF Current Visit: Yes Status: Acute Qualifiers: Heart failure chronicity: acute on chronic Qualified Code(s): I50.33 - Acute on chronic diastolic (congestive) heart failure Plan to address problem: Strict I's/O, monitor urine output every shift, daily weight, afterload reduction, blood pressure control, echocardiogram, cardiology consulted, thyroid panel, magnesium level. (2) Angina at rest Current Visit: Yes Status: Acute Plan to address problem: Serial cardiac enzymes, EKG, telemetry, cardiology consult placed in ED, d- dimer, CT angiogram of the chest which is pending at the time of admission. (3) Nicotine dependence Current Visit: Yes Status: Acute Qualifiers: Nicotine product type: cigarettes Substance use status: in withdrawal Qualified Code(s): F17.213 - Nicotine dependence, cigarettes, with withdrawal Plan to address problem: Supportive care, smoking cessation counseling, +15 minutes (4) Advance care planning Current Visit: Yes Status: Acute Plan to address problem: Patient is full code, disease education conducted, patient acknowledges understanding and agreement with care plan, +30 minutes. (5) DVT prophylaxis Current Visit: Yes Status: Acute Plan to address problem: SCD to bilateral lower extremities while in bed, patient is ambulatory.
[2020-02-29] MEDS ORDERED: ONDANSETRON 4 MG ODT TAB PO PRN (18:41)
[2020-02-29] MEDS ORDERED: ONDANSETRON 4 MG/2 ML INJ IV PRN (18:42)
[2020-02-29] MEDS ORDERED: ACETAMINOPHEN 325 MG TAB PO PRN (18:42)
[2020-02-29] MEDS ORDERED: NITROGLYCERIN 0.4 MG TAB SUBL SL PRN (18:44)
[2020-02-29] MEDS ORDERED: oxyCODONE 5 MG TAB PO PRN (18:54)
[2020-02-29 20:03] LABS: Chol/HDL Ratio 5.2 %
[2020-02-29 20:25] LABS: Free T4 (Free Thyroxine) 0.94 ng/dL (0.76-1.46)
--- NOTE | 2020-02-29 21:41 | Cat Scan Report ---
CTA CHEST WITH IV CONTRAST INDICATION: Chest pain, dyspnea. TECHNIQUE: Axial CT images were obtained through the chest after injection of 100 cc Omnipaque 350 IV contrast. 3 plane MIP reconstructions were produced. All CT scans at this location are performed using CT dose reduction for ALARA by means of automated exposure control. COMPARISON: One view of the chest from earlier today. FINDINGS: PULMONARY ARTERIES: Well-opacified without visualization of thromboemboli. AORTA AND ARTERIES: No acute abnormality. There is mild aortic and mild to moderate coronary atherosc lerosis. MEDIASTINUM: The thyroid gland is unremarkable. The trachea and main bronchi are patent and normal in caliber. No mass or lymphadenopathy. Normal heart size without a pericardial effusion. LUNGS: Mild centrilobular emphysema is noted with an upper lobe predominance. There is a noncalcified subsolid nodule located laterally along the left upper lobe on image 51 of series 2 measuring 4 mm. A subsolid nodule located posteriorly and laterally along the right upper lobe on image 42 of series 2 measures 5 mm. The lungs are otherwise clear. No pneumothorax or pleural effusion is seen. ADDITIONAL FINDINGS: None. UPPER ABDOMEN: There is a small hiatal hernia without associated inflammation. Bilateral low-density adrenal nodules measure less than 1 cm on the right and 1.9 cm on the left and may represent adenomas . BONES: No acute abnormality. Degenerative changes are seen throughout the spine. Prior cervical fusio n is partially visualized. IMPRESSION: 1. No CT evidence for pulmonary embolism. 2. No acute findings. 3. Bilateral pulmonary nodules as above. Please see the below recommendation. 4. Probable bilateral adrenal adenomas. Correlation with prior cross-sectional imaging of the abdomen would be helpful. Additional findings as above. 5. Additional findings as above. INCIDENTAL PULMONARY NODULE RECOMMENDATION RECOMMENDATION: Subsolid Nodule (Ground glass) <6 mm - No routine follow-up Note These recommendations do not apply to lung cancer screening, patients with immunosuppression, o r patients with known primary cancer. Note Newly detected indeterminate nodule in persons 35 years of age or older. Persons under the age of 35 should not receive follow-up unless there is a known primary cancer. Note A Perifissural Nodule is a fissure-attached/subpleural, homogeneous, solid nodule that had smoo th margins and an oval, lentiform, or triangular shape. They represent about 20% of nodules detected in lung cancer screening, are invariably benign, and do not require follow-up. Nodules 10 mm or large r (or those with suspicious features) will continue to be managed based on the size criteria. Low Risk Patient -- minimal or absent history of smoking and of other known risk factors. High Risk Patient -- history of smoking or of other known risk factors. Nodule dimensions are average of long and short axes, rounded to the nearest millimeter. Based on 2017 Fleischner Society Guidelines found in Radiology 2017 284:228-243. https://[email or web address] https://www.ncbi.nlm.nih.gov/pmc/articles/FIR9684035/ Signer Name: Johnathon Bolton MD Signed: 02/29/2020 9:37 PM Workstation Name: [id number]
[2020-02-29] MEDS: amLODIPine 10 MG TAB PO SCH (22:22)
[2020-02-29] MEDS: AMITRIPTYLINE 25 MG TAB PO SCH (22:22)
[2020-02-29] MEDS: busPIRone 5 MG TAB PO SCH (22:22)
[2020-02-29] MEDS: CYCLOBENZAPRINE 10 MG TAB PO PRN (22:22)
[2020-03-01 04:29] LABS: BUN/Creatinine Ratio 14; Blood Urea Nitrogen 10 mg/dL (7-17); Calcium 9.3 mg/dL (8.4-10.2); Hemolysis Index 6
[2020-03-01] MEDS: ASPIRIN 81 MG TAB CHEW PO SCH (09:12)
[2020-03-01] MEDS: busPIRone 5 MG TAB PO SCH ×2 (09:12→22:36)
--- NOTE | 2020-03-01 09:19 | Progress Note ---
Assessment and Plan Assessment and plan: Chest pain. Continue chest pain protocol. Follow-up cardiac isoenzymes. Cardiology consultation pending. CTA of chest negative. Diastolic HF. Strict I's/O, monitor urine output every shift, daily weight, afterload reduction, blood pressure control, echocardiogram completed 11/2019, cardiology consulted Hypertension. Continue antihypertensive medications. Hyperlipidemia. Continue Lipitor. Tobacco abuse. Patient has been counseled on tobacco cessation. History of CVA with left hemiparesis. Continue supportive care. PT evaluation. History Interval history: Patient denies any chest pain currently. Hospitalist Physical - Constitutional Vitals: Temp Pulse Resp BP Pulse Ox 98.1 F 80 18 126/59 96 03/01/20 07:43 03/01/20 07:43 03/01/20 07:43 03/01/20 07:43 03/01/20 08:02 General appearance: Present: no acute distress - EENT Eyes: Present: PERRL, EOM intact ENT: hearing intact, clear oral mucosa, dentition normal - Neck Neck: Present: supple, normal ROM - Respiratory Respiratory effort: normal Respiratory: bilateral: CTA - Cardiovascular Rhythm: regular Heart Sounds: Present: S1 & S2. Absent: gallop, rub - Extremities Extremities: no ischemia, No edema, Full ROM - Abdominal General gastrointestinal: soft, non-tender, non-distended, normal bowel sounds - Integumentary Integumentary: Present: clear, warm, dry - Neurologic Neurologic: CNII-XII intact, moves all extremities ANDREA score - Andrea Score Age > 65: (1) Yes Aspirin use within the Past 7 Days: (1) Yes 3 or more CAD Risk Factors: (0) No 2 or more Angina events in past 24 hrs: (0) No Known CAD with more than 50% Stenosis: (0) No Elevated Cardiac Markers: (0) No ST Deviation Greater than 0.5mm: (0) No ANDREA Score: 2 Results - Labs CBC & Chem 7: 02/29/20 17:18 03/01/20 03:31 Labs: Laboratory Last Values WBC 5.9 K/mm3 (4.5-11.0) 02/29/20 17:18 RBC 5.68 M/mm3 (3.65-5.03) H 02/29/20 17:18 Hgb 13.9 gm/dl (10.1-14.3) 02/29/20 17:18 Hct 42.9 % (30.3-42.9) 02/29/20 17:18 MCV 76 fl (79-97) L 02/29/20 17:18 MCH 24 pg (28-32) L 02/29/20 17:18 MCHC 32 % (30-34) 02/29/20 17:18 RDW 17.8 % (13.2-15.2) H 02/29/20 17:18 Plt Count 256 K/mm3 (140-440) 02/29/20 17:18 Lymph % (Auto) 36.5 % (13.4-35.0) H 02/29/20 17:18 [place] % (Auto) 4.7 % (0.0-7.3) 02/29/20 17:18 Eos % (Auto) 0.5 % (0.0-4.3) 02/29/20 17:18 Baso % (Auto) 1.1 % (0.0-1.8) 02/29/20 17:18 Lymph # 2.2 K/mm3 (1.2-5.4) 02/29/20 17:18 [place] # 0.3 K/mm3 (0.0-0.8) 02/29/20 17:18 Eos # 0.0 K/mm3 (0.0-0.4) 02/29/20 17:18 Baso # 0.1 K/mm3 (0.0-0.1) 02/29/20 17:18 Seg Neutrophils % 57.2 % (40.0-70.0) 02/29/20 17:18 Seg Neutrophils # 3.4 K/mm3 (1.8-7.7) 02/29/20 17:18 PT 13.5 Sec. (12.2-14.9) 02/29/20 17:18 INR 1.02 (0.87-1.13) 02/29/20 17:18 APTT 30.3 Sec. (24.2-36.6) 02/29/20 17:18 Thrombin Time 15.6 Sec. (15.1-19.6) 02/29/20 17:18 D-Dimer 245.16 ng/mlDDU (0-234) H 02/29/20 17:18 Sodium 138 mmol/L (137-145) 03/01/20 03:31 Potassium 4.2 mmol/L (3.6-5.0) 03/01/20 03:31 Chloride 102.9 mmol/L (98-107) 03/01/20 03:31 Carbon Dioxide 19 mmol/L (22-30) L 03/01/20 03:31 Anion Gap 20 mmol/L 03/01/20 03:31 BUN 10 mg/dL (7-17) 03/01/20 03:31 Creatinine 0.7 mg/dL (0.7-1.2) 03/01/20 03:31 Estimated GFR > 60 ml/min 03/01/20 03:31 BUN/Creatinine Ratio 14 % 03/01/20 03:31 Glucose 111 mg/dL (65-100) H 03/01/20 03:31 POC Glucose 98 (70-105) 03/01/20 07:44 Calcium 9.3 mg/dL (8.4-10.2) 03/01/20 03:31 Magnesium 2.40 mg/dL (1.7-2.3) H 02/29/20 17:18 Total Creatine Kinase 107 units/L (30-135) 02/29/20 17:18 CK-MB (CK-2) 2.3 ng/mL (0.0-4.0) 02/29/20 17:18 CK-MB (CK-2) Rel Index 2.1 (0-4) 02/29/20 17:18 Troponin T < 0.010 ng/mL (0.00-0.029) 03/01/20 00:22 NT-Pro-B Natriuret Pep 9.71 pg/mL (0-900) 02/29/20 17:18 Triglycerides 91 mg/dL (2-149) 02/29/20 17:18 Cholesterol 302 mg/dL (50-199) H 02/29/20 17:18 LDL Cholesterol Direct 222 mg/dL (50-130) H 02/29/20 17:18 HDL Cholesterol 58 mg/dL (40-59) 02/29/20 17:18 Cholesterol/HDL Ratio 5.20 % 02/29/20 17:18 TSH 1.410 mlU/mL (0.270-4.200) 02/29/20 17:18 Free T4 0.94 ng/dL (0.76-1.46) 02/29/20 17:18 Elias/IV: Voiding Method Toilet IV Catheter Type [Right INT / Saline Lock Antecubital] IV Catheter Type [Right Hand] INT / Saline Lock Active Medications - Current Medications Current Medications: Generic Name Dose Route Start Last Admin Trade Name Freq PRN Reason Stop Dose Admin Acetaminophen 650 mg 02/29/20 18:42 Tylenol PO Q4H PRN Pain MILD(1-3)/Fever >100.5/HANNA Amitriptyline HCl 25 mg 02/29/20 22:00 02/29/20 22:22 Elavil PO 25 mg QHS [facility] Administration Amlodipine Besylate 10 mg 02/29/20 22:00 02/29/20 22:22 Amlodipine PO 10 mg HS [facility] Administration Aspirin 81 mg 03/01/20 10:00 Baby Aspirin PO QDAY [facility] Atorvastatin Calcium 40 mg 02/29/20 22:00 02/29/20 22:22 Lipitor PO 40 mg QHS [facility] Administration Buspirone HCl 5 mg 02/29/20 22:00 02/29/20 22:22 Buspar PO 5 mg BID [facility] Administration Citalopram Hydrobromide 10 mg 03/01/20 10:00 Celexa PO QDAY [facility] Cyclobenzaprine HCl 10 mg 02/29/20 18:41 02/29/20 22:22 Flexeril PO 10 mg BID PRN Administration Muscle Spasm Nitroglycerin 0.4 mg 02/29/20 18:44 Nitrostat SL Q5M PRN Chest Pain Ondansetron HCl 4 mg 02/29/20 18:41 Zofran Odt PO Q8H PRN Nausea And Vomiting Ondansetron HCl 4 mg 02/29/20 18:42 Zofran IV Q8H PRN Nausea And Vomiting Oxycodone HCl 10 mg 02/29/20 18:54 Roxicodone PO Q8H PRN Pain, Severe (7-10) Sodium Chloride 10 ml 02/29/20 22:00 02/29/20 22:22 Sodium Chloride Flush Syringe 10 Ml IV 10 ml BID ALLA Administration Sodium Chloride 10 ml 02/29/20 18:42 Sodium Chloride Flush Syringe 10 Ml IV PRN PRN LINE FLUSH
[2020-03-01] MEDS: CITALOPRAM 10 MG TAB PO SCH (09:36)
--- NOTE | 2020-03-01 10:53 | Consultation ---
History of Present Illness Consult date: 03/01/20 Consult reason: chest pain History of present illness: Patient is a 74-year old woman with a history of hypertension, hyperlipidemia and stroke with left sided residual. Patient also gives a history of right periopthalmic artery aneurysm which is followed by [place]. There is no prior cardiac history. 4 years ago she underwent a stress thallium test that documents no ischemia. Serial echocardiogram reports a normal left ventricular ejection fr action. Patient was brought to this hospital with complaints of chest pain associated with left sided arm stiffness, diaphoresis and slurred speech. Head CT scan reports no acute abnormalities and a chest CT scan showed no evidence of PE. Cardiac enzymes were normal and her ECG is benign, normal sinus rhythm. A cardiac consultation has been requested for chest pain evaluation. Past History Past Medical History: hypertension, stroke, other (See HPI) Past Surgical History: Other (Cervical fusion) Social history: , smoking Family history: hypertension Medications and Allergies Allergies Allergy/AdvReac Type Severity Reaction Status Date / Time aspirin AdvReac Nausea Verified 02/29/20 16:36 blood thinners AdvReac Bleeding Uncoded 08/09/16 01:53 Home Medications Medication Instructions Recorded Confirmed Last Taken Type Oxycodone HCl [oxyCODONE] 10 mg PO Q8H PRN #10 tablet 05/04/18 02/29/20 07/31/18 Rx amLODIPine 10 mg PO HS 07/21/18 02/29/20 12/02/19 History busPIRone [Buspar] 5 mg PO BID 07/21/18 02/29/20 12/03/19 History Cyclobenzaprine [Flexeril 10 MG 10 mg PO BID PRN #5 tablet 08/04/18 02/29/20 Unknown Rx TAB] Aspirin [Aspirin BABY CHEW TAB] 81 mg PO QDAY 12/04/19 02/29/20 12/01/19 History Amitriptyline [Elavil] 25 mg PO QHS #30 tablet 12/05/19 02/29/20 Unknown Rx AtorvaSTATin [Lipitor] 40 mg PO QHS #30 tablet 12/05/19 02/29/20 Unknown Rx Citalopram [celeXA] 10 mg PO QDAY #30 tablet 12/05/19 02/29/20 Unknown Rx Active Meds: Active Medications Acetaminophen (Tylenol) 650 mg PO Q4H PRN PRN Reason: Pain MILD(1-3)/Fever >100.5/HANNA Amitriptyline HCl (Elavil) 25 mg PO QHS [facility] Last Admin: 02/29/20 22:22 Dose: 25 mg Documented by: Amlodipine Besylate (Amlodipine) 10 mg PO HS [facility] Last Admin: 02/29/20 22:22 Dose: 10 mg Documented by: Aspirin (Baby Aspirin) 81 mg PO QDAY [facility] Last Admin: 03/01/20 09:12 Dose: 81 mg Documented by: Atorvastatin Calcium (Lipitor) 40 mg PO QHS [facility] Last Admin: 02/29/20 22:22 Dose: 40 mg Documented by: Buspirone HCl (Buspar) 5 mg PO BID [facility] Last Admin: 03/01/20 09:12 Dose: 5 mg Documented by: Citalopram Hydrobromide (Celexa) 10 mg PO QDAY [facility] Last Admin: 03/01/20 09:36 Dose: 10 mg Documented by: Cyclobenzaprine HCl (Flexeril) 10 mg PO BID PRN PRN Reason: Muscle Spasm Last Admin: 02/29/20 22:22 Dose: 10 mg Documented by: Nitroglycerin (Nitrostat) 0.4 mg SL Q5M PRN PRN Reason: Chest Pain Ondansetron HCl (Zofran Odt) 4 mg PO Q8H PRN PRN Reason: Nausea And Vomiting Ondansetron HCl (Zofran) 4 mg IV Q8H PRN PRN Reason: Nausea And Vomiting Oxycodone HCl (Roxicodone) 10 mg PO Q8H PRN PRN Reason: Pain, Severe (7-10) Sodium Chloride (Sodium Chloride Flush Syringe 10 Ml) 10 ml IV BID [facility] Last Admin: 03/01/20 09:14 Dose: 10 ml Documented by: Sodium Chloride (Sodium Chloride Flush Syringe 10 Ml) 10 ml IV PRN PRN PRN Reason: LINE FLUSH Physical Examination Vital Signs Temp Pulse Resp BP Pulse Ox 97.8 F 85 18 108/67 95 02/29/20 16:50 02/29/20 16:50 02/29/20 16:50 02/29/20 16:50 02/29/20 16:50 General appearance: no acute distress HEENT: Positive: PERRL Neck: Positive: trachea midline Cardiac: Positive: Reg Rate and Rhythm Lungs: Positive: Decreased Breath Sounds Neuro: Positive: Other (left sided residual) Extremities: Absent: edema Results 02/29/20 17:18 03/01/20 03:31 Cardiac Enzymes 02/29/20 Range/Units 17:18 CK-MB (CK-2) 2.3 (0.0-4.0) ng/mL Coagulation 02/29/20 Range/Units 17:18 PT 13.5 (12.2-14.9) Sec. INR 1.02 (0.87-1.13) APTT 30.3 (24.2-36.6) Sec. Lipids 02/29/20 Range/Units 17:18 Triglycerides 91 (2-149) mg/dL Cholesterol 302 H (50-199) mg/dL HDL Cholesterol 58 (40-59) mg/dL Cholesterol/HDL Ratio 5.20 % CBC 02/29/20 Range/Units 17:18 WBC 5.9 (4.5-11.0) K/mm3 RBC 5.68 H (3.65-5.03) M/mm3 Hgb 13.9 (10.1-14.3) gm/dl Hct 42.9 (30.3-42.9) % Plt Count 256 (140-440) K/mm3 Lymph # 2.2 (1.2-5.4) K/mm3 [place] # 0.3 (0.0-0.8) K/mm3 Eos # 0.0 (0.0-0.4) K/mm3 Baso # 0.1 (0.0-0.1) K/mm3 Comprehensive Metabolic Panel 02/29/20 03/01/20 Range/Units 17:18 03:31 Sodium 136 L 138 (137-145) mmol/L Potassium 3.6 4.2 (3.6-5.0) mmol/L Chloride 99.9 102.9 (98-107) mmol/L Carbon Dioxide 21 L 19 L (22-30) mmol/L BUN 8 10 (7-17) mg/dL Creatinine 0.9 0.7 (0.7-1.2) mg/dL Glucose 98 111 H (65-100) mg/dL Calcium 9.3 9.3 (8.4-10.2) mg/dL Assessment and Plan - Patient Problems (1) Chest pain Current Visit: Yes Status: Acute Qualifiers: Qualified Code(s): R07.9 - Chest pain, unspecified
[2020-03-01] MEDS: amLODIPine 10 MG TAB PO SCH (22:35)
[2020-03-01] MEDS: AMITRIPTYLINE 25 MG TAB PO SCH (22:36)
--- NOTE | 2020-03-02 09:56 | Progress Note ---
<MILEY CRUZ - Last Filed: 03/02/20 10:03> Assessment and Plan - Patient Problems (1) Chest pain Current Visit: Yes Status: Acute Qualifiers: Plan to address problem: Chest pain, musculoskeletal ECG is normal sinus rhythm, normal ECG. Cardiac isoenzymes were negative. Echocardiogram in November was normal left ventricular systolic function, EF 55-60%. Subjective Date of service: 03/02/20 Interval history: Patient is resting in bed and appears comfortable. She denies chest pain. Objective Vital Signs Temp Pulse Resp BP BP Pulse Ox 03/02/20 07:20 97.5 F L 79 19 142/70 94 03/02/20 04:00 98.3 F 76 16 113/53 96 03/02/20 00:00 98 F 74 16 117/56 96 03/01/20 22:35 79 138/74 03/01/20 20:18 98.5 F 79 16 138/74 95 03/01/20 15:46 98.6 F 95 H 18 133/83 90 03/01/20 11:57 97.6 F 91 H 18 145/80 95 03/01/20 11:00 87 - Physical Examination General: No Apparent Distress HEENT: Positive: PERRL Neck: Positive: trachea midline Cardiac: Positive: Reg Rate and Rhythm Lungs: Positive: Decreased Breath Sounds Neuro: Positive: Other (left sided residual) Extremities: Absent: edema <ABDOUL MARTINS - Last Filed: 03/02/20 11:31> Assessment and Plan - Patient Problems (1) Chest pain Current Visit: Yes Status: Acute Qualifiers: Chest pain type: unspecified Qualified Code(s): R07.9 - Chest pain, unspecified Plan to address problem: Patient's chest pain is atypical, describes as muscle cramps on the left side of the body which is paralyzed from a previous stroke. We will continue risk factor management, and plan a Lexiscan thallium stress test as outpatient next week. Patient may be discharged from a cardiac standpoint. Objective Vital Signs Temp Pulse Resp BP BP Pulse Ox 03/02/20 07:20 97.5 F L 79 19 142/70 94 03/02/20 04:00 98.3 F 76 16 113/53 96 03/02/20 00:00 98 F 74 16 117/56 96 03/01/20 22:35 79 138/74 03/01/20 20:18 98.5 F 79 16 138/74 95 03/01/20 15:46 98.6 F 95 H 18 133/83 90 03/01/20 11:57 97.6 F 91 H 18 145/80 95
[2020-03-02] MEDS: busPIRone 5 MG TAB PO SCH (09:58)
[2020-03-02] MEDS: ASPIRIN 81 MG TAB CHEW PO SCH (09:58)
[2020-03-02] MEDS: CITALOPRAM 10 MG TAB PO SCH (09:59)
--- NOTE | 2020-03-02 09:59 | Consultation ---
Past History Past Medical History: hypertension, stroke, other (See HPI) Past Surgical History: Other (Cervical fusion) Social history: , smoking Family history: hypertension Medications and Allergies Allergies Allergy/AdvReac Type Severity Reaction Status Date / Time aspirin AdvReac Nausea Verified 02/29/20 16:36 blood thinners AdvReac Bleeding Uncoded 08/09/16 01:53 Home Medications Medication Instructions Recorded Confirmed Last Taken Type Oxycodone HCl [oxyCODONE] 10 mg PO Q8H PRN #10 tablet 05/04/18 02/29/20 07/31/18 Rx amLODIPine 10 mg PO HS 07/21/18 02/29/20 12/02/19 History busPIRone [Buspar] 5 mg PO BID 07/21/18 02/29/20 12/03/19 History Cyclobenzaprine [Flexeril 10 MG 10 mg PO BID PRN #5 tablet 08/04/18 02/29/20 Unknown Rx TAB] Aspirin [Aspirin BABY CHEW TAB] 81 mg PO QDAY 12/04/19 02/29/20 12/01/19 History Amitriptyline [Elavil] 25 mg PO QHS #30 tablet 12/05/19 02/29/20 Unknown Rx AtorvaSTATin [Lipitor] 40 mg PO QHS #30 tablet 12/05/19 02/29/20 Unknown Rx Citalopram [celeXA] 10 mg PO QDAY #30 tablet 12/05/19 02/29/20 Unknown Rx Active Meds: Active Medications Acetaminophen (Tylenol) 650 mg PO Q4H PRN PRN Reason: Pain MILD(1-3)/Fever >100.5/HANNA Amitriptyline HCl (Elavil) 25 mg PO QHS [facility] Last Admin: 03/01/20 22:36 Dose: 25 mg Documented by: Amlodipine Besylate (Amlodipine) 10 mg PO HS [facility] Last Admin: 03/01/20 22:35 Dose: 10 mg Documented by: Aspirin (Baby Aspirin) 81 mg PO QDAY [facility] Last Admin: 03/01/20 09:12 Dose: 81 mg Documented by: Atorvastatin Calcium (Lipitor) 40 mg PO QHS [facility] Last Admin: 03/01/20 22:36 Dose: 40 mg Documented by: Buspirone HCl (Buspar) 5 mg PO BID [facility] Last Admin: 03/01/20 22:36 Dose: 5 mg Documented by: Citalopram Hydrobromide (Celexa) 10 mg PO QDAY [facility] Last Admin: 03/01/20 09:36 Dose: 10 mg Documented by: Cyclobenzaprine HCl (Flexeril) 10 mg PO BID PRN PRN Reason: Muscle Spasm Last Admin: 02/29/20 22:22 Dose: 10 mg Documented by: Nitroglycerin (Nitrostat) 0.4 mg SL Q5M PRN PRN Reason: Chest Pain Ondansetron HCl (Zofran Odt) 4 mg PO Q8H PRN PRN Reason: Nausea And Vomiting Ondansetron HCl (Zofran) 4 mg IV Q8H PRN PRN Reason: Nausea And Vomiting Oxycodone HCl (Roxicodone) 10 mg PO Q8H PRN PRN Reason: Pain, Severe (7-10) Sodium Chloride (Sodium Chloride Flush Syringe 10 Ml) 10 ml IV BID [facility] Last Admin: 03/01/20 22:36 Dose: 10 ml Documented by: Sodium Chloride (Sodium Chloride Flush Syringe 10 Ml) 10 ml IV PRN PRN PRN Reason: LINE FLUSH Physical Examination - Vital Signs Vital Signs: Vital Signs Temp Pulse Resp BP Pulse Ox 97.8 F 85 18 108/67 95 02/29/20 16:50 02/29/20 16:50 02/29/20 16:50 02/29/20 16:50 02/29/20 16:50 Results - Laboratory Findings CBC and BMP: 02/29/20 17:18 03/01/20 03:31 Abnormal Lab Findings: Abnormal Labs 02/29/20 02/29/20 02/29/20 17:18 17:18 17:18 RBC 5.68 H MCV 76 L MCH 24 L RDW 17.8 H Lymph % (Auto) 36.5 H D-Dimer Sodium 136 L Carbon Dioxide 21 L Glucose Magnesium 2.40 H Cholesterol LDL Cholesterol Direct 02/29/20 02/29/20 03/01/20 17:18 17:18 03:31 RBC MCV MCH RDW Lymph % (Auto) D-Dimer 245.16 H Sodium Carbon Dioxide 19 L Glucose 111 H Magnesium Cholesterol 302 H LDL Cholesterol Direct 222 H Assessment and Plan 74 YR OLD FEMALE WITH HISTORY OF HYPERTENSION,OLD STROKE WITH RESIDUAL LEFT HEMIPARESIS,NICOTINE DEPENDENCE WHO CAME IN WITH COMPLAIN OF CHEST PAIN. PATIENT WAS ADMITTED FOR CHEST PAIN RELATED TO CORONARY ARTERY DISEASE.DELMY WAS NO EVIDENCE OF RECURRENT STROKE. NEUROLOGY WAS CONSULTED FOR EVALUATING AND COMMENTING ON RIGHT ROBIN OPHTHALMIC ARTERY ANEURYSM THAT WAS INCIDENTALLY PICKED BY CT SCAN OF THE HEAD.PATIENT DENIES ANY SYMPTOMS ON THE RIGHT EYE. PATIENT STATES THAT SHE IS BEING FOLLOWED UP AT [facility] BY AN [employer]OD [employer]OX MAKER PERIODICALLY WITH NEURO IMAGING FOR HER RT ROBIN OPHTHALMIC ARTERY ANEURYSM. PHYSICAL EXAMINATION GENERAL-IN NO ACUTE DISTRESS,PATIENT IS ALERT AND APPROPRIATE AND ANSWERS QUESTIONS APPROPRIATELY MENTAL STATUS- ALERT AND ORIENTED TO TIME,PLACE AND PERSON. HEART-NORMAL RATE AND RYTHM, CAROTIDS-BOTH PALPABLE. CRANIAL NERVES- ALL WITH IN NORMAL LIMIT. MOTOR- LEFT HEMIPARESIS WITH INCREASED MUSCLE TONE ON THE LEFT UPPER AND LOWER EXTREMITES REFLEXES- REFLEXES ARE INCREASED ON THE LEFT SIDE WITH UP GOING TOE ON THE LEFT SIDE COORDINATION-FINGER TO NOSE IS NORMAL SENSORY- GROSSLY WITH IN NORMAL LIMIT GAIT- CAN AMBULATE WITH OUT ANY ASSISTIVE DEVICE IMPRESSION. 1. NO EVIDENCE OF ANY ACUTE NEUROLOGICAL DEFICIT. 2. 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 PATIENT IS GETTING PHYSICAL THERAPY 3. RIGHT PERIOPHTHALMIC ARTERY ANEURYSM, ASYMPTOMATIC, BEING FOLLOWED UP AT [facility]. RECOMMEND. 1. SINCE PATIENT IS ASYMPTOMATIC AND IS BEING FOLLOWED UP AT [facility] AND IT HAS ALREADY BEEN DIAGNOSED,I DON'T SEE ANY NEED FOR CT ANGIOGRAM AT THIS POINT, RECOMMENDED BY RADIOLOGIST. 2. PATIENT WAS COUNSELED ABOUT SMOKING CESSATION GRADUALLY, SHE SEEMED TO BE MOTIVATED.
[2020-03-02] MEDS: CYCLOBENZAPRINE 10 MG TAB PO PRN (10:03)
[2020-03-02] MEDS ORDERED: LORazepam 2 MG/ML VIAL IV ONE (12:00)
[2020-03-02 15:56] VITALS: BP 127/71
--- NOTE | 2020-03-02 16:01 | Discharge Summary ---
Providers - Providers Date of Admission: 02/29/20 18:42 Date of discharge: 03/02/20 Attending physician: PAUL DE LA CRUZ 02/29/20 Consult to Cardiac Rehabilitation [CONS] Routine Reason For Exam: Phase I 02/29/20 18:44 Consult to Cardiology [CONS] Routine Consulting Provider: ABDOUL MARTINS Reason For Exam: chest pain 03/02/20 08:15 Consult to Physician [CONS] Routine Comment: Consulting Provider: GIOVANNY LACEY Physician Instructions: Reason For Exam: possible periopthalmic aneurysm on right on CT [facility] Hospital[facility] Condition: Fair Hospital course: Patient 74 YO Female with CVA with LHP, HTN, Nicotine Dependence presented to ED for evaluation. Patient states that she experienced new onset pain in her chest 1 hour prior to presentation to the hospital. Patient states that she was walking from her bathroom to the living room and experienced a sudden onset of pain in her chest. Patient states that pain is 7/10, constant, worsened with exertion, relieved with rest, crushing in nature, associated with shortness of breath, associated with diaphoresis, and radiates to the left arm. Patient was seen and evaluated in the emergency department. She was admitted and evaluated by Cardiology and neurology. Cardiology determined chest pain musculoskeletal so was discharged home 03/02/2020. Heart failure ruled out by cardiology. Chest pain non cardiac, due to musculoskeletal CTA of chest negative. patient followed by Cardiology Hypertension. Continue antihypertensive medications. Hyperlipidemia. Continue Lipitor. Right periopthalmic artery aneurysm, chronic,asymptomatic, was being followed at [facility]. Tobacco abuse. Patient has been counseled on tobacco cessation. Total time spent on discharge, 33 mins Disposition: - TO HOME OR SELFCARE Core Measure Documentation - Palliative Care Palliative Care/ Comfort Measures: Not Applicable - Core Measures Any of the following diagnoses?: none Exam - Constitutional Vitals: Temp Pulse Resp BP Pulse Ox 97.3 F L 79 19 127/71 95 03/02/20 15:56 03/02/20 15:56 03/02/20 15:56 03/02/20 15:56 03/02/20 15:56 Plan Diet: low fat, low cholesterol, low salt Plan of Treatment: 1.Call Dr. Martins, cardiology in 2-3 days to schedule stress test as outpatient. [facility] [Referring[facility] - 7 Days
--- NOTE | 2020-03-02 17:10 | Magnetic Resonance Report ---
MR brain wo con INDICATION / CLINICAL INFORMATION: 74 years Female; MAIN: slurred speech, left side weakness. TECHNIQUE: Multiplanar, multisequence MR images of the brain were obtained. COMPARISON: CT - 02/29/2020 FINDINGS: BRAIN / INTRACRANIAL CONTENTS: Mild to moderate cerebral and cerebellar atrophy. There are minimal areas of increased signal intensity on FLAIR imaging in the white matter of the cer ebral hemispheres. These are nonspecific findings and may be related to microangiopathy (hypertension , diabetes, atherosclerosis), given the patient's age. Otherwise, no acute ischemia, acute hemorrhage, or hydrocephalus. CRANIOCERVICAL JUNCTION: No significant abnormality. VASCULAR FLOW-VOIDS: Isointense T2 signal seen in the right vertebral artery, suggesting slow or abse nt flow. There may be a periophthalmic artery aneurysm on the right - follow-up with MRA of the brain , as clinically warranted. ORBITS: No significant abnormality of visualized orbits. SINUSES / MASTOIDS: Mild mucosal thickening seen in the ethmoids. There is significant opacification of the mastoid air cells on the left, along with small air-fluid levels. Mild middle ear disease note d as well. ADDITIONAL FINDINGS: None. IMPRESSION: 1. No focal mass, hemorrhage, hydrocephalus, or acute ischemia. 2. Slow or absent flow suggested in the right vertebral [id number] with MRA of the neck as clin ically warranted. 3. Periophthalmic artery aneurysm suggested on the right-MRA of the brain may be of benefit. 4. Significant left mastoid disease noted. Signer Name: Bora Ruiz MD, III Signed: 03/02/2020 5:06 PM Workstation Name: [id number]
== END 2020-03-02 19:30 | disposition home or self-care (01) ==
LOC: ED 16:27 → 4A 18:42
PROVIDERS: ADMIT Internal Medicine; ATTEND Internal Medicine
DX: I11.0 Hypertensive heart disease with heart failure (principal); I50.33 Acute on chronic diastolic (congestive) heart failure; I20.9 Angina pectoris, unspecified; I69.354 Hemiplegia and hemiparesis following cerebral infarction affecting left non-dominant side; E78.5 Hyperlipidemia, unspecified; F17.213 Nicotine dependence, cigarettes, with withdrawal; Z79.899 Other long term (current) drug therapy; Z88.6 Allergy status to analgesic agent; Z88.8 Allergy status to other drugs, medicaments and biological substances; Z71.6 Tobacco abuse counseling
CPT/HCPCS: 36415; 70450; 70551; 71045; 71275; 80048; 80061; 82550; 82553; 82962; 83735; 83880; 84439; 84443; 84484; 85025; 85379; 85610; 85670; 85730; 93005; 96374; 99291; 99406; A9270; G0378; J2060; Q9967

== ENCOUNTER 2020-07-02 15:28 | Observation (INO) | payer MEDICARE ==
--- NOTE | 2020-07-02 16:00 | Emergency Department Report ---
HPI - HPI HPI: [facility] Date of Service: 07/02/2020 15:33:01 Impression: Rule Out Acute Ischemic Stroke Comments/Sign-Out: Patients clinical features can be compatible with diagnosis of acute ischemic stroke however other vascular and non-vascular conditions that present with an acute neurological deficit simulating acute ischemic stroke is possible. Pt has contracture of left UE but she is able to hold antigravity to count of 10. Risk benefits and alternatives to tPA discussed . Pt declined Chief differential include: Recrudescence of previous stroke symptoms toxic-metabolic disturbances Mechanism of Stroke: Not Clear Metrics: Last Known Well: 07/02/2020 15:00:47 [facility] Notification Time: 07/02/2020 15:32:47 Arrival Time: 07/02/2020 15:33:47 Stamp Time: 07/02/2020 15:33:01 Time First Login Attempt: 07/02/2020 15:35:14 Video Start Time: 07/02/2020 15:35:14 Symptoms: left sided numbness NIHSS Start Assessment Time: 07/02/2020 15:51:22 Patient is not a candidate for tPA. Patient was not deemed candidate for tPA thrombolytics because of pt declined tPA. Video End Time: 07/02/2020 15:57:33 CT head was reviewed and results were: pt has bi frontal ?hygromas, Clinical Presentation is not Suggestive of Large Vessel Occlusive Disease Radiologist was not called back for review of advanced imaging because NA ED Physician notified of diagnostic impression and management plan on 07/02/2020 15:57:27 Our recommendations are outlined below. Recommendations: Activate Stroke Protocol Admission/Order Set Stroke/Telemetry Floor Neuro Checks Bedside Swallow Eval DVT Prophylaxis IV Fluids, Normal Saline Head of Bed 30 Degrees Euglycemia and Avoid Hyperthermia (PRN Acetaminophen) Antiplatelet Therapy Recommended Toxic metabolic infectious HERNANDEZ History of Present Illness: Patient is a 74 year old Female. Patient was brought by EMS for symptoms of left sided numbness Patient seen in ED Arrival time: 3:33 pm Information obtained from EMS and patient h/o CVA with left sided deficits>10 yrs Chronology: Numbness in face arm and leg 30 mins [employer] pt has a h/o CVA left side with left UE contracture, she says that she did not have sensory symptoms with that stroke Pt says that she has an aneurysm in her rt eye hence she cannot take tPA Pt says she also suffers from anxiety Medications: asa, BP:125/75 Blood glucose: 100 Last seen normal was within 4.5 hours. There is no history of hemorrhagic complications or intracranial hemorrhage. There is no history of Recent Anticoagulants. There is no history of recent major surgery. There is no history of recent stroke. Past Medical History: Antiplatelet use: Examination: 1A: Level of Consciousness - Alert; keenly responsive + 0 1B: Ask Month and Age - Both Questions Right + 0 1C: Blink Eyes & Squeeze Hands - Performs Both Tasks + 0 2: Test Horizontal Extraocular Movements - Normal + 0 3: Test Visual Henry - No Visual Loss + 0 4: Test Facial Palsy (Use Grimace if Obtunded) - Normal symmetry + 0 5A: Test Left Arm Motor Drift - No Drift for 10 Seconds + 0 5B: Test Right Arm Motor Drift - No Drift for 10 Seconds + 0 6A: Test Left Leg Motor Drift - No Drift for 5 Seconds + 0 6B: Test Right Leg Motor Drift - No Drift for 5 Seconds + 0 7: Test Limb Ataxia (FNF/Heel-Wade) - No Ataxia + 0 8: Test Sensation - Mild-Moderate Loss: Can Sense Being Touched + 1 9: Test Language/Aphasia - Normal; No aphasia + 0 10: Test Dysarthria - Normal + 0 11: Test Extinction/Inattention - No abnormality + 0 NIHSS Score: 1 Patient/Family was informed the Neurology Consult would happen via TeleHealth consult by way of interactive audio and video telecommunications and consented to receiving care in this manner. Due to the immediate potential for life-threatening deterioration due to underlying acute neurologic illness, I spent 35 minutes providing critical care. This time includes time for face to face visit via telemedicine, review of medical records, imaging studies and discussion of findings with providers, the patient and/or family. Dr Ashley Perez [facility] Case [id number] ED Past Medical Hx - Past Medical History Hx Hypertension: Yes Hx CVA: Yes (old chart no mri documentation on previous admits for same left side weakne) Hx Heart Attack/AMI: No Hx Congestive Heart Failure: No Hx Diabetes: No Hx Liver Disease: No Hx Renal Disease: No Hx Asthma: No Hx COPD: No Additional medical history: Hx. left clavicle fx., h/o muscle spasms. 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 - Surgical History Additional Surgical History: Herniated disk cspine 2001 C5-6, fusion,NECK SURGERY - Social History Smoking Status: Current Every Day Smoker - Medications Home Medications: Home Medications Medication Instructions Recorded Confirmed Last Taken Type Oxycodone HCl [oxyCODONE] 10 mg PO Q8H PRN #10 tablet 05/04/18 02/29/20 07/31/18 Rx amLODIPine 10 mg PO HS 07/21/18 02/29/20 12/02/19 History busPIRone [Buspar] 5 mg PO BID 07/21/18 02/29/20 12/03/19 History Cyclobenzaprine [Flexeril 10 MG 10 mg PO BID PRN #5 tablet 08/04/18 02/29/20 Unknown Rx TAB] Aspirin [Aspirin BABY CHEW TAB] 81 mg PO QDAY 12/04/19 02/29/20 12/01/19 History Amitriptyline [Elavil] 25 mg PO QHS #30 tablet 12/05/19 02/29/20 Unknown Rx AtorvaSTATin [Lipitor] 40 mg PO QHS #30 tablet 12/05/19 02/29/20 Unknown Rx Citalopram [celeXA] 10 mg PO QDAY #30 tablet 12/05/19 02/29/20 Unknown Rx ED Review of Systems ROS: Stated complaint: STROKE LIKE SYMPTOMS Other details as noted in HPI Critical care attestation.: If time is entered above; I have spent that time in minutes in the direct care of this critically ill patient, excluding procedure time. ED Disposition Clinical Impression: Stroke Disposition: OP ADMIT IP TO THIS HOSP Is pt being admited?: Yes Condition: Stable Referrals: KATALINA MARCOS [Other] - 3-5 Days
--- NOTE | 2020-07-02 16:02 | Cat Scan Report ---
NONENHANCED CT SCAN OF THE HEAD: INDICATION / CLINICAL INFORMATION: 74 years Female; MAIN. TECHNIQUE: Routine CT head without contrast. All CT scans at this location are performed using CT dos e reduction for ALARA by means of automated exposure control. COMPARISON: CT scan of the head from 02/29/2020 and MRI scan of the brain from 03/02/2020 FINDINGS: BRAIN / INTRACRANIAL CONTENTS: No acute hemorrhage, mass effect, midline shift, hydrocephalus, or acu te, large territorial infarct. As described in the previous imaging studies, vascular fullness is see n near the right optic canal. CTA of the head from November 2019 showed right ophthalmic artery aneury sm. No subarachnoid hemorrhage is seen. As seen in the previous imaging studies, posterior fossa subarachnoid space is quite prominent. Cereb ellar hemispheres are normal. These findings remain unchanged. In the cerebral hemispheres, mild cortical involution is seen. Few scattered low attenuation white ma tter lesions are seen due to chronic small vessel disease. CT findings remain unchanged. CRANIOCERVICAL JUNCTION: No significant abnormality. ORBITS: No significant abnormality of visualized orbits. SINUSES / MASTOIDS: No significant abnormality of the visualized paranasal sinuses or mastoid air lorelei ls. ADDITIONAL FINDINGS: None. IMPRESSION: CT findings remain unchanged. Right periophthalmic artery aneurysm; no subarachnoid hemorrhage No acute parenchymal lesion in the brain Signer Name: Demar Eubanks MD Signed: 07/02/2020 3:57 PM Workstation Name: [id number]
[2020-07-02 16:47] LABS: Basophils # (Auto) 0.1 K/mm3 (0.0-0.1); Basophils % (Auto) 1.2 % (0.0-1.8); Eosinophils % (Auto) 0.8 % (0.0-4.3); Hematocrit 44.4 % (30.3-42.9); Lymphocytes # (Auto) 2.1 K/mm3 (1.2-5.4); Lymphocytes % (Auto) 37.8 % (13.4-35.0); Mean Corpuscular HGB Conc 34 % (30-34); Mean Corpuscular Volume 76 fl (79-97); Monocytes # (Auto) 0.3 K/mm3 (0.0-0.8); Monocytes % (Auto) 6.2 % (0.0-7.3); Platelet Count 255 K/mm3 (140-440); Red Blood Count 5.85 M/mm3 (3.65-5.03); Red Cell Distribution Width 17.6 % (13.2-15.2)
[2020-07-02 16:57] LABS: INR 0.98 (0.87-1.13); Partial Thromboplastin Time 32.2 Sec. (24.2-36.6)
[2020-07-02 16:59] LABS: Blood Urea Nitrogen 7 mg/dL (7-17); Calcium 9.7 mg/dL (8.4-10.2); Hemolysis Index 46
[2020-07-02 17:12] LABS: BUN/Creatinine Ratio 10
--- NOTE | 2020-07-02 17:37 | Emergency Department Report ---
ED General Adult HPI - General Chief complaint: Neuro Symptoms/Deficit Stated complaint: STROKE LIKE SYMPTOMS Time Seen by Provider: 07/02/20 15:58 Source: patient, EMS Mode of arrival: Stretcher Limitations: Physical Limitation - History of Present Illness Initial comments: Patient presents to the emergency department the chief complaint of left-sided facial numbness that started 30 minutes prior to arrival. 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 Initial evaluation the patient had become aphasic in route to the emergency department and remained that way until evaluated by neurology when her aphasia improved. 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 Patient denies chest pain, shortness breath, or headache. -: Sudden Severity scale (0 -10): 0 Consistency: now resolved Improves with: none Worsens with: none Associated Symptoms: denies other symptoms Treatments Prior to Arrival: none - Related Data Home Medications Medication Instructions Recorded Confirmed Last Taken amLODIPine 10 mg PO HS 07/21/18 02/29/20 12/02/19 busPIRone [Buspar] 5 mg PO BID 07/21/18 02/29/20 12/03/19 Aspirin [Aspirin BABY CHEW TAB] 81 mg PO QDAY 12/04/19 02/29/20 12/01/19 Previous Rx's Medication Instructions Recorded Last Taken Type Oxycodone HCl [oxyCODONE] 10 mg PO Q8H PRN #10 tablet 05/04/18 07/31/18 Rx Cyclobenzaprine [Flexeril 10 MG 10 mg PO BID PRN #5 tablet 08/04/18 Unknown Rx TAB] Amitriptyline [Elavil] 25 mg PO QHS #30 tablet 12/05/19 Unknown Rx AtorvaSTATin [Lipitor] 40 mg PO QHS #30 tablet 12/05/19 Unknown Rx Citalopram [celeXA] 10 mg PO QDAY #30 tablet 12/05/19 Unknown Rx Allergies Allergy/AdvReac Type Severity Reaction Status Date / Time aspirin AdvReac Nausea Verified 02/29/20 16:36 blood thinners AdvReac Bleeding Uncoded 08/09/16 01:53 ED Review of Systems ROS: Stated complaint: STROKE LIKE SYMPTOMS Other details as noted in HPI Constitutional: denies: chills, fever Eyes: denies: eye pain, eye discharge, vision change ENT: denies: ear pain, throat pain Respiratory: denies: cough, shortness of breath, wheezing Cardiovascular: denies: chest pain, palpitations Endocrine: no symptoms reported Gastrointestinal: denies: abdominal pain, nausea, diarrhea Genitourinary: denies: urgency, dysuria, discharge Musculoskeletal: denies: back pain, joint swelling, arthralgia Skin: denies: rash, lesions Neurological: weakness, numbness, paresthesias. denies: headache Psychiatric: denies: anxiety, depression Hematological/Lymphatic: denies: easy bleeding, easy bruising ED Past Medical Hx - Past Medical History Hx Hypertension: Yes Hx CVA: Yes (old chart no mri documentation on previous admits for same left side weakne) Hx Heart Attack/AMI: No Hx Congestive Heart Failure: No Hx Diabetes: No Hx Liver Disease: No Hx Renal Disease: No Hx Asthma: No Hx COPD: No Additional medical history: Hx. left clavicle fx., h/o muscle spasms. 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 - Surgical History Past Surgical History?: Yes Additional Surgical History: Herniated disk cspine 2001 C5-6, fusion,NECK SURGERY - Social History Smoking Status: Current Every Day Smoker Substance Use Type: None - Medications Home Medications: Home Medications Medication Instructions Recorded Confirmed Last Taken Type Oxycodone HCl [oxyCODONE] 10 mg PO Q8H PRN #10 tablet 05/04/18 02/29/20 07/31/18 Rx amLODIPine 10 mg PO HS 07/21/18 02/29/20 12/02/19 History busPIRone [Buspar] 5 mg PO BID 07/21/18 02/29/20 12/03/19 History Cyclobenzaprine [Flexeril 10 MG 10 mg PO BID PRN #5 tablet 08/04/18 02/29/20 Unknown Rx TAB] Aspirin [Aspirin BABY CHEW TAB] 81 mg PO QDAY 12/04/19 02/29/20 12/01/19 History Amitriptyline [Elavil] 25 mg PO QHS #30 tablet 12/05/19 02/29/20 Unknown Rx AtorvaSTATin [Lipitor] 40 mg PO QHS #30 tablet 12/05/19 02/29/20 Unknown Rx Citalopram [celeXA] 10 mg PO QDAY #30 tablet 12/05/19 02/29/20 Unknown Rx ED Physical Exam - General Limitations: Physical Limitation General appearance: alert, in no apparent distress - Head Head exam: Present: atraumatic, normocephalic - Eye Eye exam: Present: normal appearance, PERRL, EOMI - ENT ENT exam: Present: mucous membranes moist - Neck Neck exam: Present: normal inspection - Respiratory Respiratory exam: Present: normal lung sounds bilaterally. Absent: respiratory distress - Cardiovascular Cardiovascular Exam: Present: regular rate, normal rhythm. Absent: systolic murmur, diastolic murmur, rubs, gallop - GI/Abdominal GI/Abdominal exam: Present: soft, normal bowel sounds. Absent: distended, tenderness - Extremities Exam Extremities exam: Present: normal inspection - Back Exam Back exam: Present: normal inspection - Neurological Exam Neurological exam: Present: alert, oriented X3, other (Aphasia) - Psychiatric Psychiatric exam: Present: normal affect, normal mood - Skin Skin exam: Present: warm, dry, intact, normal color. Absent: rash ED Course Vital Signs 07/02/20 16:16 Temperature 97.8 F Pulse Rate 80 Respiratory 19 Rate Blood Pressure 138/73 Blood Pressure 138/73 [Left] O2 Sat by Pulse 98 Oximetry ED Medical Decision Making - Lab Data Result diagrams: 07/02/20 16:15 07/02/20 16:15 Lab Results 07/02/20 07/02/20 07/02/20 Range/Units 16:15 16:15 16:15 WBC 5.6 (4.5-11.0) K/mm3 RBC 5.85 H (3.65-5.03) M/mm3 Hgb 15.0 H (10.1-14.3) gm/dl Hct 44.4 H (30.3-42.9) % MCV 76 L (79-97) fl MCH 26 L (28-32) pg MCHC 34 (30-34) % RDW 17.6 H (13.2-15.2) % Plt Count 255 (140-440) K/mm3 Lymph % (Auto) 37.8 H (13.4-35.0) % Dunn % (Auto) 6.2 (0.0-7.3) % Eos % (Auto) 0.8 (0.0-4.3) % Baso % (Auto) 1.2 (0.0-1.8) % Lymph # 2.1 (1.2-5.4) K/mm3 Dunn # 0.3 (0.0-0.8) K/mm3 Eos # 0.0 (0.0-0.4) K/mm3 Baso # 0.1 (0.0-0.1) K/mm3 Seg Neutrophils % 54.0 (40.0-70.0) % Seg Neutrophils # 3.0 (1.8-7.7) K/mm3 PT 13.2 (12.2-14.9) Sec. INR 0.98 (0.87-1.13) APTT 32.2 (24.2-36.6) Sec. Thrombin Time (15.1-19.6) Sec. Sodium 139 (137-145) mmol/L Potassium 4.1 (3.6-5.0) mmol/L Chloride 104.4 (98-107) mmol/L Carbon Dioxide 19 L (22-30) mmol/L Anion Gap 20 mmol/L BUN 7 (7-17) mg/dL Creatinine 0.7 (0.6-1.2) mg/dL Estimated GFR > 60 ml/min BUN/Creatinine Ratio 10 % Glucose 93 (65-100) mg/dL POC Glucose (70-105) Calcium 9.7 (8.4-10.2) mg/dL Troponin T < 0.010 (0.00-0.029) ng/mL 07/02/20 07/02/20 Range/Units 16:15 16:33 WBC (4.5-11.0) K/mm3 RBC (3.65-5.03) M/mm3 Hgb (10.1-14.3) gm/dl Hct (30.3-42.9) % MCV (79-97) fl MCH (28-32) pg MCHC (30-34) % RDW (13.2-15.2) % Plt Count (140-440) K/mm3 Lymph % (Auto) (13.4-35.0) % Dunn % (Auto) (0.0-7.3) % Eos % (Auto) (0.0-4.3) % Baso % (Auto) (0.0-1.8) % Lymph # (1.2-5.4) K/mm3 Dunn # (0.0-0.8) K/mm3 Eos # (0.0-0.4) K/mm3 Baso # (0.0-0.1) K/mm3 Seg Neutrophils % (40.0-70.0) % Seg Neutrophils # (1.8-7.7) K/mm3 PT (12.2-14.9) Sec. INR (0.87-1.13) APTT (24.2-36.6) Sec. Thrombin Time 16.1 (15.1-19.6) Sec. Sodium (137-145) mmol/L Potassium (3.6-5.0) mmol/L Chloride (98-107) mmol/L Carbon Dioxide (22-30) mmol/L Anion Gap mmol/L BUN (7-17) mg/dL Creatinine (0.6-1.2) mg/dL Estimated GFR ml/min BUN/Creatinine Ratio % Glucose (65-100) mg/dL POC Glucose 96 (70-105) Calcium (8.4-10.2) mg/dL Troponin T (0.00-0.029) ng/mL - EKG Data -: EKG Interpreted by Me EKG shows normal: sinus rhythm Rate: normal - Radiology Data Radiology results: report reviewed Critical care attestation.: If time is entered above; I have spent that time in minutes in the direct care of this critically ill patient, excluding procedure time. ED Disposition Clinical Impression: Stroke Disposition: OP ADMIT IP TO THIS HOSP Is pt being admited?: Yes Does the pt Need Aspirin: Yes Condition: Fair - Assessment Assessment Interval: Baseline - Level of Consciousness 1a. Level of Consciousness: alert/keenly responsive - LOC Questions 1b. LOC Questions: answers both correctly - LOC Command 1c. LOC Commands: performs tasks correctly - Best Gaze 2. Best Gaze: normal - Visual 3. Visual: no visual loss - Facial Palsy 4. Facial Palsy: normal symmetrical movement - Motor Arm 5a. Motor Arm Left: no drift 5b. Motor Arm Right: no drift - Motor Leg 6a. Motor Leg Left: no drift 6b. Motor Leg Right: no drift - Limb Ataxia 7. Limb Ataxia: absent - Sensory 8. Sensory: mild/moderate sensory loss - Best Language 9. Best Language: no aphasia - Dysarthria 10. Dysarthria: normal - Extinction and Inattention 11. Extinction/Inattention: no abnormality - Scoring Total Score: 1 Stroke Severity: Minor Stroke
--- NOTE | 2020-07-02 17:47 | History and Physical Report ---
History of Present Illness Chief complaint: My face felt weak History of present illness: 74 YO Female with CVA with LHP, HTN, Nicotine Dependence presents to ED for evaluation. Patient states that she experienced an acute onset of Left facial numbness, as well as weakness. EMS was notified and upon arrival the patient was found to be in distress and subsequently transported to [facility] for further evaluation and care. Patient seen and evaluated in the emergency department. Lab and imaging studies reviewed. Patient found to have symptoms consistent with CVA and was placed in observation status and admitted to the medical floor and initiated on stroke protocol. Patient denies fever, chills, productive cough, dry cough, skin rash, unilateral leg swelling, calf pain, prolonged travel/immobility, individual/family history of DVT/PE/bleeding/blood clotting disorders, recent ill contacts, or known exposure to COVID-19. Prior admission on 02/29/2020 reviewed. All medication listed at time of admission has been reconciled.. Advanced care planning conducted in the emergency department Past History Past Medical History: hypertension, stroke Past Surgical History: Other (Cervical fusion) Social history: , smoking. denies: alcohol abuse Family history: hypertension Medications and Allergies Allergies Allergy/AdvReac Type Severity Reaction Status Date / Time aspirin AdvReac Nausea Verified 02/29/20 16:36 blood thinners AdvReac Bleeding Uncoded 08/09/16 01:53 Home Medications Medication Instructions Recorded Confirmed Last Taken Type Oxycodone HCl [oxyCODONE] 10 mg PO Q8H PRN #10 tablet 05/04/18 02/29/20 07/31/18 Rx amLODIPine 10 mg PO HS 07/21/18 02/29/20 12/02/19 History busPIRone [Buspar] 5 mg PO BID 07/21/18 02/29/20 12/03/19 History Cyclobenzaprine [Flexeril 10 MG 10 mg PO BID PRN #5 tablet 08/04/18 02/29/20 Unknown Rx TAB] Aspirin [Aspirin BABY CHEW TAB] 81 mg PO QDAY 12/04/19 02/29/20 12/01/19 History Amitriptyline [Elavil] 25 mg PO QHS #30 tablet 12/05/19 02/29/20 Unknown Rx AtorvaSTATin [Lipitor] 40 mg PO QHS #30 tablet 12/05/19 02/29/20 Unknown Rx Citalopram [celeXA] 10 mg PO QDAY #30 tablet 12/05/19 02/29/20 Unknown Rx Review of Systems Constitutional: no weight loss, no weight gain, no fever, no chills Ears, nose, mouth and throat: no ear pain, no ear discharge, no tinnitis, no nose pain Breasts: no mass Cardiovascular: no chest pain, no palpitations, no rapid/irregular heart beat, no edema Respiratory: no cough, no cough with sputum, no excessive sputum, no shortness of breath Gastrointestinal: no abdominal pain, no nausea, no diarrhea, no constipation, no hematemesis Genitourinary Female: no pelvic pain, no flank pain, no dysuria, no urinary frequency, no urgency Rectal: no pain, no incontinence, no bleeding Musculoskeletal: no neck stiffness, no neck pain, no shooting arm pain, no low back pain, no shooting leg pain, no leg numbness/tingling Integumentary: no rash, no pruritis, no redness, no sores, no wounds Neurological: numbness, no seizures, no syncope, no tremors, no change in mentation, no confusion Psychiatric: no anxiety, no memory loss, no change in sleep habits, no sleep disturbances, no insomnia, no change in appetite, no change in libido Endocrine: no cold intolerance, no heat intolerance, no flushing Hematologic/Lymphatic: no easy bruising, no lymphadenopathy Allergic/Immunologic: no allergic rhinitis, no persistent infections, no angioedema Exam - Constitutional Vitals: Temp Pulse Resp BP Pulse Ox 97.8 F 80 19 138/73 98 07/02/20 16:16 07/02/20 16:16 07/02/20 16:16 07/02/20 16:16 07/02/20 16:16 General appearance: Present: mild distress - EENT Eyes: Present: PERRL ENT: hearing intact, clear oral mucosa - Neck Neck: Present: supple, normal ROM - Respiratory Respiratory effort: normal Respiratory: bilateral: CTA - Cardiovascular Heart Sounds: Present: S1 & S2. Absent: rub, click - Extremities Extremities: pulses symmetrical, No edema Peripheral Pulses: within normal limits - Abdominal General gastrointestinal: Present: soft, non-tender, non-distended, normal bowel sounds Female genitourinary: Present: normal - Integumentary Integumentary: Present: clear, warm, dry - Musculoskeletal Musculoskeletal: left sided weakness - Psychiatric Psychiatric: appropriate mood/affect, intact judgment & insight - Neurologic Neurologic: CNII-XII intact, focal deficits, no moves all extremities, no gait n ormal HEART Score - HEART Score Troponin: Troponin T < 0.010 ng/mL (0.00-0.029) 07/02/20 16:15 Results - Labs CBC & Chem 7: 07/02/20 16:15 07/02/20 16:15 Labs: Abnormal lab results 07/02/20 07/02/20 Range/Units 16:15 16:15 RBC 5.85 H (3.65-5.03) M/mm3 Hgb 15.0 H (10.1-14.3) gm/dl Hct 44.4 H (30.3-42.9) % MCV 76 L (79-97) fl MCH 26 L (28-32) pg RDW 17.6 H (13.2-15.2) % Lymph % (Auto) 37.8 H (13.4-35.0) % Carbon Dioxide 19 L (22-30) mmol/L Assessment and Plan - Patient Problems (1) CVA (cerebral vascular accident) Current Visit: Yes Status: Chronic Qualifiers: Plan to address problem: Stroke protocol: CT head, neuro check, lipid panel, CTA head neck reviewed from 12/01 admission, antiplatelet therapy, lipid panel, physical therapy, speech therapy, Occupational Therapy, statin therapy, tele-neurology consulted in ED. (2) Hypertension Current Visit: Yes Status: Acute Qualifiers: Hypertension type: essential hypertension Qualified Code(s): I10 - Essential (primary) hypertension Plan to address problem: Monitor blood pressure every shift, continue medical management. (3) Nicotine dependence Current Visit: Yes Status: Acute Qualifiers: Nicotine product type: cigarettes Substance use status: in withdrawal Qualified Code(s): F17.213 - Nicotine dependence, cigarettes, with withdrawal Plan to address problem: Smoking cessation counseling, supportive care, behavior change counseling, +15 minutes. (4) DVT prophylaxis Current Visit: Yes Status: Acute Plan to address problem: SCD to bilateral lower extremities while in bed, patient is ambulatory (5) Advance care planning Current Visit: No Status: Acute Plan to address problem: Disease education conducted, patient is full code, prognosis discussed, patient knowledges understanding and agreement with care plan, +30 minutes.
[2020-07-02] MEDS ORDERED: MAGNESIUM HYDROXIDE (MOM) ORAL LIQD UDC PO PRN (17:52)
[2020-07-02] MEDS ORDERED: PROMETHAZINE 25 MG RECT SUPP PR PRN (17:52)
[2020-07-02] MEDS ORDERED: ONDANSETRON 4 MG/2 ML INJ IV PRN (17:52)
[2020-07-02] MEDS ORDERED: METOCLOPRAMIDE 10 MG TAB PO PRN (17:52)
[2020-07-02] MEDS ORDERED: ACETAMINOPHEN 325 MG TAB PO PRN (17:52)
[2020-07-02] MEDS ORDERED: ASPIRIN 81 MG TAB CHEW PO SCH (19:00)
[2020-07-02] MEDS ORDERED: ASPIRIN 81 MG TAB CHEW ONE (20:24)
[2020-07-02] MEDS ORDERED: busPIRone 5 MG TAB PO ONE (23:45)
[2020-07-02] MEDS ORDERED: CYCLOBENZAPRINE 10 MG TAB PO ONE (23:45)
[2020-07-03] MEDS ORDERED: PROMETHAZINE 25 MG RECT SUPP PR PRN (04:32)
[2020-07-03] MEDS ORDERED: MAGNESIUM HYDROXIDE (MOM) ORAL LIQD UDC PO PRN (04:32)
[2020-07-03] MEDS ORDERED: METOCLOPRAMIDE 10 MG/2 ML INJ IV PRN (04:33)
[2020-07-03] MEDS ORDERED: ACETAMINOPHEN 325 MG TAB PO PRN (04:34)
[2020-07-03] MEDS ORDERED: ONDANSETRON 4 MG/2 ML INJ IV PRN (04:36)
[2020-07-03 05:34] VITALS: BP 104/60
[2020-07-03] MEDS ORDERED: ASPIRIN 325 MG TAB PO SCH (10:00)
[2020-07-03] MEDS ORDERED: ASPIRIN 81 MG TAB CHEW PO SCH (10:00)
--- NOTE | 2020-07-03 10:55 | Discharge Summary ---
Providers - Providers Date of Admission: 07/02/20 17:52 Attending physician: ALFREDO OWENS Hospitalization Condition: Fair - Discharge Diagnoses (1) CVA (cerebral vascular accident) Status: Chronic Qualifiers: (2) Hypertension Status: Acute Qualifiers: Hypertension type: essential hypertension Qualified Code(s): I10 - Essential (primary) hypertension (3) Nicotine dependence Status: Acute Qualifiers: Nicotine product type: cigarettes Substance use status: in withdrawal Qualified Code(s): F17.213 - Nicotine dependence, cigarettes, with withdrawal (4) DVT prophylaxis Status: Acute (5) Advance care planning Status: Acute Exam - Constitutional Vitals: Temp Pulse Resp BP Pulse Ox 98.3 F 78 18 104/60 96 07/03/20 05:03 07/03/20 05:03 07/03/20 05:03 07/03/20 05:03 07/03/20 08:46 Plan Follow up with: KATALINA MARCOS [Other] - 3-5 Days
== END 2020-07-03 13:31 | disposition home or self-care (01) ==
LOC: ED 15:28 → 3A 17:52
PROVIDERS: ADMIT Internal Medicine; ATTEND Internal Medicine
DX: I63.9 Cerebral infarction, unspecified (principal); I10 Essential (primary) hypertension; F17.213 Nicotine dependence, cigarettes, with withdrawal; R29.701 NIHSS score 1; Z79.82 Long term (current) use of aspirin; Z98.890 Other specified postprocedural states; Z79.899 Other long term (current) drug therapy
CPT/HCPCS: 36415; 70450; 80048; 82962; 84484; 85025; 85610; 85670; 85730; 87641; 93005; 99291; 99406; A9270; G0378

== ENCOUNTER 2020-08-29 19:16 | Emergency (ER) | payer MEDICARE ==
[2020-08-29] MEDS ORDERED: ACETAMINOPHEN 500 MG TAB PO ONE (19:34)
--- NOTE | 2020-08-29 19:36 | Emergency Department Report ---
ED Headache HPI - General Chief Complaint: Headache Stated Complaint: RT SILDE HEAD PAIN Time Seen by Provider: 08/29/20 19:32 Source: patient Exam Limitations: no limitations - History of Present Illness Initial Comments: Chief complaint: Headache HPI this is a 74-year-old female with history of CVA with left-sided hemiparesis, hypertension, dyslipidemia, spinal cord compression, cerebral aneurysm, nicotine dependence who presents with right forehead headache. Pain radiates to the left arm. 2 episodes sharp pain which spontaneously resolved while being transported by EMS. Upon exam of electronic medical record patient has had multiple ED evaluations for headache. Patient states she has an aneurysm behind her left eye. Timing/Duration: 1 hour Quality: severe Head Injury Location: frontal Recent Head Trauma: frequent headaches Associated Symptoms: denies symptoms Allergies/Adverse Reactions: Allergies aspirin Adverse Reaction (Verified 02/29/20 16:36) Nausea blood thinners Adverse Reaction (Uncoded 08/09/16 01:53) Bleeding Home Medications: Ambulatory Orders Oxycodone HCl [oxyCODONE] 10 mg PO Q8H PRN #10 tablet 05/04/18 amLODIPine 10 mg PO HS 07/21/18 busPIRone [Buspar] 5 mg PO BID 07/21/18 Cyclobenzaprine [Flexeril 10 MG TAB] 10 mg PO BID PRN #5 tablet 08/04/18 Aspirin [Aspirin BABY CHEW TAB] 81 mg PO QDAY 12/04/19 Amitriptyline [Elavil] 25 mg PO QHS #30 tablet 12/05/19 AtorvaSTATin [Lipitor] 40 mg PO QHS #30 tablet 12/05/19 Citalopram [celeXA] 10 mg PO QDAY #30 tablet 12/05/19 ED Review of Systems ROS: Stated complaint: RT SILDE HEAD PAIN Other details as noted in HPI Comment: All other systems reviewed and negative Constitutional: denies: fever, malaise Respiratory: denies: cough, shortness of breath Cardiovascular: denies: chest pain Gastrointestinal: denies: abdominal pain, nausea, vomiting Neurological: denies: weakness, numbness, paresthesias, confusion, abnormal gait, vertigo ED Past Medical Hx - Past Medical History Previous Medical History?: Yes Hx Hypertension: Yes Hx CVA: Yes (old chart no mri documentation on previous admits for same left side weakne) Hx Heart Attack/AMI: No Hx Congestive Heart Failure: No Hx Diabetes: No Hx Liver Disease: No Hx Renal Disease: No Hx Asthma: No Hx COPD: No Additional medical history: Hx. left clavicle fx., h/o muscle spasms. 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, spinal stenosis - Surgical History Past Surgical History?: Yes Additional Surgical History: Herniated disk cspine 2001 C5-6, fusion,NECK SURGERY - Social History Smoking Status: Current Every Day Smoker Substance Use Type: Marijuana - Medications Home Medications: Home Medications Medication Instructions Recorded Confirmed Last Taken Type Oxycodone HCl [oxyCODONE] 10 mg PO Q8H PRN #10 tablet 05/04/18 07/02/20 07/31/18 Rx amLODIPine 10 mg PO HS 07/21/18 07/02/20 12/02/19 History busPIRone [Buspar] 5 mg PO BID 07/21/18 07/02/20 12/03/19 History Cyclobenzaprine [Flexeril 10 MG 10 mg PO BID PRN #5 tablet 08/04/18 07/02/20 Unknown Rx TAB] Aspirin [Aspirin BABY CHEW TAB] 81 mg PO QDAY 12/04/19 07/02/20 12/01/19 History Amitriptyline [Elavil] 25 mg PO QHS #30 tablet 12/05/19 07/02/20 Unknown Rx AtorvaSTATin [Lipitor] 40 mg PO QHS #30 tablet 12/05/19 07/02/20 Unknown Rx Citalopram [celeXA] 10 mg PO QDAY #30 tablet 12/05/19 07/02/20 Unknown Rx ED Physical Exam - General Limitations: Physical Limitation General appearance: alert, in no apparent distress - Head Head exam: Present: atraumatic, normocephalic - Eye Eye exam: Present: normal appearance - ENT ENT exam: Present: mucous membranes moist - Neck Neck exam: Present: normal inspection, full ROM - Respiratory Respiratory exam: Present: normal lung sounds bilaterally. Absent: respiratory distress, wheezes, rales, rhonchi - Cardiovascular Cardiovascular Exam: Present: regular rate, normal rhythm, normal heart sounds. Absent: systolic murmur, diastolic murmur, rubs, gallop - GI/Abdominal GI/Abdominal exam: Present: soft, normal bowel sounds. Absent: distended, tenderness, guarding, rebound - Extremities Exam Extremities exam: Present: other (Contracted left upper extremity) - Neurological Exam Neurological exam: Present: alert, oriented X3 - Psychiatric Psychiatric exam: Present: normal affect, normal mood - Skin Skin exam: Present: warm, dry, intact, normal color. Absent: rash ED Course Vital Signs 08/29/20 08/29/20 08/29/20 19:34 19:45 20:00 Pulse Rate 89 83 88 Respiratory 17 19 17 Rate Blood Pressure 121/63 134/69 O2 Sat by Pulse 95 93 95 Oximetry ED Medical Decision Making - Medical Decision Making Mrs. Hebert presents with right-sided headache. Brief in nature. Spontaneously resolved. I do not suspect intracranial hemorrhage or sentinel bleed. Do not suspect acute glaucoma or temporal arteritis. Patient has been seen on previous occasions for headache evaluation at this ER. She received hydroxyzine and acetaminophen prophylactically. Patient was given reassurance and discharged home. Critical care attestation.: If time is entered above; I have spent that time in minutes in the direct care of this critically ill patient, excluding procedure time. ED Disposition Clinical Impression: Headache Disposition: DC-01 TO HOME OR SELFCARE Is pt being admited?: No Does the pt Need Aspirin: No Condition: Stable Instructions: Acute Headache (ED) Referrals: PRIMARY CARE, [Primary Care Provider] - 3-5 Days
[2020-08-29] MEDS ORDERED: hydrOXYzine HCL 10 MG TAB PO ONE (20:00)
[2020-08-29 20:12] VITALS: BP 134/69
== END 2020-08-29 21:38 | disposition home or self-care (01) ==
LOC: ED 19:16
DX: R51.9 Headache, unspecified (principal); M79.601 Pain in right arm; I10 Essential (primary) hypertension; F17.200 Nicotine dependence, unspecified, uncomplicated; F12.10 Cannabis abuse, uncomplicated; Z86.73 Personal history of transient ischemic attack (TIA), and cerebral infarction without residual deficits; Z98.890 Other specified postprocedural states; Z79.899 Other long term (current) drug therapy; Z88.6 Allergy status to analgesic agent; Z88.8 Allergy status to other drugs, medicaments and biological substances

== ENCOUNTER 2020-10-11 12:59 | Emergency (ER) | payer MEDICARE ==
[2020-10-11 16:05] VITALS: BP 146/77
--- NOTE | 2020-10-11 17:19 | Event Note ---
ED Screening Note ED Screening Note: states she had left sided weakness which is chronic states her left arm and left leg tightned up on her yesterday states she believes she has anxiety exacerbation states she has been out of her anxiety medication for a week has an appointment with PCP tomorrow morning no HANNA This initial assessment/diagnostic orders/clinical plan/treatment(s) is/are subject to change based on patients health status, clinical progression and re- assessment by fellow clinical providers in the ED. Further treatment and workup at subsequent clinical providers discretion. Patient/guardian urged not to elope from the ED as their condition may be serious if not clinically assessed and managed. Initial orders include: CT head, labs, EKG
[2020-10-11 17:58] LABS: Hematocrit 45.2 % (30.3-42.9); Hemoglobin 14.7 gm/dl (10.1-14.3); Mean Corpuscular HGB Conc 33 % (30-34); Mean Corpuscular Volume 77 fl (79-97); Platelet Count 256 K/mm3 (140-440); Red Blood Count 5.86 M/mm3 (3.65-5.03); Red Cell Distribution Width 17.8 % (13.2-15.2)
[2020-10-11 18:00] LABS: Alanine Aminotransferase 17 units/L (7-56); Albumin 4.3 g/dL (3.9-5); Basophils % (Auto) 0.5 % (0.0-1.8); Blood Urea Nitrogen 7 mg/dL (7-17); Calcium 9.6 mg/dL (8.4-10.2); Eosinophils % (Auto) 0.7 % (0.0-4.3); Hemolysis Index 15; Lymphocytes # (Auto) 2.7 K/mm3 (1.2-5.4); Lymphocytes % (Auto) 41.8 % (13.4-35.0); Monocytes # (Auto) 0.4 K/mm3 (0.0-0.8); Monocytes % (Auto) 5.6 % (0.0-7.3)
[2020-10-11 18:08] LABS: BUN/Creatinine Ratio 12
--- NOTE | 2020-10-11 18:43 | Cat Scan Report ---
CT head/brain wo con INDICATION / CLINICAL INFORMATION: 74 years Female; left sided weakness. TECHNIQUE: Routine CT head without contrast. All CT scans at this location are performed using CT dos e reduction for ALARA by means of automated exposure control. COMPARISON: The study is compared to the previous CT of 07/02/2020. FINDINGS: BRAIN / INTRACRANIAL CONTENTS: There is mild cerebral white matter disease most consistent with micro vascular angiopathy. Findings correlate with the prior exam. Additionally, this mild cerebral and cer ebellar atrophy with corresponding mild prominence of the ventricular system which is also unchanged. There is no clear CT evidence of acute intracranial hemorrhage or significant mass effect. ORBITS: No significant abnormality of visualized orbits. SINUSES / MASTOIDS: The visualized paranasal sinuses are clear. There is continued scattered opacific ation within the left mastoid air cells. CRANIOCERVICAL JUNCTION: No significant abnormality. ADDITIONAL FINDINGS: None. IMPRESSION: 1. There is continued microvascular angiopathy and cerebral atrophy as described without CT ends of a cute intracranial hemorrhage. Signer Name: Fabio Woodard MD Signed: 10/11/2020 6:38 PM Workstation Name: [id number]
--- NOTE | 2020-10-11 20:22 | Emergency Department Report ---
ED General Adult HPI - General Chief complaint: Anxiety Stated complaint: ANXIETY Time Seen by Provider: 10/11/20 17:16 Source: patient Mode of arrival: Wheelchair Limitations: No Limitations - History of Present Illness Initial comments: Chief complaint: "I am just having a real bad anxiety attack." HPI: This is a 74-year-old with history of CVA left-sided hemiparesis, hypertension, dyslipidemia, spinal stenosis, nonruptured cerebral aneurysm, chronic shoulder pain, hypertension, angina who presents with a constellation of symptoms including chronic left-sided arm weakness, chronic left shoulder pain. She also has persistent right facial numbness which is unchanged according to her report. She has ran out of her BuSpar medication. She has a follow-up with her PCP in the morning. She has not taken BuSpar in 7 days. She feels as if she is withdrawing from this medication. -: Gradual, days(s) (For the past several days) Location: face, left, upper extremity Severity scale (0 -10): 0 Consistency: constant, now resolved Improves with: rest Worsens with: none Associated Symptoms: other (Anxiety) - Related Data Home Medications Medication Instructions Recorded Confirmed Last Taken amLODIPine 10 mg PO HS 07/21/18 07/02/20 12/02/19 busPIRone [Buspar] 5 mg PO BID 07/21/18 07/02/20 12/03/19 Aspirin [Aspirin BABY CHEW TAB] 81 mg PO QDAY 12/04/19 07/02/20 12/01/19 Previous Rx's Medication Instructions Recorded Last Taken Type Oxycodone HCl [oxyCODONE] 10 mg PO Q8H PRN #10 tablet 05/04/18 07/31/18 Rx Cyclobenzaprine [Flexeril 10 MG 10 mg PO BID PRN #5 tablet 08/04/18 Unknown Rx TAB] Amitriptyline [Elavil] 25 mg PO QHS #30 tablet 12/05/19 Unknown Rx AtorvaSTATin [Lipitor] 40 mg PO QHS #30 tablet 12/05/19 Unknown Rx Citalopram [celeXA] 10 mg PO QDAY #30 tablet 12/05/19 Unknown Rx Allergies Allergy/AdvReac Type Severity Reaction Status Date / Time aspirin AdvReac Nausea Verified 02/29/20 16:36 blood thinners AdvReac Bleeding Uncoded 08/09/16 01:53 ED Review of Systems ROS: Stated complaint: ANXIETY Other details as noted in HPI Comment: All other systems reviewed and negative Constitutional: denies: fever, malaise Respiratory: denies: cough, shortness of breath Gastrointestinal: denies: abdominal pain, nausea, vomiting ED Past Medical Hx - Past Medical History Previous Medical History?: Yes Hx Hypertension: Yes Hx CVA: Yes (old chart no mri documentation on previous admits for same left side weakne) Hx Heart Attack/AMI: No Hx Congestive Heart Failure: No Hx Diabetes: No Hx Liver Disease: No Hx Renal Disease: No Hx Asthma: No Hx COPD: No Additional medical history: Hx. left clavicle fx., h/o muscle spasms. 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, spinal stenosis - Surgical History Past Surgical History?: Yes Additional Surgical History: Herniated disk cspine 2001 C5-6, fusion,NECK SURGERY - Social History Smoking Status: Current Every Day Smoker Substance Use Type: Marijuana - Medications Home Medications: Home Medications Medication Instructions Recorded Confirmed Last Taken Type Oxycodone HCl [oxyCODONE] 10 mg PO Q8H PRN #10 tablet 05/04/18 07/02/20 07/31/18 Rx amLODIPine 10 mg PO HS 07/21/18 07/02/20 12/02/19 History busPIRone [Buspar] 5 mg PO BID 07/21/18 07/02/20 12/03/19 History Cyclobenzaprine [Flexeril 10 MG 10 mg PO BID PRN #5 tablet 08/04/18 07/02/20 Unknown Rx TAB] Aspirin [Aspirin BABY CHEW TAB] 81 mg PO QDAY 12/04/19 07/02/20 12/01/19 History Amitriptyline [Elavil] 25 mg PO QHS #30 tablet 12/05/19 07/02/20 Unknown Rx AtorvaSTATin [Lipitor] 40 mg PO QHS #30 tablet 12/05/19 07/02/20 Unknown Rx Citalopram [celeXA] 10 mg PO QDAY #30 tablet 12/05/19 07/02/20 Unknown Rx ED Physical Exam - General Limitations: No Limitations General appearance: alert, in no apparent distress, other (Patient appears well, patient appears comfortable) - Head Head exam: Present: atraumatic, normocephalic - Eye Eye exam: Present: normal appearance - ENT ENT exam: Present: mucous membranes moist - Neck Neck exam: Present: normal inspection, full ROM - Respiratory Respiratory exam: Present: normal lung sounds bilaterally. Absent: respiratory distress, wheezes, rales, rhonchi - Cardiovascular Cardiovascular Exam: Present: regular rate, normal rhythm, normal heart sounds. Absent: systolic murmur, diastolic murmur, rubs, gallop - GI/Abdominal GI/Abdominal exam: Present: soft, normal bowel sounds. Absent: distended, tenderness, guarding, rebound - Extremities Exam Extremities exam: Present: normal inspection - Neurological Exam Neurological exam: Present: alert, oriented X3 - Psychiatric Psychiatric exam: Present: normal affect, normal mood - Skin Skin exam: Present: warm, dry, intact, normal color. Absent: rash ED Course Vital Signs 10/11/20 16:04 Temperature 98 F Pulse Rate 76 Respiratory 20 Rate Blood Pressure 146/77 [Left] O2 Sat by Pulse 97 Oximetry ED Medical Decision Making - Lab Data Result diagrams: 10/11/20 17:21 10/11/20 17:21 Laboratory Results - last 24 hr 10/11/20 10/11/20 17:21 17:21 WBC 6.4 RBC 5.86 H Hgb 14.7 H Hct 45.2 H MCV 77 L MCH 25 L MCHC 33 RDW 17.8 H Plt Count 256 Lymph % (Auto) 41.[address] [place] % (Auto) 5.6 Eos % (Auto) 0.7 Baso % (Auto) 0.5 Lymph # (Auto) 2.7 [facility] [place] # (Auto) 0.4 Eos # (Auto) 0.0 Baso # (Auto) 0.0 Seg Neutrophils % 51.4 Seg Neutrophils # 3.3 Sodium 137 Potassium 4.1 Chloride 104.9 Carbon Dioxide 19 L Anion Gap 17 BUN 7 Creatinine 0.6 Estimated GFR > 60 BUN/Creatinine Ratio 12 Glucose 85 Calcium 9.6 Total Bilirubin 0.30 AST 17 ALT 17 Alkaline Phosphatase 142 H Troponin T < 0.010 Total Protein 7.9 Albumin 4.3 Albumin/Globulin Ratio 1.2 - Medical Decision Making Ms. Hebert has a history of multiple medical conditions. She has a host of chronic concerns. She is grateful for the reassurance. No evidence of acute CVA or infection. No indication of emergent condition. She admits that she does have anxiety. No thoughts of suicide. She has appropriate insight. She will request BuSpar medication refill by her PCP during tomorrow's appointment. Critical care attestation.: If time is entered above; I have spent that time in minutes in the direct care of this critically ill patient, excluding procedure time. ED Disposition Clinical Impression: Anxiety disorder, History of CVA (cerebrovascular accident), Hemiparesis due to old stroke Disposition: DC-01 TO HOME OR SELFCARE Is pt being admited?: No Does the pt Need Aspirin: No Condition: Stable Referrals: KATALINA MARCOS MD [Primary Care Provider] - JEFFY
[2020-10-11] MEDS ORDERED: busPIRone 5 MG TAB PO STA (20:41)
== END 2020-10-11 21:40 | disposition home or self-care (01) ==
LOC: ED 12:59
DX: I69.359 Hemiplegia and hemiparesis following cerebral infarction affecting unspecified side (principal); F41.9 Anxiety disorder, unspecified; R51.9 Headache, unspecified; I10 Essential (primary) hypertension; F17.200 Nicotine dependence, unspecified, uncomplicated; F12.10 Cannabis abuse, uncomplicated; Z98.890 Other specified postprocedural states; Z79.899 Other long term (current) drug therapy; Z88.8 Allergy status to other drugs, medicaments and biological substances
CPT/HCPCS: 36415; 70450; 80053; 84484; 85025

== ENCOUNTER 2020-10-23 15:46 | Observation (INO) | payer MEDICARE ==
--- NOTE | 2020-10-23 16:35 | Event Note ---
ED Screening Note Date of service: 10/23/20 Time: 16:18 ED Screening Note: 74-year-old -[place] female presents to the emergency room for increased weakness on her left side. Patient has a history of CVA with left-sided weakness. This initial assessment/diagnostic orders/clinical plan/treatment(s) is/are subject to change based on patients health status, clinical progression and re- assessment by fellow clinical providers in the ED. Further treatment and workup at subsequent clinical providers discretion. Patient/guardian urged not to elope from the ED as their condition may be serious if not clinically assessed and managed. Initial orders include:
[2020-10-23 17:02] LABS: Mean Corpuscular HGB Conc 33 % (30-34); Mean Corpuscular Volume 78 fl (79-97); Platelet Count 257 K/mm3 (140-440); Red Blood Count 5.91 M/mm3 (3.65-5.03); Red Cell Distribution Width 17.7 % (13.2-15.2)
[2020-10-23 17:21] LABS: Alanine Aminotransferase 15 units/L (7-56); Albumin 4.4 g/dL (3.9-5); Blood Urea Nitrogen 7 mg/dL (7-17); Calcium 9.7 mg/dL (8.4-10.2); Hemolysis Index 14
[2020-10-23 17:32] LABS: BUN/Creatinine Ratio 10
--- NOTE | 2020-10-23 20:44 | Cat Scan Report ---
CT head/brain wo con INDICATION / CLINICAL INFORMATION: 74 years Female; Increase left side weakness. TECHNIQUE: Routine CT head without contrast. All CT scans at this location are performed using CT dos e reduction for ALARA by means of automated exposure control. COMPARISON: 10/11/2020 FINDINGS: BRAIN / INTRACRANIAL CONTENTS: No acute hemorrhage, mass effect, midline shift, hydrocephalus, or acu te, large territorial infarct. Mild cerebral and mild to moderate cerebellar atrophy. There are mild areas of decreased attenuation in the white matter of the cerebral hemispheres, as wel l as the gangliocapsular regions. These are nonspecific findings and may be related to microangiopath y (hypertension, diabetes, atherosclerosis), given the patient's age. It might be difficult to evalua te for small areas of ischemia without diffusion imaging by MRI. CRANIOCERVICAL JUNCTION: No significant abnormality. ORBITS: No significant abnormality of visualized orbits. SINUSES / MASTOIDS: There is partial opacification of the mastoids on the left. ADDITIONAL FINDINGS: Atherosclerotic disease is seen in the anterior and posterior circulation. IMPRESSION: 1. No focal mass, hemorrhage, hydrocephalus, or acute, large territorial infarct. Signer Name: Bora Ruiz MD, III Signed: 10/23/2020 8:39 PM Workstation Name: [email or web address]
--- NOTE | 2020-10-23 21:05 | Emergency Department Report ---
- General Chief complaint: Weakness Stated complaint: LEFT SIDE MUSCLE PAIN PUI?: No Time Seen by Provider: 10/23/20 20:35 Source: patient, EMS Mode of arrival: Wheelchair Limitations: Physical Limitation - History of Present Illness Initial comments: Patient is a 74-year-old female that presents emergency room with complaints of left-sided weakness, left-sided numbness, left-sided tingling. Patient states that her symptoms started a week ago. Patient states her symptoms are worsening. Patient states she has left-sided weakness due to a previous stroke but this weakness is worsening. Patient states that she is also having difficulties walking. Patient states she has had multiple TIAs. Patient denies recent travel. Patient denies recent international travel. Patient denies exposure to the novel coronavirus. Patient denies sick contacts. Patient denies fever and chills. Patient denies cough. Patient denies diarrhea. Patient denies coming in contact with anybody with symptoms of the novel coronavirus. MD Complaint: focal weakness, numbness, tingling, difficulty walking -: Sudden, week(s) Location: [facility] Severity: severe Quality: tingling, numbness Consistency: constant Improves with: rest Worsens with: movement Associated Symptoms: denies other symptoms - Related Data Home Medications Medication Instructions Recorded Confirmed Last Taken amLODIPine 10 mg PO HS 07/21/18 07/02/20 12/02/19 busPIRone [Buspar] 5 mg PO BID 07/21/18 07/02/20 12/03/19 Aspirin [Aspirin BABY CHEW TAB] 81 mg PO QDAY 12/04/19 07/02/20 12/01/19 Previous Rx's Medication Instructions Recorded Last Taken Type Oxycodone HCl [oxyCODONE] 10 mg PO Q8H PRN #10 tablet 05/04/18 07/31/18 Rx Cyclobenzaprine [Flexeril 10 MG 10 mg PO BID PRN #5 tablet 08/04/18 Unknown Rx TAB] Amitriptyline [Elavil] 25 mg PO QHS #30 tablet 12/05/19 Unknown Rx AtorvaSTATin [Lipitor] 40 mg PO QHS #30 tablet 12/05/19 Unknown Rx Citalopram [celeXA] 10 mg PO QDAY #30 tablet 12/05/19 Unknown Rx Allergies Allergy/AdvReac Type Severity Reaction Status Date / Time aspirin AdvReac Nausea Verified 02/29/20 16:36 blood thinners AdvReac Bleeding Uncoded 08/09/16 01:53 ED Review of Systems ROS: Stated complaint: LEFT SIDE MUSCLE PAIN Other details as noted in HPI Constitutional: weakness. denies: chills, fever Eyes: denies: eye pain, eye discharge, vision change ENT: denies: ear pain, throat pain Respiratory: denies: cough, shortness of breath, wheezing Cardiovascular: denies: chest pain, palpitations Endocrine: no symptoms reported Gastrointestinal: denies: abdominal pain, nausea, diarrhea Genitourinary: denies: urgency, dysuria, discharge Musculoskeletal: denies: back pain, joint swelling, arthralgia Skin: denies: rash, lesions Neurological: as per HPI, weakness, numbness. denies: headache Psychiatric: denies: anxiety, depression Hematological/Lymphatic: denies: easy bleeding, easy bruising ED Past Medical Hx - Past Medical History Previous Medical History?: Yes Hx Hypertension: Yes Hx CVA: Yes (old chart no mri documentation on previous admits for same left side weakne) Hx Heart Attack/AMI: No Hx Congestive Heart Failure: No Hx Diabetes: No Hx Liver Disease: No Hx Renal Disease: No Hx Asthma: No Hx COPD: No Additional medical history: Hx. left clavicle fx., h/o muscle spasms. 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, spinal stenosis - Surgical History Past Surgical History?: Yes Additional Surgical History: Herniated disk cspine 2001 C5-6, fusion,NECK SURGERY - Family History Family history: no significant - Social History Smoking Status: Current Every Day Smoker Substance Use Type: Alcohol - Medications Home Medications: Home Medications Medication Instructions Recorded Confirmed Last Taken Type Oxycodone HCl [oxyCODONE] 10 mg PO Q8H PRN #10 tablet 05/04/18 07/02/20 07/31/18 Rx amLODIPine 10 mg PO HS 07/21/18 07/02/20 12/02/19 History busPIRone [Buspar] 5 mg PO BID 07/21/18 07/02/20 12/03/19 History Cyclobenzaprine [Flexeril 10 MG 10 mg PO BID PRN #5 tablet 08/04/18 07/02/20 Unknown Rx TAB] Aspirin [Aspirin BABY CHEW TAB] 81 mg PO QDAY 12/04/19 07/02/20 12/01/19 History Amitriptyline [Elavil] 25 mg PO QHS #30 tablet 12/05/19 07/02/20 Unknown Rx AtorvaSTATin [Lipitor] 40 mg PO QHS #30 tablet 12/05/19 07/02/20 Unknown Rx Citalopram [celeXA] 10 mg PO QDAY #30 tablet 12/05/19 07/02/20 Unknown Rx ED Physical Exam - General Limitations: Physical Limitation General appearance: alert, in no apparent distress - Head Head exam: Present: atraumatic, normocephalic - Eye Eye exam: Present: normal appearance - ENT ENT exam: Present: mucous membranes moist - Neck Neck exam: Present: normal inspection - Respiratory Respiratory exam: Present: normal lung sounds bilaterally. Absent: respiratory distress - Cardiovascular Cardiovascular Exam: Present: regular rate, normal rhythm. Absent: systolic murmur, diastolic murmur, rubs, gallop - GI/Abdominal GI/Abdominal exam: Present: soft, normal bowel sounds - Extremities Exam Extremities exam: Present: normal inspection - Back Exam Back exam: Present: normal inspection - Neurological Exam Neurological exam: Present: alert, oriented X3 - Psychiatric Psychiatric exam: Present: normal affect, normal mood - Skin Skin exam: Present: warm, dry, intact, normal color. Absent: rash - Assessment Assessment Interval: Baseline - Level of Consciousness 1a. Level of Consciousness: alert/keenly responsive - LOC Questions 1b. LOC Questions: answers both correctly - LOC Command 1c. LOC Commands: performs tasks correctly - Best Gaze 2. Best Gaze: normal - Visual 3. Visual: no visual loss - Facial Palsy 4. Facial Palsy: normal symmetrical movement - Motor Arm 5a. Motor Arm Left: drift 5b. Motor Arm Right: no drift - Motor Leg 6a. Motor Leg Left: drift 6b. Motor Leg Right: no movement - Limb Ataxia 7. Limb Ataxia: absent - Sensory 8. Sensory: mild/moderate sensory loss - Best Language 9. Best Language: no aphasia - Dysarthria 10. Dysarthria: normal - Extinction and Inattention 11. Extinction/Inattention: no abnormality - Scoring Total Score: 7 Stroke Severity: Moderate Stroke ED Course Vital Signs 10/23/20 10/23/20 10/23/20 16:09 20:09 20:25 Temperature 98.3 F Pulse Rate 95 H 87 Respiratory 14 18 Rate Blood Pressure 160/73 139/67 O2 Sat by Pulse 95 99 Oximetry 10/23/20 10/23/20 10/23/20 20:30 20:40 20:50 Temperature Pulse Rate 80 86 76 Respiratory 19 15 21 Rate Blood Pressure 139/67 128/71 138/75 O2 Sat by Pulse 100 100 Oximetry 10/23/20 10/23/20 10/23/20 21:00 21:10 21:20 Temperature Pulse Rate 76 76 75 Respiratory 21 17 17 Rate Blood Pressure 138/75 127/64 141/80 O2 Sat by Pulse 100 98 98 Oximetry 10/23/20 10/23/20 10/23/20 21:30 21:40 21:50 Temperature Pulse Rate 83 75 84 Respiratory 21 19 17 Rate Blood Pressure 149/81 128/71 141/80 O2 Sat by Pulse 98 98 97 Oximetry 10/23/20 10/23/20 10/23/20 22:00 22:10 22:20 Temperature Pulse Rate 76 75 80 Respiratory 17 17 15 Rate Blood Pressure 138/73 138/73 153/84 O2 Sat by Pulse 98 98 97 Oximetry 10/23/20 10/23/20 10/23/20 22:30 22:40 22:50 Temperature Pulse Rate 77 75 78 Respiratory 19 17 19 Rate Blood Pressure 147/71 147/71 131/74 O2 Sat by Pulse 99 97 97 Oximetry 10/23/20 10/23/20 10/23/20 23:00 23:10 23:20 Temperature Pulse Rate 78 94 H 84 Respiratory 17 24 16 Rate Blood Pressure 141/75 141/75 141/75 O2 Sat by Pulse 97 100 97 Oximetry 10/23/20 10/23/20 10/23/20 23:30 23:40 23:48 Temperature Pulse Rate 80 82 89 Respiratory 15 15 24 Rate Blood Pressure 141/75 141/75 141/75 O2 Sat by Pulse 98 97 100 Oximetry 10/24/20 10/24/20 10/24/20 00:00 00:16 00:30 Temperature Pulse Rate Respiratory Rate Blood Pressure 141/75 141/75 141/75 O2 Sat by Pulse 99 97 97 Oximetry 10/24/20 10/24/20 10/24/20 00:54 01:00 01:10 Temperature Pulse Rate 95 H 86 89 Respiratory 20 15 14 Rate Blood Pressure 141/75 141/75 141/75 O2 Sat by Pulse Oximetry 10/24/20 10/24/20 10/24/20 01:20 01:30 01:40 Temperature Pulse Rate 76 75 80 Respiratory 22 15 20 Rate Blood Pressure 141/75 141/75 141/75 O2 Sat by Pulse Oximetry 10/24/20 10/24/20 10/24/20 01:50 02:00 02:10 Temperature Pulse Rate 78 83 82 Respiratory 15 17 22 Rate Blood Pressure 141/75 141/75 141/75 O2 Sat by Pulse Oximetry - Reevaluation(s) Reevaluation #1: I discussed all results with patient. I discussed plan of care with patient. Patient agrees with plan of care and admission. Patient to be admitted to the hospitalist service. 10/23/20 21:06 - Consultations Consultation #1: Hospitalist consulted for admission. Hospitalist to admit patient. 10/23/20 21:06 ED Medical Decision Making - Lab Data Result diagrams: 10/23/20 16:44 10/23/20 16:44 - Radiology Data Radiology results: report reviewed CT head/brain wo con INDICATION / CLINICAL INFORMATION: 74 years Female; Increase left side weakness. TECHNIQUE: Routine CT head without contrast. All CT scans at this location are performed using CT dose reduction for ALARA by means of automated exposure control. COMPARISON: 10/11/2020 FINDINGS: BRAIN / INTRACRANIAL CONTENTS: No acute hemorrhage, mass effect, midline shift, hydrocephalus, or acute, large territorial infarct. Mild cerebral and mild to moderate cerebellar atrophy. There are mild areas of decreased attenuation in the white matter of the cerebral hemispheres, as well as the gangliocapsular regions. These are nonspecific findings and may be related to microangiopathy (hypertension, diabetes, atherosclerosis), given the patient's age. It might be difficult to evaluate for small areas of ischemia without diffusion imaging by MRI. CRANIOCERVICAL JUNCTION: No significant abnormality. ORBITS: No significant abnormality of visualized orbits. SINUSES / MASTOIDS: There is partial opacification of the mastoids on the left. ADDITIONAL FINDINGS: Atherosclerotic disease is seen in the anterior and posterior circulation. IMPRESSION: 1. No focal mass, hemorrhage, hydrocephalus, or acute, large territorial infarct. - Medical Decision Making Patient is a 74-year-old female that presents emergency room with complaints of left-sided weakness and left-sided numbness and tingling. Patient has a history of CVA and multiple TIAs. Patient had a head CT done which was negative for acute finding. Patient had labs done. Patient's labs are unremarkable. Patient admitted to the hospitalist service for further evaluation treatment. Patient will require inpatient neurology and MRI. - Differential Diagnosis CVA, TIA, left-sided weakness, numbness, tingling Critical Care Time: Yes Critical care time in (mins) excluding proc time.: 35 Critical care attestation.: If time is entered above; I have spent that time in minutes in the direct care of this critically ill patient, excluding procedure time. Critical Care Time: 35 minutes ED Disposition Clinical Impression: Left sided numbness, Left-sided weakness, Hemiparesis due to old stroke, [place] Hypertension Qualifiers: Hypertension type: essential hypertension Qualified Code(s): I10 - Essential (primary) hypertension UTI (urinary tract infection) Qualifiers: Urinary tract infection type: acute cystitis Hematuria presence: with hematuria Qualified Code(s): N30.01 - Acute cystitis with hematuria Disposition: 09 OP ADMIT IP TO THIS HOSP Is pt being admited?: Yes Does the pt Need Aspirin: No Condition: Critical Time of Disposition: 22:21
--- NOTE | 2020-10-23 21:49 | History and Physical Report ---
History of Present Illness Date of examination: 10/23/20 Date of admission: 10/23/20 Chief complaint: left sided weakness History of present illness: Patient is a 74-year-old female that presents to emergency room with complaints of left-sided weakness, left-sided numbness, left-sided tingling. Patient states that her symptoms started a week ago. Patient states her symptoms are worsening. Patient states she has left-sided weakness due to a previous stroke but this weakness is worsening. Patient states that she is also having difficulties walking. Patient states she has had multiple TIAs. Patient seen at bedside in Ed, in room air, calm and not in distress-She reports hx of CVA about 10 years ago with left sided weakness/numbness. She has past medical hx of hypertension, hyperlipidemia, carpel tunnel syndrome. Patient admits tobacco use about [address] of the head-negative ED work up showed WBC 5.8, hemoglobin 15.0, PLT 257, sodium 137, potassium 3.9, Cr 0.7 Past History Past Medical History: hypertension, hyperlipidemia (anxiety disorder), stroke, other (Lower back pain) Past Surgical History: Other (bilateral arm surgery for carpel tunnel syndrome) Social history: smoking (smokes 1 pack a week) Family history: diabetes (sister has diabetes) Medications and Allergies Allergies Allergy/AdvReac Type Severity Reaction Status Date / Time aspirin AdvReac Nausea Verified 02/29/20 16:36 blood thinners AdvReac Bleeding Uncoded 08/09/16 01:53 Home Medications Medication Instructions Recorded Confirmed Last Taken Type Oxycodone HCl [oxyCODONE] 10 mg PO Q8H PRN #10 tablet 05/04/18 07/02/20 07/31/18 Rx amLODIPine 10 mg PO HS 07/21/18 07/02/20 12/02/19 History busPIRone [Buspar] 5 mg PO BID 07/21/18 07/02/20 12/03/19 History Cyclobenzaprine [Flexeril 10 MG 10 mg PO BID PRN #5 tablet 08/04/18 07/02/20 Unknown Rx TAB] Aspirin [Aspirin BABY CHEW TAB] 81 mg PO QDAY 12/04/19 07/02/20 12/01/19 History Amitriptyline [Elavil] 25 mg PO QHS #30 tablet 12/05/19 07/02/20 Unknown Rx AtorvaSTATin [Lipitor] 40 mg PO QHS #30 tablet 12/05/19 07/02/20 Unknown Rx Citalopram [celeXA] 10 mg PO QDAY #30 tablet 12/05/19 07/02/20 Unknown Rx Review of Systems Constitutional: weakness Ears, nose, mouth and throat: no epistaxis Breasts: no discharge, no skin changes Cardiovascular: high blood pressure Respiratory: no congestion Gastrointestinal: no abdominal pain Genitourinary Female: no dyspareunia Menstruation: postmenopausal Musculoskeletal: leg numbness/tingling, muscle weakness, other, no neck stiffness Integumentary: no depigmentation, no change in hair/nails Neurological: weakness, numbness (left sided weakness and numbness) Psychiatric: anxiety, no disorientation, no hallucinations Endocrine: no excessive sweating Hematologic/Lymphatic: no easy bruising Allergic/Immunologic: no anaphylaxis, no angioedema Exam - Constitutional Vitals: Temp Pulse Resp BP Pulse Ox 98.3 F 95 H 14 160/73 95 10/23/20 16:09 10/23/20 16:09 10/23/20 16:09 10/23/20 16:09 10/23/20 16:09 General appearance: Present: no acute distress, well-nourished - EENT Eyes: Present: PERRL ENT: hearing intact, clear oral mucosa - Neck Neck: Present: supple, normal ROM - Respiratory Respiratory effort: normal Respiratory: bilateral: CTA - Cardiovascular Heart rate: 95 Heart Sounds: Present: S1 & S2. Absent: rub, click - Extremities Extremities: pulses symmetrical, No edema Peripheral Pulses: within normal limits - Abdominal General gastrointestinal: Present: soft, non-tender, non-distended, normal bowel sounds Female genitourinary: Present: normal - Integumentary Integumentary: Present: clear, warm, dry - Musculoskeletal Musculoskeletal: left sided weakness - Psychiatric Psychiatric: appropriate mood/affect, intact judgment & insight, cooperative - Neurologic Neurologic: CNII-XII intact, moves all extremities - Allied Health Allied health notes reviewed: nursing Results - Labs CBC & Chem 7: 10/23/20 16:44 10/23/20 16:44 Labs: Abnormal lab results 10/23/20 10/23/20 Range/Units 16:44 16:44 RBC 5.91 H (3.65-5.03) M/mm3 Hgb 15.0 H (10.1-14.3) gm/dl Hct 46.0 H (30.3-42.9) % MCV 78 L (79-97) fl MCH 25 L (28-32) pg RDW 17.7 H (13.2-15.2) % Alkaline Phosphatase 140 H (35-129) units/L Assessment and Plan - Patient Problems (1) History of CVA (cerebrovascular accident) Current Visit: No Status: Acute Plan to address problem: Pt reports Hx of CVA with left side weakness about 10 years She said she came today due to worsening symptoms CT of the head showed no acute finding Will consult PT/OT and case management (2) TIA (transient ischemic attack) Current Visit: No Status: Acute Qualifiers: Plan to address problem: Pt reports multiple TIA-has hx of CVA with left sided weakness PT/OT consulted CT of the negative-neurologist consult MRI of the brain, MRA of head and neck-f/u wit result (3) Hypertension Current Visit: No Status: Acute Qualifiers: Hypertension type: essential hypertension Qualified Code(s): I10 - Essential (primary) hypertension Plan to address problem: Monitor blood pressure Resume home antihypertensive Adjust if needed PRN hydralazine (4) Anxiety disorder Current Visit: No Status: Acute Plan to address problem: Resume home anxiety medicine (5) Nicotine dependence Current Visit: No Status: Acute Qualifiers: Nicotine product type: cigarettes Substance use status: in withdrawal Qualified Code(s): F17.213 - Nicotine dependence, cigarettes, with withdrawal Plan to address problem: pt admits tobacco use Discussed tobacco use cessation (6) DVT prophylaxis Current Visit: No Status: Acute Plan to address problem: Lovenox
[2020-10-23] MEDS ORDERED: hydrALAZINE 20 MG/1 ML INJ IV PRN (21:56)
[2020-10-23] MEDS ORDERED: CYCLOBENZAPRINE 10 MG TAB PO ONE (22:37)
[2020-10-23] MEDS ORDERED: HYDROmorphone 1 MG/1 ML INJ IV ONE (23:28)
[2020-10-24] MEDS: IBUPROFEN 600 MG TAB PO ONE ×2 (01:08→02:05)
[2020-10-24 01:41] LABS: Bacteria,Urine 1+ /HPF (Negative); Bilirubin,Urine NEG (Negative); Blood,Urine NEG (Negative); Color,Urine Yellow (Yellow); Mucus,Urine FEW /HPF; Protein,Urine <15 mg/dL mg/dL (Negative)
[2020-10-24 05:36] LABS: INR 1.02 (0.87-1.13)
[2020-10-24 05:48] LABS: Alanine Aminotransferase 13 units/L (7-56); Albumin 3.8 g/dL (3.9-5); Chol/HDL Ratio 5.02 %; HDL Cholesterol 47 mg/dL (40-59); LDL Cholesterol,Direct 191 mg/dL (50-130)
[2020-10-24 05:49] LABS: Bilirubin,Direct < 0.2 mg/dL (0-0.2)
[2020-10-24] MEDS ORDERED: ASPIRIN EC 81 MG TAB PO SCH ×2 (10:00→15:12)
[2020-10-24] MEDS: busPIRone 5 MG TAB PO SCH ×2 (10:21→21:14)
[2020-10-24] MEDS: amLODIPine 10 MG TAB PO SCH (10:21)
[2020-10-24] MEDS: ENOXAPARIN 40 MG/0.4 ML INJ SUB-Q SCH ×2 (10:21→10:25)
[2020-10-24] MEDS: CYCLOBENZAPRINE 10 MG TAB PO PRN ×2 (10:24→21:14)
[2020-10-24] MEDS: CITALOPRAM 10 MG TAB PO SCH (10:26)
--- NOTE | 2020-10-24 15:12 | Progress Note ---
Assessment and Plan -- TIA (transient ischemic attack) Pt reports multiple TIA-has hx of CVA with left sided weakness She said she came due to worsening symptoms PT/OT consulted CT of the negative-neurologist consult Ordered MRI of the brain, 2d echo -f/u with result -- History of CVA (cerebrovascular accident) Pt reports Hx of CVA with left side weakness about [address] of the head showed no acute finding consulted PT/OT and case management -- Hypertension Monitor blood pressure Resume home antihypertensive Adjust if needed PRN hydralazine -- Anxiety disorder Resume home anxiety medicine -- Nicotine dependence pt admits tobacco use Discussed tobacco use cessation -- DVT prophylaxis Lovenox Brief History: 74 yo female with CVA 10 yrs ago w/ residual L-sided weakness/numbness, htn, hld, anxiety d/o, tobacco abuse, who presents with "sensation in my head" and worsening left arm/leg weakness/numbness for the last 10 days. 10/24: Continue stroke protocol, follow-up pending MRI/2D echo result. Neurol ogy consulted, follow recommendation Subjective Date of service: 10/24/20 Interval history: Patient seen and examined. Medical records and medication list reviewed. No acute event overnight noted by the RN. Patient denies any chest pain or difficulty breathing. Patient is tolerating diet. Continue to complains of left-sided weakness but she believes she is at her baseline Discussed plan of care at bedside with patient. Objective - Exam Narrative Exam: GENERAL: well-developed and well-nourished -[place] female lying on bed appeared to be in no discomfort. HEENT: Normocephalic. Atraumatic. No conjunctival congestion or icterus. Patient has moist mucous membranes. NECK: Supple. Trachea midline. CHEST/LUNGS: Clear to auscultated bilaterally, breathing nonlabored. No wheezes crackles or rhonchi. HEART/CARDIOVASCULAR: Regular in rate and rhythm. S1 and S2 positive. ABDOMEN: Abdomen is soft, nontender. Patient has normal bowel sounds. SKIN: There is no rash. Warm and dry. NEURO: Left-sided weakness. Follows command. MUSCULOSKELETAL: No joint effusion or tenderness. EXTRIMITY: No edema, no cyanosis or clubbing. PSYCH: Cooperative. - Constitutional Vitals: Vital Signs - 12hr 10/24/20 10/24/20 10/24/20 03:15 08:00 10:55 Temperature 97.4 F L 97.7 F Pulse Rate 80 75 72 Respiratory 16 18 Rate Blood Pressure 146/74 130/70 O2 Sat by Pulse 100 95 Oximetry 10/24/20 11:35 Temperature 98.2 F Pulse Rate 84 Respiratory 18 Rate Blood Pressure 143/64 O2 Sat by Pulse 94 Oximetry - Labs CBC & Chem 7: 10/23/20 16:44 10/23/20 16:44 Labs: Abnormal lab results 10/23/20 10/23/20 10/23/20 Range/Units 16:44 16:44 Unknown RBC 5.91 H (3.65-5.03) M/mm3 Hgb 15.0 H (10.1-14.3) gm/dl Hct 46.0 H (30.3-42.9) % MCV 78 L (79-97) fl MCH 25 L (28-32) pg RDW 17.7 H (13.2-15.2) % Hemoglobin A1c (4-6) % Magnesium (1.7-2.3) mg/dL Alkaline Phosphatase 140 H (35-129) units/L Albumin (3.9-5) g/dL Cholesterol (50-199) mg/dL LDL Cholesterol Direct (50-130) mg/dL Urine WBC (Auto) 15.0 H (0.0-6.0) /HPF 10/24/20 10/24/20 Range/Units 04:50 04:50 RBC (3.65-5.03) M/mm3 Hgb (10.1-14.3) gm/dl Hct (30.3-42.9) % MCV (79-97) fl MCH (28-32) pg RDW (13.2-15.2) % Hemoglobin A1c 6.1 H (4-6) % Magnesium 2.50 H (1.7-2.3) mg/dL Alkaline Phosphatase (35-129) units/L Albumin 3.8 L (3.9-5) g/dL Cholesterol 236 H (50-199) mg/dL LDL Cholesterol Direct 191 H (50-130) mg/dL Urine WBC (Auto) (0.0-6.0) /HPF
[2020-10-25] MEDS: amLODIPine 10 MG TAB PO SCH (09:49)
[2020-10-25] MEDS: busPIRone 5 MG TAB PO SCH ×2 (09:49→21:29)
[2020-10-25] MEDS: ASPIRIN EC 325 MG TAB PO SCH (09:49)
[2020-10-25] MEDS: ENOXAPARIN 40 MG/0.4 ML INJ SUB-Q SCH ×2 (09:49→09:51)
[2020-10-25] MEDS: CITALOPRAM 10 MG TAB PO SCH (09:49)
--- NOTE | 2020-10-25 10:31 | Consultation ---
History of Present Illness Consult date: 10/25/20 Requesting physician: FRANTZ PHILLIPS Reason for Consult: CVA Chief complaint: Left-sided weakness History of present illness: 74 yo female with CVA 10 yrs ago w/ residual L-sided weakness/numbness, htn, hld, carpal tunnel syndrome, lumbago, anxiety d/o, tobacco abuse, who presents with "sensation in my head" and worsening left arm/leg weakness/numbness for the last 10 days. She also notes the left chest She notes that last night she had "the sensation in my stomach, it happens every time I have a BM." Past History Past Medical History: hypertension, hyperlipidemia (anxiety disorder), stroke, other (Lower back pain) Past Surgical History: Other (bilateral arm surgery for carpel tunnel syndrome) Social history: smoking (smokes 1 pack a week) Family history: diabetes (sister has diabetes) Medications and Allergies Allergies Allergy/AdvReac Type Severity Reaction Status Date / Time aspirin AdvReac Nausea Verified 02/29/20 16:36 blood thinners AdvReac Bleeding Uncoded 08/09/16 01:53 Home Medications Medication Instructions Recorded Confirmed Last Taken Type Oxycodone HCl [oxyCODONE] 10 mg PO Q8H PRN #10 tablet 05/04/18 10/24/20 07/31/18 Rx amLODIPine 10 mg PO HS 07/21/18 10/24/20 12/02/19 History busPIRone [Buspar] 5 mg PO BID 07/21/18 10/24/20 12/03/19 History Cyclobenzaprine [Flexeril 10 MG 10 mg PO BID PRN #5 tablet 08/04/18 10/24/20 Unknown Rx TAB] Aspirin [Aspirin BABY CHEW TAB] 81 mg PO QDAY 12/04/19 10/24/20 12/01/19 History Amitriptyline [Elavil] 25 mg PO QHS #30 tablet 12/05/19 10/24/20 Unknown Rx AtorvaSTATin [Lipitor] 40 mg PO QHS #30 tablet 12/05/19 10/24/20 Unknown Rx Citalopram [celeXA] 10 mg PO QDAY #30 tablet 12/05/19 10/24/20 Unknown Rx Active Meds: Active Medications Amlodipine Besylate (Amlodipine 10 Mg Tab) 10 mg PO QDAY [facility] Last Admin: 10/25/20 09:49 Dose: 10 mg Documented by: Aspirin (Aspirin Ec 325 Mg Tab) 325 mg PO QDAY [facility] Last Admin: 10/25/20 09:49 Dose: 325 mg Documented by: Atorvastatin Calcium (Atorvastatin 40 Mg Tab) 40 mg PO QHS [facility] Last Admin: 10/24/20 21:14 Dose: 40 mg Documented by: Buspirone HCl (Buspirone 5 Mg Tab) 5 mg PO BID [facility] Last Admin: 10/25/20 09:49 Dose: 5 mg Documented by: Citalopram Hydrobromide (Citalopram 10 Mg Tab) 10 mg PO QDAY [facility] Last Admin: 10/25/20 09:49 Dose: 10 mg Documented by: Cyclobenzaprine HCl (Cyclobenzaprine 10 Mg Tab) 5 mg PO Q8H PRN PRN Reason: Muscle Spasm Last Admin: 10/24/20 21:14 Dose: 5 mg Documented by: Enoxaparin Sodium (Enoxaparin 40 Mg/0.4 Ml Inj) 40 mg SUB-Q QDAY [facility]; Protocol Last Admin: 10/25/20 09:51 Dose: Not Given Documented by: Hydralazine HCl (Hydralazine 20 Mg/1 Ml Inj) 10 mg IV Q6H PRN PRN Reason: Hypertension Sodium Chloride (Sodium Chloride 0.9% 10 Ml Flush Syringe) 10 ml IV PRN PRN PRN Reason: LINE FLUSH Review of Systems All systems: negative (as per HPI;) Physical Examination - Vital Signs Vital Signs: Vital Signs Temp Pulse Resp BP Pulse Ox 98.3 F 95 H 14 160/73 95 10/23/20 16:09 10/23/20 16:09 10/23/20 16:09 10/23/20 16:09 10/23/20 16:09 - Additional Exam Additional Exam: Gen: nad, well-nourished; Head: normocephalic; Eyes: no gaze deviation; no ptosis; ENT: normal vocalization; CVS: warm and well-perfused; Pulm: no respiratory distress; GI: non-distended; Ext: no cyanosis at distal extremities; Skin: no acute rash at distal extremities; Heme: no pathologic ecchymosis at distal extremities; Neuro: alert, oriented to name, age, month, surroundings, no dysarthria, no a phasia, CN 2 - PERRL, visual bernal intact, CN 3, 4, 6 - EOMI, CN 5 - facial sensation symmetric to light touch, CN 7 - facial movement symmetric, CN 8 - hearing grossly intact, CN 9, 10 - uvula midline, CN 11 - shrug symmetric, CN 12 - tongue midline; Motor - at least 4+/5 at right exts; at least 2/5 at proximal LUE; 3/5 at left elbow except left arm/wrist contracture and left arm/left mild drift; LLE 4-/5; Sensory - light touch decreased at left arm/leg, Cerebellar - fnf /hts intact on right and difficulty on left secondary to weakness, Gait - deferred secondary to fall risk; NIHSS (1a.) Level of Consciousness:0 (1b.) LOC Questions:0 (1c.) LOC Commands: (2.) Best Gaze:0 (3.) Visual:0 (4.) Facial Palsy:0 (5a.) Motor Arm, Left:1 (5b.) Motor Arm, Right:0 (6a.) Motor Leg, Left:1 (6b.) Motor Leg, Right:0 (7.) Limb Ataxia:0 (8.) Sensory:1 (9.) Best Language:0 (10.) Dysarthria:0 (11.) Extinction and Inattention:0 NIHSS Total Score: 3 Results - Laboratory Findings CBC and BMP: 10/23/20 16:44 10/23/20 16:44 Abnormal Lab Findings: Abnormal Labs 10/23/20 10/23/20 10/23/20 16:44 16:44 Unknown RBC 5.91 H Hgb 15.0 H Hct 46.0 H MCV 78 L MCH 25 L RDW 17.7 H Hemoglobin A1c Magnesium Alkaline Phosphatase 140 H Albumin Cholesterol LDL Cholesterol Direct Urine WBC (Auto) 15.0 H 10/24/20 10/24/20 04:50 04:50 RBC Hgb Hct MCV MCH RDW Hemoglobin A1c 6.1 H Magnesium 2.50 H Alkaline Phosphatase Albumin 3.8 L Cholesterol 236 H LDL Cholesterol Direct 191 H Urine WBC (Auto) Assessment and Plan 74 yo female with CVA 10 yrs ago w/ residual L-sided weakness/numbness, htn, hld, carpal tunnel syndrome, lumbago, anxiety d/o, tobacco abuse, who presents with worsening left-sided weakness for the last 10 days with an unsteady gait. 1. Acute Ischemic Stroke: ASA 325 mg PO qday, MRI Brain w/o contrast, CTA Head/Neck w/ & w/o contrast, TTEcho, check LDL/HgbA1C/TSH, telemetry, SBP goal 140-180 mmHg and DBP 70-90 mmHg for 24 hours only. Statin therapy for a goal LDL of 70, when patient passes swallow evaluation. PT/OT/ST/Swallow evaluation. Long-term risk-factor modification, including a strict diet/exercise regimen for secondary stroke prophylaxis. 2. Hypertension - goal SBP 140-180 mmHg and [id number] mmHg for 24 hours only. 3. Hyperlipidemia - goal LDL of 70 w/ statin therapy if no contraindications. 4. Chest Pain - per primary team. 5. Left-sided weakness - pt/ot evaluation/monitoring. Sourav Bill MD Neurology
[2020-10-25] MEDS ORDERED: LORazepam 2 MG/ML VIAL IV PRN (13:00)
--- NOTE | 2020-10-25 13:16 | Vascular Lab Report ---
VL carotid duplex BILAT INDICATION / CLINICAL INFORMATION: stroke. COMPARISON: CT angiogram 12/03/2019 FINDINGS: Mild plaque formation is demonstrated at the bifurcations, but velocity measurements and waveform yolande lysis indicate less than 50% stenosis of both internal carotid arteries, according to NASCET criteria . Antegrade flow is demonstrated in both vertebral arteries. (Vertebral stenosis, demonstrated on CT an giogram, cannot be evaluated with ultrasound.) IMPRESSION: 1. No hemodynamically significant stenosis of either internal carotid artery. Signer Name: Ugo Hebert MD Signed: 10/25/2020 1:12 PM Workstation Name: [id number]
--- NOTE | 2020-10-25 15:01 | Magnetic Resonance Report ---
NONENHANCED MR SCAN OF THE BRAIN: INDICATION / CLINICAL INFORMATION: stroke. TECHNIQUE: Multiplanar, multisequence MR images of the brain obtained. COMPARISON: CT scan of the head from 10/23/2020 any: MRI scan of the brain from 03/02/2020 FINDINGS: BRAIN / INTRACRANIAL CONTENTS: No acute ischemia, acute hemorrhage, mass effect, midline shift, or hy drocephalus. No chronic infarct or atrophy. No significant white matter abnormality. Cortical involu tion CRANIOCERVICAL JUNCTION: No significant abnormality. VASCULAR FLOW-VOIDS: I am suspicious of aneurysm in the communicating segment of right internal carot id artery; please obtain CTA of the brain ORBITS: No significant abnormality of visualized orbits. SINUSES / MASTOIDS: Mucosal thickening in the left mastoid air cells: Remains unchanged; no obstructi ve lesion along the left eustachian tube ADDITIONAL FINDINGS: None. IMPRESSION: No acute focal parenchymal lesion in the brain Suspicious of aneurysm in the communicating segment of the right internal carotid artery; please obt ain CTA of the brain Signer Name: Demar Eubanks MD Signed: 10/25/2020 2:57 PM Workstation Name: [id number]
--- NOTE | 2020-10-25 15:55 | Progress Note ---
Assessment and Plan -- TIA (transient ischemic attack) Pt reports multiple TIA-has hx of CVA with left sided weakness She said she came due to worsening symptoms PT/OT consulted CT of the negative-neurologist consult MRI of the brain w/o any acute infract, 2d echo ordered - result pending -- History of CVA (cerebrovascular accident) Pt reports Hx of CVA with left side weakness about [address] of the head/MRI brain showed no acute finding consulted PT/OT and case management --Right ICA aneurysm Noted on MRI brain -5 mm right ICA aneurysm Will obtain CTA head and neck We will consult vascular surgery for further recommendation -- Hypertension Monitor blood pressure Resume home antihypertensive Adjust if needed PRN hydralazine -- Anxiety disorder Resume home anxiety medicine -- Nicotine dependence pt admits tobacco use Discussed tobacco use cessation -- DVT prophylaxis Lovenox Brief History: 74 yo female with CVA 10 yrs ago w/ residual L-sided weakness/numbness, htn, hld, anxiety d/o, tobacco abuse, who presents with "sensation in my head" and worsening left arm/leg weakness/numbness for the last 10 days. 10/24: Continue stroke protocol, follow-up pending MRI/2D echo result. Neuro logy consulted, follow recommendation 10/25: mRI showed no acute CVA, but concern for aneurysm - neurology recommended CTA head/neck - ordered. 2D echo result pending Subjective Date of service: 10/25/20 Interval history: Patient seen and examined. Medical records and medication list reviewed. No acute event overnight noted by the RN. Patient denies any chest pain or difficulty breathing. Patient is tolerating diet. left-sided weakness at her baseline Discussed plan of care at bedside with patient. Objective - Exam Narrative Exam: GENERAL: well-developed and well-nourished -[place] female lying on bed appeared to be in no discomfort. HEENT: Normocephalic. Atraumatic. No conjunctival congestion or icterus. Patient has moist mucous membranes. NECK: Supple. Trachea midline. CHEST/LUNGS: Clear to auscultated bilaterally, breathing nonlabored. No wheezes crackles or rhonchi. HEART/CARDIOVASCULAR: Regular in rate and rhythm. S1 and S2 positive. ABDOMEN: Abdomen is soft, nontender. Patient has normal bowel sounds. SKIN: There is no rash. Warm and dry. NEURO: Left-sided weakness. Follows command. MUSCULOSKELETAL: No joint effusion or tenderness. EXTRIMITY: No edema, no cyanosis or clubbing. PSYCH: Cooperative. - Constitutional Vitals: Vital Signs - 12hr 10/25/20 10/25/20 08:34 12:32 Temperature 98.9 F Pulse Rate 79 86 Blood Pressure 135/68 137/72 O2 Sat by Pulse 96 98 Oximetry - Labs CBC & Chem 7: 10/23/20 16:44 10/23/20 16:44
--- NOTE | 2020-10-25 18:00 | Cat Scan Report ---
CTA head with intravenous contrast CLINICAL HISTORY: Cerebrovascular accident. Aneurysm TECHNIQUE: 0.625 mm thick contiguous axial scans were obtained from the skull base to the skull vertex during r apid bolus administration of intravenous contrast material. Multiplanar reconstructions were produced in the coronal and sagittal planes. In addition 3 plane MIP instructions were produced and reviewed for this report. The axial source images and reconstructed images were reviewed for this report. CONTRAST DOSE REPORT: Omnipaque 350: 100 ml administered intravenously. All CT scans at this location are performed using CT dose reduction for ALARA by means of automated e xposure control. FINDINGS: Internal carotid arteries: A 5 mm diameter aneurysm is identified near the origin of the right ophtha lmic artery. The internal carotid arteries demonstrate calcified atherosclerotic plaque along the cav ernous segments laterally. Internal carotid arteries have an otherwise unremarkable appearance. Middle cerebral arteries:Normal and symmetrical M1 segments of the middle cerebral arteries are demon strated. No abnormalities are seen on evaluation of the insular or opercular branches. Anterior cerebral arteries:Bilaterally symmetrical A1 segments are demonstrated. No abnormalities are seen along the course of the A2 segments or their visualized pericallosal branches. Vertebral arteries: Left vertebral artery is dominant. There is absence of contrast opacification of the right vertebral artery between the origin of the right PICA and distal V4 segment of the right ve rtebral artery. This may be occluded in this region. There is evidence of poststenotic dilatation of the proximal V4 segment of the left vertebral artery. Calcified and soft plaque is observed just prox imal small to this focally dilated segment. Basilar artery:Basilar artery has an unremarkable appearance. Posterior cerebral arteries: Bilaterally symmetrical posterior cerebral arteries are identified. Dural sinuses: Dural venous sinuses are well demonstrated on this exam. There is no evidence of dural sinus thrombosis. IMPRESSION: 1. 5 mm R ICA aneurysm is identified at the origin of the right ophthalmic artery. 2. Evidence of poststenotic dilatation of the proximal V4 segment of the left vertebral artery. 3. 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 This is age indeterminate. Signer Name: Bijan Lucas MD Signed: 10/25/2020 5:55 PM Workstation Name: [id number]
--- NOTE | 2020-10-25 18:07 | Cat Scan Report ---
CTA neck without and with intravenous contrast material CLINICAL HISTORY: cva/aneurysm TECHNIQUE: Following acquisition of a timing bolus 0.625 mm thick contiguous axial scans were obtained from aort ic arch to the skull base during rapid bolus intravenous contrast infusion. In addition to evaluation of axial source images multiplanar reconstructions were produced and reviewed for this report. 3 donna ne MIP reconstructions were produced and reviewed. Contrast dose report: Omnipaque 350: 100 ml, administered intravenously All CT examinations performed at this facility utilize modulated dose reduction, iterative reconstruc tion or weight-based dosing, as appropriate, to obtain a radiation dose which is as low as can reason ably be achieved. FINDINGS: Thoracic aorta:No abnormalities are identified along the course of the thoracic aorta..The origins of the great vessels have an unremarkable appearance. Brachiocephalic artery, left common carotid arter y origin and left subclavian artery all have an unremarkable appearance. Right carotid artery: Minimal calcified plaque is seen at the right carotid bifurcation with no indic ation of hemodynamically significant stenosis. Left carotid artery: Soft plaque is present at the left carotid bifurcation without evidence of assoc iated stenosis. Posterior circulation: Calcified atherosclerotic plaque along the proximal V4 segment of the left breanna tebral artery is associated with a stenosis on the order of 60%. Left vertebral artery is dominant. The degree of stenosis, if any, is determined utilizing NASCET like criteria. In this case there is no indication of hemodynamically significant stenosis at the carotid bifurcations. Evaluation of the nonvascular soft tissue structures reveal no abnormality. There is no indication of cervical lymphadenopathy. No abnormalities are seen along the course of the airway. Visualized porti ons of the parotid glands and the submandibular salivary glands have a normal appearance. Thyroid gla nd has a normal appearance. Evaluation of the lung apices reveals no evidence of lung nodule or infil trate. Advanced cervical spondylosis is evident. Prominent anterior osteophyte formation is observed at the C2-3, C3-4 and C4-5 levels. Similar findings are seen at the C7-T1 level. Postoperative changes are o bserved status post ACDF C5-6 and C6-7 levels. There is evidence of solid bone union at C5-6. There i s no indication of central canal stenosis. Multifocal neuroforaminal narrowing is observed. IMPRESSION: 1. No indication of hemodynamically significant stenosis at the carotid bifurcations. 2. 60% stenosis proximal V4 segment left vertebral artery associated with poststenotic dilatation. Signer Name: Bijan Lucas MD Signed: 10/25/2020 6:02 PM Workstation Name: [id number]
[2020-10-25] MEDS: CYCLOBENZAPRINE 10 MG TAB PO PRN (21:29)
[2020-10-26] MEDS: busPIRone 5 MG TAB PO SCH ×2 (09:59→21:29)
[2020-10-26] MEDS: amLODIPine 10 MG TAB PO SCH (09:59)
[2020-10-26] MEDS: ENOXAPARIN 40 MG/0.4 ML INJ SUB-Q SCH ×2 (09:59→10:06)
[2020-10-26] MEDS: CITALOPRAM 10 MG TAB PO SCH (09:59)
[2020-10-26] MEDS: ASPIRIN EC 325 MG TAB PO SCH (09:59)
--- NOTE | 2020-10-26 12:48 | Discharge Summary ---
Providers - Providers Date of Admission: 10/23/20 22:15 Date of discharge: 10/26/20 Attending physician: MELIDA KAT 10/23/20 21:56 Occupational Therapy Evaluate and Treat [CONS] Routine Comment: Reason For Exam: Neuro deficits Physical Therapy Evaluation and Treat [CONS] Routine Comment: Reason For Exam: Neuro deficits 10/23/20 21:57 Speech Therapy Evaluation and Treat [CONS] Routine Reason For Exam: swallow eval 10/23/20 22:00 Consult to Physician [CONS] Stat Comment: Consulting Provider: EMIL WEBB Physician Instructions: Reason For Exam: cva 10/25/20 12:29 Midline [Consult to PICC Line RN] [CONS] Stat Reason For Exam: need iv access and difficult to stick Type Line:: Midline 10/26/20 11:10 Consult to Physician [CONS] Routine Comment: Consulting Provider: BARRINGTON SAAVEDRA II Physician Instructions: Reason For Exam: right 5mm ICA aneurysm Primary care physician: [employer] Hospitalization Condition: Critical Pertinent studies: Head CT Brain MRI Head and neck CTA Carotid Doppler 2D echocardiogram Hospital course: 74 yo female with CVA 10 yrs ago w/ residual L-sided weakness/numbness, htn, hld, anxiety d/o, tobacco abuse, who presents with "sensation in my head" and worsening left arm/leg weakness/numbness for the last 10 days. Patient was admitted to the hospital with acute stroke protocol, tele-neurology was consulted in the ER. Patient was not found to be a candidate for TPA. Patient was placed on antiplatelets, statin and allowed for permissive hypertension. CT head in the ER did not show any acute abnormality. Patient was further evaluated with CTA head and neck/carotid Doppler, MRI of the brain, 2D echo. MRI of the brain showed no acute infarct, CTA head and neck/carotid Doppler showed 5 mm right ICA aneurysm, 2D echo had preserved EF. PT OT evaluated the patient and recommended no acute need. Neurology further evaluated the patient and recommended to continue current management and further outpatient follow- up. Neurosurgery was consulted for right ICA aneurysm and recommended outpatient follow-up. Patient was then discharge home in stable condition. Daily course: 10/24: Continue stroke protocol, follow-up pending MRI/2D echo result. Neurology consulted, follow recommendation 10/25: mRI showed no acute CVA, but concern for aneurysm - neurology recommended CTA head/neck - ordered. 2D echo result pending 10/26: 2D echo showed preserved EF. CTA head showed 5 mm right ICA aneurysm. Neurosurgery consulted, patient will follow up with Dr. Ely as outpatient. Discharge diagnosis: TIA History of CVA Right ICA aneurysm Hypertension Anxiety disorder Nicotine dependence/ Tobacco abuse UTI, mild Disposition: DC-01 TO HOME OR SELFCARE Time spent for discharge: 34 minutes Core Measure Documentation - Palliative Care Palliative Care/ Comfort Measures: Not Applicable - Core Measures Any of the following diagnoses?: history only Exam - Physical Exam Narrative exam: GENERAL: well-developed and well-nourished -[place] female lying on bed appeared to be in no discomfort. HEENT: Normocephalic. Atraumatic. No conjunctival congestion or icterus. Patient has moist mucous membranes. NECK: Supple. Trachea midline. CHEST/LUNGS: Clear to auscultated bilaterally, breathing nonlabored. No wheezes crackles or rhonchi. HEART/CARDIOVASCULAR: Regular in rate and rhythm. S1 and S2 positive. ABDOMEN: Abdomen is soft, nontender. Patient has normal bowel sounds. SKIN: There is no rash. Warm and dry. NEURO: Left-sided weakness. Follows command. MUSCULOSKELETAL: No joint effusion or tenderness. EXTRIMITY: No edema, no cyanosis or clubbing. PSYCH: Cooperative. - Constitutional Vitals: Temp Pulse Resp BP Pulse Ox 97.8 F 75 18 134/64 92 10/26/20 04:21 10/26/20 07:59 10/26/20 04:21 10/26/20 04:21 10/26/20 04:21 Plan Activity: advance as tolerated Weight Bearing Status: Weight Bear as Tolerated Diet: low fat, low salt Additional Instructions: Follow-up with Dr. Barrington Ely/neurosurgeon in 1 week for brain aneurysm work-up. Follow up with: PRIMARY MD EARNEST [Primary Care Provider] - 7 Days LAUREN WHITLEY MD [Staff Physician] - 7 Days BARRINGTON SAAVEDRA II, MD [Staff Physician] - 7 Days Prescriptions: Aspirin EC [Ecotrin] 325 mg PO QDAY #30 tablet levoFLOXacin [Levaquin TAB] 500 mg PO Q24H #3 tablet
[2020-10-26] MEDS: levoFLOXacin 500 MG TAB PO SCH (15:30)
[2020-10-27] MEDS: CYCLOBENZAPRINE 10 MG TAB PO PRN (02:18)
[2020-10-27 09:23] VITALS: BP 126/61
[2020-10-27] MEDS: CITALOPRAM 10 MG TAB PO SCH (11:39)
[2020-10-27] MEDS: ASPIRIN EC 325 MG TAB PO SCH ×2 (11:39→13:05)
[2020-10-27] MEDS: amLODIPine 10 MG TAB PO SCH (11:39)
[2020-10-27] MEDS: busPIRone 5 MG TAB PO SCH (11:39)
[2020-10-27] MEDS: ENOXAPARIN 40 MG/0.4 ML INJ SUB-Q SCH (11:40)
[2020-10-27] MEDS: levoFLOXacin 500 MG TAB PO SCH (13:04)
--- NOTE | 2020-10-27 15:20 | Event Note ---
Date: 10/27/20 Patient was not discharged yesterday -most likely transportation issue Called the RN today and recommended to discharge patient home with outpatient follow-up
== END 2020-10-27 14:47 | disposition home or self-care (01) ==
LOC: ED 15:46 → 4A 22:15
PROVIDERS: ADMIT Internal Medicine Geriatric Medicine; ATTEND Internal Medicine
DX: G45.9 Transient cerebral ischemic attack, unspecified (principal); I69.359 Hemiplegia and hemiparesis following cerebral infarction affecting unspecified side; I10 Essential (primary) hypertension; E78.5 Hyperlipidemia, unspecified; F41.9 Anxiety disorder, unspecified; F17.213 Nicotine dependence, cigarettes, with withdrawal; N30.01 Acute cystitis with hematuria; R29.703 NIHSS score 3; Z98.890 Other specified postprocedural states; Z79.82 Long term (current) use of aspirin; Z79.899 Other long term (current) drug therapy
CPT/HCPCS: 36415; 70450; 70496; 70498; 70551; 80053; 80061; 80076; 81001; 82962; 83036; 83735; 84100; 84484; 85027; 85610; 85652; 87086; 92610; 93005; 93306; 93880; 96365; 96375; 97161; 97165; 97760; 99291; 99406; A9270; G0378; J1956; J2060; Q9967; J1650

== ENCOUNTER 2020-11-14 22:46 | Observation (INO) | payer MEDICARE ==
--- NOTE | 2020-11-14 23:08 | Consultation ---
History of Present Illness Consult date: 11/14/20 History of present illness: [facility] Date of Service: 11/14/2020 22:41:13 Impression: [id number] - HANNA (Headache) Comments/Sign-Out: Non thunderclap headache and right facial numbness. Presentation not consistent with acute stroke. Check ESR. Inpatient MRI brain. Continue ASA Metrics: Last Known Well: 11/14/2020 22:00:00 [facility] Notification Time: 11/14/2020 22:41:01 Arrival Time: 11/14/2020 22:46:00 Stamp Time: 11/14/2020 22:41:13 Time First Login Attempt: 11/14/2020 22:42:44 Symptoms: headache and right face numbness NIHSS Start Assessment Time: 11/14/2020 22:57:21 Patient is not a candidate for Alteplase/Activase. Patient was not deemed candidate for Alteplase/Activase thrombolytics because of Presentation not consistent with acute stroke, and reported unruptured cerebral aneurysm. CT head showed no acute hemorrhage or acute core infarct. Clinical Presentation is not Suggestive of Large Vessel Occlusive Disease ED Physician notified of diagnostic impression and management plan on 11/14/2020 23:01:24 Our recommendations are outlined below. Recommendations: Activate Stroke Protocol Admission/Order Set Stroke/Telemetry Floor Neuro Checks Bedside Swallow Eval DVT Prophylaxis IV Fluids, Normal Saline Head of Bed 30 Degrees Euglycemia and Avoid Hyperthermia (PRN Acetaminophen) Initiate Aspirin 81 MG Daily Routine Consultation with Inhouse Neurology for Follow up Care Sign Out: Discussed with Emergency Department Provider History of Present Illness: Patient is a 74 year old Female. Right handed. Patient was brought by EMS for symptoms of headache and right face numbness Prior stroke over 10 years ago residual left arm and left leg weakness, seen in ER in October 2020 with stroke symptoms (worsening left sided weakness) but MRI was negative. Supposed to be on ASA and statin. Comes in with headache, right face and left body numbness. Comes in via EMS. I obtained report from EMS Also depression and anxiety Reports intracranial aneurysm, unruptured. Cane or walker for ambulation Past Medical History: Hypertension Stroke Antiplatelet use: aspirin Examination: BP(162/94), Pulse(74), Blood Glucose(106) 1A: Level of Consciousness - Alert; keenly responsive + 0 1B: Ask Month and Age - Both Questions Right + 0 1C: Blink Eyes & Squeeze Hands - Performs Both Tasks + 0 2: Test Horizontal Extraocular Movements - Normal + 0 3: Test Visual Henry - No Visual Loss + 0 4: Test Facial Palsy (Use Grimace if Obtunded) - Normal symmetry + 0 5A: Test Left Arm Motor Drift - Drift, hits bed + 2 5B: Test Right Arm Motor Drift - No Drift for 10 Seconds + 0 6A: Test Left Leg Motor Drift - Drift, hits bed + 2 6B: Test Right Leg Motor Drift - No Drift for 5 Seconds + 0 7: Test Limb Ataxia (FNF/Heel-Wade) - No Ataxia + 0 8: Test Sensation - Mild-Moderate Loss: Less Sharp/More Dull + 1 9: Test Language/Aphasia - Normal; No aphasia + 0 10: Test Dysarthria - Mild-Moderate Dysarthria: Slurring but can be understood + 1 11: Test Extinction/Inattention - No abnormality + 0 NIHSS Score: 6 Pre-Morbid Modified Ranking Scale: 2 Points = Slight disability; unable to carry out all previous activities, but able to look after own affairs without assistance Patient/Family was informed the Neurology Consult would happen via TeleHealth consult by way of interactive audio and video telecommunications and consented to receiving care in this manner. Due to the immediate potential for life-threatening deterioration due to underlying acute neurologic illness, I spent 20 minutes providing critical care. This time includes time for face to face visit via telemedicine, review of medical records, imaging studies and discussion of findings with providers, the patient and/or family. Dr Lea [facility] Case [id number] Medications and Allergies Allergies Allergy/AdvReac Type Severity Reaction Status Date / Time aspirin AdvReac Nausea Verified 02/29/20 16:36 blood thinners AdvReac Bleeding Uncoded 08/09/16 01:53 Home Medications Medication Instructions Recorded Confirmed Last Taken Type Oxycodone HCl [oxyCODONE] 10 mg PO Q8H PRN #10 tablet 05/04/18 10/24/20 07/31/18 Rx amLODIPine 10 mg PO HS 07/21/18 10/24/20 12/02/19 History busPIRone [Buspar] 5 mg PO BID 07/21/18 10/24/20 12/03/19 History Cyclobenzaprine [Flexeril 10 MG 10 mg PO BID PRN #5 tablet 08/04/18 10/24/20 Un known Rx TAB] Amitriptyline [Elavil] 25 mg PO QHS #30 tablet 12/05/19 10/24/20 Unknown Rx AtorvaSTATin [Lipitor] 40 mg PO QHS #30 tablet 12/05/19 10/24/20 Unknown Rx Citalopram [celeXA] 10 mg PO QDAY #30 tablet 12/05/19 10/24/20 Unknown Rx Aspirin EC [Ecotrin] 325 mg PO QDAY #30 tablet 10/26/20 Unknown Rx levoFLOXacin [Levaquin TAB] 500 mg PO Q24H #3 tablet 10/26/20 Unknown Rx
--- NOTE | 2020-11-14 23:21 | Cat Scan Report ---
CT head/brain wo con INDICATION / CLINICAL INFORMATION: 74 years Female; Stroke symptoms. TECHNIQUE: Routine CT head without contrast. All CT scans at this location are performed using CT dos e reduction for ALARA by means of automated exposure control. COMPARISON: 10/23/2020 FINDINGS: BRAIN / INTRACRANIAL CONTENTS: No acute hemorrhage, mass effect, midline shift, hydrocephalus, or acu te, large territorial infarct. Mild cerebral and cerebellar atrophy. There are minimal areas of decreased attenuation in the white matter of the cerebral hemispheres. The se are nonspecific findings and may be related to microangiopathy (hypertension, diabetes, atheroscle rosis), given the patient's age. It might be difficult to evaluate for small areas of ischemia withou t diffusion imaging by MRI. CRANIOCERVICAL JUNCTION: No significant abnormality. ORBITS: No significant abnormality of visualized orbits. SINUSES / MASTOIDS: There is partial opacification of the mastoids bilaterally. Mild mucosal thickeni ng seen in the ethmoids. ADDITIONAL FINDINGS: Atherosclerotic disease is seen in the anterior and posterior circulation. IMPRESSION: 1. No focal mass, hemorrhage, hydrocephalus, or acute, large territorial infarct. Signer Name: Bora Ruiz MD, III Signed: 11/14/2020 11:17 PM Workstation Name: [id number]
[2020-11-14 23:52] LABS: INR 0.98 (0.87-1.13)
[2020-11-14 23:53] LABS: Thrombin Time 16.5 Sec. (15.1-19.6)
[2020-11-14 23:54] LABS: Eosinophils # (Auto) 0.1 K/mm3 (0.0-0.4); Eosinophils % (Auto) 0.8 % (0.0-4.3); Hematocrit 44.8 % (30.3-42.9); Hemoglobin 14.3 gm/dl (10.1-14.3); Lymphocytes # (Auto) 2.8 K/mm3 (1.2-5.4); Lymphocytes % (Auto) 37.1 % (13.4-35.0); Mean Corpuscular HGB Conc 32 % (30-34); Mean Corpuscular Volume 78 fl (79-97); Monocytes # (Auto) 0.5 K/mm3 (0.0-0.8); Monocytes % (Auto) 7.1 % (0.0-7.3); Platelet Count 252 K/mm3 (140-440); Red Blood Count 5.75 M/mm3 (3.65-5.03); Red Cell Distribution Width 17.6 % (13.2-15.2)
[2020-11-14 23:57] LABS: Creatine Kinase MB 2.5 ng/mL (0.0-4.0)
[2020-11-14 23:59] LABS: Alanine Aminotransferase 18 units/L (7-56); Albumin 4.3 g/dL (3.9-5); BUN/Creatinine Ratio 13; Blood Urea Nitrogen 10 mg/dL (7-17); Calcium 9.6 mg/dL (8.4-10.2); Hemolysis Index 2
--- NOTE | 2020-11-15 00:13 | Emergency Department Report ---
ED General Adult HPI - General Chief complaint: Neuro Symptoms/Deficit Stated complaint: CODE STROKE Time Seen by Provider: 11/14/20 22:52 Source: patient, EMS Mode of arrival: Stretcher Limitations: Other - History of Present Illness Initial comments: Patient is a 74-year-old F [place]ian female with a past medical history of CVA approximately 10 years ago affecting the left side is hypertension who is presenting with some right facial numbness. States that episode occurred approximately 30 minutes prior to arrival. It lasted approximately 5 to 10 minutes. States she had a tight sensation on the right side of her head from the pillow posterior to anterior. She denies any nausea vomiting light sensitivity decreased vision. Left-sided weakness was not worsened during this time. Patient was here at our hospital approximately 3 weeks ago for some worsening left-sided weakness and difficulty speaking. MRI was found to be normal at that time. 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 Patient with no current complaints at this time. Severity scale (0 -10): 7 - Related Data Home Medications Medication Instructions Recorded Confirmed Last Taken amLODIPine 5 mg PO DAILY 07/21/18 11/14/20 11/14/20 busPIRone [Buspar] 10 mg PO BID 07/21/18 11/14/20 11/14/20 Previous Rx's Medication Instructions Recorded Last Taken Type Oxycodone HCl [oxyCODONE] 10 mg PO Q8H PRN #10 tablet 05/04/18 11/14/20 Rx Cyclobenzaprine [Flexeril 10 MG 10 mg PO BID PRN #5 tablet 08/04/18 11/14/20 Rx TAB] AtorvaSTATin [Lipitor] 40 mg PO QHS #30 tablet 12/05/19 11/13/20 Rx Aspirin EC [Ecotrin] 325 mg PO QDAY #30 tablet 10/26/20 11/14/20 Rx Allergies Allergy/AdvReac Type Severity Reaction Status Date / Time aspirin AdvReac Nausea Verified 02/29/20 16:36 blood thinners AdvReac Bleeding Uncoded 08/09/16 01:53 ED Review of Systems ROS: Stated complaint: CODE STROKE Other details as noted in HPI Comment: All other systems reviewed and negative ED Past Medical Hx - Past Medical History Previous Medical History?: Yes Hx Hypertension: Yes Hx CVA: Yes (old chart no mri documentation on previous admits for same left side weakne) Hx Heart Attack/AMI: No Hx Congestive Heart Failure: No Hx Diabetes: No Hx Liver Disease: No Hx Renal Disease: No Hx Asthma: No Hx COPD: No Additional medical history: Hx. left clavicle fx., h/o muscle spasms. 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, spinal stenosis - Surgical History Past Surgical History?: Yes Additional Surgical History: Herniated disk cspine 2001 C5-6, fusion,NECK SURGERY - Social History Smoking Status: Current Every Day Smoker Substance Use Type: None - Medications Home Medications: Home Medications Medication Instructions Recorded Confirmed Last Taken Type Oxycodone HCl [oxyCODONE] 10 mg PO Q8H PRN #10 tablet 05/04/18 11/14/20 11/14/20 Rx amLODIPine 5 mg PO DAILY 07/21/18 11/14/20 11/14/20 History busPIRone [Buspar] 10 mg PO BID 07/21/18 11/14/20 11/14/20 History Cyclobenzaprine [Flexeril 10 MG 10 mg PO BID PRN #5 tablet 08/04/18 11/14/20 11/14/20 Rx TAB] AtorvaSTATin [Lipitor] 40 mg PO QHS #30 tablet 12/05/19 11/14/20 11/13/20 Rx Aspirin EC [Ecotrin] 325 mg PO QDAY #30 tablet 10/26/20 11/14/20 11/14/20 Rx ED Physical Exam - General Limitations: Other General appearance: alert, in no apparent distress - Head Head exam: Present: atraumatic, normocephalic - Eye Eye exam: Present: normal appearance - ENT ENT exam: Present: mucous membranes moist - Neck Neck exam: Present: normal inspection - Respiratory Respiratory exam: Present: normal lung sounds bilaterally. Absent: respiratory distress, wheezes, rales, rhonchi - Cardiovascular Cardiovascular Exam: Present: regular rate, normal rhythm, normal heart sounds. Absent: systolic murmur, diastolic murmur, rubs, gallop - GI/Abdominal GI/Abdominal exam: Present: soft, normal bowel sounds. Absent: distended, tenderness, guarding, rebound - Extremities Exam Extremities exam: Present: normal inspection - Back Exam Back exam: Present: normal inspection - Neurological Exam Neurological exam: Present: alert, oriented X3, abnormal gait, motor sensory deficit - Psychiatric Psychiatric exam: Present: normal affect, normal mood - Skin Skin exam: Present: warm, dry, intact, normal color. Absent: rash - Other Other exam information: Examination: BP(162/94), Pulse(74), Blood Glucose(106) 1A: Level of Consciousness - Alert; keenly responsive + 0 1B: Ask Month and Age - Both Questions Right + 0 1C: Blink Eyes & Squeeze Hands - Performs Both Tasks + 0 2: Test Horizontal Extraocular Movements - Normal + 0 3: Test Visual Henry - No Visual Loss + 0 4: Test Facial Palsy (Use Grimace if Obtunded) - Normal symmetry + 0 5A: Test Left Arm Motor Drift - Drift, hits bed + 2 5B: Test Right Arm Motor Drift - No Drift for 10 Seconds + 0 6A: Test Left Leg Motor Drift - Drift, hits bed + 2 6B: Test Right Leg Motor Drift - No Drift for 5 Seconds + 0 7: Test Limb Ataxia (FNF/Heel-Wade) - No Ataxia + 0 8: Test Sensation - Mild-Moderate Loss: Less Sharp/More Dull + 1 9: Test Language/Aphasia - Normal; No aphasia + 0 10: Test Dysarthria - Mild-Moderate Dysarthria: Slurring but can be understood + 1 11: Test Extinction/Inattention - No abnormality + 0 NIHSS Score: 6 Pre-Morbid Modified Ranking Scale: 2 Points = Slight disability; unable to carry out all previous activities, but able to look after own affairs without assistance ED Course Vital Signs 11/14/20 11/14/20 23:38 23:46 Temperature 98 F Pulse Rate 80 Respiratory 20 21 Rate Blood Pressure 143/69 Blood Pressure 143/69 [Right] O2 Sat by Pulse 98 99 Oximetry - Reevaluation(s) Reevaluation #1: 11/15/20 00:14 Patient seen by teleneurology and there note and recommendations are as follows: Patient Name: SILVERIO FIGUEROA Date of : 1945 Patient Status: Emergency Emergency Provider: BALA BAUMAN Date: 11/14/20 23:07 Initialization Date: 11/14/20 23:07 History of Present Illness Consult date: 11/14/20 History of present illness: [facility] Date of Service: 11/14/2020 22:41:13 Impression: R51 - HANNA (Headache) Comments/Sign-Out: Non thunderclap headache and right facial numbness. Presentation not consistent with acute stroke. Check ESR. Inpatient MRI brain. Continue ASA Metrics: Last Known Well: 11/14/2020 22:00:00 [facility] Notification Time: 11/14/2020 22:41:01 Arrival Time: 11/14/2020 22:46:00 Stamp Time: 11/14/2020 22:41:13 Time First Login Attempt: 11/14/2020 22:42:44 Symptoms: headache and right face numbness NIHSS Start Assessment Time: 11/14/2020 22:57:21 Patient is not a candidate for Alteplase/Activase. Patient was not deemed candidate for Alteplase/Activase thrombolytics because of Presentation not consistent with acute stroke, and reported unruptured cerebral aneurysm. CT head showed no acute hemorrhage or acute core infarct. Clinical Presentation is not Suggestive of Large Vessel Occlusive Disease ED Physician notified of diagnostic impression and management plan on 11/14/2020 23:01:24 Our recommendations are outlined below. Recommendations: Activate Stroke Protocol Admission/Order Set Stroke/Telemetry Floor Neuro Checks Bedside Swallow Eval DVT Prophylaxis IV Fluids, Normal Saline Head of Bed 30 Degrees Euglycemia and Avoid Hyperthermia (PRN Acetaminophen) Initiate Aspirin 81 MG Daily ED Medical Decision Making - Lab Data Result diagrams: 11/14/20 23:13 11/14/20 23:13 Lab Results 11/14/20 11/14/20 11/14/20 Range/Units 23:13 23:13 23:13 WBC 7.5 (4.5-11.0) K/mm3 RBC 5.75 H (3.65-5.03) M/mm3 Hgb 14.3 (10.1-14.3) gm/dl Hct 44.8 H (30.3-42.9) % MCV 78 L (79-97) fl MCH 25 L (28-32) pg MCHC 32 (30-34) % RDW 17.6 H (13.2-15.2) % Plt Count 252 (140-440) K/mm3 Lymph % (Auto) 37.1 H (13.4-35.0) % Webster % (Auto) 7.1 (0.0-7.3) % Eos % (Auto) 0.8 (0.0-4.3) % Baso % (Auto) Support Worker Lymph # (Auto) 2.8 (1.2-5.4) K/mm3 Webster # (Auto) 0.5 (0.0-0.8) K/mm3 Eos # (Auto) 0.1 (0.0-0.4) K/mm3 Baso # (Auto) 0.0 (0.0-0.1) K/mm3 Seg Neutrophils % 54.4 (40.0-70.0) % Seg Neutrophils # 4.1 (1.8-7.7) K/mm3 PT 12.8 (12.2-14.9) Sec. INR 0.98 (0.87-1.13) APTT 32.0 (24.2-36.6) Sec. Thrombin Time 16.5 (15.1-19.6) Sec. Sodium 139 (137-145) mmol/L Potassium 3.8 (3.6-5.0) mmol/L Chloride 104.2 (98-107) mmol/L Carbon Dioxide 22 (22-30) mmol/L Anion Gap 17 mmol/L BUN 10 (7-17) mg/dL Creatinine 0.8 (0.6-1.2) mg/dL Estimated GFR > 60 ml/min BUN/Creatinine Ratio 13 % Glucose 101 H (65-100) mg/dL Calcium 9.6 (8.4-10.2) mg/dL Magnesium (1.7-2.3) mg/dL Total Bilirubin 0.30 (0.1-1.2) mg/dL AST 17 (5-40) units/L ALT 18 (7-56) units/L Alkaline Phosphatase 145 H (35-129) units/L Total Creatine Kinase 155 H (30-135) units/L CK-MB (CK-2) 2.5 (0.0-4.0) ng/mL CK-MB (CK-2) Rel Index 1.6 (0-4) Troponin T < 0.010 (0.00-0.029) ng/mL Total Protein 7.7 (6.3-8.2) g/dL Albumin 4.3 (3.9-5) g/dL Albumin/Globulin Ratio 1.3 % Plasma/Serum Alcohol (0-0.07) % 11/14/20 11/14/20 Range/Units 23:13 23:13 WBC (4.5-11.0) K/mm3 RBC (3.65-5.03) M/mm3 Hgb (10.1-14.3) gm/dl Hct (30.3-42.9) % MCV (79-97) fl MCH (28-32) pg MCHC (30-34) % RDW (13.2-15.2) % Plt Count (140-440) K/mm3 Lymph % (Auto) (13.4-35.0) % Webster % (Auto) (0.0-7.3) % Eos % (Auto) (0.0-4.3) % Baso % (Auto) Lymph # (Auto) (1.2-5.4) K/mm3 Webster # (Auto) (0.0-0.8) K/mm3 Eos # (Auto) (0.0-0.4) K/mm3 Baso # (Auto) (0.0-0.1) K/mm3 Seg Neutrophils % (40.0-70.0) % Seg Neutrophils # (1.8-7.7) K/mm3 PT (12.2-14.9) Sec. INR (0.87-1.13) APTT (24.2-36.6) Sec. Thrombin Time (15.1-19.6) Sec. Sodium (137-145) mmol/L Potassium (3.6-5.0) mmol/L Chloride (98-107) mmol/L Carbon Dioxide (22-30) mmol/L Anion Gap mmol/L BUN (7-17) mg/dL Creatinine (0.6-1.2) mg/dL Estimated GFR ml/min BUN/Creatinine Ratio % Glucose (65-100) mg/dL Calcium (8.4-10.2) mg/dL Magnesium 2.40 H (1.7-2.3) mg/dL Total Bilirubin (0.1-1.2) mg/dL AST (5-40) units/L ALT (7-56) units/L Alkaline Phosphatase (35-129) units/L Total Creatine Kinase (30-135) units/L CK-MB (CK-2) (0.0-4.0) ng/mL CK-MB (CK-2) Rel Index (0-4) Troponin T (0.00-0.029) ng/mL Total Protein (6.3-8.2) g/dL Albumin (3.9-5) g/dL Albumin/Globulin Ratio % Plasma/Serum Alcohol < 0.01 (0-0.07) % - EKG Data -: EKG Interpreted by Sd EKG shows normal: sinus rhythm, axis, intervals, QRS complexes, ST-T waves Rate: normal - EKG Data Interpretation: normal EKG - Radiology Data CT head/brain wo con INDICATION / CLINICAL INFORMATION: 74 years Female; Stroke symptoms. TECHNIQUE: Routine CT head without contrast. All CT scans at this location are performed using CT dose reduction for ALARA by means of automated exposure control. COMPARISON: 10/23/2020 FINDINGS: BRAIN / INTRACRANIAL CONTENTS: No acute hemorrhage, mass effect, midline shift, hydrocephalus, or acute, large territorial infarct. Mild cerebral and cerebellar atrophy. There are minimal areas of decreased attenuation in the white matter of the cerebral hemispheres. These are nonspecific findings and may be related to microangiopathy (hypertension, diabetes, atherosclerosis), given the patient's age. It might be difficult to evaluate for small areas of ischemia without diffusion imaging by MRI. CRANIOCERVICAL JUNCTION: No significant abnormality. ORBITS: No significant abnormality of visualized orbits. SINUSES / MASTOIDS: There is partial opacification of the mastoids bilaterally. Mild mucosal thickening seen in the ethmoids. ADDITIONAL FINDINGS: Atherosclerotic disease is seen in the anterior and posterior circulation. IMPRESSION: 1. No focal mass, hemorrhage, hydrocephalus, or acute, large territorial infarct. Signer Name: Bora Ruiz MD, III Signed: 11/14/2020 11:17 PM Workstation Name: [email or web address] Transcribed By: Dictated By: Bora Ruiz MD Electronically Authenticated By: Bora Riuz MD Signed Date/Time: 11/14/20 3907 - Medical Decision Making Further recommendation of our telemetry neurologist the patient is is not to receive TPA secondary to history of aneurysm. Patient symptoms likely not from his acute CVA however TIA cannot be ruled out at this time. Patient to be admitted for observation to have an MRI in the morning. Critical care attestation.: If time is entered above; I have spent that time in minutes in the direct care of this critically ill patient, excluding procedure time. ED Disposition Clinical Impression: Right facial numbness, Complicated migraine, Hemiparesis due to old stroke TIA (transient ischemic attack) Qualifiers: Transient cerebral ischemia type: unspecified Qualified Code(s): G45.9 - Transient cerebral ischemic attack, unspecified Disposition: OP ADMIT IP TO THIS HOSP Is pt being admited?: Yes Does the pt Need Aspirin: Yes Condition: Stable Time of Disposition: 00:24
[2020-11-15] MEDS ORDERED: METOCLOPRAMIDE 10 MG TAB PO PRN (00:51)
[2020-11-15] MEDS ORDERED: PROMETHAZINE 25 MG RECT SUPP PR PRN (00:51)
[2020-11-15] MEDS ORDERED: MORPHINE 2 MG/1 ML INJ IV PRN (00:51)
[2020-11-15] MEDS ORDERED: ACETAMINOPHEN 325 MG TAB PO PRN ×2 (00:51)
[2020-11-15] MEDS ORDERED: ONDANSETRON 4 MG/2 ML INJ IV PRN ×2 (00:51)
[2020-11-15] MEDS ORDERED: MAGNESIUM HYDROXIDE (MOM) ORAL LIQD UDC PO PRN ×2 (00:51)
[2020-11-15 00:52] LABS: Erythrocyte Sedimentation Rate 3 mm/Hr (0-20)
[2020-11-15] MEDS ORDERED: CYCLOBENZAPRINE 10 MG TAB PO PRN (01:05)
[2020-11-15] MEDS ORDERED: NON-FORMULARY EACH (Oxycodone Hcl [Oxycodone] 10 MG Tablet) PO PRN (01:05)
[2020-11-15] MEDS ORDERED: oxyCODONE 5 MG TAB PO PRN (01:15)
--- NOTE | 2020-11-15 01:16 | History and Physical Report ---
History of Present Illness Date of examination: 11/15/20 Date of admission: 11/15/2020 Chief complaint: Right-sided facial numbness History of present illness: 74-year-old -[place] female with known history of hypertension, CVA with left hemiparesis in the past, dyslipidemia presenting to the emergency room today with right-sided facial numbness. Patient states this happened about 30 minutes prior to the emergency room and lasted for about 5 to 10 minutes. She also states she has been having a right-sided headache radiating from the posterior part of her head to the frontal part of her head. She has had associated blurry vision but denies any double vision. She denies any nausea vomiting. Patient denies any fever or chills, denies any neck pain, no chest pain or shortness of breath, denies any recent travel and no sick contacts, denies any contact with anyone with COVID-19. Patient was seen here about 3 weeks ago for worsening of left-sided weakness and difficulty with speech. Work-up at that time including MRI was within normal limits. Review of patient's records also indicates that she has an aneurysm of internal carotid artery at the level of the ophthalmic artery branch. Work-up today including CT scan of the head did not reveal any acute findings. Neurologist recommendation was to work-up patient for possible CVA. Past History Past Medical History: hypertension, hyperlipidemia, stroke (With left hemiparesis), other (History of new resume behind the left eye, spinal stenosis, history of herniated disc) Past Surgical History: Other (C5-6 neck fusion, left clavicular fracture) Social history: smoking (Current daily smoker) Family history: no significant family history Medications and Allergies Allergies Allergy/AdvReac Type Severity Reaction Status Date / Time aspirin AdvReac Nausea Verified 02/29/20 16:36 blood thinners AdvReac Bleeding Uncoded 08/09/16 01:53 Home Medications Medication Instructions Recorded Confirmed Last Taken Type Oxycodone HCl [oxyCODONE] 10 mg PO Q8H PRN #10 tablet 05/04/18 11/14/20 11/14/20 Rx amLODIPine 5 mg PO DAILY 07/21/18 11/14/20 11/14/20 History busPIRone [Buspar] 10 mg PO BID 07/21/18 11/14/20 11/14/20 History Cyclobenzaprine [Flexeril 10 MG 10 mg PO BID PRN #5 tablet 08/04/18 11/14/20 11/14/20 Rx TAB] AtorvaSTATin [Lipitor] 40 mg PO QHS #30 tablet 12/05/19 11/14/20 11/13/20 Rx Aspirin EC [Ecotrin] 325 mg PO QDAY #30 tablet 10/26/20 11/14/20 11/14/20 Rx Active Meds: Active Medications Acetaminophen (Acetaminophen 325 Mg Tab) 650 mg PO Q4H PRN PRN Reason: Pain MILD(1-3)/Fever >100.5/HANNA Amlodipine Besylate (Amlodipine 10 Mg Tab) 5 mg PO DAILY ALLA Aspirin (Aspirin Ec 325 Mg Tab) 325 mg PO QDAY ALLA Atorvastatin Calcium (Atorvastatin 40 Mg Tab) 40 mg PO QHS ALLA Bisacodyl (Bisacodyl 10 Mg Rect Supp) 10 mg ME QDAY PRN PRN Reason: Constipation Buspirone HCl (Buspirone 5 Mg Tab) 10 mg PO BID ALLA Cyclobenzaprine HCl (Cyclobenzaprine 10 Mg Tab) 10 mg PO BID PRN PRN Reason: Muscle Spasm Magnesium Hydroxide (Magnesium Hydroxide (Mom) Oral Liqd Udc) 30 ml PO Q4H PRN PRN Reason: Constipation Metoclopramide HCl (Metoclopramide 10 Mg Tab) 10 mg PO Q6H PRN PRN Reason: Nausea And Vomiting Miscellaneous Medication (Oxycodone Hcl [Oxycodone]) 10 mg PO Q8H PRN PRN Reason: Pain , Severe (7-10) Morphine Sulfate (Morphine 2 Mg/1 Ml Inj) 2 mg IV Q4H PRN PRN Reason: Pain, Moderate (4-6) Ondansetron HCl (Ondansetron 4 Mg/2 Ml Inj) 4 mg IV Q8H PRN PRN Reason: Nausea And Vomiting Promethazine HCl (Promethazine 25 Mg Rect Supp) 25 mg ME Q6H PRN PRN Reason: Nausea And Vomiting Sodium Chloride (Sodium Chloride 0.9% 10 Ml Flush Syringe) 10 ml IV BID ALLA Sodium Chloride (Sodium Chloride 0.9% 10 Ml Flush Syringe) 10 ml IV PRN PRN PRN Reason: LINE FLUSH Review of Systems Constitutional: no fever, no chills Eyes: bilateral: blurred vision Ears, nose, mouth and throat: no nasal congestion, no sore throat Cardiovascular: no chest pain, no palpitations Respiratory: no cough, no shortness of breath Gastrointestinal: no abdominal pain, no nausea, no vomiting, no diarrhea Genitourinary Female: no pelvic pain, no flank pain, no dysuria Musculoskeletal: no neck pain, no low back pain Integumentary: no rash, no pruritis Neurological: numbness (Right side of face), headaches, no aphasia, no change in speech, no confusion, no double vision Psychiatric: no anxiety, no paranoia Exam - Constitutional Vitals: Temp Pulse Resp BP Pulse Ox 98 F 80 21 143/69 99 11/14/20 23:46 11/14/20 23:46 11/14/20 23:46 11/14/20 23:46 11/14/20 23:46 General appearance: Present: no acute distress, well-nourished - EENT Eyes: Present: PERRL, EOM intact. Absent: scleral icterus ENT: no hearing intact, no clear oral mucosa, no dentition normal - Neck Neck: Present: supple, normal ROM - Respiratory Respiratory effort: normal Respiratory: bilateral: CTA - Cardiovascular Rhythm: regular Heart Sounds: Present: S1 & S2. Absent: gallop, systolic murmur, diastolic murmur, rub - Extremities Extremities: no ischemia, pulses intact, pulses symmetrical, No edema, normal temperature, normal color, Full ROM Peripheral Pulses: within normal limits - Abdominal General gastrointestinal: Present: soft, non-tender, non-distended, normal bowel sounds. Absent: mass - Integumentary Integumentary: Present: clear, warm, dry. Absent: rash - Musculoskeletal Musculoskeletal: left sided weakness (Left upper extremity weakness, mildly contracted at the elbow) - Psychiatric Psychiatric: appropriate mood/affect, intact judgment & insight, memory intact, cooperative - Neurologic Neurologic: CNII-XII intact, no focal deficits, moves all extremities HEART Score - HEART Score Troponin: Troponin T < 0.010 ng/mL (0.00-0.029) 11/14/20 23:13 Results - Labs CBC & Chem 7: 11/14/20 23:13 11/14/20 23:13 Labs: Abnormal lab results 11/14/20 11/14/20 11/14/20 Range/Units 23:13 23:13 23:13 RBC 5.75 H (3.65-5.03) M/mm3 Hct 44.8 H (30.3-42.9) % MCV 78 L (79-97) fl MCH 25 L (28-32) pg RDW 17.6 H (13.2-15.2) % Lymph % (Auto) 37.1 H (13.4-35.0) % Glucose 101 H (65-100) mg/dL Magnesium 2.40 H (1.7-2.3) mg/dL Alkaline Phosphatase 145 H (35-129) units/L Total Creatine Kinase 155 H (30-135) units/L Assessment and Plan - Patient Problems (1) Right facial numbness Current Visit: Yes Status: Acute Plan to address problem: Numbness has since resolved since arriving in the emergency room. Patient will be worked up for possible TIA versus CVA. Patient will be scheduled for MRI of the brain. Will continue on aspirin and statin. We will consult neurology for follow-up. Patient has a known history of CVA in the past with left upper extremity weakness. (2) Headache Current Visit: No Status: Acute Qualifiers: Plan to address problem: Possibly secondary to complex migraine. We will continue patient on analgesic medication as needed. We await further recommendation from neurology. (3) Hypertension Current Visit: No Status: Acute Qualifiers: Hypertension type: essential hypertension Qualified Code(s): I10 - Essential (primary) hypertension Plan to address problem: We will resume routine home medications and monitor vital signs closely. (4) Dyslipidemia Current Visit: No Status: Chronic Plan to address problem: We will continue patient on statin and monitor lipid profile. (5) DVT prophylaxis Current Visit: No Status: Acute Plan to address problem: We will place patient on sequential compression device. Patient allergic to anticoagulation. (6) Full code status Current Visit: No Status: Acute Plan to address problem: Patient is a full code.
[2020-11-15] MEDS: ASPIRIN EC 325 MG TAB PO SCH (11:35)
[2020-11-15] MEDS: amLODIPine 5 MG TAB PO SCH (11:35)
[2020-11-15] MEDS: busPIRone 10 MG TAB PO SCH ×2 (12:18→21:11)
--- NOTE | 2020-11-15 13:03 | Event Note ---
Date: 11/15/20 Patient seen and examined Second IMS visit of the day Patient is awake and alert States her right facial numbness and blurring of the vision has improved Neurology consulted MRI of the brain pending CT of the head results reviewed Neurochecks Telemetry Aspirin
--- NOTE | 2020-11-15 16:34 | Consultation ---
History of Present Illness Consult date: 11/15/20 Reason for Consult: TIA Chief complaint: Right facial numbness and worsening of left-sided symptoms History of present illness: 74 yo female htn, hld, with hx of cva w/ residual left-sided weakness, TIAs, who presents with a transient episode of right facial umbness that lasted for 3-4 minutes and noted worsening of left-sided weakness. She notes continued weakness of the left arm/leg. Notes that she normally uses a cane for ambulation. Past History Past Medical History: hypertension, hyperlipidemia, stroke (With left hemiparesis), other (History of new resume behind the left eye, spinal stenosis, history of herniated disc) Past Surgical History: Other (C5-6 neck fusion, left clavicular fracture) Social history: smoking (Current daily smoker) Family history: no significant family history Medications and Allergies Allergies Allergy/AdvReac Type Severity Reaction Status Date / Time aspirin AdvReac Nausea Verified 02/29/20 16:36 blood thinners AdvReac Bleeding Uncoded 08/09/16 01:53 Home Medications Medication Instructions Recorded Confirmed Last Taken Type Oxycodone HCl [oxyCODONE] 10 mg PO Q8H PRN #10 tablet 05/04/18 11/14/20 11/14/20 Rx amLODIPine 5 mg PO DAILY 07/21/18 11/14/20 11/14/20 History busPIRone [Buspar] 10 mg PO BID 07/21/18 11/14/20 11/14/20 History Cyclobenzaprine [Flexeril 10 MG 10 mg PO BID PRN #5 tablet 08/04/18 11/14/20 11/14/20 Rx TAB] AtorvaSTATin [Lipitor] 40 mg PO QHS #30 tablet 12/05/19 11/14/20 11/13/20 Rx Aspirin EC [Ecotrin] 325 mg PO QDAY #30 tablet 10/26/20 11/14/20 11/14/20 Rx Active Meds: Active Medications Acetaminophen (Acetaminophen 325 Mg Tab) 650 mg PO Q4H PRN PRN Reason: Pain MILD(1-3)/Fever >100.5/HANNA Amlodipine Besylate (Amlodipine 5 Mg Tab) 5 mg PO DAILY [facility] Last Admin: 11/15/20 11:35 Dose: 5 mg Documented by: Aspirin (Aspirin Ec 325 Mg Tab) 325 mg PO QDAY [facility] Last Admin: 11/15/20 11:35 Dose: Not Given Documented by: Atorvastatin Calcium (Atorvastatin 40 Mg Tab) 40 mg PO QHS [facility] Bisacodyl (Bisacodyl 10 Mg Rect Supp) 10 mg NM QDAY PRN PRN Reason: Constipation Buspirone HCl (Buspirone 10 Mg Tab) 10 mg PO BID [facility] Last Admin: 11/15/20 12:18 Dose: 10 mg Documented by: Cyclobenzaprine HCl (Cyclobenzaprine 10 Mg Tab) 10 mg PO BID PRN PRN Reason: Muscle Spasm Magnesium Hydroxide (Magnesium Hydroxide (Mom) Oral Liqd Udc) 30 ml PO Q4H PRN PRN Reason: Constipation Metoclopramide HCl (Metoclopramide 10 Mg Tab) 10 mg PO Q6H PRN PRN Reason: Nausea And Vomiting Morphine Sulfate (Morphine 2 Mg/1 Ml Inj) 2 mg IV Q4H PRN PRN Reason: Pain, Moderate (4-6) Ondansetron HCl (Ondansetron 4 Mg/2 Ml Inj) 4 mg IV Q8H PRN PRN Reason: Nausea And Vomiting Oxycodone HCl (Oxycodone 5 Mg Tab) 10 mg PO Q8H PRN PRN Reason: Pain , Severe (7-10) Promethazine HCl (Promethazine 25 Mg Rect Supp) 25 mg NM Q6H PRN PRN Reason: Nausea And Vomiting Sodium Chloride (Sodium Chloride 0.9% 10 Ml Flush Syringe) 10 ml IV BID [facility] Last Admin: 11/15/20 11:36 Dose: 10 ml Documented by: Sodium Chloride (Sodium Chloride 0.9% 10 Ml Flush Syringe) 10 ml IV PRN PRN PRN Reason: LINE FLUSH Review of Systems All systems: negative (as per HPI;) Physical Examination - Vital Signs Vital Signs: Vital Signs Resp Pulse Ox 20 98 11/14/20 23:38 11/14/20 23:38 - Physical Exam Narrative exam: Gen: nad, well-nourished; Head: normocephalic; Eyes: no gaze deviation; no ptosis; ENT: normal vocalization; CVS: warm and well-perfused; Pulm: no respiratory distress; GI: non-distended; Ext: no cyanosis at distal extremities; Skin: no acute rash at distal extremities; Heme: no pathologic bruising or ecchymosis at distal extremities; Neuro: alert, oriented to name, age, month, year, surroundings, no dysarthria, no aphasia, CN 2 - PERRL, visual bernal intact, CN 3, 4, 6 - EOMI, CN 5 - facial sensation decreased on left to light touch, CN 7 - facial movement symmetric, CN 8 - hearing grossly intact, CN 9, 10 - uvula midline, CN 11 - shrug decreased on the left, CN 12 - tongue midline; Motor - at least 4+/5 at right extremities and at least 3-/5 at left extremities proximally but w/ noted contractions at left elbow and distally; difficulty w/ reaching 45 degree angle w/ left arm secondary to contractions; drift of LLE; Sensory - light touch decreased at left extremities, Cerebellar - fnf /hts intact on the right but difficulty w/ left secondary to weakness, Gait - deferred secondary to fall risk; NIHSS (1a.) Level of Consciousness:0 (1b.) LOC Questions:0 (1c.) LOC Commands:0 (2.) Best Gaze:0 (3.) Visual:0 (4.) Facial Palsy:0 (5a.) Motor Arm, Left:2 (5b.) Motor Arm, Right:0 (6a.) Motor Leg, Left:1 (6b.) Motor Leg, Right:0 (7.) Limb Ataxia:0 (8.) Sensory:2 (9.) Best Language:0 (10.) Dysarthria:0 (11.) Extinction and Inattention:0 NIHSS Total Score:5 Results - Laboratory Findings CBC and BMP: 11/14/20 23:13 11/14/20 23:13 Abnormal Lab Findings: Abnormal Labs 11/14/20 11/14/20 11/14/20 23:13 23:13 23:13 RBC 5.75 H Hct 44.8 H MCV 78 L MCH 25 L RDW 17.6 H Lymph % (Auto) 37.1 H Glucose 101 H Magnesium 2.40 H Alkaline Phosphatase 145 H Total Creatine Kinase 155 H Assessment and Plan 74 yo female htn, hld, with hx of cva w/ residual left-sided weakness, TIAs, who presents with a transient episode of right facial umbness that lasted for 3-4 minutes and noted worsening of left-sided weakness. 1. TIA/Acute Ischemic Stroke - ASA 325 mg PO qday, Plavix 75 mg PO qday x 21 days; MRI Brain w/o contrast, CTA Head/Neck w/ & w/o contrast, TTEcho, confirm LDL/HgbA1C/TSH, telemetry, SBP goal 160-200 mmHg and DBP 80-100 mmHg for now. Statin therapy for a goal LDL of 70, when patient passes swallow evaluation. PT/OT/ST/Swallow evaluation. Long-term risk-factor modification, including a strict diet/exercise regimen for secondary stroke prophylaxis. 2. Hypertension - goal SBP 160-200 mmHg and DBP 80-100 mmHg for 24 hours more. 3. Hyperlipidemia - goal LDL of 70 w/ statin therapy if no contraindications. 4. Dysarthria / Dysphagia - st / swallow evaluation/monitoring. 5. Left-sided weakness - pt/ot evaluation/monitoring. 6. Unsteady Gait - pt/ot evaluation/monitoring. Sourav Bill MD Neurology
[2020-11-16] MEDS ORDERED: LORazepam 1 MG TAB PO ONE (09:30)
[2020-11-16 09:31] LABS: Hematocrit 42.2 % (30.3-42.9); Hemoglobin 13.7 gm/dl (10.1-14.3); Mean Corpuscular HGB Conc 32 % (30-34); Mean Corpuscular Volume 78 fl (79-97); Platelet Count 225 K/mm3 (140-440); Red Cell Distribution Width 17.5 % (13.2-15.2)
[2020-11-16 09:43] LABS: Blood Urea Nitrogen 11 mg/dL (7-17); Chol/HDL Ratio 4.29 %; HDL Cholesterol 51 mg/dL (40-59); Hemolysis Index 12; INR 0.96 (0.87-1.13); LDL Cholesterol,Direct 157 mg/dL (50-130)
[2020-11-16 09:47] LABS: BUN/Creatinine Ratio 18
[2020-11-16] MEDS: ASPIRIN EC 325 MG TAB PO SCH (10:38)
[2020-11-16] MEDS: busPIRone 10 MG TAB PO SCH (10:38)
[2020-11-16] MEDS: amLODIPine 5 MG TAB PO SCH (10:38)
--- NOTE | 2020-11-16 10:57 | Magnetic Resonance Report ---
MR brain wo con INDICATION / CLINICAL INFORMATION: 74 years Female; stroke. TECHNIQUE: Multiplanar, multisequence MR images of the brain were obtained. COMPARISON: The study is compared to the previous MRI of 10/23/2020. FINDINGS: BRAIN / INTRACRANIAL CONTENTS: The motion degrades image quality despite using a fast acquisition seq uences. However, there are few small persistent hyperintense foci involving cerebral white matter on the FLAIR sequence most consistent with mild microvascular angiopathy. The diffusion imaging reveals no evidence of acute infarction. There is continued mild cerebral atrophy with associated mild prominence of the ventricular system. N o developing extra-axial fluid collections or significant mass effect is identified. CRANIOCERVICAL JUNCTION: No significant abnormality. VASCULAR FLOW-VOIDS: There is heterogeneous signal within the visualized distal right vertebral arter y which correlates with the report of the CTA head of 10/25/2020 demonstrating occlusion. The finding is also correlate with the report of a distal right ICA aneurysm. ORBITS: No significant abnormality of visualized orbits. SINUSES / MASTOIDS: The paranasal sinuses are pneumatized. There are continued inflammatory changes i nvolving the left mastoid air cells. More focal findings are seen inferiorly on the right. ADDITIONAL FINDINGS: None. IMPRESSION: 1. There is continued mild microvascular angiopathy without evidence of acute infarction or significa nt interval change from 10/25/2020. Signer Name: Fabio Woodard MD Signed: 11/16/2020 10:52 AM Workstation Name: [id number]
[2020-11-16 11:31] LABS: Total Cells Counted 100
[2020-11-16 11:40] LABS: Hypochromasia 1+
[2020-11-16 11:41] LABS: Platelet Estimate Consistent w Auto; RBC Morphology Normal
--- NOTE | 2020-11-16 13:07 | Discharge Summary ---
Providers - Providers Date of Admission: 11/15/20 00:25 Date of discharge: 11/16/20 Attending physician: MELIDA KAT 11/15/20 00:51 Consult to Physician [CONS] Routine Comment: Consulting Provider: EMIL WEBB Physician Instructions: Reason For Exam: Right sided facial numbness/TIA 11/15/20 00:53 Consult to Dietitian/Nutrition [CONS] Routine Physician Instructions: Reason For Exam: Reason for Consult: Nutrition Recommendations Reason for Consult: Diet education Occupational Therapy Evaluate and Treat [CONS] Routine Comment: Reason For Exam: Neuro deficits Physical Therapy Evaluation and Treat [CONS] Routine Comment: Reason For Exam: Neuro deficits Primary care physician: UPHOLSTERY TRIMMER Hospitalization Condition: Stable Disposition: DC/TX-06 HOME UNDER HOME [facility] Time spent for discharge: 34 minutes Core Measure Documentation - Palliative Care Palliative Care/ Comfort Measures: Not Applicable - Core Measures Any of the following diagnoses?: history only Exam - Constitutional Vitals: Temp Pulse Resp BP Pulse Ox 98.4 F 78 16 118/57 93 11/16/20 03:09 11/16/20 03:09 11/16/20 03:09 11/16/20 03:09 11/16/20 03:09 Plan Activity: fall precautions Weight Bearing Status: Non-Weight Bearing Diet: low fat, low salt Follow up with: PRIMARY CAREMD [Primary Care Provider] - 7 Days
[2020-11-16 16:22] VITALS: BP 125/65
== END 2020-11-16 17:22 | disposition home health service (06) ==
LOC: ED 22:46 → 4A 11-15 00:25
PROVIDERS: ADMIT Internal Medicine Geriatric Medicine; ATTEND Internal Medicine
DX: I67.1 Cerebral aneurysm, nonruptured (principal); G43.109 Migraine with aura, not intractable, without status migrainosus; G45.9 Transient cerebral ischemic attack, unspecified; I10 Essential (primary) hypertension; E78.5 Hyperlipidemia, unspecified; M48.00 Spinal stenosis, site unspecified; R20.0 Anesthesia of skin; F17.210 Nicotine dependence, cigarettes, uncomplicated; R47.1 Dysarthria and anarthria; R26.9 Unspecified abnormalities of gait and mobility; R29.706 NIHSS score 6; Z98.890 Other specified postprocedural states; Z79.899 Other long term (current) drug therapy; Z79.82 Long term (current) use of aspirin
CPT/HCPCS: 36415; 70450; 70551; 80048; 80053; 80061; 82550; 82553; 83735; 84484; 85025; 85610; 85652; 85670; 85730; 87641; 93005; 97116; 97530; 99285; 99406; A9270; G0378; 80320; 85007; G0480

== ENCOUNTER 2021-08-02 10:20 | Inpatient (IN) | payer MEDICARE ==
--- NOTE | 2021-08-02 10:48 | Emergency Department Report ---
ED Chest Pain HPI - General Chief Complaint: Chest Pain Stated Complaint: CHEST PAIN/SOB PUI?: No Time Seen by Provider: 08/02/21 10:29 Source: patient, EMS (Verbal report received from emergency medical services. EMS documentation not available at time of chart dictation ), RN notes reviewed, old records reviewed Mode of arrival: Stretcher Limitations: Other (Left-sided weakness from prior stroke) - History of Present Illness Initial Comments: The patient was evaluated in the emergency department for symptoms described in the history of present illness. He/she was evaluated in the context of the global COVID-19 pandemic, which necessitated consideration that the patient might be at risk for infection with the virus that causes COVID-19. Institutional protocols and algorithms that pertain to the evaluation of patie nts at risk for COVID-19 are in a state of rapid change based on information released by regulatory bodies including the CDC and federal and state organizations. These policies and algorithms were followed during the patient's care in the emergency department. Please note that these policies, procedures and recommendations changed on a rapid basis. Past medical history: Stroke, residual left-sided weakness, COVID-19 in April of this year, chronic respiratory failure, hypertension, hyperlipidemia, right periophthalmic artery aneurysm, followed by [facility]. 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 The patient is a 75-year-old female who presents to the ER today with complaint of nontraumatic left-sided chest pain, which has been present since this morning. She associates it with shortness of breath, but no nausea or vomiting, and diaphoresis. She was given aspirin and nitroglycerin by EMS, which improved her symptoms. The patient at this moment denies headache, neck pain, abdominal pain, vomiting, hematemesis, bright red blood per rectum, new/different leg pain and leg swelling. The patient denies travel, surgery, and immobilization. She has chronic baseline shortness of breath. She has chronic baseline lower extremity swelling. She thinks she may have had a nuclear/cardiac stress test in 2019, but she is not for sure. She states her pain is mostly improved at this time. She denies loss of taste and smell. She states he uses home oxygen as needed. EMS reports to myself that the patient had unremarkable vital signs in the field, and that they gave her aspirin and nitroglycerin. Complaint: chest pain -: Sudden, hour(s) Onset: during exertion Pain Location: left chest Pain Radiation: none Severity: moderate Quality: aching Consistency: intermittent Improves With: nitroglycerin, rest Worsens With: inspiration re: diaphoresis Treatments Prior to Arrival: aspirin, nitroglycerin Aspirin use within the Past 7 Days: (1) Yes - Related Data On Oral Contraceptives: No Home Medications Medication Instructions Recorded Confirmed Last Taken amLODIPine 5 mg PO DAILY 07/21/18 08/02/21 1 Day Ago ~08/01/21 busPIRone [Buspar] 10 mg PO BID 07/21/18 08/02/21 1 Day Ago ~08/01/21 Aspirin EC [Ecotrin] 162 mg PO QDAY 08/02/21 08/02/21 2 Days Ago ~07/31/21 Previous Rx's Medication Instructions Recorded Last Taken Type Oxycodone HCl [oxyCODONE] 10 mg PO Q8H PRN #10 tablet 05/04/18 11/14/20 Rx Cyclobenzaprine [Flexeril 10 MG 10 mg PO BID PRN #5 tablet 08/04/18 1 Day Ago Rx TAB] ~08/01/21 AtorvaSTATin [Lipitor] 40 mg PO QHS #30 tablet 12/05/19 11/13/20 Rx Allergies Allergy/AdvReac Type Severity Reaction Status Date / Time aspirin AdvReac Nausea Verified 08/02/21 10:57 blood thinners AdvReac Bleeding Uncoded 08/09/16 01:53 Heart Score - HEART Score History: Moderately suspicious EKG: Non-specific Age: > 65 Risk factors: > 3 risk factors or hx of atherosclerotic disease Troponin: < normal limit HEART Score: 6 - EKG Read Time Time EKG Completed: 09:56 (Prehospital EKG) EKG Read Time: 10:30 (Time prehospital EKGs presented to myself) ED Review of Systems ROS: Stated complaint: CHEST PAIN/SOB Other details as noted in HPI Constitutional: malaise. denies: fever Eyes: denies: eye discharge ENT: denies: congestion Respiratory: cough, shortness of breath Cardiovascular: chest pain Gastrointestinal: denies: abdominal pain, nausea, vomiting, diarrhea, hematemesis, melena, hematochezia Genitourinary: denies: dysuria Musculoskeletal: denies: back pain Neurological: weakness. denies: headache Hematological/Lymphatic: denies: easy bleeding ED Past Medical Hx - Past Medical History Hx Hypertension: Yes Hx CVA: Yes (old chart no mri documentation on previous admits for same left side weakne) Hx Heart Attack/AMI: No Hx Congestive Heart Failure: No Hx Diabetes: No Hx Liver Disease: No Hx Renal Disease: No Hx Asthma: No Hx COPD: No Additional medical history: Hx. left clavicle fx., h/o muscle spasms. 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, spinal stenosis - Surgical History Additional Surgical History: Herniated disk cspine 2001 C5-6, fusion,NECK SURGERY - Social History Smoking Status: Current Every Day Smoker - Medications Home Medications: Home Medications Medication Instructions Recorded Confirmed Last Taken Type Oxycodone HCl [oxyCODONE] 10 mg PO Q8H PRN #10 tablet 05/04/18 08/02/21 11/14/20 Rx amLODIPine 5 mg PO DAILY 07/21/18 08/02/21 1 Day Ago History ~08/01/21 busPIRone [Buspar] 10 mg PO BID 07/21/18 08/02/21 1 Day Ago History ~08/01/21 Cyclobenzaprine [Flexeril 10 MG 10 mg PO BID PRN #5 tablet 08/04/18 08/02/21 1 Day Ago Rx TAB] ~08/01/21 AtorvaSTATin [Lipitor] 40 mg PO QHS #30 tablet 12/05/19 08/02/21 11/13/20 Rx Aspirin EC [Ecotrin] 162 mg PO QDAY 08/02/21 08/02/21 2 Days Ago History ~07/31/21 ED Physical Exam - General Limitations: Other (Left-sided weakness from prior stroke) General appearance: alert, in no apparent distress - Head Head exam: Present: atraumatic, normocephalic - Eye Eye exam: Present: normal appearance, EOMI. Absent: nystagmus - ENT ENT exam: Present: normal exam, normal orophraynx, mucous membranes moist, normal external ear exam - Neck Neck exam: Present: normal inspection, full ROM. Absent: tenderness, meningismus - Respiratory Respiratory exam: Present: respiratory distress, rales. Absent: rhonchi, stridor - Cardiovascular Cardiovascular Exam: Present: regular rate, normal rhythm, normal heart sounds, JVD. Absent: bradycardia, tachycardia, irregular rhythm, systolic murmur, diastolic murmur, rubs, gallop - GI/Abdominal GI/Abdominal exam: Present: soft. Absent: distended, tenderness, guarding, rebound, rigid, pulsatile mass - Extremities Exam Extremities exam: Present: normal inspection, full ROM (Full range of motion right arm, right leg. Contraction noted to left arm. Decreased range of motion in left arm and left leg), pedal edema (2-3+ edema of bilateral lower extremity), other (2+ pulses noted in the bilateral upper and lower extremities. There is no palpable cord. negative Homans sign. Muscular compartments are soft. The pelvis is stable.). Absent: calf tenderness - Back Exam Back exam: Present: normal inspection. Absent: tenderness, CVA tenderness (R), CVA tenderness (L), paraspinal tenderness, vertebral tenderness - Neurological Exam Neurological exam: Present: alert, oriented X3, motor sensory deficit (4 out of 5 strength left arm and left leg.), other (There is no facial droop. Tongue midline. EOMI. 5 out of 5 strength right arm and right leg. Sensation intact to light touch in 4 extremities.) - Psychiatric Psychiatric exam: Present: normal affect, normal mood - Skin Skin exam: Present: warm, dry, intact, normal color. Absent: rash ED Course Vital Signs 08/02/21 08/02/21 08/02/21 10:44 11:01 11:31 Temperature 97.9 F Pulse Rate 79 75 78 Respiratory 18 18 15 Rate Blood Pressure 135/75 143/77 Blood Pressure 130/68 [Right] O2 Sat by Pulse 100 99 100 Oximetry 08/02/21 08/02/21 12:31 13:31 Temperature Pulse Rate 81 Respiratory 13 Rate Blood Pressure 150/75 147/80 Blood Pressure [Right] O2 Sat by Pulse 100 100 Oximetry - Reevaluation(s) Reevaluation #1: 08/02/21 10:49 Differential diagnosis, including the not limited to: Acute coronary syndrome, pneumonia, CHF, pleural effusion, pericardial effusion, pulmonary embolism Assessment and plan: 75-year-old female with chest pain, shortness of breath and report of diaphoresis. Has not had a cardiac risk ratification that she can recall for certain within the past 6 months. Moderate to high risk for major adverse cardiac event as per heart score. Has minimal pain or discomfort at this time. Also has examination/clinical evidence of CHF. Place patient on equipment monitor phototypesetting. Treat symptoms as needed, and obtain appropriate laboratory studies, and x-ray the chest. Denies travel, surgery, immobilization, DVT and pulmonary embolism risk factors. However, given history of Covid, and chronic symptomatology, including chronic respiratory failure, will send D-dimer to risk stratify for pulmonary embolism. Have recommended admission to the medical service once initial diagnostics have resulted. I discussed this with the patient. She is agreeable to this plan of care. All questions answered. 08/02/21 12:42 Patient states pain is improved. CTA chest pending. Hospital physician, Dr. Nessa Almaraz to admit to [facility] 08/02/21 14:03 CT angiogram chest negative for acute findings Patient given aspirin by EMS ANDREA score - Andrea Score Age > 65: (1) Yes Aspirin use within the Past 7 Days: (1) Yes 3 or more CAD Risk Factors: (1) Yes 2 or more Angina events in past 24 hrs: (0) No Known CAD with more than 50% Stenosis: (0) No Elevated Cardiac Markers: (0) No ST Deviation Greater than 0.5mm: (0) No ANDREA Score: 3 ED Medical Decision Making - Lab Data Result diagrams: 08/02/21 10:57 08/02/21 10:57 Vital Signs 08/02/21 10:44 Temperature 97.9 F Pulse Rate 79 Respiratory 18 Rate Blood Pressure 130/68 [Right] O2 Sat by Pulse 100 Oximetry Lab Results 08/02/21 08/02/21 08/02/21 Range/Units 10:57 10:57 10:57 WBC 6.7 (4.5-11.0) K/mm3 RBC 6.25 H (3.65-5.03) M/mm3 Hgb 15.2 H (10.1-14.3) gm/dl Hct 47.7 H (30.3-42.9) % MCV 76 L (79-97) fl MCH 24 L (28-32) pg MCHC 32 (30-34) % RDW 17.4 H (13.2-15.2) % Plt Count 163 (140-440) K/mm3 Lymph % (Auto) 40.7 H (13.4-35.0) % [place] % (Auto) 4.6 (0.0-7.3) % Eos % (Auto) 0.8 (0.0-4.3) % Baso % (Auto) 0.9 (0.0-1.8) % Lymph # (Auto) 2.7 (1.2-5.4) K/mm3 [place] # (Auto) 0.3 (0.0-0.8) K/mm3 Eos # (Auto) 0.1 (0.0-0.4) K/mm3 Baso # (Auto) 0.1 (0.0-0.1) K/mm3 Seg Neutrophils % 53.0 (40.0-70.0) % Seg Neutrophils # 3.5 (1.8-7.7) K/mm3 PT 13.0 (12.2-14.9) Sec. INR 0.93 (0.87-1.13) APTT 21.3 L (24.2-36.6) Sec. D-Dimer 316.03 H (0-234) ng/mlDDU Sodium 139 (137-145) mmol/L Potassium 3.7 (3.6-5.0) mmol/L Chloride 106.2 (98-107) mmol/L Carbon Dioxide 21 L (22-30) mmol/L Anion Gap 16 mmol/L BUN 9 (7-17) mg/dL Creatinine 0.7 (0.6-1.2) mg/dL Estimated GFR > 60 ml/min BUN/Creatinine Ratio 13 % Glucose 128 H (65-100) mg/dL Calcium 9.0 (8.4-10.2) mg/dL Magnesium 2.40 H (1.7-2.3) mg/dL Total Bilirubin 0.30 (0.1-1.2) mg/dL AST 16 (5-40) units/L ALT 16 (7-56) units/L Alkaline Phosphatase 142 H (35-129) units/L Troponin T < 0.010 (0.00-0.029) ng/mL NT-Pro-B Natriuret Pep 13.31 (0-900) pg/mL Total Protein 7.2 (6.3-8.2) g/dL Albumin 4.1 (3.9-5) g/dL Albumin/Globulin Ratio 1.3 % - EKG Data -: EKG Interpreted by Me EKG shows normal: sinus rhythm - EKG Data 08/02/21 10:49 Prehospital EKG interpreted by myself at 10: 30 p.m. Sinus rhythm, rate 98 bpm, there is a borderline leftward axis deviation, there is a LAFB, and there is poor R wave progression. There is left ventricular hypertrophy. There is motion artifact. The QTC is 423 ms. 08/02/21 11:07 Emergency room EKG acquired interpreted at 10: 51 Sinus rhythm, 76 bpm. Normal axis, normal P wave axis, poor R wave progression, QTC 4 4 6 ms. This is an abnormal EKG. This is not a STEMI. It is unchanged from prior EKG from November 2020 - Radiology Data Radiology results: pending, image reviewed interpreted by me: One view x-ray of the chest is negative for acute findings. Critical care attestation.: If time is entered above; I have spent that time in minutes in the direct care of this critically ill patient, excluding procedure time. ED Disposition Clinical Impression: Hemiparesis due to old stroke, Acute chest pain, Lower leg edema Disposition: ADMITTED INPATIENT Is pt being admited?: Yes Does the pt Need Aspirin: No (Aspirin given by EMS) Condition: Good
--- NOTE | 2021-08-02 11:43 | Electrocardiograph Report ---
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
[2021-08-02 11:50] LABS: Alanine Aminotransferase 16 units/L (7-56); Albumin 4.1 g/dL (3.9-5); Blood Urea Nitrogen 9 mg/dL (7-17); Hemolysis Index 12
[2021-08-02 11:53] LABS: BUN/Creatinine Ratio 13
[2021-08-02 11:55] LABS: Basophils # (Auto) 0.1 K/mm3 (0.0-0.1); Basophils % (Auto) 0.9 % (0.0-1.8); Eosinophils # (Auto) 0.1 K/mm3 (0.0-0.4); Eosinophils % (Auto) 0.8 % (0.0-4.3); Hematocrit 47.7 % (30.3-42.9); Hemoglobin 15.2 gm/dl (10.1-14.3); Lymphocytes # (Auto) 2.7 K/mm3 (1.2-5.4); Lymphocytes % (Auto) 40.7 % (13.4-35.0); Mean Corpuscular HGB Conc 32 % (30-34); Mean Corpuscular Volume 76 fl (79-97); Monocytes # (Auto) 0.3 K/mm3 (0.0-0.8); Monocytes % (Auto) 4.6 % (0.0-7.3); Red Blood Count 6.25 M/mm3 (3.65-5.03); Red Cell Distribution Width 17.4 % (13.2-15.2)
[2021-08-02 11:59] LABS: INR 0.93 (0.87-1.13)
[2021-08-02 12:00] LABS: Partial Thromboplastin Time 21.3 Sec. (24.2-36.6)
[2021-08-02 12:18] LABS: Platelet Count 163 K/mm3 (140-440)
[2021-08-02] MEDS ORDERED: FUROSEMIDE 20 MG/2 ML INJ IV ONE (12:42)
--- NOTE | 2021-08-02 13:29 | Cat Scan Report ---
CTA CHEST WITH IV CONTRAST INDICATION: acute chest pain, cad vs pna vs pe vs chf 100 ml omni 350 CONTRAST: 100 cc Omnipaque 350 IV COMPARISON: 02/29/2020 Three-plane MIP reconstructions were produced. All CT scans at this location are performed using CT d ose reduction for ALARA by means of automated exposure control. FINDINGS: No significant axillary or chest wall lesions are seen. Views of the upper abdomen show fat ty infiltration of the liver and stable bilateral adrenal nodules. No mediastinal or hilar masses are seen. Small hiatal hernia is seen. No pleural effusions. Lung bernal show chronic changes bilaterall y. Atelectatic changes are seen in the lung bases, particularly lower lobes, in addition to periphera l chronic fibrotic change. No definite acute pneumonic infiltrate is seen. No obvious endobronchial l esions are seen. No pneumothorax or pneumomediastinum are noted. Considering differences in the slice thicknesses in positioning, I do not see a significant change in bilateral pleural and parenchymal n odules. Calcific granulomas again seen on the right. Aorta shows no aneurysmal dilatation or evidence of dissection. Good opacification of the pulmonary arterial system was achieved. I do not see evidence of pulmonary thromboembolism. IMPRESSION: 1. No acute abnormalities are seen. No evidence of pulmonary thromboembolism. 2. Stable bilateral pulmonary/pleural nodules 3. Stable adrenal nodules Signer Name: Jann Dietrich MD Signed: 08/02/2021 1:25 PM Workstation Name: [id number]
[2021-08-02 14:09] LABS: Bacteria,Urine 1+ /HPF (Negative); Bilirubin,Urine NEG (Negative); Blood,Urine SM (Negative); Color,Urine Straw (Yellow); Mucus,Urine FEW /HPF; Protein,Urine <15 mg/dL mg/dL (Negative); Urobilinogen,Urine < 2.0 mg/dL (<2.0)
[2021-08-02] MEDS: NITROGLYCERIN 0.4 MG TAB SUBL SL PRN ×2 (16:31→16:43)
--- NOTE | 2021-08-02 20:27 | XRay Report ---
CHEST 1 VIEW 08/02/2021 7:17 PM INDICATION / CLINICAL INFORMATION: Dyspnea. COMPARISON: 02/28/2021 FINDINGS: SUPPORT DEVICES: None. HEART / MEDIASTINUM: No significant abnormality. LUNGS / PLEURA: No significant pulmonary or pleural abnormality. No pneumothorax. ADDITIONAL FINDINGS: No significant additional findings. IMPRESSION: 1. No acute findings. Signer Name: Perfecto Hernandez DO Signed: 08/02/2021 8:23 PM Workstation Name: [id number]
[2021-08-02] MEDS ORDERED: oxyCODONE 5 MG TAB PO PRN (22:22)
[2021-08-02] MEDS ORDERED: MORPHINE 2 MG/1 ML INJ IV PRN (22:23)
[2021-08-02] MEDS ORDERED: ONDANSETRON 4 MG/2 ML INJ IV PRN (22:23)
[2021-08-02] MEDS ORDERED: ACETAMINOPHEN 325 MG TAB PO PRN (22:23)
[2021-08-02] MEDS ORDERED: SODIUM CHLORIDE 0.9% 1000 ML 1,000 ML IV SCH (22:30)
[2021-08-03 02:50] LABS: Creatine Kinase MB 2.2 ng/mL (0.0-4.0)
[2021-08-03] MEDS: busPIRone 5 MG TAB PO SCH ×3 (06:00→21:26)
[2021-08-03 06:28] LABS: Basophils % (Auto) 0.4 % (0.0-1.8); Eosinophils # (Auto) 0.1 K/mm3 (0.0-0.4); Eosinophils % (Auto) 1.2 % (0.0-4.3); Hematocrit 43.2 % (30.3-42.9); Hemoglobin 13.9 gm/dl (10.1-14.3); Lymphocytes # (Auto) 2.4 K/mm3 (1.2-5.4); Lymphocytes % (Auto) 40.4 % (13.4-35.0); Mean Corpuscular HGB Conc 32 % (30-34); Mean Corpuscular Volume 76 fl (79-97); Monocytes # (Auto) 0.5 K/mm3 (0.0-0.8); Monocytes % (Auto) 7.7 % (0.0-7.3); Platelet Count 232 K/mm3 (140-440); Red Blood Count 5.69 M/mm3 (3.65-5.03); Red Cell Distribution Width 16.8 % (13.2-15.2)
[2021-08-03 06:43] LABS: Creatine Kinase MB 2.2 ng/mL (0.0-4.0)
[2021-08-03 06:46] LABS: Alanine Aminotransferase 16 units/L (7-56); Albumin 3.8 g/dL (3.9-5); Blood Urea Nitrogen 10 mg/dL (7-17); Calcium 8.9 mg/dL (8.4-10.2); Hemolysis Index 12
--- NOTE | 2021-08-03 06:46 | History and Physical Report ---
History of Present Illness Date of examination: 08/02/21 Date of admission: 08/02/21 12:42 Chief complaint: Chest pain since a.m. 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 Chest pain is retrosternal. No nausea no vomiting or diaphoresis. Patient was given nitroglycerin and aspirin by EMS after which she improved. Patient has chronic baseline shortness of breath and chronic baseline lower extremity swelling. She had a cardiac stress test in 2019 but is not sure of the results. No exposure to Covid. No fever or chills. No loss of taste or smell. No exacerbating or relieving factors for the chest pain. No radiation. No diaphoresis. Heart Score - HEART Score History: Moderately suspicious EKG: Non-specific Age: > 65 Risk factors: > 3 risk factors or hx of atherosclerotic disease Troponin: < normal limit HEART Score: 6 - EKG Read Time Time EKG Completed: 09:56 (Prehospital EKG) EKG Read Time: 10:30 (Time prehospital EKGs presented to myself) - Past Medical History -- Hypertension: Yes --CVA: Yes (old chart no mri documentation on previous admits for same left side weakne) Additional medical history: Hx. left clavicle fx., h/o muscle spasms. 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, spinal stenosis - Surgical History Additional Surgical History: Herniated disk cspine 2001 C5-6, fusion,NECK SURGERY - Social History Smoking Status: Current Every Day Smoker - Medications Home Medications: Home Medications Medication Instructions Recorded Confirmed Last Taken Type Oxycodone HCl [oxyCODONE] 10 mg PO Q8H PRN #10 tablet 05/04/18 08/02/21 11/14/20 Rx amLODIPine 5 mg PO DAILY 07/21/18 08/02/21 1 Day Ago History ~08/01/21 busPIRone [Buspar] 10 mg PO BID 07/21/18 08/02/21 1 Day Ago History ~08/01/21 Cyclobenzaprine [Flexeril 10 MG 10 mg PO BID PRN #5 tablet 08/04/18 08/02/21 1 Day Ago Rx TAB] ~08/01/21 AtorvaSTATin [Lipitor] 40 mg PO QHS #30 tablet 12/05/19 08/02/21 11/13/20 Rx Aspirin EC [Ecotrin] 162 mg PO QDAY 08/02/21 08/02/21 2 Days Ago History ~07/31/21 Review of Systems ROS: Stated complaint: CHEST PAIN/SOB Other details as noted in HPI Constitutional: malaise. denies: fever Eyes: denies: eye discharge ENT: denies: congestion Respiratory: cough, shortness of breath Cardiovascular: chest pain Gastrointestinal: denies: abdominal pain, nausea, vomiting, diarrhea, hematemesis, melena, hematochezia Genitourinary: denies: dysuria Musculoskeletal: denies: back pain Neurological: weakness. denies: headache Hematological/Lymphatic: denies: easy bleeding Medications and Allergies Allergies Allergy/AdvReac Type Severity Reaction Status Date / Time aspirin AdvReac Nausea Verified 08/02/21 10:57 blood thinners AdvReac Bleeding Uncoded 08/09/16 01:53 Home Medications Medication Instructions Recorded Confirmed Last Taken Type Oxycodone HCl [oxyCODONE] 10 mg PO Q8H PRN #10 tablet 05/04/18 08/02/21 11/14/20 Rx amLODIPine 5 mg PO DAILY 07/21/18 08/02/21 1 Day Ago History ~08/01/21 busPIRone [Buspar] 10 mg PO BID 07/21/18 08/02/21 1 Day Ago History ~08/01/21 Cyclobenzaprine [Flexeril 10 MG 10 mg PO BID PRN #5 tablet 08/04/18 08/02/21 1 Day Ago Rx TAB] ~08/01/21 AtorvaSTATin [Lipitor] 40 mg PO QHS #30 tablet 12/05/19 08/02/21 11/13/20 Rx Aspirin EC [Ecotrin] 162 mg PO QDAY 08/02/21 08/02/21 2 Days Ago History ~07/31/21 Active Meds: Active Medications Acetaminophen (Acetaminophen 325 Mg Tab) 650 mg PO Q4H PRN PRN Reason: Pain MILD(1-3)/Fever >100.5/HANNA Amlodipine Besylate (Amlodipine 5 Mg Tab) 5 mg PO DAILY ALLA Aspirin (Aspirin Ec 81 Mg Tab) 162 mg PO QDAY ALLA Atorvastatin Calcium (Atorvastatin 40 Mg Tab) 40 mg PO QHS [facility] Buspirone HCl (Buspirone 5 Mg Tab) 10 mg PO BID [facility] Last Admin: 08/03/21 06:00 Dose: Not Given Documented by: Cyclobenzaprine HCl (Cyclobenzaprine 10 Mg Tab) 10 mg PO BID PRN PRN Reason: Muscle Spasm Famotidine (Famotidine 20 Mg/2 Ml Inj) 20 mg IV BID [facility] Hydromorphone HCl (Hydromorphone 1 Mg/1 Ml Inj) 0.5 mg IV Q3H PRN PRN Reason: Pain , Severe (7-10) Sodium Chloride (Nacl 0.9% 1000 Ml) 1,000 mls @ 75 mls/hr IV DIRECT ALLA Morphine Sulfate (Morphine 2 Mg/1 Ml Inj) 2 mg IV Q4H PRN PRN Reason: Pain, Moderate (4-6) Nitroglycerin (Nitroglycerin 0.4 Mg Tab Subl) 0.4 mg SL .Q5MIN PRN PRN Reason: Chest Pain Last Admin: 08/02/21 16:43 Dose: 0.4 mg Documented by: Ondansetron HCl (Ondansetron 4 Mg/2 Ml Inj) 4 mg IV Q8H PRN PRN Reason: Nausea And Vomiting Oxycodone HCl (Oxycodone 5 Mg Tab) 10 mg PO Q8H PRN PRN Reason: Pain , Severe (7-10) Sodium Chloride (Sodium Chloride 0.9% 10 Ml Flush Syringe) 10 ml IV BID [facility] Sodium Chloride (Sodium Chloride 0.9% 10 Ml Flush Syringe) 10 ml IV PRN PRN PRN Reason: LINE FLUSH Exam - Constitutional Vitals: Temp Pulse Resp BP Pulse Ox 98.0 F 82 20 143/77 100 08/02/21 22:17 08/02/21 22:17 08/02/21 22:17 08/02/21 22:17 08/03/21 05:48 General appearance: Present: no acute distress, well-nourished - EENT Eyes: Present: PERRL ENT: hearing intact, clear oral mucosa - Neck Neck: Present: supple, normal ROM - Respiratory Respiratory effort: normal Respiratory: bilateral: CTA - Cardiovascular Heart rate: 78 Rhythm: regular Heart Sounds: Present: S1 & S2. Absent: rub, click - Extremities Extremities: pulses symmetrical, No edema Peripheral Pulses: within normal limits - Abdominal General gastrointestinal: Present: soft, non-tender, non-distended, normal bowel sounds Female genitourinary: Present: normal - Rectal Rectal Exam: deferred - Integumentary Integumentary: Present: clear, warm, dry - Musculoskeletal Musculoskeletal: left sided weakness (Left upper extremity contracture present. And left lower extremity power is 3/5 power) - Psychiatric Psychiatric: appropriate mood/affect, intact judgment & insight - Neurologic Neurologic: CNII-XII intact, focal deficits (Left hemiplegia) - Allied Health Allied health notes reviewed: nursing, case management HEART Score - HEART Score EKG: Non-specific Age: > 65 Risk factors: > 3 risk factors or hx of atherosclerotic disease Troponin: Troponin T < 0.010 ng/mL (0.00-0.029) 08/02/21 22:56 Troponin: < normal limit Results - Labs CBC & Chem 7: 08/02/21 10:57 08/02/21 10:57 Labs: Laboratory Last Values WBC 6.7 K/mm3 (4.5-11.0) 08/02/21 10:57 RBC 6.25 M/mm3 (3.65-5.03) H 08/02/21 10:57 Hgb 15.2 gm/dl (10.1-14.3) H 08/02/21 10:57 Hct 47.7 % (30.3-42.9) H 08/02/21 10:57 MCV 76 fl (79-97) L 08/02/21 10:57 MCH 24 pg (28-32) L 08/02/21 10:57 MCHC 32 % (30-34) 08/02/21 10:57 RDW 17.4 % (13.2-15.2) H 08/02/21 10:57 Plt Count 163 K/mm3 (140-440) 08/02/21 10:57 Lymph % (Auto) 40.7 % (13.4-35.0) H 08/02/21 10:57 [place] % (Auto) 7.7 % (0.0-7.3) H 08/03/21 05:15 Eos % (Auto) 1.2 % (0.0-4.3) 08/03/21 05:15 Baso % (Auto) 0.9 % (0.0-1.8) 08/02/21 10:57 Lymph # (Auto) 2.7 K/mm3 (1.2-5.4) 08/02/21 10:57 [place] # (Auto) 0.5 K/mm3 (0.0-0.8) 08/03/21 05:15 Eos # (Auto) 0.1 K/mm3 (0.0-0.4) 08/03/21 05:15 Baso # (Auto) 0.0 K/mm3 (0.0-0.1) 08/03/21 05:15 Seg Neutrophils % 50.3 % (40.0-70.0) 08/03/21 05:15 Seg Neutrophils # 3.0 K/mm3 (1.8-7.7) 08/03/21 05:15 PT 13.0 Sec. (12.2-14.9) 08/02/21 10:57 INR 0.93 (0.87-1.13) 08/02/21 10:57 APTT 21.3 Sec. (24.2-36.6) L 08/02/21 10:57 D-Dimer 316.03 ng/mlDDU (0-234) H 08/02/21 10:57 Sodium 139 mmol/L (137-145) 08/02/21 10:57 Potassium 3.7 mmol/L (3.6-5.0) 08/02/21 10:57 Chloride 106.2 mmol/L (98-107) 08/02/21 10:57 Carbon Dioxide 21 mmol/L (22-30) L 08/02/21 10:57 Anion Gap 16 mmol/L 08/02/21 10:57 BUN 9 mg/dL (7-17) 08/02/21 10:57 Creatinine 0.7 mg/dL (0.6-1.2) 08/02/21 10:57 Estimated GFR > 60 ml/min 08/02/21 10:57 BUN/Creatinine Ratio 13 % 08/02/21 10:57 Glucose 128 mg/dL (65-100) H 08/02/21 10:57 Calcium 9.0 mg/dL (8.4-10.2) 08/02/21 10:57 Magnesium 2.40 mg/dL (1.7-2.3) H 08/02/21 10:57 Total Bilirubin 0.30 mg/dL (0.1-1.2) 08/02/21 10:57 AST 16 units/L (5-40) 08/02/21 10:57 ALT 16 units/L (7-56) 08/02/21 10:57 Alkaline Phosphatase 142 units/L (35-129) H 08/02/21 10:57 Total Creatine Kinase 149 units/L (30-135) H 08/02/21 22:56 CK-MB (CK-2) 2.2 ng/mL (0.0-4.0) 08/02/21 22:56 CK-MB (CK-2) Rel Index 1.4 (0-4) 08/02/21 22:56 Troponin T < 0.010 ng/mL (0.00-0.029) 08/02/21 22:56 NT-Pro-B Natriuret Pep 13.31 pg/mL (0-900) 08/02/21 10:57 Total Protein 7.2 g/dL (6.3-8.2) 08/02/21 10:57 Albumin 4.1 g/dL (3.9-5) 08/02/21 10:57 Albumin/Globulin Ratio 1.3 % 08/02/21 10:57 Urine Color Straw (Yellow) 08/02/21 Unknown Urine Turbidity Clear (Clear) 08/02/21 Unknown Urine pH 7.0 (5.0-7.0) 08/02/21 Unknown Ur Specific [place] 1.028 (1.003-1.030) 08/02/21 Unknown Urine Protein <15 mg/dl mg/dL (Negative) 08/02/21 Unknown Urine Glucose (UA) Neg mg/dL (Negative) 08/02/21 Unknown Urine Ketones Neg mg/dL (Negative) 08/02/21 Unknown Urine Blood Sm (Negative) 08/02/21 Unknown Urine Nitrite Neg (Negative) 08/02/21 Unknown Urine Bilirubin Neg (Negative) 08/02/21 Unknown Urine Urobilinogen < 2.0 mg/dL (<2.0) 08/02/21 Unknown Ur Leukocyte Esterase Tr (Negative) 08/02/21 Unknown Urine WBC (Auto) 6.0 /HPF (0.0-6.0) 08/02/21 Unknown Urine RBC (Auto) 2.0 /HPF (0.0-6.0) 08/02/21 Unknown U Epithel Cells (Auto) 1.0 /HPF (0-13.0) 08/02/21 Unknown Urine Bacteria (Auto) 1+ /HPF (Negative) 08/02/21 Unknown Urine Mucus Few /HPF 08/02/21 Unknown - Imaging and Cardiology EKG: report reviewed (Normal sinus rhythm no acute ST-T wave changes) Chest x-ray: report reviewed Imaging and Cardiology: CT chest No acute abnormalities Stable bilateral pulmonary/pleural nodules Stable adrenal nodules Elias/IV: Voiding Method External Female Catheter Assessment and Plan Advance Directives: Yes (Full code) VTE prophylaxis?: Chemical Plan of care discussed with patient/family: Yes - Patient Problems (1) Acute chest pain Current Visit: Yes Status: Acute Plan to address problem: Chest pain protocol Serial troponins and CK-MBs Lexiscan in the morning (2) Hypertension Current Visit: Yes Status: Chronic Qualifiers: Hypertension type: primary hypertension Qualified Code(s): I10 - Essential (primary) hypertension Plan to address problem: Continue antihypertensives (3) Hemiparesis due to old stroke Current Visit: Yes Status: Chronic Plan to address problem: Patient has left upper extremity contracture and left lower extremity weakness Supportive care (4) Lower leg edema Current Visit: Yes Status: Chronic Plan to address problem: Stasis edema secondary to CVA (5) DVT prophylaxis Current Visit: Yes Status: Acute Plan to address problem: Heparin and GI prophylaxis
[2021-08-03 06:59] LABS: BUN/Creatinine Ratio 20
[2021-08-03] MEDS ORDERED: REGADENOSON 0.4 MG/5 ML INJ IV ONE (08:22)
--- NOTE | 2021-08-03 10:04 | Electrocardiograph Report ---
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
--- NOTE | 2021-08-03 11:16 | Nuclear Medicine Report ---
APPROVED REPORT Exam: Nuclear Stress Test Indication: Chest pain Ht: 5 ft 5 in Wt: 180 lbs BSA: 1.89 m2 BMI: 29.95 Rhythm: NSR Stress Test Details Stress Test: Pharmacologic stress testing performed using 0.4 mg of regadenoson per 5 mL given IV over 10 seconds. Reason for pharmacologic stress test: physical limitation. HR Resting HR: 74 bpm Max HR Achieved: 99 bpm Max Heart Rate (APMHR): 145.920960 bpm Target HR (85% APMHR): 123.242984 bpm % of APMHR: 68.28 Recovery HR: 84 bpm HR response to stress: Normal HR response to stress BP Resting BP: 133/73 mmHg Max BP: 165/87 mmHg Recovery BP: 142/80 mmHg BP response to stress: Normal blood pressure response to stress. ECG Resting ECG: Sinus Rhythm Stress ECG: Sinus Rhythm Arrhythmia: None Recovery ECG: Sinus Rhythm Recovery Arrhythmia: None Clinical Reason for Termination: Completed protocol Stress Symptoms: None NM EXAM: Myocardial Perfusion REST/STRESS Imaging Protocol: Rest Tc-99m/Stress Tc-99m 1 day Resting Data Rest SPECT myocardial perfusion imaging was performed in supine position 45 minutes following the intravenous injection of 10 mCi of Tc-99m Myoview. Time of rest injection: 0730 Pharmacologic Stress Pharmacologic stress test was performed by injecting Regadenoson 0.4 mg IV push followed by the intravenous injection of 28 mCi of Tc-99m Myoview. Time of stress injection: 1021 Gated Stress SPECT was performed 30 minutes after stress injection. The images were gated to evaluate regional wall motion and calculate left ventricular ejection fraction. Study Quality Study: excellent Lung Uptake: Normal Study Data TID = 1.08. Perfusion Wall Motion The rest and stress images show normal left ventricular wall motion. Nuclear Conclusion ECG Findings: negative for ischemia Clinical Findings: negative for ischemia Nuclear Findings: negative for ischemia Exercise Capacity: not assessed Left Ventricular Function: normal Normal study. No scintigraphic evidence for myocardial ischemia or scar. Normal left ventricular size and function with no regional wall motion abnormalities.
[2021-08-03] MEDS: CYCLOBENZAPRINE 10 MG TAB PO PRN ×2 (12:28→23:35)
[2021-08-03] MEDS: FAMOTIDINE 20 MG/2 ML INJ IV SCH ×2 (12:29→21:25)
[2021-08-03] MEDS: ASPIRIN EC 81 MG TAB PO SCH (12:30)
[2021-08-03] MEDS: amLODIPine 5 MG TAB PO SCH (12:33)
--- NOTE | 2021-08-03 15:13 | Progress Note ---
Assessment and Plan Assessment and plan: #Acute chest pain -Status post aspirin 325 mg and nitroglycerin upon presentation -Elevated troponins that have since started downtrending -Cardiology consulted; appreciate recs -Left heart catheterization performed (08/03/2021) found to be unremarkable -CTA chest performed (08/02/2021) revealing stable pulmonary nodules; pulmonology consulted (appreciate recs) #Pulmonary nodules -Stable pulmonary nodules found on CTA chest -Pulmonology consulted; pending recs -Patient will follow up with pulmonology upon discharge for further management of pulmonary nodules #Hypertension -Continue home antihypertensives -We will continue to monitor #Hemiparesis secondary to old stroke -Continue to monitor #Lower leg edema -Secondary to prior stroke -Continue to monitor #DVT prophylaxis -Continue subcutaneous heparin 5000 units every 8 hours Disposition Plan: Pending possible discharge tomorrow History Interval history: Patient underwent left heart catheterization this morning that was found to be unremarkable. Patient is currently chest pain-free. Hospitalist Physical - Constitutional Vitals: Temp Pulse Resp BP Pulse Ox 98.1 F 90 17 134/74 100 08/03/21 03:58 08/03/21 14:00 08/03/21 08:54 08/03/21 12:33 08/03/21 08:54 General appearance: Present: no acute distress, well-nourished - EENT Eyes: Present: PERRL, EOM intact ENT: hearing intact, clear oral mucosa, dentition normal - Neck Neck: Present: supple, normal ROM - Respiratory Respiratory effort: normal Respiratory: negative: CTA, diminished, rales, rhonchi, wheezing, other - Cardiovascular Rhythm: regular Heart Sounds: Present: S1 & S2 - Extremities Extremities: no ischemia, pulses intact, pulses symmetrical, normal temperature, normal color Extremity abnormal: edema (Mild edema of left lower extremity), deformity Peripheral Pulses: within normal limits - Abdominal General gastrointestinal: soft, non-tender, non-distended, normal bowel sounds - Integumentary Integumentary: Present: clear, warm, dry - Psychiatric Psychiatric: appropriate mood/affect, intact judgment & insight, memory intact, cooperative - Neurologic Neurologic: CNII-XII intact - Allied Health Allied health notes reviewed: nursing (Contracture of left upper ex) HEART Score - HEART Score History: Highly suspicious EKG: Non-specific Age: > 65 Risk factors: > 3 risk factors or hx of atherosclerotic disease Troponin: Troponin T < 0.010 ng/mL (0.00-0.029) 08/03/21 05:15 Troponin: < normal limit HEART Score: 7 - Critical Actions Critical Actions: >7 pts:50-65% risk of adverse cardiac event. Early invasive measures Results - Labs CBC & Chem 7: 08/03/21 05:15 08/03/21 05:15 Labs: Laboratory Last Values WBC 5.9 K/mm3 (4.5-11.0) 08/03/21 05:15 RBC 5.69 M/mm3 (3.65-5.03) H 08/03/21 05:15 Hgb 13.9 gm/dl (10.1-14.3) 08/03/21 05:15 Hct 43.2 % (30.3-42.9) H 08/03/21 05:15 MCV 76 fl (79-97) L 08/03/21 05:15 MCH 24 pg (28-32) L 08/03/21 05:15 MCHC 32 % (30-34) 08/03/21 05:15 RDW 16.8 % (13.2-15.2) H 08/03/21 05:15 Plt Count 232 K/mm3 (140-440) 08/03/21 05:15 Lymph % (Auto) 40.4 % (13.4-35.0) H 08/03/21 05:15 [place] % (Auto) 7.7 % (0.0-7.3) H 08/03/21 05:15 Eos % (Auto) 1.2 % (0.0-4.3) 08/03/21 05:15 Baso % (Auto) 0.4 % (0.0-1.8) 08/03/21 05:15 Lymph # (Auto) 2.4 K/mm3 (1.2-5.4) 08/03/21 05:15 [place] # (Auto) 0.5 K/mm3 (0.0-0.8) 08/03/21 05:15 Eos # (Auto) 0.1 K/mm3 (0.0-0.4) 08/03/21 05:15 Baso # (Auto) 0.0 K/mm3 (0.0-0.1) 08/03/21 05:15 Seg Neutrophils % 50.3 % (40.0-70.0) 08/03/21 05:15 Seg Neutrophils # 3.0 K/mm3 (1.8-7.7) 08/03/21 05:15 PT 13.0 Sec. (12.2-14.9) 08/02/21 10:57 INR 0.93 (0.87-1.13) 08/02/21 10:57 APTT 21.3 Sec. (24.2-36.6) L 08/02/21 10:57 D-Dimer 316.03 ng/mlDDU (0-234) H 08/02/21 10:57 Sodium 140 mmol/L (137-145) 08/03/21 05:15 Potassium 3.7 mmol/L (3.6-5.0) 08/03/21 05:15 Chloride 104.3 mmol/L (98-107) 08/03/21 05:15 Carbon Dioxide 22 mmol/L (22-30) 08/03/21 05:15 Anion Gap 17 mmol/L 08/03/21 05:15 BUN 10 mg/dL (7-17) 08/03/21 05:15 Creatinine 0.5 mg/dL (0.6-1.2) L 08/03/21 05:15 Estimated GFR > 60 ml/min 08/03/21 05:15 BUN/Creatinine Ratio 20 % 08/03/21 05:15 Glucose 118 mg/dL (65-100) H 08/03/21 05:15 Calcium 8.9 mg/dL (8.4-10.2) 08/03/21 05:15 Magnesium 2.40 mg/dL (1.7-2.3) H 08/02/21 10:57 Total Bilirubin 0.20 mg/dL (0.1-1.2) 08/03/21 05:15 AST 16 units/L (5-40) 08/03/21 05:15 ALT 16 units/L (7-56) 08/03/21 05:15 Alkaline Phosphatase 136 units/L (35-129) H 08/03/21 05:15 Total Creatine Kinase 141 units/L (30-135) H 08/03/21 05:15 CK-MB (CK-2) 2.2 ng/mL (0.0-4.0) 08/03/21 05:15 CK-MB (CK-2) Rel Index 1.5 (0-4) 08/03/21 05:15 Troponin T < 0.010 ng/mL (0.00-0.029) 08/03/21 05:15 NT-Pro-B Natriuret Pep 13.31 pg/mL (0-900) 08/02/21 10:57 Total Protein 6.9 g/dL (6.3-8.2) 08/03/21 05:15 Albumin 3.8 g/dL (3.9-5) L 08/03/21 05:15 Albumin/Globulin Ratio 1.2 % 08/03/21 05:15 Urine Color Straw (Yellow) 08/02/21 Unknown Urine Turbidity Clear (Clear) 08/02/21 Unknown Urine pH 7.0 (5.0-7.0) 08/02/21 Unknown Ur Specific [place] 1.028 (1.003-1.030) 08/02/21 Unknown Urine Protein <15 mg/dl mg/dL (Negative) 08/02/21 Unknown Urine Glucose (UA) Neg mg/dL (Negative) 08/02/21 Unknown Urine Ketones Neg mg/dL (Negative) 08/02/21 Unknown Urine Blood Sm (Negative) 08/02/21 Unknown Urine Nitrite Neg (Negative) 08/02/21 Unknown Urine Bilirubin Neg (Negative) 08/02/21 Unknown Urine Urobilinogen < 2.0 mg/dL (<2.0) 08/02/21 Unknown Ur Leukocyte Esterase Tr (Negative) 08/02/21 Unknown Urine WBC (Auto) 6.0 /HPF (0.0-6.0) 08/02/21 Unknown Urine RBC (Auto) 2.0 /HPF (0.0-6.0) 08/02/21 Unknown U Epithel Cells (Auto) 1.0 /HPF (0-13.0) 08/02/21 Unknown Urine Bacteria (Auto) 1+ /HPF (Negative) 08/02/21 Unknown Urine Mucus Few /HPF 08/02/21 Unknown Elias/IV: Voiding Method Toilet Active Medications - Current Medications Current Medications: Generic Name Dose Route Start Last Admin Trade Name Freq PRN Reason Stop Dose Admin Acetaminophen 650 mg 08/02/21 22:23 Acetaminophen 325 Mg Tab PO Q4H PRN Pain MILD(1-3)/Fever >100.5/HANNA Amlodipine Besylate 5 mg 08/03/21 10:00 08/03/21 12:33 Amlodipine 5 Mg Tab PO 5 mg DAILY ALLA Administration Aspirin 162 mg 08/03/21 10:00 08/03/21 12:30 Aspirin Ec 81 Mg Tab PO 162 mg QDAY ALLA Administration Atorvastatin Calcium 40 mg 08/03/21 22:00 Atorvastatin 40 Mg Tab PO QHS ALLA Buspirone HCl 10 mg 08/02/21 23:00 08/03/21 12:26 Buspirone 5 Mg Tab PO 10 mg BID ALLA Administration Cyclobenzaprine HCl 10 mg 08/02/21 22:22 08/03/21 12:28 Cyclobenzaprine 10 Mg Tab PO 10 mg BID PRN Administration Muscle Spasm Famotidine 20 mg 08/03/21 10:00 08/03/21 12:29 Famotidine 20 Mg/2 Ml Inj IV 20 mg BID ALLA Administration Hydromorphone HCl 0.5 mg 08/02/21 22:23 Hydromorphone 1 Mg/1 Ml Inj IV Q3H PRN Pain , Severe (7-10) Sodium Chloride 1,000 mls @ 75 mls/hr 08/02/21 22:30 Nacl 0.9% 1000 Ml IV DIRECT ALLA Morphine Sulfate 2 mg 08/02/21 22:23 Morphine 2 Mg/1 Ml Inj IV Q4H PRN Pain, Moderate (4-6) Nitroglycerin 0.4 mg 08/02/21 10:42 08/02/21 16:43 Nitroglycerin 0.4 Mg Tab Subl SL 0.4 mg .Q5MIN PRN Administration Chest Pain Ondansetron HCl 4 mg 08/02/21 22:23 Ondansetron 4 Mg/2 Ml Inj IV Q8H PRN Nausea And Vomiting Oxycodone HCl 10 mg 08/02/21 22:22 Oxycodone 5 Mg Tab PO Q8H PRN Pain , Severe (7-10) Sodium Chloride 10 ml 08/03/21 10:00 08/03/21 09:30 Sodium Chloride 0.9% 10 Ml Flush Syringe IV 10 ml BID ALLA Administration Sodium Chloride 10 ml 08/02/21 22:23 Sodium Chloride 0.9% 10 Ml Flush Syringe IV PRN PRN LINE FLUSH
--- NOTE | 2021-08-03 17:46 | Consultation ---
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 Chest pain is retrosternal. No nausea no vomiting or diaphoresis. Patient was given nitroglycerin and aspirin by EMS after which she improved. Patient has chronic baseline shortness of breath and chronic baseline lower extremity swelling. She had a cardiac stress test in 2019 but is not sure of the results. No exposure to Covid. No fever or chills. No loss of taste or smell. No exacerbating or relieving factors for the chest pain. No radiation. No diaphoresis. Patient says she has history of COVID in last april. She also said received vaccination for covid. Patient has heavy history of smoking. 3 packs a week for 60 years. Still smoking. Counseled to stop smoking.. Denies alcohol or drug abuse. Worked for [employer] before retired. Worked for [employer] and [employer] Patient . Has 4 children. Allergic to aspirin and blood thinners. Patient alert, awake. Sitting up in chair. Patient is on room air. O2 saturation 96%. No acute respiratory distress at this time. Patient afebrile. No Leukocytosis. Blood pressure 142/80, Pulse 78. Chest xray done 08/02/21 reported No acute findings CTA of chest done 08/02/21 reported No acute abnormalities are seen. No evidence of pulmonary thromboembolism. Stable bilateral pulmonary/pleural nodules Stable adrenal nodules Recommend albuterol inhaler PRN for shortness of breath. PFTs as out patient. Follow up as out patient with repeat CT of chest for pulmonary and pleural nodules. Medications and Allergies Allergies Allergy/AdvReac Type Severity Reaction Status Date / Time aspirin AdvReac Nausea Verified 08/02/21 10:57 blood thinners AdvReac Bleeding Uncoded 08/09/16 01:53 Home Medications Medication Instructions Recorded Confirmed Last Taken Type Oxycodone HCl [oxyCODONE] 10 mg PO Q8H PRN #10 tablet 05/04/18 08/02/21 11/14/20 Rx amLODIPine 5 mg PO DAILY 07/21/18 08/02/21 1 Day Ago History ~08/01/21 busPIRone [Buspar] 10 mg PO BID 07/21/18 08/02/21 1 Day Ago History ~08/01/21 Cyclobenzaprine [Flexeril 10 MG 10 mg PO BID PRN #5 tablet 08/04/18 08/02/21 1 Day Ago Rx TAB] ~08/01/21 AtorvaSTATin [Lipitor] 40 mg PO QHS #30 tablet 12/05/19 08/02/21 11/13/20 Rx Aspirin EC [Ecotrin] 162 mg PO QDAY 08/02/21 08/02/21 2 Days Ago History ~07/31/21 Active Meds: Active Medications Acetaminophen (Acetaminophen 325 Mg Tab) 650 mg PO Q4H PRN PRN Reason: Pain MILD(1-3)/Fever >100.5/HANNA Amlodipine Besylate (Amlodipine 5 Mg Tab) 5 mg PO DAILY [facility] Last Admin: 08/03/21 12:33 Dose: 5 mg Documented by: Aspirin (Aspirin Ec 81 Mg Tab) 162 mg PO QDAY [facility] Last Admin: 08/03/21 12:30 Dose: 162 mg Documented by: Atorvastatin Calcium (Atorvastatin 40 Mg Tab) 40 mg PO QHS [facility] Buspirone HCl (Buspirone 5 Mg Tab) 10 mg PO BID [facility] Last Admin: 08/03/21 12:26 Dose: 10 mg Documented by: Cyclobenzaprine HCl (Cyclobenzaprine 10 Mg Tab) 10 mg PO BID PRN PRN Reason: Muscle Spasm Last Admin: 08/03/21 12:28 Dose: 10 mg Documented by: Famotidine (Famotidine 20 Mg/2 Ml Inj) 20 mg IV BID [facility] Last Admin: 08/03/21 12:29 Dose: 20 mg Documented by: Hydromorphone HCl (Hydromorphone 1 Mg/1 Ml Inj) 0.5 mg IV Q3H PRN PRN Reason: Pain , Severe (7-10) Sodium Chloride (Nacl 0.9% 1000 Ml) 1,000 mls @ 75 mls/hr IV DIRECT [facility] Morphine Sulfate (Morphine 2 Mg/1 Ml Inj) 2 mg IV Q4H PRN PRN Reason: Pain, Moderate (4-6) Nitroglycerin (Nitroglycerin 0.4 Mg Tab Subl) 0.4 mg SL .Q5MIN PRN PRN Reason: Chest Pain Last Admin: 08/02/21 16:43 Dose: 0.4 mg Documented by: Ondansetron HCl (Ondansetron 4 Mg/2 Ml Inj) 4 mg IV Q8H PRN PRN Reason: Nausea And Vomiting Oxycodone HCl (Oxycodone 5 Mg Tab) 10 mg PO Q8H PRN PRN Reason: Pain , Severe (7-10) Sodium Chloride (Sodium Chloride 0.9% 10 Ml Flush Syringe) 10 ml IV BID [facility] Last Admin: 08/03/21 09:30 Dose: 10 ml Documented by: Sodium Chloride (Sodium Chloride 0.9% 10 Ml Flush Syringe) 10 ml IV PRN PRN PRN Reason: LINE FLUSH Review of Systems All systems: negative Physical Examination Vital signs: Vital Signs Temp Pulse Resp BP Pulse Ox 97.9 F 79 18 130/68 100 08/02/21 10:44 08/02/21 10:44 08/02/21 10:44 08/02/21 10:44 08/02/21 10:44 General appearance: no acute distress, alert Eyes: non-icteric ENT: oropharynx moist Neck: supple, no JVD Effort: normal Ascultation: Bilateral: diminished breath sounds, other (Prolonged expiratory phase.) Cardiovascular: regular rate and rhythm Gastrointestinal: normoactive bowel sounds, non-tender Integumentary: normal Extremities: no cyanosis, no edema Musculoskeletal: no deformities Gait: other (Resting in chair at this time.) normal mental status, non-focal exam, pupils equal and round mood appropriate Results - Laboratory Findings CBC and BMP: 08/04/21 05:23 08/04/21 05:23 PT/INR, D-dimer PT 13.0 Sec. (12.2-14.9) 08/02/21 10:57 INR 0.93 (0.87-1.13) 08/02/21 10:57 D-Dimer 316.03 ng/mlDDU (0-234) H 08/02/21 10:57 Abnormal lab findings: Abnormal Labs 08/02/21 08/02/21 08/02/21 10:57 10:57 10:57 RBC 6.25 H Hgb 15.2 H Hct 47.7 H MCV 76 L MCH 24 L RDW 17.4 H Lymph % (Auto) 40.7 H [place] % (Auto) APTT 21.3 L D-Dimer 316.03 H Carbon Dioxide 21 L Creatinine Glucose 128 H Magnesium 2.40 H Alkaline Phosphatase 142 H Total Creatine Kinase Albumin 08/02/21 08/03/21 08/03/21 22:56 05:15 05:15 RBC 5.69 H Hgb Hct 43.2 H MCV 76 L MCH 24 L RDW 16.8 H Lymph % (Auto) 40.4 H [place] % (Auto) 7.7 H APTT D-Dimer Carbon Dioxide Creatinine 0.5 L Glucose 118 H Magnesium Alkaline Phosphatase 136 H Total Creatine Kinase 149 H Albumin 3.8 L 08/03/21 05:15 RBC Hgb Hct MCV MCH RDW Lymph % (Auto) [place] % (Auto) APTT D-Dimer Carbon Dioxide Creatinine Glucose Magnesium Alkaline Phosphatase Total Creatine Kinase 141 H Albumin - Diagnostic Findings Chest x-ray: report reviewed, image reviewed CT scan - chest: report reviewed, image reviewed Additional studies: CHEST 1 VIEW 08/02/2021 7:17 PM INDICATION / CLINICAL INFORMATION: Dyspnea. COMPARISON: 02/28/2021 FINDINGS: SUPPORT DEVICES: None. HEART / MEDIASTINUM: No significant abnormality. LUNGS / PLEURA: No significant pulmonary or pleural abnormality. No pneumothorax. ADDITIONAL FINDINGS: No significant additional findings. IMPRESSION: 1. No acute findings. CTA CHEST WITH IV CONTRAST 08/02/21 INDICATION: acute chest pain, cad vs pna vs pe vs chf 100 ml omni 350 CONTRAST: 100 cc Omnipaque 350 IV COMPARISON: 02/29/2020 Three-plane MIP reconstructions were produced. All CT scans at this location are performed using CT dose reduction for ALARA by means of automated exposure control. FINDINGS: No significant axillary or chest wall lesions are seen. Views of the upper abdomen show fatty infiltration of the liver and stable bilateral adrenal nodules. No mediastinal or hilar masses are seen. Small hiatal hernia is seen. No pleural effusions. Lung bernal show chronic changes bilaterally. Atelectatic changes are seen in the lung bases, particularly lower lobes, in addition to peripheral chronic fibrotic change. No definite acute pneumonic infiltrate is seen. No obvious endobronchial lesions are seen. No pneumothorax or pneumomediastinum are noted. Considering differences in the slice thicknesses in positioning, I do not see a significant change in bilateral pleural and parenchymal nodules. Calcific granulomas again seen on the right. Aorta shows no aneurysmal dilatation or evidence of dissection. Good opacification of the pulmonary arterial system was achieved. I do not see evidence of pulmonary thromboembolism. IMPRESSION: 1. No acute abnormalities are seen. No evidence of pulmonary thromboembolism. 2. Stable bilateral pulmonary/pleural nodules 3. 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 Chest pain is retrosternal. No nausea no vomiting or diaphoresis. Patient was given nitroglycerin and aspirin by EMS after which she improved. Patient has chronic baseline shortness of breath and chronic baseline lower extremity swelling. She had a cardiac stress test in 2019 but is not sure of the results. No exposure to Covid. No fever or chills. No loss of taste or smell. No exacerbating or relieving factors for the chest pain. No radiation. No diaphoresis. Patient says she has history of COVID in last april. She also said received va ccination for covid. Patient has heavy history of smoking. 3 packs a week for 60 years. Still shahida g. Counseled to stop smoking.. Denies alcohol or drug abuse. Worked for [employer] before retired. 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 Patient . Has 4 children. Allergic to aspirin and blood thinners. Patient alert, awake. Sitting up in chair. Patient is on room air. O2 saturation 96%. No acute respiratory distress at this time. Patient afebrile. No Leukocytosis. Blood pressure 142/80, Pulse 78. Chest xray done 08/02/21 reported No acute findings CTA of chest done 08/02/21 reported No acute abnormalities are seen. No evidence of pulmonary thromboembolism. Stable bilateral pulmonary/pleural nodules Stable adrenal nodules Recommend albuterol inhaler PRN for shortness of breath. PFTs as out patient. Follow up as out patient with repeat CT of chest for pulmonary and pleural nod ules. - Patient Problems (1) Acute chest pain Status: Acute Plan to address problem: Cardiology following. (2) Hemiparesis due to old stroke Status: Chronic Plan to address problem: Management as per primary care and neurology. (3) Hypertension Status: Chronic Qualifiers: Hypertension type: primary hypertension Qualified Code(s): I10 - Essential (primary) hypertension Plan to address problem: Management as per primary care. (4) Lower leg edema Status: Chronic Plan to address problem: Recommend venous doppler studies of legs. (5) Diastolic CHF Status: Acute Qualifiers: Heart failure chronicity: acute on chronic Qualified Code(s): I50.33 - Acute on chronic diastolic (congestive) heart failure Plan to address problem: Management as per cardiology. (6) Nicotine dependence Status: Acute Qualifiers: Nicotine product type: cigarettes Substance use status: in withdrawal Qualified Code(s): F17.213 - Nicotine dependence, cigarettes, with withdrawal Plan to address problem: Counseled to stop smoking. PFTs as out patient. (7) Pulmonary nodules Status: Acute Plan to address problem: Reported bilateral pleural and pulmonary nodules. Repeat CAT scan of chest in 2 or 3 months as out patient.
[2021-08-04 06:25] LABS: Basophils % (Auto) 0.7 % (0.0-1.8); Eosinophils # (Auto) 0.1 K/mm3 (0.0-0.4); Eosinophils % (Auto) 1.1 % (0.0-4.3); Hematocrit 42.6 % (30.3-42.9); Hemoglobin 13.6 gm/dl (10.1-14.3); Lymphocytes # (Auto) 2.7 K/mm3 (1.2-5.4); Lymphocytes % (Auto) 48.8 % (13.4-35.0); Mean Corpuscular HGB Conc 32 % (30-34); Mean Corpuscular Volume 76 fl (79-97); Monocytes # (Auto) 0.5 K/mm3 (0.0-0.8); Monocytes % (Auto) 8.2 % (0.0-7.3); Platelet Count 240 K/mm3 (140-440); Red Cell Distribution Width 16.8 % (13.2-15.2)
[2021-08-04 06:44] LABS: Blood Urea Nitrogen 11 mg/dL (7-17); Calcium 9.3 mg/dL (8.4-10.2); Hemolysis Index 1
[2021-08-04 06:45] LABS: BUN/Creatinine Ratio 16
[2021-08-04] MEDS: HYDROmorphone 1 MG/1 ML INJ IV PRN ×3 (09:20→16:00)
[2021-08-04] MEDS: busPIRone 5 MG TAB PO SCH (09:26)
[2021-08-04] MEDS: amLODIPine 5 MG TAB PO SCH (09:26)
[2021-08-04] MEDS: CYCLOBENZAPRINE 10 MG TAB PO PRN (09:26)
[2021-08-04] MEDS: FAMOTIDINE 20 MG/2 ML INJ IV SCH (09:26)
[2021-08-04] MEDS: ASPIRIN EC 81 MG TAB PO SCH (10:10)
--- NOTE | 2021-08-04 12:56 | Progress Note ---
Assessment and Plan Acute chest pain Pulmonary nodules Hemiparesis due to old stroke Hypertension Lower leg edema Diastolic CHF Nicotine dependence - supplemental oxygen to keep O2 sats > 90% - prn bronchodilators (YADI) with pulm hygiene per RT - avoid nephrotoxins, renally dose all medications - continue mobility protocols to prevent pressure ulcers - PT/OT as tolerated - Wound care per RN/WCT - accuchecks with glycemic control per SSI for target blood glucose < 180 mg/dL - tobacco abstinence strongly counseled at the bedside - home oxygen evaluation at discharge - GI & VTE prophylaxis - Flu & pneumovax per protocol - Pulmonary out patient follow up for PFTs and optimization of respiratory status - continue other care per attending / other consultants - prn analgesia per pain score ... re-evaluate in am & prn Subjective Date of service: 08/04/21 Principal diagnosis: Acute chest pain; Pulm nodules; Hemiparesis; HTN; HFpEF Interval history: Patient is seen today for: Acute chest pain; Pulmonary nodules; Hemiparesis; HTN; Diastolic CHF Seen and examined at bedside; 24hour events reviewed; nursing and respiratory care staff consulted; no adverse overnight events reported to me; Objective Vital Signs - 12hr 08/04/21 08/04/21 08/04/21 02:00 03:24 08:24 Temperature 97.7 F 98.0 F Pulse Rate 81 79 86 Respiratory 16 18 Rate Blood Pressure 128/55 153/82 O2 Sat by Pulse 92 96 Oximetry Constitutional: no acute distress, alert Eyes: non-icteric ENT: oropharynx moist Neck: supple, no JVD Effort: normal Ascultation: Bilateral: diminished breath sounds, other (Prolonged expiratory phase.) Cardiovascular: regular rate and rhythm Gastrointestinal: normoactive bowel sounds, non-tender Integumentary: normal Extremities: no cyanosis, no edema Neurologic: normal mental status, non-focal exam, pupils equal and round Psychiatric: mood appropriate CBC and BMP: 08/04/21 05:23 08/04/21 05:23 ABG, PT/INR, D-dimer: ABG ABG pH 7.430 (7.320-7.450) 08/04/21 12:22 POC ABG pCO2 41.3 mmHg (32.0-48.0) 08/04/21 12:22 POC ABG pO2 67.6 mmHg (83-108) L 08/04/21 12:22 POC ABG HCO3 26.8 08/04/21 12:22 ABG O2 Saturation 93.9 (0-100) 08/04/21 12:22 PT/INR, D-dimer PT 13.0 Sec. (12.2-14.9) 08/02/21 10:57 INR 0.93 (0.87-1.13) 08/02/21 10:57 D-Dimer 316.03 ng/mlDDU (0-234) H 08/02/21 10:57 Abnormal lab findings: Abnormal Labs 08/02/21 08/02/21 08/02/21 10:57 10:57 10:57 RBC 6.25 H Hgb 15.2 H Hct 47.7 H MCV 76 L MCH 24 L RDW 17.4 H Lymph % (Auto) 40.7 H [place] % (Auto) APTT 21.3 L D-Dimer 316.03 H POC ABG pO2 ABG Oxyhemoglobin ABG Glucose Sodium Carbon Dioxide 21 L Creatinine Glucose 128 H Magnesium 2.40 H Alkaline Phosphatase 142 H Total Creatine Kinase Albumin Arterial Blood Glucose 08/02/21 08/03/21 08/03/21 22:56 05:15 05:15 RBC 5.69 H Hgb Hct 43.2 H MCV 76 L MCH 24 L RDW 16.8 H Lymph % (Auto) 40.4 H [place] % (Auto) 7.7 H APTT D-Dimer POC ABG pO2 ABG Oxyhemoglobin ABG Glucose Sodium Carbon Dioxide Creatinine 0.5 L Glucose 118 H Magnesium Alkaline Phosphatase 136 H Total Creatine Kinase 149 H Albumin 3.8 L Arterial Blood Glucose 08/03/21 08/04/21 08/04/21 05:15 05:23 05:23 RBC 5.60 H Hgb Hct MCV 76 L MCH 24 L RDW 16.8 H Lymph % (Auto) 48.8 H [place] % (Auto) 8.2 H APTT D-Dimer POC ABG pO2 ABG Oxyhemoglobin ABG Glucose Sodium 136 L Carbon Dioxide Creatinine Glucose 128 H Magnesium 2.40 H Alkaline Phosphatase Total Creatine Kinase 141 H Albumin Arterial Blood Glucose 08/04/21 12:22 RBC Hgb Hct MCV MCH RDW Lymph % (Auto) [place] % (Auto) APTT D-Dimer POC ABG pO2 67.6 L ABG Oxyhemoglobin 93.2 L ABG Glucose 124 H Sodium Carbon Dioxide Creatinine Glucose Magnesium Alkaline Phosphatase Total Creatine Kinase Albumin Arterial Blood Glucose 124 H
[2021-08-04 18:38] VITALS: BP 131/74
--- NOTE | 2021-08-04 19:30 | Discharge Summary ---
Providers - Providers Date of Admission: 08/04/21 16:38 Date of discharge: 08/04/21 Attending physician: DALE BURNETT MD 08/03/21 14:45 Consult to Physician [CONS] Routine Comment: Consulting Provider: JAIRO PATTERSON Physician Instructions: Reason For Exam: pulmonary nodules Primary care physician: BI DATA MODELER Hospitalization Condition: Good Pertinent studies: Reviewed. Procedures: Left heart catheterization. 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 The patient received ASA 325 mg and nitroglycerin. Cardiology was consulted. Chest x-ray, CTA chest and left heart catheterization were all negative. She has remained chest pain-free. On the CTA chest pulmonary nodules were found incidentally, and pulmonology was consulted. Pulmonology wants the patient to follow-up in outpatient with a repeat CT chest to further assess pulmonary nodules. The patient was deemed safe to discharge home, and she expressed understanding. Disposition: 01 HOME / SELF CARE / HOMELESS Final Discharge Diagnosis (Prints w/discharge instructions): Acute chest pain Core Measure Documentation - Palliative Care Palliative Care/ Comfort Measures: Not Applicable - Core Measures Any of the following diagnoses?: history only - VTE Discharge Requirements Deep Vein Thrombosis/Pulmonary Embolism Present on Admission: No Has pt received <5 days of overlap therapy or INR<2.0: No Anticoagulant overlap therapy prescribed at discharge: No (Not applicable) Contraindication No Overlap Therapy order at DC: Not Indicated - Acute NM Discharge Requirements LEONARD/ARB for LVSD if EF <40%: Not Applicable Reason for no LEONARD/ARB: Medical contraindication (Not applicable) Beta arnel at discharge: No Reason for no beta arnel on DC: Medical contraindication (Not applicable) Statin for LDL = or >100 mg/dl on DC: Yes - Heart Failure Discharge Requirements LEONARD/ARB for LVSD if EF <40%: Not Applicable Reason for no LEONARD/ARB: Medical contraindication (Not applicable) Beta arnel at discharge: No Reason for no beta arnel on DC: Medical contraindication (Not applicable) - Stroke Discharge Requirements Statin for LDL = or >70 mg/dl on DC: Yes Anticoag for atrial fib/atrial flutter: Not Applicable Reason for no anticoag for AF/F on DC: Not Indicated Antithrombotic for ischemic stroke: No Reason for no antithrombotic on DC: Not Indicated Exam - Constitutional Vitals: Temp Pulse Resp BP Pulse Ox 98.2 F 87 18 131/74 99 08/04/21 16:15 08/04/21 16:15 08/04/21 16:15 08/04/21 16:15 08/04/21 16:15 General appearance: Present: no acute distress - EENT Eyes: Present: PERRL, EOM intact ENT: hearing intact, clear oral mucosa, dentition normal - Neck Neck: Present: supple, normal ROM - Respiratory Respiratory effort: normal - Cardiovascular Rhythm: regular Heart Sounds: Present: S1 & S2 - Extremities Extremities: no ischemia, pulses intact, pulses symmetrical Extremity abnormal: deformity (Contracture of left upper extremity) Peripheral Pulses: within normal limits - Abdominal General gastrointestinal: Present: soft, non-tender, non-distended, normal bowel sounds Female genitourinary: Present: deferred - Rectal Rectal Exam: deferred - Integumentary Integumentary: Present: clear, warm, dry - Musculoskeletal Musculoskeletal: left sided weakness (Left upper and left lower extremity) - Psychiatric Psychiatric: appropriate mood/affect, intact judgment & insight, memory intact, cooperative - Neurologic Neurologic: CNII-XII intact - Allied Health Allied health notes reviewed: nursing Plan Health Concerns: Return to the hospital if the following occurs: weakness, chest pain/pressure, shortness of breath. Assessment: Safe to discharge home. Follow up with: ARMANDO TINOCO MD [Primary Care Provider] - 7 Days NICOLLE LONG MD [Staff Physician] - 14 Days Other Discharge Orders: CT chest w con Location: None Selected
[2021-08-04] MEDS ORDERED: FAMOTIDINE 20 MG TAB PO SCH (22:00)
== END 2021-08-04 19:23 | disposition home health service (06) | DRG 281 ==
LOC: ED 10:20 → 4A 12:42 → OBSVTOIN 08-04 16:38
PROVIDERS: ADMIT Internal Medicine; ATTEND Student in an Organized Health Care Education/Training Program
PROC: 4A033R1 Measurement of Arterial Saturation, Peripheral, Percutaneous Approach (ICD-10-PCS; principal; 2021-08-04)
DX: I24.9 Acute ischemic heart disease, unspecified (principal); I21.A1 Myocardial infarction type 2; I69.354 Hemiplegia and hemiparesis following cerebral infarction affecting left non-dominant side; F17.213 Nicotine dependence, cigarettes, with withdrawal; I50.32 Chronic diastolic (congestive) heart failure; I11.0 Hypertensive heart disease with heart failure; Z88.6 Allergy status to analgesic agent; R91.1 Solitary pulmonary nodule
CPT/HCPCS: 36415; 36600; 71045; 71275; 78452; 80048; 80053; 81001; 82550; 82553; 82805; 83735; 83880; 84100; 84484; 85025; 85379; 85610; 85730; 93005; 93017; 94760; G0378; A9502; J1170; J1940; J2785; J7030; Q9967

== ENCOUNTER 2021-12-08 19:10 | Emergency (ER) | payer MEDICARE ==
--- NOTE | 2021-12-08 20:11 | Emergency Department Report ---
ED Chest Pain HPI - General Chief Complaint: Chest Pain Stated Complaint: CHEST PAIN PUI?: No Time Seen by Provider: 12/08/21 19:40 Source: patient, EMS, old records reviewed Mode of arrival: Stretcher Limitations: No Limitations - History of Present Illness Initial Comments: Chief complaint: "I think it is my anxiety. I take BuSpar." HPI: This is a 75-year-old female with a history of CVA, hypertension, dyslipidemia, tobacco dependence, diastolic heart failure, complicated migraine, spinal stenosis who presents with left-sided sharp chest pain rating to the left arm. Sharp pain with shortness of breath. Has had previous episodes requiring ED visit. 4 months ago August 03, 2021: Patient underwent myocardial perfusion imaging. ECG negative for ischemia. Nuclear findings negative for ischemia. Normal study with normal LV function. No regional wall motion abnormalities. During the same admission July 21, 2021, patient underwent CT angiogram of the chest, pulmonary thromboembolism ruled out. Patient did have bilateral pulmonary nodules with stable adrenal nodules. Last month October 21, 2021, patient was admitted for TIA evaluation. Echocardiogram at that time was obtained which revealed left ventricle normal size. Left ventricular systolic function to be normal. MD Complaint: chest pain -: Sudden, hour(s) (1-1/2 hours prior to arrival) Onset: during rest Pain Location: left chest Pain Radiation: LUE Severity: moderate Severity scale (0 -10): 0 Quality: sharp Consistency: now resolved Improves With: nothing Worsens With: nothing Treatments Prior to Arrival: other (EMS transport) - Related Data Home Medications Medication Instructions Recorded Confirmed Last Taken amLODIPine 5 mg PO DAILY 07/21/18 10/21/21 10/21/21 busPIRone [Buspar] 10 mg PO BID 07/21/18 10/21/21 10/21/21 Aspirin EC [Ecotrin] 162 mg PO QDAY 08/02/21 10/21/21 10/21/21 Previous Rx's Medication Instructions Recorded Last Taken Type Atorvastatin Calcium [Lipitor] 80 mg PO DAILY #30 tablet 10/25/21 Unknown Rx Allergies Allergy/AdvReac Type Severity Reaction Status Date / Time aspirin AdvReac Nausea Verified 08/02/21 10:57 blood thinners AdvReac Bleeding Uncoded 08/09/16 01:53 Heart Score - HEART Score History: Slightly suspicious EKG: Non-specific Age: > 65 Risk factors: > 3 risk factors or hx of atherosclerotic disease Troponin: < normal limit HEART Score: 5 - EKG Read Time Time EKG Completed: 20:15 EKG Read Time: 20:15 - Critical Actions Critical Actions: 4-6 pts:12-16.6% risk of adverse cardiac event. Should be admitted ED Review of Systems ROS: Stated complaint: CHEST PAIN Other details as noted in HPI Comment: All other systems reviewed and negative Constitutional: denies: chills, fever, malaise Respiratory: shortness of breath. denies: cough Cardiovascular: chest pain Gastrointestinal: denies: abdominal pain, nausea, vomiting ED Past Medical Hx - Past Medical History Previous Medical History?: Yes Hx Hypertension: Yes Hx CVA: Yes (old chart no mri documentation on previous admits for same left side weakne) Hx Heart Attack/AMI: No Hx Congestive Heart Failure: No Hx Diabetes: No Hx Liver Disease: No Hx Renal Disease: No Hx Asthma: No Hx COPD: No Hx HIV: No Additional medical history: Hx. left clavicle fx., h/o muscle spasms. 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, spinal stenosis - Surgical History Past Surgical History?: Yes Additional Surgical History: Herniated disk cspine 2001 C5-6, fusion,NECK SURGERY - Social History Smoking Status: Current Every Day Smoker Substance Use Type: None - Medications Home Medications: Home Medications Medication Instructions Recorded Confirmed Last Taken Type amLODIPine 5 mg PO DAILY 07/21/18 10/21/21 10/21/21 History busPIRone [Buspar] 10 mg PO BID 07/21/18 10/21/21 10/21/21 History Aspirin EC [Ecotrin] 162 mg PO QDAY 08/02/21 10/21/21 10/21/21 History Atorvastatin Calcium [Lipitor] 80 mg PO DAILY #30 tablet 10/25/21 Unknown Rx ED Physical Exam - General Limitations: No Limitations General appearance: alert, in no apparent distress - Head Head exam: Present: atraumatic, normocephalic - Eye Eye exam: Present: normal appearance - ENT ENT exam: Present: mucous membranes moist - Neck Neck exam: Present: normal inspection, full ROM - Respiratory Respiratory exam: Present: normal lung sounds bilaterally. Absent: respiratory distress, wheezes, rales, rhonchi - Cardiovascular Cardiovascular Exam: Present: regular rate, normal rhythm, normal heart sounds. Absent: systolic murmur, diastolic murmur, rubs, gallop - GI/Abdominal GI/Abdominal exam: Present: soft, normal bowel sounds. Absent: distended, tenderness, guarding, rebound - Extremities Exam Extremities exam: Present: normal inspection - Back Exam Back exam: Present: normal inspection - Neurological Exam Neurological exam: Present: alert, oriented X3 - Psychiatric Psychiatric exam: Present: normal affect, normal mood - Skin Skin exam: Present: warm, dry, intact, normal color. Absent: rash ED Course Vital Signs 12/08/21 19:29 Temperature 98.7 F Pulse Rate 95 H Respiratory 16 Rate Blood Pressure 150/82 [Left] O2 Sat by Pulse 100 Oximetry - Reevaluation(s) Reevaluation #1: 12/08/21 21:24 I reassessed patient. She states that she has left arm cramping due to spinal stenosis. She also states that she has had due to elevated blood pressure. Blood pressure is currently 163/85. She requests Flexeril and BuSpar. 12/08/21 21:25 ANDREA score - Andrea Score Age > 65: (1) Yes Aspirin use within the Past 7 Days: (1) Yes 3 or more CAD Risk Factors: (1) Yes 2 or more Angina events in past 24 hrs: (0) No Known CAD with more than 50% Stenosis: (0) No Elevated Cardiac Markers: (0) No ST Deviation Greater than 0.5mm: (0) No ANDREA Score: 3 ED Medical Decision Making - Lab Data Result diagrams: 12/08/21 20:20 12/08/21 20:20 Laboratory Results - last 24 hr 12/08/21 12/08/21 20:20 20:20 WBC 8.8 RBC 5.49 H Hgb 13.3 Hct 42.1 MCV 77 L MCH 24 L MCHC 32 RDW 17.6 H Plt Count 256 Lymph % (Auto) 34.2 [place] % (Auto) 5.7 Eos % (Auto) 1.0 Baso % (Auto) 0.6 Lymph # (Auto) 3.0 [place] # (Auto) 0.5 Eos # (Auto) 0.1 Baso # (Auto) 0.1 Seg Neutrophils % 58.5 Seg Neutrophils # 5.1 Sodium 140 Potassium 3.8 Chloride 104.2 Carbon Dioxide 21 L Anion Gap 19 BUN 9 Creatinine 0.7 Estimated GFR > 60 BUN/Creatinine Ratio 13 Glucose 121 H Calcium 9.2 Troponin T < 0.010 - EKG Data -: EKG Interpreted by Me EKG shows normal: sinus rhythm, axis, intervals, QRS complexes, ST-T waves Rate: normal - EKG Data Interpretation: normal EKG 12/08/21 21:26 EKG obtained 2014 EKG interpreted by me Rate 90 bpm normal sinus rhythm normal rate normal axis normal intervals no ST elevation no ST-T signs of ischemia normal EKG - Medical Decision Making This a 75-year-old female who presents with recurrent pain: Heart score 5 with several cardiovascular risk factors including tobacco dependence, dyslipidemia, hypertension, history of CVA. Ms. Hebert has had extensive cardiac evaluation at this hospital without evidence of coronary artery disease or cardiomyopathy. Considering her recent evaluation during 2 hospital encounters in July and October which included echocardiogram, myocardial perfusion scan and CT angiogram of the chest. Admission to the hospital not indicated for further evaluation of her stratification. Critical care attestation.: If time is entered above; I have spent that time in minutes in the direct care of this critically ill patient, excluding procedure time. ED Disposition Clinical Impression: Chest pain, Tension headache Disposition: HOME / SELF CARE / HOMELESS Is pt being admited?: No Does the pt Need Aspirin: No Condition: Stable Instructions: Nonspecific Chest Pain, Adult Referrals: PRIMARY CARE, [Referring] - 3-5 Days
[2021-12-08 21:03] LABS: Basophils # (Auto) 0.1 K/mm3 (0.0-0.1); Basophils % (Auto) 0.6 % (0.0-1.8); Eosinophils # (Auto) 0.1 K/mm3 (0.0-0.4); Hematocrit 42.1 % (30.3-42.9); Hemoglobin 13.3 gm/dl (10.1-14.3); Lymphocytes % (Auto) 34.2 % (13.4-35.0); Mean Corpuscular HGB Conc 32 % (30-34); Mean Corpuscular Volume 77 fl (79-97); Monocytes # (Auto) 0.5 K/mm3 (0.0-0.8); Monocytes % (Auto) 5.7 % (0.0-7.3); Platelet Count 256 K/mm3 (140-440); Red Blood Count 5.49 M/mm3 (3.65-5.03); Red Cell Distribution Width 17.6 % (13.2-15.2)
[2021-12-08 21:13] LABS: Blood Urea Nitrogen 9 mg/dL (7-17); Calcium 9.2 mg/dL (8.4-10.2); Hemolysis Index 9
[2021-12-08 21:14] LABS: BUN/Creatinine Ratio 13
[2021-12-08] MEDS ORDERED: CYCLOBENZAPRINE 10 MG TAB PO STA (21:27)
[2021-12-08] MEDS ORDERED: busPIRone 5 MG TAB PO STA (21:27)
[2021-12-08 22:02] VITALS: BP 154/85
--- NOTE | 2021-12-09 10:26 | Electrocardiograph Report ---
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
== END 2021-12-08 22:01 | disposition home or self-care (01) ==
LOC: ED 19:10
DX: R07.9 Chest pain, unspecified (principal); G44.209 Tension-type headache, unspecified, not intractable; I10 Essential (primary) hypertension; F17.200 Nicotine dependence, unspecified, uncomplicated; Z88.6 Allergy status to analgesic agent; Z88.8 Allergy status to other drugs, medicaments and biological substances
CPT/HCPCS: 36415; 80048; 84484; 85025; 93005; 93010; 99283